=== PATIENT | female | born 1935 | race Caucasian/White ===

== ENCOUNTER → 2016-08-18 | Outpatient (CLI) | payer BC ==
[~2016-08-18] MED LIST: ACET-1311 PO; ASCO500T16 PO; ASPEC81 PO; ASPI81TA28 PO; ATV5 PO; BCTRO EXT; BREWPOW PO; Boost Plus Vanilla PO; CHOL1000 PO; CHOL100027 PO; CHOL400C7 PO; CHOLTAB PO; COEN100C15 PO; DOCU-94 PO; DXM/4 INJ; DXM/4 PO; DXM4 PO; ENOX30IN SQ; GLUC15009 PO; GLYCDRO6 OPB; HMLI7525 SC; KPPSUDL500 PO; LEVE250T PO; LINE1TAB2 PO; LISI-461 PO; LISI-725 PO; LISI-792 PO; LPR25 PO; LPT40 PO; MAGN250T3 PO; MAGNESIUM PO; MCTP EXT; MULT-513 PO; ONDA4TAB65 PO; OXGN; PANT1INJ2 IV; RXC5 PO; SDMC1 PO; SENN-61 PO; ZLF50 PO; ZVRO EXT; [UNRECOGNIZED DRUG - CODE] IV; [UNRECOGNIZED DRUG - CODE] IV; [UNRECOGNIZED DRUG - OTHER]
[2016-08-18 17:00] LABS: MEAN CELL VOLUME 91.1 fL (80-100); MEAN CORPUSCULAR HEMOGLOBIN 29.4 pg (25-34); MEAN CORPUSCULAR HGB CONC 32.2 g/dl (32-36); PLATELET COUNT 193 K/uL (130-400); RED BLOOD COUNT 3.95 M/uL (4.2-5.4); WHITE BLOOD COUNT 6.12 K/uL (4.8-10.8)
[2016-08-18 18:05] LABS: ALT/SGPT 25 U/L (12-78); AST/SGOT 14 U/L (15-37); BLOOD UREA NITROGEN 36 mg/dl (7-18); BUN/CREATININE RATIO 41.1 (10-20); CALCIUM 9.7 mg/dl (8.5-10.1); CARBON DIOXIDE 30 mmol/L (21-32); CHLORIDE 102 mmol/L (98-107); CREATININE 0.87 mg/dl (0.60-1.20); GLUCOSE 89 mg/dl (70-99); POTASSIUM 4.2 mmol/L (3.5-5.1); SODIUM 141 mmol/L (136-145)
[2016-08-18 18:17] LABS: ALB/GLOB RATIO 1.3 (0.9-2); ALKALINE PHOSPHATASE 84 U/L (45-117)
--- NOTE | 2016-08-22 11:11 | CODING QUERY MEDICAL NECESSITY ---
SUPPORTING DIAGNOSIS NEEDED A supporting diagnosis is required for the test/procedure performed on this patient in order for us to be reimbursed by the patient's insurance. Please provide a supporting diagnosis for the following test/procedure listed below next to the test name along with your signature. *If there is no additional diagnosis for this patient that would support the following test/procedure please document that below next to the test/procedure. Test(s)/Procedure(s) that require a supporting diagnosis: DOS 08/18 * Vitamin D DIAGNOSIS: Provider Signature: Date: Thank you Trinh Malloy Health Information Management Once completed, please kindly fax back to [phone] For questions please call [phone]
== END | disposition home or self-care (01) ==
LOC: C.LABBC 14:27
PROVIDERS: ATTEND Internal Medicine Geriatric Medicine
DX: I10 Essential (primary) hypertension (principal); R73.9 Hyperglycemia, unspecified; R53.83 Other fatigue

== ENCOUNTER → 2016-09-02 | Outpatient (CLI) | payer BC ==
[2016-09-02 17:58] LABS: CHOLESTEROL/HDL RATIO 2.2
[2016-09-03 06:19] LABS: ESTIMATED AVERAGE GLUCOSE 117 mg/dl; HA1C FLAG Normal (Normal)
== END | disposition home or self-care (01) ==
LOC: C.LAB1850 16:33
PROVIDERS: ATTEND Internal Medicine Geriatric Medicine
DX: E78.5 Hyperlipidemia, unspecified (principal); R73.9 Hyperglycemia, unspecified

== ENCOUNTER → 2016-09-23 | Outpatient (CLI) | payer BC ==
--- NOTE | 2016-09-28 22:18 | POLYSOMNOGRAPH REPORT ---
CLINICAL DATA: A 80-year-old female with a BMI of 28.6 referred for a history of fatigue and exhaustion. On the evening of 09/24/2016, a home sleep apnea test was performed using a Data[employer]ot type 3 monitor. RECORDING RESULTS: Total recording time was 7.6 hours. The patient's estimated sleep time and patient monitoring time was 5.8 hours. RESPIRATORY DATA: Mild sleep apnea was documented. The MITCHELL was 8.3. There were 15 obstructive apneic episodes and 33 hypopneic episodes recorded. The longest respiratory event was 48 seconds. OXIMETRY DATA: Nocturnal hypoxemia was seen. Oxygen trinidad was 64%. Mean saturation was 89%. HEART RATE DATA: Heart rates ranged from 54-67 beats per minute. Snoring was recorded throughout the night. REVENUE INTEGRITY ANALYST'S COMMENTS: The patient came to the sleep lab at 2:30 AM in the morning for the geospatial technician to hook her up and then drove home after she was hooked up with the equipment running. IMPRESSION: Mild obstructive sleep apnea/hypopnea with an MITCHELL of 8.3 with nocturnal hypoxemia. RECOMMENDATIONS: The patient may benefit from a repeat sleep study with CPAP. MEED
--- NOTE | 2016-09-30 11:52 | CODING QUERY MEDICAL NECESSITY ---
SUPPORTING DIAGNOSIS NEEDED A supporting diagnosis is required for the test/procedure performed on this patient in order for us to be reimbursed by the patient's insurance. Please provide a supporting diagnosis for the following test/procedure listed below next to the test name along with your signature. *If there is no additional diagnosis for this patient that would support the following test/procedure please document that below next to the test/procedure. Test(s)/Procedure(s) that require a supporting diagnosis: * OP SLEEP STUDY DIAGNOSIS: * DOS: 09/23/16 Provider Signature: Date: Thank you Juana De La Vega Health Information Management Once completed, please kindly fax back to [phone] For questions please call [phone]
== END | disposition home or self-care (01) ==
LOC: C.NEUR 14:25
PROVIDERS: ATTEND Internal Medicine Geriatric Medicine
DX: R53.83 Other fatigue (principal); G47.30 Sleep apnea, unspecified

== ENCOUNTER → 2016-10-21 | Outpatient (CLI) | payer BC ==
[2016-10-21 12:47] LABS: BASO % 0.6 %; BASO ABS # 0.04 K/uL (0-0.2); COMPLETE YES; EOS % 2.5 %; HEMATOCRIT 38.7 % (37-47); IG% 0.3 %; LYMPH ABS # 1.04 K/uL (1.2-3.4); MEAN CELL VOLUME 91.5 fL (80-100); MEAN CORPUSCULAR HEMOGLOBIN 29.6 pg (25-34); MEAN CORPUSCULAR HGB CONC 32.3 g/dl (32-36); MEAN PLATELET VOLUME 11.9 fL (7.4-10.4); MONO % 10.5 %; NEUT % 70.1 %; PLATELET COUNT 228 K/uL (130-400); RED BLOOD COUNT 4.23 M/uL (4.2-5.4); WHITE BLOOD COUNT 6.49 K/uL (4.8-10.8)
[2016-10-21 13:24] LABS: ESTIMATED AVERAGE GLUCOSE 117 mg/dl; HA1C FLAG Normal (Normal)
== END | disposition home or self-care (01) ==
LOC: C.LAB1850 11:46
PROVIDERS: ATTEND Internal Medicine Geriatric Medicine
DX: D64.9 Anemia, unspecified (principal); R73.9 Hyperglycemia, unspecified

== ENCOUNTER 2016-12-05 16:42 | Inpatient (IN) | payer BC, OTHER ==
[~2016-12-05] VITALS: Ht 162.6 cm; Wt 54.5 kg
[~2016-12-05 16:42] MED LIST changes: -ACET-1311 PO; -ASCO500T16 PO; -ASPEC81 PO; -ASPI81TA28 PO; -ATV5 PO; -BCTRO EXT; -BREWPOW PO; -Boost Plus Vanilla PO; -CHOL1000 PO; -CHOL100027 PO; -CHOLTAB PO; -COEN100C15 PO; -DOCU-94 PO; -DXM/4 INJ; -DXM/4 PO; -DXM4 PO; -ENOX30IN SQ; -GLUC15009 PO; -HMLI7525 SC; -KPPSUDL500 PO; -LEVE250T PO; -LINE1TAB2 PO; -LISI-461 PO; -LISI-725 PO; -LPR25 PO; -LPT40 PO; -MAGN250T3 PO; -MCTP EXT; -MULT-513 PO; -ONDA4TAB65 PO; -OXGN; -PANT1INJ2 IV; -RXC5 PO; -SDMC1 PO; -SENN-61 PO; -ZLF50 PO; -ZVRO EXT; -[UNRECOGNIZED DRUG - CODE] IV; -[UNRECOGNIZED DRUG - CODE] IV; -[UNRECOGNIZED DRUG - OTHER]
[2016-12-05] MEDS ORDERED: COEN100C15 PO (18:25)
[2016-12-05] MEDS ORDERED: ASCO500T16 PO (18:25)
[2016-12-05 18:32] LABS: BASO % 0.2 %; BASO ABS # 0.02 K/uL (0-0.2); COMPLETE YES; EOS % 0.1 %; IG% 0.4 %; LYMPH % 6.2 %; LYMPH ABS # 0.74 K/uL (1.2-3.4); MEAN CELL VOLUME 92.6 fL (80-100); MEAN CORPUSCULAR HEMOGLOBIN 30.8 pg (25-34); MEAN CORPUSCULAR HGB CONC 33.3 g/dl (32-36); MEAN PLATELET VOLUME 10.8 fL (7.4-10.4); MONO % 11.1 %; PLATELET COUNT 199 K/uL (130-400); RED BLOOD COUNT 4.32 M/uL (4.2-5.4); WHITE BLOOD COUNT 11.89 K/uL (4.8-10.8)
[2016-12-05 18:52] LABS: ALT/SGPT 38 U/L (12-78); BLOOD UREA NITROGEN 28 mg/dl (7-18); BUN/CREATININE RATIO 32.9 (10-20); CARBON DIOXIDE 31 mmol/L (21-32); CHLORIDE 99 mmol/L (98-107); CREATININE 0.86 mg/dl (0.60-1.20); GLUCOSE 109 mg/dl (70-99); MAGNESIUM 2.6 mg/dl (1.8-2.4); POTASSIUM 4.1 mmol/L (3.5-5.1); SODIUM 137 mmol/L (136-145)
[2016-12-05] MEDS ORDERED: CHOL100027 PO (18:58)
[2016-12-05] MEDS ORDERED: LISI-461 PO (18:58)
[2016-12-05] MEDS ORDERED: MAGN250T3 PO (18:58)
[2016-12-05] MEDS ORDERED: GLUC15009 PO (18:58)
[2016-12-05] MEDS ORDERED: MULT-513 PO (18:58)
[2016-12-05] MEDS ORDERED: ASPI81TA28 PO (18:58)
[2016-12-05] MEDS ORDERED: BREWPOW PO (18:58)
[2016-12-05 19:03] LABS: ALKALINE PHOSPHATASE 67 U/L (45-117); AST/SGOT 21 U/L (15-37)
[2016-12-05 19:08] LABS: INR 0.9 (0.9-1.1); PARTIAL THROMBOPLASTIN RATIO 0.8
[2016-12-05 19:17] LABS: URINE APPEARANCE CLEAR (CLEAR); URINE BILIRUBIN NEG (NEG); URINE COLOR YELLOW; URINE NITRITE NEG (NEG); URINE SPECIFIC GRAVITY 1.006 (1.000-1.030); UROBILINOGEN NEG (NEG)
--- NOTE | 2016-12-05 19:31 | DIAGNOSTIC IMAGING REPORT ---
HEAD CT NONCONTRAST CT DOSE: 537.48 mGy.cm HISTORY: confusion TECHNIQUE: Multiaxial CT images of the head were performed without the use of intravenous contrast. Automated exposure control was utilized for this study. Comparison: Head CT 03/11/2016. Findings: The paranasal sinuses and mastoid air cells are clear. Left parietal scalp hematoma. There is an area of hypodensity within the right frontal lobe at the high convexity. This raises the possibility of vasogenic edema in the setting of an underlying mass. There appears to be a subtle heterogeneous mass within the left basal ganglia/external capsule which measures 2.5 x 2.3 cm. There is mild mass effect along the left lateral ventricle. No significant midline shift. No acute hemorrhage. Impression: 1. A 2.5 x 2.3 cm mass within the left basal gang/external capsule. 2. There is also an area of hypodensity within the right frontal lobe at the high convexity. This raises the possibility of vasogenic edema obscuring underlying mass. An area of infarct could also have a similar appearance. Follow-up brain MRI is recommended for further evaluation. 3. Left parietal scalp hematoma. 4. No intracranial hemorrhage identified. Electronically signed by: Omi Rivera M.D. 12/05/2016 7:30 PM Dictated Date/Time: 12/05/2016 7:22 PM
[2016-12-05 19:33] LABS: MANUAL MICROSCOPIC REQUIRED? NO; REVIEW REQ? NO
[2016-12-05 20:44] LABS: CALCIUM 9.8 mg/dl (8.5-10.1)
[2016-12-05] MEDS ORDERED: LORAZEPAM 2 MG/ML 1 ML VIAL IV STA (22:09)
--- NOTE | 2016-12-05 22:12 | EMERGENCY ROOM VISIT NOTE ---
History Report prepared by Ivan: Neelam Carter Under the Supervision of: Dr. Wellington Perry M.D. First contact with patient: 17:37 Chief Complaint: CONFUSION Stated Complaint: DISORIENTED,LOSS OF STRENGTH Nursing Triage Summary: Decreased appetite, general weakness and confusion today. History of Present Illness The patient is a 81 year old female who presents to the Emergency Room with complaints of intermittent generalized weakness that worsened 5 days ago. The patient's son states that when he came home from work today the patient was slumped over in her chair and was unable to lift her head up secondary to weakness. Her son adds that she has lost about 70% of her strength over the last two weeks and the patient adds that she has lost a significant amount of weight. The patient's son states that the patient is also experiencing worsening confusion. He states that she cannot recall who the president is even though they just watched it on the TV yesterday. The patient states that she can 't remember anything anymore. She is also experiencing generalized round ecchymotic spots, but denies any recent falls or trauma. Pt denies LOC, headache , fevers, chills, diaphoresis, visual changes, neck pain, chest pain, breathing difficulties, nausea, vomiting, abdominal pain, back pain, melena, hematochezia , urinary symptoms, numbness, lymphadenopathy, rash, or other complaints. The patient states that she hasn't felt well since she started using her sleep apnea machine about one month ago. The patient has been diagnosed with a leaky heart valve and a stiff heart. The patient's son adds that she is not eating well, which the patient states is because she does not have an appetite. The patient adds that her identical twin at the age of 42 secondary to breast cancer. The patient has a resting tremor. Source of History: patient, family (son) Onset: 5 days ago Position: other (global) Quality: other (generalized weakness) Timing: worsening Note: worsening confusion, generalized round ecchymotic spots, weight loss, loss of appetite Review of Systems See HPI for pertinent positives and negatives. A total of ten systems were reviewed and were otherwise negative. 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 Family History Cancer Heart disease Hypertension Kidney disease Kidney stones Social History Smoking Status: Never Smoker Marital Status: single Occupation Status: retired Current/Historical Medications Scheduled Ascorbic Acid (Ascorbic Acid), 500 MG PO DAILY Aspirin (Aspirin Ec), 81 MG PO DAILY Brewers Yeast (Brewers Yeast), 1 PO DAILY Cholecalciferol (Vitamin D 1000 Unit), 1,000 INTER.UNIT PO DAILY Coenzyme Q10 (Ubidecarenone) (Co Q10), 1 CAP PO DAILY Glucosamine Hydrochloride (Glucosamine), 1 TAB PO DAILY Lisinopril (Zestril), 10 MG PO DAILY Magnesium (Magnesium 250 mg), 1 TAB PO DAILY Multivitamins/Minerals (Mvi With Minerals), 1 TAB PO DAILY Allergies Coded Allergies: Penicillins (Unverified Allergy, Mild, 08/24/09) Physical Exam Vital Signs Date Time Temp Pulse Resp B/P Pulse Ox O2 Delivery O2 Flow Rate FiO2 12/05/16 21:51 78 127/66 95 Room Air 12/05/16 18:40 100 Room Air 12/05/16 18:40 75 21 150/72 100 Room Air 12/05/16 16:50 36.7 77 16 151/74 92 Room Air Physical Exam GENERAL: Awake, alert, well-appearing, in no distress HENT: Normocephalic, atraumatic. Oropharynx unremarkable. EYES: Normal conjunctiva. Sclera non-icteric. NECK: Supple. No nuchal rigidity. FROM. No JVD. RESPIRATORY: Clear to auscultation. CARDIAC: Regular rate, normal rhythm. Extremities warm and well perfused. Pulses equal. ABDOMEN: Soft, non-distended. No tenderness to palpation. No rebound or guarding. No masses. RECTAL: Deferred. MUSCULOSKELETAL: Chest examination reveals no tenderness. The back is symmetrical on inspection without obvious abnormality. There is no CVA tenderness to palpation. No joint edema. LOWER EXTREMITIES: Calves are equal size bilaterally and non-tender. No edema. No discoloration. NEURO: Normal sensorium. No sensory or motor deficits noted. Resting tremor present. SKIN: Scattered ecchymosis on upper and lower extremities. No rash or jaundice noted. Medical Decision & Procedures ER Provider Diagnostic Interpretation: Radiology results as stated below per my review and radiologist interpretation: HEAD CT NONCONTRAST Findings: The paranasal sinuses and mastoid air cells are clear. Left parietal scalp hematoma. There is an area of hypodensity within the right frontal lobe at the high convexity. This raises the possibility of vasogenic edema in the setting of an underlying mass. There appears to be a subtle heterogeneous mass within the left basal ganglia/external capsule which measures 2.5 x 2.3 cm. There is mild mass effect along the left lateral ventricle. No significant midline shift. No acute hemorrhage. Impression: 1. A 2.5 x 2.3 cm mass within the left basal gang/external capsule. 2. There is also an area of hypodensity within the right frontal lobe at the high convexity. This raises the possibility of vasogenic edema obscuring underlying mass. An area of infarct could also have a similar appearance. Follow-up brain MRI is recommended for further evaluation. 3. Left parietal scalp hematoma. 4. No intracranial hemorrhage identified. Electronically signed by: Omi iRvera M.D. 12/05/2016 7:30 PM Dictated Date/Time: 12/05/2016 7:22 PM Laboratory Results 12/05/16 18:20 Red Blood Count 4.32, Mean Corpuscular Volume 92.6, Mean Corpuscular Hemoglobin 30.8, Mean Corpuscular Hemoglobin Concent 33.3, Mean Platelet Volume 10.8, Neutrophils (%) (Auto) 82.0, Lymphocytes (%) (Auto) 6.2, Monocytes (%) (Auto) 11.1, Eosinophils (%) (Auto) 0.1, Basophils (%) (Auto) 0.2, Neutrophils # (Auto ) 9.75, Lymphocytes # (Auto) 0.74, Monocytes # (Auto) 1.32, Eosinophils # (Auto ) 0.01, Basophils # (Auto) 0.02 12/05/16 18:20 Test 12/05/16 18:00 12/05/16 18:20 Urine Color YELLOW Urine Appearance CLEAR (CLEAR) Urine pH 7.0 (4.5-7.5) Urine Specific [place] 1.006 (1.000-1.030) Urine Protein NEG (NEG) Urine Glucose (UA) NEG (NEG) Urine Ketones NEG (NEG) Urine Occult Blood NEG (NEG) Urine Nitrite NEG (NEG) Urine Bilirubin NEG (NEG) Urine Urobilinogen NEG (NEG) Urine Leukocyte Esterase NEG (NEG) White Blood Count 11.89 K/uL (4.8-10.8) Red Blood Count 4.32 M/uL (4.2-5.4) Hemoglobin 13.3 g/dL (12.0-16.0) Hematocrit 40.0 % (37-47) Mean Corpuscular Volume 92.6 fL (80-100) Mean Corpuscular Hemoglobin 30.8 pg (25-34) Mean Corpuscular Hemoglobin Concent 33.3 g/dl (32-36) Platelet Count 199 K/uL (130-400) Mean Platelet Volume 10.8 fL (7.4-10.4) Neutrophils (%) (Auto) 82.0 % Lymphocytes (%) (Auto) 6.2 % Monocytes (%) (Auto) 11.1 % Eosinophils (%) (Auto) 0.1 % Basophils (%) (Auto) 0.2 % Neutrophils # (Auto) 9.75 K/uL (1.4-6.5) Lymphocytes # (Auto) 0.74 K/uL (1.2-3.4) Monocytes # (Auto) 1.32 K/uL (0.11-0.59) Eosinophils # (Auto) 0.01 K/uL (0-0.5) Basophils # (Auto) 0.02 K/uL (0-0.2) RDW Standard Deviation 52.5 fL (36.4-46.3) RDW Coefficient of Variation 15.4 % (11.5-14.5) Immature Granulocyte % (Auto) 0.4 % Immature Granulocyte # (Auto) 0.05 K/uL (0.00-0.02) Prothrombin Time 10.0 SECONDS (9.0-12.0) Prothromb Time International Ratio 0.9 (0.9-1.1) Activated Partial Thromboplast Time 21.7 SECONDS (21.0-31.0) Partial Thromboplastin Ratio 0.8 Anion Gap 7.0 mmol/L (3-11) Est Creatinine Clear Calc Drug Dose 45.1 ml/min Estimated GFR () 73.9 Estimated GFR (Non- 63.8 BUN/Creatinine Ratio 32.9 (10-20) Calcium Level 9.8 mg/dl (8.5-10.1) Magnesium Level 2.6 mg/dl (1.8-2.4) Total Bilirubin 0.2 mg/dl (0.2-1) Direct Bilirubin < 0.1 mg/dl (0-0.2) Aspartate Amino Transf (AST/SGOT) 21 U/L (15-37) Alanine Aminotransferase (ALT/SGPT) 38 U/L (12-78) Alkaline Phosphatase 67 U/L (45-117) Troponin I 0.020 ng/ml (0-0.045) Total Protein 7.1 gm/dl (6.4-8.2) Albumin 3.8 gm/dl (3.4-5.0) Lipase 393 U/L (73-393) Thyroid Stimulating Hormone (TSH) 1.470 uIu/ml (0.300-4.500) Laboratory results reviewed by me ECG Indication: weakness Rate (beats per minute): 67 Rhythm: normal sinus Findings: no acute ischemic change, no ectopy ED Course 1744: The patient was evaluated in room B12. A complete history and physical exam was performed. 1927: Dr. Rivera - Radiology called to inform me about the patient's CT scan results. 2011: Upon reexamination, the patient was resting comfortably. I discussed the test results and treatment plan with the patient and her son. The patient will be evaluated for further management. Medical Decision Prior records/ancillary studies reviewed and summarized above. Nursing notes reviewed and agree them. Additional history obtained from family. The patient's history was concerning for intermittent altered mental status and weakness. Differential diagnosis: Etiologies such as infection, hypoglycemia, electrolyte abnormalities, cardiac sources, intracerebral event, toxicologic, neurologic, as well as others were entertained. Physical examination: As above. ER treatment provided: IV Lock Monitoring On reassessment the patient felt better. Diagnostics interpretation by me: ECG: Normal The labs revealed an unremarkable CBC and chemistry panel except for a subtle leukocytosis. Urinalysis was unremarkable. Imaging studies: CT scan as above. MRI pending. The patient has an abnormal head CT. I discussed the case with Dr. Omi Rivera of radiology. MRI imaging was recommended. Given the findings and change noted by patient and family further evaluation and management in the hospital will be necessary. Consultation: A consultation was placed with the hospitalist,Dr. Lincoln Herbert. The case was discussed and diagnostics were reviewed. The patient was evaluated in the ER for further treatment. The chart was completed utilizing [employer] Speech voice recognition software. Grammatical errors, random word insertions, pronoun errors, and incomplete sentences are an occasional consequence of this system due to software limitations, ambient noise, and hardware issues. Any formal questions or concerns about the content, text, or information contained within the body of this dictation should be directly addressed to the physician for clarification. Consults Time Called: 2021 Consulting Physician: Dr. Lemus - [facility] [place] Returned Call: [phone] Discussed the patient's history and physical as well as radiologic findings. He will evaluate the patient for further management. Impression Primary Impression: Altered mental status Additional Impression: Brain mass Scribe Attestation The scribe's documentation has been prepared under my direction and personally reviewed by me in its entirety. I confirm that the note above accurately reflects all work, treatment, procedures, and medical decision making performed by me. Departure Information Dispostion Being Evaluated By Hospitalist Referrals Issac Meza M.D. (PCP) Patient Instructions My [facility] Problem Qualifiers
[2016-12-05] MEDS ORDERED: DEXAMETHASONE INJ 10 MG in SYRINGE 0 ML IV SCH (22:15)
[2016-12-05] MEDS ORDERED: ACETAMINOPHEN 325 MG TAB PO PRN (22:15)
[2016-12-05] MEDS ORDERED: DEXAMETHASONE SOD INJ 4 MG/ML VIAL IV STA (22:20)
--- NOTE | 2016-12-05 23:25 | History and Physical ---
History & Physical Date & Time of Service: December 05, 2016 at 23:25 Chief Complaint: Disoriented,Loss Of Strength Primary Care Physician: Issac Meza M.D. History of Present Illness Source: patient, family The patient is an 81-year-old female who presents emergency department with complaint of intermittent generalized weakness and significant weight loss over the past 2 weeks. Her son also notes that she's had worsening confusion and memory loss. The patient reports that she hasn't been feeling well since she started her sleep apnea machine 1 month ago. The patient reports that she did not have much of an appetite, and her son confirms that she is not eating well. She has an identical twin who at age 42 with breast cancer. The patient has not had any recent travels or sick exposures. 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 Family History Cancer Heart disease Hypertension Kidney disease Kidney stones Social History Smoking Status: Never Smoker Smokeless Tobacco Use: No Alcohol Use: none Drug Use: none Marital Status: single Occupational Status: retired Multi-Drug Resistant Organisms History of MDRO: No Allergies Coded Allergies: Penicillins (Unverified Allergy, Mild, 08/24/09) Home Medications Scheduled Ascorbic Acid (Ascorbic Acid), 500 MG PO DAILY Aspirin (Aspirin Ec), 81 MG PO DAILY Brewers Yeast (Brewers Yeast), 1 PO DAILY Cholecalciferol (Vitamin D 1000 Unit), 1,000 INTER.UNIT PO DAILY Coenzyme Q10 (Ubidecarenone) (Co Q10), 1 CAP PO DAILY Glucosamine Hydrochloride (Glucosamine), 1 TAB PO DAILY Lisinopril (Zestril), 10 MG PO DAILY Magnesium (Magnesium 250 mg), 1 TAB PO DAILY Multivitamins/Minerals (Mvi With Minerals), 1 TAB PO DAILY Review of Systems The patient, along with her sons help, denies chest pain, palpitations, shortness of breath, cough, lower extremity swelling, vision change, hearing change, sore throat, fevers, chills, sweats, nausea, vomiting, abdominal pain, pelvic pain, blood in urine or stool, dysuria, urinary frequency or urgency, focal weakness, numbness or tingling in arms or legs, arthralgias or myalgias, back or neck pain, night sweats, or allergy symptoms. The review of systems is otherwise negative other than for that already noted above, and at least 10 systems have been reviewed. Physical Exam Vital Signs Date Time Temp Pulse Resp B/P Pulse Ox O2 Delivery O2 Flow Rate FiO2 12/05/16 21:51 78 127/66 95 Room Air 12/05/16 18:40 100 Room Air 12/05/16 18:40 75 21 150/72 100 Room Air 12/05/16 16:50 36.7 77 16 151/74 92 Room Air The patient is awake, alert and oriented 2, normocephalic and atraumatic, lying in bed and in no acute distress. HEENT--PERRL, EOMI, mucous membranes and oropharynx dry. Neck--supple, no JVD or bruits, thyroid normal, trachea midline, no adenopathy. Heart--normal S1 and S2, no extra beats, no murmurs, rubs or gallops. Lungs--clear bilaterally, no respiratory distress, no accessory muscle use. Abdomen--normal bowel sounds and soft, nontender and nondistended, no hernias or masses, no organomegaly. Extremities--no cyanosis, clubbing or edema. There are good distal pulses b/l. Dermatologic--normal skin turgor, normal color, warm and dry, no abnormal lymph nodes, no rash. Neurologic--cranial nerves II through XII grossly intact, tremor upper greater than lower extremities noted. Rheumatologic--normal range of motion, nontender, muscles and joints. Psychiatric--appears mildly anxious. Diagnostics Laboratory Results Results Past 24 Hours Test 12/05/16 18:00 12/05/16 18:20 Range/Units Urine Color YELLOW Urine Appearance CLEAR CLEAR Urine pH 7.0 4.5-7.5 Urine Specific [place] 1.006 1.000-1.030 Urine Protein NEG NEG Urine Glucose (UA) NEG NEG Urine Ketones NEG NEG Urine Occult Blood NEG NEG Urine Nitrite NEG NEG Urine Bilirubin NEG NEG Urine Urobilinogen NEG NEG Urine Leukocyte Esterase NEG NEG White Blood Count 11.89 4.8-10.8 K/uL Red Blood Count 4.32 4.2-5.4 M/uL Hemoglobin 13.3 12.0-16.0 g/dL Hematocrit 40.0 37-47 % Mean Corpuscular Volume 92.6 80-100 fL Mean Corpuscular Hemoglobin 30.8 25-34 pg Mean Corpuscular Hemoglobin Concent 33.3 32-36 g/dl Platelet Count 199 130-400 K/uL Mean Platelet Volume 10.8 7.4-10.4 fL Neutrophils (%) (Auto) 82.0 % Lymphocytes (%) (Auto) 6.2 % Monocytes (%) (Auto) 11.1 % Eosinophils (%) (Auto) 0.1 % Basophils (%) (Auto) 0.2 % Neutrophils # (Auto) 9.75 1.4-6.5 K/uL Lymphocytes # (Auto) 0.74 1.2-3.4 K/uL Monocytes # (Auto) 1.32 0.11-0.59 K/uL Eosinophils # (Auto) 0.01 0-0.5 K/uL Basophils # (Auto) 0.02 0-0.2 K/uL RDW Standard Deviation 52.5 36.4-46.3 fL RDW Coefficient of Variation 15.4 11.5-14.5 % Immature Granulocyte % (Auto) 0.4 % Immature Granulocyte # (Auto) 0.05 0.00-0.02 K/uL Prothrombin Time 10.0 9.0-12.0 SECONDS Prothromb Time International Ratio 0.9 0.9-1.1 Activated Partial Thromboplast Time 21.7 21.0-31.0 SECONDS Partial Thromboplastin Ratio 0.8 Sodium Level 137 136-145 mmol/L Potassium Level 4.1 3.5-5.1 mmol/L Chloride Level 99 98-107 mmol/L Carbon Dioxide Level 31 21-32 mmol/L Anion Gap 7.0 3-11 mmol/L Blood Urea Nitrogen 28 7-18 mg/dl Creatinine 0.86 0.60-1.20 mg/dl Est Creatinine Clear Calc Drug Dose 45.1 ml/min Estimated GFR () 73.9 Estimated GFR (Non- 63.8 BUN/Creatinine Ratio 32.9 10-20 Random Glucose 109 70-99 mg/dl Calcium Level 9.8 8.5-10.1 mg/dl Magnesium Level 2.6 1.8-2.4 mg/dl Total Bilirubin 0.2 0.2-1 mg/dl Direct Bilirubin < 0.1 0-0.2 mg/dl Aspartate Amino Transf (AST/SGOT) 21 15-37 U/L Alanine Aminotransferase (ALT/SGPT) 38 12-78 U/L Alkaline Phosphatase 67 45-117 U/L Troponin I 0.020 0-0.045 ng/ml Total Protein 7.1 6.4-8.2 gm/dl Albumin 3.8 3.4-5.0 gm/dl Lipase 393 73-393 U/L Thyroid Stimulating Hormone (TSH) 1.470 0.300-4.500 uIu/ml Microbiology Results 12/05/16 Urine Culture, Received Pending Diagnostic Radiology Patient Name: BRYAN JACOBO Unit Number: [id number] Dictated: 12/05/161921 Transcribed: 12/05/161921 [employer] Date/Time: [~ rep prt dt]/[~ rep prt tm] [~ rep ct labl] - [~ rep ct ivnm] [facility] [place] [address] Dictated: 12/05/161921 Transcribed: 12/05/161921 [employer] Date/Time: [~ rep prt dt]/[~ rep prt tm] [~ rep ct labl] - [~ rep ct ivnm] [~ rep ct add3]] HEAD CT NONCONTRAST CT DOSE: 537.48 mGy.cm HISTORY: confusion TECHNIQUE: Multiaxial CT images of the head were performed without the use of intravenous contrast. Automated exposure control was utilized for this study. Comparison: Head CT 03/11/2016. Findings: The paranasal sinuses and mastoid air cells are clear. Left parietal scalp hematoma. There is an area of hypodensity within the right frontal lobe at the high convexity. This raises the possibility of vasogenic edema in the setting of an underlying mass. There appears to be a subtle heterogeneous mass within the left basal ganglia/external capsule which measures 2.5 x 2.3 cm. There is mild mass effect along the left lateral ventricle. No significant midline shift. No acute hemorrhage. Impression: 1. A 2.5 x 2.3 cm mass within the left basal gang/external capsule. 2. There is also an area of hypodensity within the right frontal lobe at the high convexity. This raises the possibility of vasogenic edema obscuring underlying mass. An area of infarct could also have a similar appearance. Follow-up brain MRI is recommended for further evaluation. 3. Left parietal scalp hematoma. 4. No intracranial hemorrhage identified. Electronically signed by: Omi Rivera M.D. 12/05/2016 7:30 PM Dictated Date/Time: 12/05/2016 7:22 PM The status of this report is Signed. Draft = Not yet reviewed or approved by Radiologist. Signed = Reviewed and approved by Radiologist. <AttendingPhy></AttendingPhy> <FamilyPhy>Issac Meza M.D.</FamilyPhy> < PrimaryPhy>Issac Meza M.D.</PrimaryPhy> <UnitNumber>[id number]</UnitNumber > <VisitNumber>[id number]</VisitNumber> <PatientName>JACELalithaBRYAN</ PatientName> <DateOfBirth>1935</DateOfBirth> <Location>[facility]</Location> < ServiceDate>12/05/16</ServiceDate> <MNE>ESINDI</MNE> <OrderingPhy>Wellington Perry MD</OrderingPhy> <OrderingPhyMNE>f rep ord dr ramirez</OrderingPhyMNE> < DictatingPhyMNE>f rep dict dr ramirez</DictatingPhyMNE> <CCListMNE>f rep ct ashley</ CCListMNE> <AdmittingPhyMNE>f pt admit dr ramirez</AdmittingPhyMNE> <AttendingPhyMNE >f pt attend dr ramirez</AttendingPhyMNE> <ConsultingPhyMNE>f pt consult dr ramirez</ConsultingPhyMNE> <FamilyPhyMNE>f pt fam dr ramirez</FamilyPhyMNE> <OtherPhyMNE>f pt other dr ramirez</OtherPhyMNE> < PrimaryPhyMNE>f pt prim care dr ramirez</PrimaryPhyMNE> <ReferringPhyMNE>f pt referring dr ramirez</ReferringPhyMNE> EKG EKG shows normal sinus rhythm at 67 bpm, right bundle branch block, no acute ST- T changes. Impression Assessment and Plan 2.5 x 2.3 cm mass in the left basal ganglia,external capsule/right frontal lobe abnormality with possible vasogenic edema and underlying mass--the patient will be admitted to the telemetry unit for neurologic checks, and cardiac rhythm monitoring. We'll order an MRI the brain. We'll start Decadron 10 mg IV in the emergency department, and then continue at 4 mg IV every 6 hours. We'll consult oncology and neurology to see patient in the a.m. Continue aspirin 81 mg by mouth daily. Hypertension--continue lisinopril 10 mg by mouth daily. Nutraceuticals--continue ascorbic acid ,vitamin D, CoQ10, glucosamine, magnesium and multivitamin with minerals. Level of Care Telemetry Advanced Directives Existing Advance Directive: No Existing Living Will: No Existing Power of Brake Press Operator: No Resuscitation Status FULL RESUSCITATION VTE Prophylaxis VTE Risk Assessment Done? Y/N: Yes Risk Level: Moderate Given or contraindicated: T.EPavan Stockings, SCD's Social Service Consult >80 yr.& Lives Alone
[2016-12-05] MEDS ORDERED: DEXAMETHASONE INJ 10 MG in SYRINGE 0 ML IV STA (23:48)
[2016-12-06] VITALS (9 sets, daily range): BP systolic 111–136; BP diastolic 57–73; PULSE 64–81; TEMP 36.3–37; O2SAT 91–95; Ht 162.6 cm; Wt 54.5 kg
[2016-12-06] MEDS: DEXAMETHASONE INJ 4 MG in SYRINGE 0 ML IV SCH ×4 (05:55→23:27)
--- NOTE | 2016-12-06 06:29 | DIAGNOSTIC IMAGING REPORT ---
MRI OF THE BRAIN WITHOUT AND WITH IV CONTRAST CLINICAL HISTORY: abnormal head CT, confusion, ?mass vs infarct COMPARISON STUDY: CT study same date TECHNIQUE: Utilizing a 1.5 Skyla magnet and dedicated coil, multiplanar, multiecho imaging of the brain was performed pre and postcontrast administration. IV administration of 8.5 mL of Gadavist contrast was uneventful. FINDINGS: Enhancing lesion left external capsule measuring 2.5 x 2.0 cm. Surrounding vasogenic edema area tiny focus of enhancement right frontoparietal convexity with moderate surrounding vasogenic edema. No significant midline shift. Considerable chronic small vessel change throughout both cerebral hemispheres. Given the multiplicity of findings and metastatic process must be considered. Ventricular system is midline. No additional foci of enhancement are appreciated. IMPRESSION: 2 foci of vasogenic edema and postcontrast enhancement. No significant midline shift at the current time. A metastatic and a neoplastic process must be considered. Electronically signed by: Mt Hines M.D. 12/06/2016 6:27 AM Dictated Date/Time: 12/06/2016 6:19 AM
[2016-12-06] MEDS: CEROVITE ADV FORMULA TAB PO SCH (07:27)
[2016-12-06] MEDS: CHOLECALCIFEROL 1000 INTER.UNIT TAB PO SCH (07:27)
[2016-12-06] MEDS: ASPIRIN 81 MG ECTAB PO SCH (07:27)
[2016-12-06] MEDS: ASCORBIC ACID 500 MG TAB PO SCH (07:28)
[2016-12-06] MEDS: LISINOPRIL 10 MG TAB PO SCH (07:28)
[2016-12-06] MEDS ORDERED: NON-FORMULARY MEDICATION (Coenzyme Q10 (Ubidecarenone) (Co Q10) 1 CAP) PO SCH (09:00)
[2016-12-06] MEDS ORDERED: OPTIRAY 320 IV PRN (10:45)
--- NOTE | 2016-12-06 11:12 | Oncology Consultation ---
Oncology/Heme Consultation Date of Consultation: December 06, 2016. Attending Physician: Handy Vazquez D.O. Reason for Consultation: Brain mass History of Present Illness Ms. Mcgregor is an 81 year old woman with a history of HTN and HL. She was in generally good health until around September, when she began to notice increasing fatigue. Her appetite has been poor over that time and she has lost around 30 lb. She denies any cough, hemoptysis, fevers, night sweats, pain anywhere, vaginal bleeding, or urinary changes. She has been constipated and noticed some blood in her stool one time, though she thought it was because of straining. She also is chronically short of breath, though not more so now than usual. She is about a year overdue for screening mammography and has never had a colonoscopy. She had some right lung nodules noted on a CT in 2003 that were small and stable on follow up scans in 2004. She has a history of smoking for about 10 years in her 20s. She presents with fatigue, dizziness, and gait disturbance. A CT head and subsequent MRI reveal an enhancing lesion in the left external capsule measuring 2.5 x 2 cm with surrounding vasogenic edema. A second, tiny area of enhancement is seen in the right frontoparietal convexity with surrounding vasogenic edema. No mass effect or midline shift were noted. Past Medical/Surgical History Medical Problems: (1) Altered mental status Status: Acute (2) Brain mass Status: Acute (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 Family History Cancer Heart disease Hypertension Kidney disease Kidney stones Social History Smoking Status: Never Smoker Smokeless Tobacco Use: No Alcohol Use: none Drug Use: none Marital Status: single Occupation Status: retired Allergies Coded Allergies: Penicillins (Unverified Allergy, Mild, 08/24/09) Home Medications Scheduled Ascorbic Acid (Ascorbic Acid), 500 MG PO DAILY Aspirin (Aspirin Ec), 81 MG PO DAILY Brewers Yeast (Brewers Yeast), 1 PO DAILY Cholecalciferol (Vitamin D 1000 Unit), 1,000 INTER.UNIT PO DAILY Coenzyme Q10 (Ubidecarenone) (Co Q10), 1 CAP PO DAILY Glucosamine Hydrochloride (Glucosamine), 1 TAB PO DAILY Lisinopril (Zestril), 10 MG PO DAILY Magnesium (Magnesium 250 mg), 1 TAB PO DAILY Multivitamins/Minerals (Mvi With Minerals), 1 TAB PO DAILY Current Inpatient Medications Current Inpatient Medications Medications (Trade) Dose Ordered Sig/Cuco Route Start Time Stop Time Status Last Admin Dose Admin Acetaminophen (Tylenol Tab) 650 mg Q4H PRN PO 12/05/16 22:15 01/04/17 22:14 Ascorbic Acid (Vitamin C Tab) 500 mg DAILY PO 12/06/16 09:00 01/05/17 08:59 12/06/16 07:28 500 MG Aspirin (Ecotrin Tab) 81 mg DAILY PO 12/06/16 09:00 01/05/17 08:59 12/06/16 07:27 81 MG Cholecalciferol (Vitamin D Tab) 1,000 inter.unit DAILY PO 12/06/16 09:00 01/05/17 08:59 12/06/16 07:27 1,000 INTER.UNIT Lisinopril (Zestril Tab) 10 mg DAILY PO 12/06/16 09:00 01/05/17 08:59 12/06/16 07:28 10 MG Multivitamins/ Minerals 1 tab 1 tab DAILY PO 12/06/16 09:00 01/05/17 08:59 12/06/16 07:27 1 TAB Dexamethasone Sodium Phosphate/ Syringe (Decadron Inj/ Syringe) 1 ml @ 1 mls/min Q6H IV 12/06/16 06:00 01/05/17 05:59 12/06/16 05:55 1 MLS/MIN Ioversol (Optiray 320) 111 ml UD PRN IV 12/06/16 10:45 12/10/16 10:44 UNV Review of Systems Constitutional: + fatigue, + weakness, + weight loss, No chills, No fever Eyes: No worsening of vision ENT: No trouble swallowing Respiratory: + shortness of breath (chronic, stable), No cough, No hemoptysis Cardiovascular: No chest pain Abdomen: + GI bleeding (isolated episode, associated with straining bowel movement), No nausea, No pain, No vomiting Musculoskeletal: No joint pain, No muscle pain Genitourinary - Female: No dysuria, No hematuria, No vaginal bleeding Neurologic: + balance problems, No numbness/tingling, No weakness Hematologic / Lymphatic: No abnormal bleeding/bruising Integumentary: No new/changing skin lesions, No rash Physical Exam Date Time Temp Pulse Resp B/P Pulse Ox O2 Delivery O2 Flow Rate FiO2 12/06/16 08:00 93 Room Air 12/06/16 07:23 36.7 64 16 119/70 93 Room Air 12/06/16 04:13 Room Air 12/06/16 04:01 36.6 67 18 116/58 91 Room Air 12/06/16 00:01 37.0 70 16 118/57 91 Room Air 12/05/16 23:32 78 127/60 95 12/05/16 21:51 78 127/66 95 Room Air 12/05/16 18:40 100 Room Air 12/05/16 18:40 75 21 150/72 100 Room Air 12/05/16 16:50 36.7 77 16 151/74 92 Room Air General Appearance: no apparent distress, + thin ENT: pharynx normal Neck: supple, no adenopathy Respiratory/Chest: lungs clear, no accessory muscle use Cardiovascular: regular rate, rhythm, no murmur Abdomen/GI: non tender, soft, no organomegaly Extremities/Musculoskelatal: no pedal edema, non-tender Neurologic/Psych: custodian 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-XII nml as tested, alert, oriented x 3 Skin: no rash Lymphatic: no adenopathy Laboratory Results Last 24 Hours Test 12/05/16 18:00 12/05/16 18:20 Urine Color YELLOW Urine Appearance CLEAR Urine pH 7.0 Urine Specific [place] 1.006 Urine Protein NEG Urine Glucose (UA) NEG Urine Ketones NEG Urine Occult Blood NEG Urine Nitrite NEG Urine Bilirubin NEG Urine Urobilinogen NEG Urine Leukocyte Esterase NEG White Blood Count 11.89 K/uL Red Blood Count 4.32 M/uL Hemoglobin 13.3 g/dL Hematocrit 40.0 % Mean Corpuscular Volume 92.6 fL Mean Corpuscular Hemoglobin 30.8 pg Mean Corpuscular Hemoglobin Concent 33.3 g/dl Platelet Count 199 K/uL Mean Platelet Volume 10.8 fL Neutrophils (%) (Auto) 82.0 % Lymphocytes (%) (Auto) 6.2 % Monocytes (%) (Auto) 11.1 % Eosinophils (%) (Auto) 0.1 % Basophils (%) (Auto) 0.2 % Neutrophils # (Auto) 9.75 K/uL Lymphocytes # (Auto) 0.74 K/uL Monocytes # (Auto) 1.32 K/uL Eosinophils # (Auto) 0.01 K/uL Basophils # (Auto) 0.02 K/uL RDW Standard Deviation 52.5 fL RDW Coefficient of Variation 15.4 % Immature Granulocyte % (Auto) 0.4 % Immature Granulocyte # (Auto) 0.05 K/uL Prothrombin Time 10.0 SECONDS Prothromb Time International Ratio 0.9 Activated Partial Thromboplast Time 21.7 SECONDS Partial Thromboplastin Ratio 0.8 Sodium Level 137 mmol/L Potassium Level 4.1 mmol/L Chloride Level 99 mmol/L Carbon Dioxide Level 31 mmol/L Anion Gap 7.0 mmol/L Blood Urea Nitrogen 28 mg/dl Creatinine 0.86 mg/dl Est Creatinine Clear Calc Drug Dose 45.1 ml/min Estimated GFR () 73.9 Estimated GFR (Non- 63.8 BUN/Creatinine Ratio 32.9 Random Glucose 109 mg/dl Calcium Level 9.8 mg/dl Magnesium Level 2.6 mg/dl Total Bilirubin 0.2 mg/dl Direct Bilirubin < 0.1 mg/dl Aspartate Amino Transf (AST/SGOT) 21 U/L Alanine Aminotransferase (ALT/SGPT) 38 U/L Alkaline Phosphatase 67 U/L Troponin I 0.020 ng/ml Total Protein 7.1 gm/dl Albumin 3.8 gm/dl Lipase 393 U/L Thyroid Stimulating Hormone (TSH) 1.470 uIu/ml Assessment & Plan Ms. Mcgregor's MRI is certainly worrisome for a brain tumor. Possible etiologies include a primary CERTIFIED FORKLIFT OPERATOR malignancy, a CERTIFIED FORKLIFT OPERATOR lymphoma, or metastasis from another site. Multifocal lesions are more commonly metastases rather than primary CERTIFIED FORKLIFT OPERATOR cancers. She does not have any other localizing symptoms, aside from some constipation and an episode of rectal bleeding. The next step should be CTs of her chest, abdomen, and pelvis to evaluate for an occult primary. Given her stool symptoms, I would also consider checking an FOBT and, if the scans are not revealing, consideration for upper and lower endoscopy.
--- NOTE | 2016-12-06 11:29 | DIAGNOSTIC IMAGING REPORT ---
CHEST CT WITH CONTRAST CT DOSE: 430.62 mGy.cm HISTORY: Carcinoma Brain lesions on MRI, looking for lung primary TECHNIQUE: Multiaxial CT images of the chest were performed following the intravenous administration of contrast. COMPARISON: None. FINDINGS: The lungs are clear. The mediastinal vascular structures are within normal limits. No mediastinal or hilar lymphadenopathy. No pleural effusion or pneumothorax. Limited views of the upper abdomen demonstrate a normal liver and spleen. IMPRESSION: No significant abnormality identified within the chest. Electronically signed by: Mt Hines M.D. 12/06/2016 11:27 AM Dictated Date/Time: 12/06/2016 11:24 AM
--- NOTE | 2016-12-06 11:31 | DIAGNOSTIC IMAGING REPORT ---
ABDOMEN AND PELVIS CT WITH IV CONTRAST CT DOSE: HISTORY: Brain lesions on MRI, looking for primary cancer TECHNIQUE: Multiaxial CT images of the abdomen and pelvis were performed following the use of intravenous contrast. COMPARISON STUDY: None. FINDINGS: The lung bases are clear. The liver, spleen, gallbladder, pancreas, kidneys, and adrenal glands are within normal limits. No bowel wall thickening or obstruction. The pelvic organs are unremarkable. No suspicious lytic or blastic osseous lesions. IMPRESSION: No significant abnormality identified within the abdomen or pelvis. Electronically signed by: Mt Hines M.D. 12/06/2016 11:30 AM Dictated Date/Time: 12/06/2016 11:28 AM
--- NOTE | 2016-12-06 13:18 | Neurology Consultation ---
Neurology Consultation Date of Consultation: December 06, 2016. Attending Physician: Handy Vazquez D.O. Primary Care Physician: Issac Meza M.D. Reason for Consultation: Consultation for brain mass History of Present Illness Source: patient, hospital records This is a 81-year-old right-handed female who presents with a chief complaint of generalized weakness and mild altered mental status. Son reports that her thinking and mentation have been a little bit off for the last week but has been worse the last couple days. She is also been complaining about generalized weakness for the last month. She reports good appetite. She denies any abdominal pain. No chest pain or shortness of breath. Denies any focal weakness. She reports some long-standing numbness in neuropathy symptoms in her feet. Reports prediabetes. Denies any changes with her vision. Denies any headaches. Denies any changes with her speech. Denies any passing out or episodes concerning for seizures. That being said, son reports that there is a lot of unexplained bruises especially with 1 on the back of her head. No tongue biting or urinary incontinence. MRI of the brain reported images were reviewed by myself. Patient does have left external capsule 2 cm mass with edema and a tiny focus of enhancement in the right frontal parietal area with vasogenic edema. 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 Family History Family history significant for a sister and maternal grandmother with breast cancer. Cd and hypertension within the family. Patient also reports that her sister had childhood epilepsy that resolved as an adult. Social History Patient is normally independent in her activities of daily living. She lives alone but family is close by. Typically walks unassisted. Remote tobacco use. Smoking Status: Never smoker Smokeless Tobacco Use: No Alcohol Use: none Drug Use: none Marital Status: single Occupation Status: retired Allergies Coded Allergies: Penicillins (Unverified Allergy, Mild, 08/24/09) Current Inpatient Medications Current Inpatient Medications Medications (Trade) Dose Ordered Sig/Cuco Route Start Time Stop Time Status Last Admin Dose Admin Acetaminophen (Tylenol Tab) 650 mg Q4H PRN PO 12/05/16 22:15 01/04/17 22:14 Ascorbic Acid (Vitamin C Tab) 500 mg DAILY PO 12/06/16 09:00 01/05/17 08:59 12/06/16 07:28 500 MG Aspirin (Ecotrin Tab) 81 mg DAILY PO 12/06/16 09:00 01/05/17 08:59 12/06/16 07:27 81 MG Cholecalciferol (Vitamin D Tab) 1,000 inter.unit DAILY PO 12/06/16 09:00 01/05/17 08:59 12/06/16 07:27 1,000 INTER.UNIT Lisinopril (Zestril Tab) 10 mg DAILY PO 12/06/16 09:00 01/05/17 08:59 12/06/16 07:28 10 MG Multivitamins/ Minerals 1 tab 1 tab DAILY PO 12/06/16 09:00 01/05/17 08:59 12/06/16 07:27 1 TAB Dexamethasone Sodium Phosphate/ Syringe (Decadron Inj/ Syringe) 1 ml @ 1 mls/min Q6H IV 12/06/16 06:00 01/05/17 05:59 12/06/16 12:39 1 MLS/MIN Ioversol (Optiray 320) 111 ml UD PRN IV 12/06/16 10:45 12/10/16 10:44 Review of Systems Complete review of systems otherwise negative except for the above noted in history of present illness Physical Exam Vital Signs (Past 24 Hrs): Date Time Temp Pulse Resp B/P Pulse Ox O2 Delivery O2 Flow Rate FiO2 12/06/16 12:01 93 Room Air 12/06/16 11:45 36.7 71 18 130/72 94 Room Air 12/06/16 08:00 93 Room Air 12/06/16 07:23 36.7 64 16 119/70 93 Room Air 12/06/16 04:13 Room Air 12/06/16 04:01 36.6 67 18 116/58 91 Room Air 12/06/16 00:01 37.0 70 16 118/57 91 Room Air 12/05/16 23:32 78 127/60 95 12/05/16 21:51 78 127/66 95 Room Air 12/05/16 18:40 100 Room Air 12/05/16 18:40 75 21 150/72 100 Room Air 12/05/16 16:50 36.7 77 16 151/74 92 Room Air Gen.: Patient is alert and sitting in bed, in no acute distress. HEENT: Normocephalic /atraumatic, no scleral icterus Heart: Regular rate and rhythm Extremities: No gross deformities or rashes noted Neurological examination: Mental status: Patient is alert and oriented x3. Attention and concentration normal for the situation. Good fund of knowledge. Able to give her own history. Speech is fluent without any dysarthria or aphasia noted Cranial nerve: Funduscopic examination was unremarkable. No papilledema. Pupils equally round and reactive to light. Extraocular muscles intact without nystagmus. No facial asymmetry noted. Facial sensation intact. Tongue is midline. Good palatal elevation. Good shoulder shrug bilaterally. Hearing grossly intact to voice. Strength: 4/5 proximal extremities 4 and 5/5 distally extremities x4. There is no arm drift. Tone is normal. Sensation: Grossly intact to light touch in all extremities. Deep tendon reflexes: +1 in bilateral biceps, brachioradialis and patellar. Coordination: Patient had good finger to nose without dysmetria Station within the bed was normal Laboratory Results Past 24 Hours: 12/05/16 18:20 Red Blood Count 4.32, Mean Corpuscular Volume 92.6, Mean Corpuscular Hemoglobin 30.8, Mean Corpuscular Hemoglobin Concent 33.3, Mean Platelet Volume 10.8, Neutrophils (%) (Auto) 82.0, Lymphocytes (%) (Auto) 6.2, Monocytes (%) (Auto) 11.1, Eosinophils (%) (Auto) 0.1, Basophils (%) (Auto) 0.2, Neutrophils # (Auto ) 9.75, Lymphocytes # (Auto) 0.74, Monocytes # (Auto) 1.32, Eosinophils # (Auto ) 0.01, Basophils # (Auto) 0.02 12/05/16 18:20 Test 12/05/16 18:00 12/05/16 18:20 12/06/16 12:03 Urine Color YELLOW Urine Appearance CLEAR (CLEAR) Urine pH 7.0 (4.5-7.5) Urine Specific [place] 1.006 (1.000-1.030) Urine Protein NEG (NEG) Urine Glucose (UA) NEG (NEG) Urine Ketones NEG (NEG) Urine Occult Blood NEG (NEG) Urine Nitrite NEG (NEG) Urine Bilirubin NEG (NEG) Urine Urobilinogen NEG (NEG) Urine Leukocyte Esterase NEG (NEG) White Blood Count 11.89 K/uL (4.8-10.8) Red Blood Count 4.32 M/uL (4.2-5.4) Hemoglobin 13.3 g/dL (12.0-16.0) Hematocrit 40.0 % (37-47) Mean Corpuscular Volume 92.6 fL (80-100) Mean Corpuscular Hemoglobin 30.8 pg (25-34) Mean Corpuscular Hemoglobin Concent 33.3 g/dl (32-36) Platelet Count 199 K/uL (130-400) Mean Platelet Volume 10.8 fL (7.4-10.4) Neutrophils (%) (Auto) 82.0 % Lymphocytes (%) (Auto) 6.2 % Monocytes (%) (Auto) 11.1 % Eosinophils (%) (Auto) 0.1 % Basophils (%) (Auto) 0.2 % Neutrophils # (Auto) 9.75 K/uL (1.4-6.5) Lymphocytes # (Auto) 0.74 K/uL (1.2-3.4) Monocytes # (Auto) 1.32 K/uL (0.11-0.59) Eosinophils # (Auto) 0.01 K/uL (0-0.5) Basophils # (Auto) 0.02 K/uL (0-0.2) RDW Standard Deviation 52.5 fL (36.4-46.3) RDW Coefficient of Variation 15.4 % (11.5-14.5) Immature Granulocyte % (Auto) 0.4 % Immature Granulocyte # (Auto) 0.05 K/uL (0.00-0.02) Prothrombin Time 10.0 SECONDS (9.0-12.0) Prothromb Time International Ratio 0.9 (0.9-1.1) Activated Partial Thromboplast Time 21.7 SECONDS (21.0-31.0) Partial Thromboplastin Ratio 0.8 Anion Gap 7.0 mmol/L (3-11) Est Creatinine Clear Calc Drug Dose 45.1 ml/min Estimated GFR () 73.9 Estimated GFR (Non- 63.8 BUN/Creatinine Ratio 32.9 (10-20) Calcium Level 9.8 mg/dl (8.5-10.1) Magnesium Level 2.6 mg/dl (1.8-2.4) Total Bilirubin 0.2 mg/dl (0.2-1) Direct Bilirubin < 0.1 mg/dl (0-0.2) Aspartate Amino Transf (AST/SGOT) 21 U/L (15-37) Alanine Aminotransferase (ALT/SGPT) 38 U/L (12-78) Alkaline Phosphatase 67 U/L (45-117) Troponin I 0.020 ng/ml (0-0.045) Total Protein 7.1 gm/dl (6.4-8.2) Albumin 3.8 gm/dl (3.4-5.0) Lipase 393 U/L (73-393) Thyroid Stimulating Hormone (TSH) 1.470 uIu/ml (0.300-4.500) Stool Occult Blood NEGATIVE (NEGATIVE) Date/Time Source Procedure Growth Status 12/05/16 18:00 Urine , Clean Catch Urine Culture - Final MORE THAN THREE TYPES OF ORGANISMS ID... Complete Imaging As noted above in history of present illness Impression This is an 81-year-old female who presents with weakness, weight loss, and mild worsening cognitive changes with left external capsule and right frontoparietal mass likely consistent with metastatic disease. Patient has not had any known clinical seizures, but does have some unexplained bruises which could be multifactorial. Plan Recommend a routine EEG either as an inpatient on Thursday or as an outpatient to rule out epileptiform discharges that could indicate unrecognized seizures that would need treatment. If concern for seizures, patient will need neurological follow-up. Otherwise if no signs or concerns for seizures, neurological follow-up is not needed. Follow-up with oncology regarding workup and treatment for likely metastatic cancer. Patient may benefit from physical therapy with generalized weakness. Could also consider speech therapy for cognitive evaluation and treatment. Thank you for allowing me to participate in this patient's care. If there is any questions or concerns, feel free to call/page me.
--- NOTE | 2016-12-06 16:14 | Progress Note ---
Subjective Date of Service: December 06, 2016. Subjective Pt evaluation today including: conversation w/ patient, conversation w/ family (son), physical exam, lab review, review of studies, conversation w/ senior science consultant , review of inpatient medication list Pain: denies pain PO Intake: poor at home Voiding: no voiding problems long discussion with patient and son at the bedside, spent 20 minutes with patient also, discussed case in detail with Dr. Anders as well as Dr. Christensen explained the findings on MRI to patient and the son, also gave results of CT chest and A/P, no obvious signs of malignancy patient has been getting weak and has been losing weight her balance has been off, no reported falls by patient or the son, however, she is covered with bruises bruises on back of head, legs, arms, back shoulder, they deny falls or trauma platelets and coags normal discussed plan to get therapy ordered and continue work up of brain lesion, may need to go to tertiary care for neurosurgery Problem List Medical Problems: (1) Altered mental status Status: Acute (2) Brain mass Status: Acute (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 Review of Systems Constitutional: + fatigue, + weakness, + weight loss (20 lbs in past few months ) Respiratory: + problem reported (using CPAP, difficulty at first, started a few weeks ago) Abdomen: + problem reported (eating less, focused on counting carbs) Neurologic: + balance problems, + memory loss, + weakness (denies any focal neuro deficits) Skin: + problem reported (diffuse bruises, patient and son seemed unaware) All Other Systems: Reviewed and Negative Medications Current Inpatient Medications Medications (Trade) Dose Ordered Sig/Cuco Route Start Time Stop Time Status Last Admin Dose Admin Acetaminophen (Tylenol Tab) 650 mg Q4H PRN PO 12/05/16 22:15 01/04/17 22:14 Ascorbic Acid (Vitamin C Tab) 500 mg DAILY PO 12/06/16 09:00 01/05/17 08:59 12/06/16 07:28 500 MG Aspirin (Ecotrin Tab) 81 mg DAILY PO 12/06/16 09:00 01/05/17 08:59 12/06/16 07:27 81 MG Cholecalciferol (Vitamin D Tab) 1,000 inter.unit DAILY PO 12/06/16 09:00 01/05/17 08:59 12/06/16 07:27 1,000 INTER.UNIT Lisinopril (Zestril Tab) 10 mg DAILY PO 12/06/16 09:00 01/05/17 08:59 12/06/16 07:28 10 MG Multivitamins/ Minerals 1 tab 1 tab DAILY PO 12/06/16 09:00 01/05/17 08:59 12/06/16 07:27 1 TAB Dexamethasone Sodium Phosphate/ Syringe (Decadron Inj/ Syringe) 1 ml @ 1 mls/min Q6H IV 12/06/16 06:00 01/05/17 05:59 12/06/16 12:39 1 MLS/MIN Ioversol (Optiray 320) 111 ml UD PRN IV 12/06/16 10:45 12/10/16 10:44 Objective Vital Signs Date Time Temp Pulse Resp B/P Pulse Ox O2 Delivery O2 Flow Rate FiO2 12/06/16 15:38 36.3 67 17 136/73 92 Room Air 12/06/16 12:01 93 Room Air 12/06/16 11:45 36.7 71 18 130/72 94 Room Air 12/06/16 08:00 93 Room Air 12/06/16 07:23 36.7 64 16 119/70 93 Room Air 12/06/16 04:13 Room Air 12/06/16 04:01 36.6 67 18 116/58 91 Room Air 12/06/16 00:01 37.0 70 16 118/57 91 Room Air 12/05/16 23:32 78 127/60 95 12/05/16 21:51 78 127/66 95 Room Air 12/05/16 18:40 100 Room Air 12/05/16 18:40 75 21 150/72 100 Room Air 12/05/16 16:50 36.7 77 16 151/74 92 Room Air Physical Exam General Appearance: no apparent distress, + thin Eyes: normal inspection, PERRL, EOMI, sclerae normal ENT: normal ENT inspection, hearing grossly normal, pharynx normal Neck: supple, no adenopathy, no JVD, trachea midline Respiratory/Chest: chest non-tender, lungs clear, normal breath sounds, no respiratory distress, no accessory muscle use Cardiovascular: regular rate, rhythm, no edema, no gallop, no JVD, no murmur Abdomen: normal bowel sounds, non tender, soft, no organomegaly Extremities: normal range of motion, non-tender, no pedal edema, no calf tenderness, normal capillary refill, pelvis stable Neurologic/Psychiatric: 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 No significant midline shift at the current time. A metastatic and a neoplastic process must be considered. Last 24 Hours Test 12/05/16 18:00 12/05/16 18:20 12/06/16 12:03 Urine Color YELLOW Urine Appearance CLEAR Urine pH 7.0 Urine Specific [place] 1.006 Urine Protein NEG Urine Glucose (UA) NEG Urine Ketones NEG Urine Occult Blood NEG Urine Nitrite NEG Urine Bilirubin NEG Urine Urobilinogen NEG Urine Leukocyte Esterase NEG White Blood Count 11.89 K/uL Red Blood Count 4.32 M/uL Hemoglobin 13.3 g/dL Hematocrit 40.0 % Mean Corpuscular Volume 92.6 fL Mean Corpuscular Hemoglobin 30.8 pg Mean Corpuscular Hemoglobin Concent 33.3 g/dl Platelet Count 199 K/uL Mean Platelet Volume 10.8 fL Neutrophils (%) (Auto) 82.0 % Lymphocytes (%) (Auto) 6.2 % Monocytes (%) (Auto) 11.1 % Eosinophils (%) (Auto) 0.1 % Basophils (%) (Auto) 0.2 % Neutrophils # (Auto) 9.75 K/uL Lymphocytes # (Auto) 0.74 K/uL Monocytes # (Auto) 1.32 K/uL Eosinophils # (Auto) 0.01 K/uL Basophils # (Auto) 0.02 K/uL RDW Standard Deviation 52.5 fL RDW Coefficient of Variation 15.4 % Immature Granulocyte % (Auto) 0.4 % Immature Granulocyte # (Auto) 0.05 K/uL Prothrombin Time 10.0 SECONDS Prothromb Time International Ratio 0.9 Activated Partial Thromboplast Time 21.7 SECONDS Partial Thromboplastin Ratio 0.8 Sodium Level 137 mmol/L Potassium Level 4.1 mmol/L Chloride Level 99 mmol/L Carbon Dioxide Level 31 mmol/L Anion Gap 7.0 mmol/L Blood Urea Nitrogen 28 mg/dl Creatinine 0.86 mg/dl Est Creatinine Clear Calc Drug Dose 45.1 ml/min Estimated GFR () 73.9 Estimated GFR (Non- 63.8 BUN/Creatinine Ratio 32.9 Random Glucose 109 mg/dl Calcium Level 9.8 mg/dl Magnesium Level 2.6 mg/dl Total Bilirubin 0.2 mg/dl Direct Bilirubin < 0.1 mg/dl Aspartate Amino Transf (AST/SGOT) 21 U/L Alanine Aminotransferase (ALT/SGPT) 38 U/L Alkaline Phosphatase 67 U/L Troponin I 0.020 ng/ml Total Protein 7.1 gm/dl Albumin 3.8 gm/dl Lipase 393 U/L Thyroid Stimulating Hormone (TSH) 1.470 uIu/ml Stool Occult Blood NEGATIVE Assessment and Plan 81 yo female who presented due to profound weakness and some confusion, brought by her son, found to have 2.5x2.3 brain lesion on head CT in left internal capsule - Brain lesions: one large and one tiny lesion seen on MRI brain, either primary or metastatic appreciate recommendations from oncology for work up CT chest and A/P - read as normal but uterus appears large and loops of bowel will get pelvic US, check FOBT (if positive then consult GI) if no primary lesion can be found, would need brain biopsy and referral to tertiary care - Diffuse bruising: unclear etiology, normal platelets and coags patient's house described as hoarding, very narrow walkways of clutter, hard sharp objects no reported falls per patient or son will talk with other family members, may need to discuss with [facility] - Weakness: consult PT/OT, certainly appears too weak to go home safely she was driving prior to admission, will recommend she stop driving pursue [place] [employer] form tomorrow brain lesion would put at risk for seizures
[2016-12-07] VITALS (9 sets, daily range): BP systolic 124–135; BP diastolic 74–79; PULSE 53–78; TEMP 36.6–36.8; O2SAT 93–96
[2016-12-07] MEDS: DEXAMETHASONE INJ 4 MG in SYRINGE 0 ML IV SCH ×2 (05:26→12:36)
[2016-12-07] MEDS: ASCORBIC ACID 500 MG TAB PO SCH (07:11)
[2016-12-07] MEDS: ASPIRIN 81 MG ECTAB PO SCH (07:12)
[2016-12-07] MEDS: LISINOPRIL 10 MG TAB PO SCH (07:12)
[2016-12-07] MEDS: CEROVITE ADV FORMULA TAB PO SCH (07:12)
[2016-12-07] MEDS: CHOLECALCIFEROL 1000 INTER.UNIT TAB PO SCH (07:12)
--- NOTE | 2016-12-07 10:24 | DIAGNOSTIC IMAGING REPORT ---
PELVIC ULTRASOUND, TRANSABDOMINAL HISTORY: Uterus enlarged on CT COMPARISON: Abdomen and pelvis CT 12/06/2016. FINDINGS: The patient deferred transvaginal scanning. Uterus: 8.2 x 5.3 x 4.7 cm. There is a 4 cm hypoechoic mass within the uterine fundus. Endometrial stripe: 4 mm in thickness. Right ovary: Obscured by overlying bowel gas. Left ovary: Obscured by overlying bowel gas. Miscellaneous:No pelvic free fluid. IMPRESSION: A 4 cm hypoechoic mass within the uterine fundus. This versus a fibroid. Electronically signed by: Omi Rivera M.D. 12/07/2016 10:22 AM Dictated Date/Time: 12/07/2016 10:20 AM
--- NOTE | 2016-12-07 10:53 | Hematology/Oncology Prog Note ---
Hematology/Onc Progress Note Date of Service December 07, 2016. Diagnoses Brain masses Medications Medications Administered Medications (Trade) Dose Ordered Sig/Cuco Route Start Time Stop Time Status Last Admin Dose Admin Lorazepam (Ativan Inj) 1 mg NOW STAT IV 12/05/16 22:09 12/05/16 22:16 DC 12/05/16 22:27 1 MG Ascorbic Acid (Vitamin C Tab) 500 mg DAILY PO 12/06/16 09:00 01/05/17 08:59 12/07/16 07:11 500 MG Aspirin (Ecotrin Tab) 81 mg DAILY PO 12/06/16 09:00 01/05/17 08:59 12/07/16 07:12 81 MG Cholecalciferol (Vitamin D Tab) 1,000 inter.unit DAILY PO 12/06/16 09:00 01/05/17 08:59 12/07/16 07:12 1,000 INTER.UNIT Lisinopril (Zestril Tab) 10 mg DAILY PO 12/06/16 09:00 01/05/17 08:59 12/07/16 07:12 10 MG Multivitamins/ Minerals 1 tab 1 tab DAILY PO 12/06/16 09:00 01/05/17 08:59 12/07/16 07:12 1 TAB Dexamethasone Sodium Phosphate 4 mg/Syringe 1 ml @ 1 mls/min Q6H IV 12/06/16 06:00 01/05/17 05:59 12/07/16 05:26 1 MLS/MIN Dexamethasone Sodium Phosphate/ Syringe (Decadron Inj/ Syringe) 2.5 ml @ 1 mls/min NOW STAT IV 12/05/16 23:48 12/05/16 23:50 DC 12/06/16 00:44 1 MLS/MIN Subjective Ms. Mcgregor is comfortable in bed. She had no acute events overnight. She continues to have no complaints or new symptoms. Review of Systems: Constitutional: + fatigue, + weakness, No fever Eyes: No worsening of vision Respiratory: No cough, No shortness of breath Cardiovascular: No chest pain Abdomen: No nausea, No pain, No vomiting Musculoskeletal: No joint pain, No muscle pain Female : No abnormal vaginal bleeding, No dysuria Neurologic: No paralysis, No weakness Skin: No rash Vital Signs Vital Signs Past 12 Hours Date Time Temp Pulse Resp B/P Pulse Ox O2 Delivery O2 Flow Rate FiO2 12/07/16 08:00 95 Room Air 12/07/16 07:30 36.8 54 16 125/76 95 Room Air 12/07/16 04:17 36.6 62 18 134/79 96 Room Air 12/07/16 04:00 Room Air 12/07/16 00:00 Room Air 12/06/16 23:38 36.8 72 20 111/66 95 Room Air Physical Exam Constitutional: General Apperance: too thin (frail appearing) Level of Distress: NAD Psychiatric: Mental Status: active & alert Orientation: oriented except where noted Eyes: EOM: EOMI Lungs: Respiratory Effort: no dyspnea Auscuitation: CTA except as noted Cardiovascular: Heart Auscultation: RRR Abdomen: Inspection & Palpation: soft, no tenderness, guarding & rebound Extremities: no edema Laboratory Last 24 Hours Test 12/06/16 12:03 Stool Occult Blood NEGATIVE Assessment & Plan Her CT revealed an enlarged uterus and an ultrasound reveals a 4 cm hypoechoic mass that favors a fibroid. We could consider reviewing this imaging with [facility] or obtaining a pap smear to look for neoplastic cells. Her FOBT was negative, but it was only x1 and that does not necessarily rule out a GI primary. I would also consider a GI consultation to discuss the role of endoscopy and colonoscopy. If no primary lesion can be identified, the next step for her would be referral to neurosurgery for biopsy. Her son seemed very resistant to this idea, though she did not express much of an opinion either way. We will continue to follow.
--- NOTE | 2016-12-07 15:13 | Progress Note ---
Subjective Date of Service: December 07, 2016. Subjective Pt evaluation today including: conversation w/ patient, conversation w/ family (daughter, son in law, two sons, earlier talked with another son from [place] ), physical exam, lab review, review of studies, conversation w/ automotive service consultant, review of inpatient medication list Pain: no pain PO Intake: adequate Voiding: no voiding problems long discussion with family present at the bedside including daughter, son in law, two sons earlier today I updated son James over the phone who lives in [place] discussed that currently the only finding we have are the brain lesions on CT and MRI evaluation for another primary source have not given any positive results FOBT was negative, Dr. Anders would like to ask GI if they would consider colonoscopy Pelvic US - fibroid 4cm social issues of safety at home are also a concern PT and OT (talked with personally) recommend 24 hour care at a minimum patient has poor coordination, she is largely impulsive, little awareness of safety (tried to flush toilet with her foot) she is covered with bruises over entire body, likely from falls her son who lives with her said he will take care of her but I do not think he grasps what this entails, he was already talking about leaving the house explained that the patient cannot drive any more due to safety concerns she understands and family understands Problem List Medical Problems: (1) Altered mental status Status: Acute (2) Brain mass Status: Acute (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 Review of Systems Constitutional: + fatigue, + weakness Neurologic: + balance problems, + weakness All Other Systems: Reviewed and Negative Medications Current Inpatient Medications Medications (Trade) Dose Ordered Sig/Cuco Route Start Time Stop Time Status Last Admin Dose Admin Acetaminophen (Tylenol Tab) 650 mg Q4H PRN PO 12/05/16 22:15 01/04/17 22:14 Ascorbic Acid (Vitamin C Tab) 500 mg DAILY PO 12/06/16 09:00 01/05/17 08:59 12/07/16 07:11 500 MG Aspirin (Ecotrin Tab) 81 mg DAILY PO 12/06/16 09:00 01/05/17 08:59 12/07/16 07:12 81 MG Cholecalciferol (Vitamin D Tab) 1,000 inter.unit DAILY PO 12/06/16 09:00 01/05/17 08:59 12/07/16 07:12 1,000 INTER.UNIT Multivitamins/ Minerals 1 tab 1 tab DAILY PO 12/06/16 09:00 01/05/17 08:59 12/07/16 07:12 1 TAB Dexamethasone Sodium Phosphate/ Syringe (Decadron Inj/ Syringe) 1 ml @ 1 mls/min Q6H IV 12/06/16 06:00 01/05/17 05:59 12/07/16 12:36 1 MLS/MIN Ioversol (Optiray 320) 111 ml UD PRN IV 12/06/16 10:45 12/10/16 10:44 Objective Vital Signs Date Time Temp Pulse Resp B/P Pulse Ox O2 Delivery O2 Flow Rate FiO2 12/07/16 12:00 95 Room Air 12/07/16 11:35 36.8 64 16 128/74 93 Room Air 12/07/16 08:00 95 Room Air 12/07/16 07:30 36.8 54 16 125/76 95 Room Air 12/07/16 04:17 36.6 62 18 134/79 96 Room Air 12/07/16 04:00 Room Air 12/07/16 00:00 Room Air 12/06/16 23:38 36.8 72 20 111/66 95 Room Air 12/06/16 20:00 Room Air 12/06/16 19:19 36.8 81 20 121/68 94 Room Air 12/06/16 16:00 Room Air 12/06/16 15:38 36.3 67 17 136/73 92 Room Air Physical Exam General Appearance: no apparent distress, + thin Eyes: normal inspection, EOMI, sclerae normal ENT: normal ENT inspection, hearing grossly normal, pharynx normal Neck: supple, no adenopathy, no JVD, trachea midline Respiratory/Chest: chest non-tender, lungs clear, normal breath sounds, no respiratory distress, no accessory muscle use Cardiovascular: regular rate, rhythm, no edema, no gallop, no JVD, no murmur Abdomen: normal bowel sounds, non tender, soft, no organomegaly Extremities: normal range of motion, non-tender, normal inspection, no pedal edema, no calf tenderness, normal capillary refill, pelvis stable Neurologic/Psychiatric: 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, alert, + abnormal gait ( resting tremor, shuffling gait), + motor weakness, + pertinent finding ( obsessive personality, focused on details like her CPAP and counting carbohydrates) Skin: normal color, warm/dry, + pertinent finding (bruises over entire body) Lymphatic: no adenopathy Assessment and Plan 81 yo female who presented due to profound weakness and some confusion, brought by her son, found to have 2.5x2.3 brain lesion on head CT in left internal capsule - Brain lesions: one large and one tiny lesion seen on MRI brain, either primary or metastatic appreciate recommendations from oncology for work up CT chest and A/P - normal Pelvic US - 4cm fibroid, nothing suspicious for malignancy FOBT negative, oncology would like to ask GI to consider colonoscopy to officially rule out colon/anal lesion if no primary lesion can be found, would need brain biopsy and referral to tertiary care family leaning towards requesting to meet with neurosurgeon with [facility] explained that this referral would only be for a neurosurgeon to provide recommendations as well as risk/benefits of biopsy/surgery it will be up to patient to discuss with family about what she would want to do check EEG tomorrow because the patient would not follow up for EEG so get done while inpatient - Diffuse bruising: unclear etiology, normal platelets and coags patient's house described as hoarding, very narrow walkways of clutter, hard sharp objects no reported falls per patient or son per OT/PT, very weak, needs 24 hour care at minimum, safety is a concern, definitely not a candidate for independent living - ETHAN: can use home CPAP - H/o HTN: hold lisinopril to prevent any possible hypotension with her already weakened state can likely discontinue - Weakness: consult PT/OT, patient needs 24 hour care minimum she is weak, poor coordination, shuffling gait, has no awareness about safety she tried to flush toilet with her foot unsure that patient can be taken care of safely by her son he clearly cares about her but unsure if he understands what 24 hour care entails no other family able to help Plan for tomorrow: EEG, ask GI about whether or not they would consider a colonoscopy to rule out colon lesion determine safe plan for discharge, unless 24 hour aides can be obtained I would not be comfortable with son taking care of her she may need to go to rehab, [facility] would be good initial option she needs to go see neurosurgeon as outpatient, family leaning towards [facility] can be referred by oncology
[2016-12-07] MEDS: DEXAMETHASONE 4 MG TAB PO SCH (20:42)
[2016-12-08] VITALS (10 sets, daily range): BP systolic 123–135; BP diastolic 67–74; PULSE 57–70; TEMP 36.2–36.8; O2SAT 93–95
[2016-12-08] MEDS: ASPIRIN 81 MG ECTAB PO SCH (07:35)
[2016-12-08] MEDS: DEXAMETHASONE 4 MG TAB PO SCH ×2 (07:36→21:22)
[2016-12-08] MEDS: CHOLECALCIFEROL 1000 INTER.UNIT TAB PO SCH (07:36)
[2016-12-08] MEDS: CEROVITE ADV FORMULA TAB PO SCH (07:37)
[2016-12-08] MEDS: ASCORBIC ACID 500 MG TAB PO SCH (07:39)
--- NOTE | 2016-12-08 10:16 | Hematology/Oncology Prog Note ---
Hematology/Onc Progress Note Date of Service December 08, 2016. 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 Medications Medications Administered Medications (Trade) Dose Ordered Sig/Cuco Route Start Time Stop Time Status Last Admin Dose Admin Lorazepam (Ativan Inj) 1 mg NOW STAT IV 12/05/16 22:09 12/05/16 22:16 DC 12/05/16 22:27 1 MG Ascorbic Acid (Vitamin C Tab) 500 mg DAILY PO 12/06/16 09:00 01/05/17 08:59 12/08/16 07:39 500 MG Aspirin (Ecotrin Tab) 81 mg DAILY PO 12/06/16 09:00 01/05/17 08:59 12/08/16 07:35 81 MG Cholecalciferol (Vitamin D Tab) 1,000 inter.unit DAILY PO 12/06/16 09:00 01/05/17 08:59 12/08/16 07:36 1,000 INTER.UNIT Lisinopril (Zestril Tab) 10 mg DAILY PO 12/06/16 09:00 12/07/16 14:38 DC 12/07/16 07:12 10 MG Multivitamins/ Minerals 1 tab 1 tab DAILY PO 12/06/16 09:00 01/05/17 08:59 12/08/16 07:37 1 TAB Dexamethasone Sodium Phosphate 4 mg/Syringe 1 ml @ 1 mls/min Q6H IV 12/06/16 06:00 12/07/16 15:20 DC 12/07/16 12:36 1 MLS/MIN Dexamethasone Sodium Phosphate/ Syringe (Decadron Inj/ Syringe) 2.5 ml @ 1 mls/min NOW STAT IV 12/05/16 23:48 12/05/16 23:50 DC 12/06/16 00:44 1 MLS/MIN Dexamethasone (Decadron Tab) 4 mg BID PO 12/07/16 21:00 01/06/17 20:59 12/08/16 07:36 4 MG Subjective Alert and oriented. Denies any fever. Denies any new bone pain. Her son is with her in her room. Review of Systems: Constitutional: Negative for weight loss, night sweats, or fever Eyes: Negative for event change of vision ENT: Negative for epistaxis, nasal discharge, sore throat, or deafness Cardiovascular: Negative for chest pain, palpitations, dizziness, diaphoresis Respiratory: Negative for new shortness of breath,hemoptysis, or purulent cough Gastrointestinal: Negative for diarrhea, hematemesis, melena, nausea, vomiting , or dyspepsia Integumentary (skin): Negative for rash or jaundice discoloration Genitourinary: Negative for urinary frequency, hematuria, or dysuria Neurological: No headache or seizure activity. Apparently has been unsteady on her feet Lymphatic/Hematologic: Negative for petechiae, bleeding or new adenopathy Musculoskeletal: Negative for new joint or back pain Allergic/Immunologic: Negative for unusual rash or pruritis. Vital Signs Vital Signs Past 12 Hours Date Time Temp Pulse Resp B/P Pulse Ox O2 Delivery O2 Flow Rate FiO2 12/08/16 08:00 95 Room Air 12/08/16 07:20 36.4 67 20 123/67 95 Room Air 12/08/16 04:18 36.8 70 18 134/74 93 Room Air 12/08/16 04:00 Room Air 12/08/16 00:00 Room Air 12/07/16 23:12 36.8 53 16 135/79 94 Room Air Physical Exam Constitutional: vitals are stable. Eyes: Eyes are LEONOR EOMI without conjuctival erythema or icterus. ENT: External examination was negative for masses. Neck: Negative for masses or palpable thyromegaly Respiratory: Lung sounds were generally clear bilaterally Cardiovascular: Heart was RRR without significant murmur, gallops aoe rubs Gastrointestinal: No palpable hepatic or splenomegaly. The abdomen was soft with normal bowel sounds. Lymphatic system: there was no palpable peripheral lymphadenopathy Musculoskeletal System: The musculoskeletal system seemed concordant with age. Skin: The skin was negative for jaundice. Neurologic exam: The exam was negative for any focal findings. Deep tendon reflexes were equal and symmetrical. Psychiatric exam: Was essentially negative with normal mood and effect. Breast exam: Done with patient permission was negative for palpable masses or corollary supraclavicular or axillary palpable adenopathy. Exam was witnessed by either a relative, biotech production specialist, or clinic staff. Extremities: Negative for edema or erythema Constitutional: General Apperance: too thin (frail appearing) Level of Distress: NAD Psychiatric: Mental Status: active & alert Orientation: oriented except where noted Eyes: EOM: EOMI Lungs: Respiratory Effort: no dyspnea Auscuitation: CTA except as noted Cardiovascular: Heart Auscultation: RRR Abdomen: Inspection & Palpation: soft, no tenderness, guarding & rebound Extremities: no edema Assessment & Plan Examine CT is reviewed. Chest and abdomen CT really unremarkable. Brain MRI also reviewed and I suspect she will need to have a biopsy of the CAGE TENDER.
--- NOTE | 2016-12-08 10:47 | Neurology Progress Notes ---
Neurology Progress Note Date of Service December 08, 2016. 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 She does not have a known primary malignancy, however. There is an enhancing lesion measuring about 1 cm deep to the left insular cortex with associated vasogenic edema. There is a smaller enhancing lesion within the high right parietal convexity with significant associated vasogenic edema as well. The patient has not had obvious clinical seizure activity. An EEG was completed this morning. Results are not available at this time. The patient denies headache, vision change, or problems with confusion or memory currently. She is aware of the possibility of metastatic disease within her brain as depicted on the recent brain MRI. Objective Date Time Temp Pulse Resp B/P Pulse Ox O2 Delivery O2 Flow Rate FiO2 12/08/16 08:00 95 Room Air 12/08/16 07:20 36.4 67 20 123/67 95 Room Air 12/08/16 04:18 36.8 70 18 134/74 93 Room Air 12/08/16 04:00 Room Air 12/08/16 00:00 Room Air 12/07/16 23:12 36.8 53 16 135/79 94 Room Air 12/07/16 20:00 Room Air 12/07/16 19:11 36.7 73 18 128/76 93 Room Air 12/07/16 16:00 94 Room Air 12/07/16 15:39 36.6 78 17 124/77 94 Room Air 12/07/16 12:00 95 Room Air 12/07/16 11:35 36.8 64 16 128/74 93 Room Air Exam: The patient is a thin elderly female, no acute distress. The patient is alert and oriented to person place and time. Attention normal. She is able to name objects, repeat phrases, and reads simple text without difficulty. No aphasic or paraphasic errors. Vocabulary normal. Comprehension normal. Visual saenz full to confrontation. Visual acuity normal. Pupils equal round reactive to light and accommodation. Eye movements normal. There is no facial droop or facial asymmetry. Tongue and palate move well and are midline. Shoulder shrug and hearing intact. Sensation intact to light touch, vibration, and temperature in all 4 limbs. Deep tendon reflexes are 2+ for the arms and legs bilaterally. Plantar responses downgoing bilaterally. Musculoskeletal examination reveals normal strength for all 4 limbs proximally and distally. No hemiparesis. No monoparesis. Current Inpatient Medications Medications (Trade) Dose Ordered Sig/Cuco Route Start Time Stop Time Status Last Admin Dose Admin Acetaminophen (Tylenol Tab) 650 mg Q4H PRN PO 12/05/16 22:15 01/04/17 22:14 Ascorbic Acid (Vitamin C Tab) 500 mg DAILY PO 12/06/16 09:00 01/05/17 08:59 12/08/16 07:39 500 MG Aspirin (Ecotrin Tab) 81 mg DAILY PO 12/06/16 09:00 01/05/17 08:59 12/08/16 07:35 81 MG Cholecalciferol (Vitamin D Tab) 1,000 inter.unit DAILY PO 12/06/16 09:00 01/05/17 08:59 12/08/16 07:36 1,000 INTER.UNIT Multivitamins/ Minerals (Multivitamin W/ Minerals Tab) 1 tab DAILY PO 12/06/16 09:00 01/05/17 08:59 12/08/16 07:37 1 TAB Ioversol (Optiray 320) 111 ml UD PRN IV 12/06/16 10:45 12/10/16 10:44 Dexamethasone (Decadron Tab) 4 mg BID PO 12/07/16 21:00 01/06/17 20:59 12/08/16 07:36 4 MG Impression Patient's 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 However, a primary malignancy has not been identified. Her neurological examination seems to be intact this morning. I do not find evidence of a hemiparesis or monoparesis at this time. She does not have any deficits of language function or signs of aphasia. She does not have signs suggestive of nondominant parietal lobe neglect. Plan This patient will probably need a biopsy of one of the identified brain lesions. Surgical planning for this type of procedure will need to be done in consultation with a neurosurgeon. It sounds like neurosurgery at [facility] is in consideration which would be appropriate. I do not have any further immediate recommendations for this patient's care. I will review her EEG results when available and make any additional recommendations if necessary at that time. Please contact me if I may be of further assistance.
--- NOTE | 2016-12-08 11:33 | EEG Procedure Note ---
EEG Procedure Note Date of Service December 08, 2016. Start / End Times Start Time: 6:45 AM End Time: 7:05 AM Referring Physician Nilam Lepe History This is an 81-year-old female who presents with mental status changes and brain masses. EEG for further evaluation of possible seizure etiology. Home Medication List Scheduled Ascorbic Acid (Ascorbic Acid), 500 MG PO DAILY Aspirin (Aspirin Ec), 81 MG PO DAILY Brewers Yeast (Brewers Yeast), 1 PO DAILY Cholecalciferol (Vitamin D 1000 Unit), 1,000 INTER.UNIT PO DAILY Coenzyme Q10 (Ubidecarenone) (Co Q10), 1 CAP PO DAILY Glucosamine Hydrochloride (Glucosamine), 1 TAB PO DAILY Lisinopril (Zestril), 10 MG PO DAILY Magnesium (Magnesium 250 mg), 1 TAB PO DAILY Multivitamins/Minerals (Mvi With Minerals), 1 TAB PO DAILY Inpatient Medication List Current Inpatient Medications Medications (Trade) Dose Ordered Sig/Cuco Route Start Time Stop Time Status Last Admin Dose Admin Acetaminophen (Tylenol Tab) 650 mg Q4H PRN PO 12/05/16 22:15 01/04/17 22:14 Ascorbic Acid (Vitamin C Tab) 500 mg DAILY PO 12/06/16 09:00 01/05/17 08:59 12/08/16 07:39 500 MG Aspirin (Ecotrin Tab) 81 mg DAILY PO 12/06/16 09:00 01/05/17 08:59 12/08/16 07:35 81 MG Cholecalciferol (Vitamin D Tab) 1,000 inter.unit DAILY PO 12/06/16 09:00 01/05/17 08:59 12/08/16 07:36 1,000 INTER.UNIT Multivitamins/ Minerals (Multivitamin W/ Minerals Tab) 1 tab DAILY PO 12/06/16 09:00 01/05/17 08:59 12/08/16 07:37 1 TAB Ioversol (Optiray 320) 111 ml UD PRN IV 12/06/16 10:45 12/10/16 10:44 Dexamethasone (Decadron Tab) 4 mg BID PO 12/07/16 21:00 01/06/17 20:59 12/08/16 07:36 4 MG Description This is a 21 electrode EEG with a single channel dedicated to limited EKG. The electrodes were placed in accordance with the International 10-20 system. At the start of the recording the patient was in an awake state. Background was well organized and composed of symmetric mixed alpha and beta frequencies. There was intermittent left hemispheric slowing maximal over the left frontotemporal region as well as intermittent brief bifrontal slowing. There was a well-formed moderate amplitude 8-9 Hz posterior dominant rhythm that that was better appreciated over the right and was reactive to eye opening and closure. Hyperventilation was not done. Intermittent photic stimulation at various frequencies produced no abnormalities. Drowsiness was indicated by loss of muscle artifact and slowing of the background rhythm. There was no sleep transients. Interpretation This is an abnormal routine EEG secondary to frequent left hemispheric slowing and occasional brief bifrontal slowing. There was no electrographic seizures or epileptiform discharges. Clinical Correlation This EEG indicates: 1) a structural or functional cerebral dysfunction in the left hemisphere. Would be consistent with one of the patient's known brain masses 2) bifrontal intermittent slowing is either indicative of mild encephalopathy versus structural or functional cerebral dysfunction. This could be consistent with the patient's other known brain mass
--- NOTE | 2016-12-08 12:03 | Progress Note ---
Subjective Date of Service: December 08, 2016. 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 Review of Systems Constitutional: No chills, No fatigue, No fever, No problem reported, No sweats , No weakness, No weight loss Eyes: No diplopia, No discharge, No eye pain, No redness, No worsening of vision ENT: No dental problems, No hearing loss, No nasal symptoms, No sore throat, No tinnitus, No trouble swallowing, No unusual epistaxis Respiratory: No cough, No dyspnea at rest, No dyspnea on exertion, No hemoptysis, No shortness of breath, No sputum, No wheezing Cardiac: No PND, No chest pain, No claudication, No edema, No orthopnea, No palpitations Abdomen: No constipation, No diarrhea, No nausea, No pain, No vomiting Musculoskeletal: No calf pain, No joint pain, No muscle pain, No swelling Female : No abnormal vaginal bleeding, No dysuria, No hematuria, No incontinence, No urinary frequency, No vaginal discharge Neurologic: No balance problems, No memory loss, No numbness/tingling, No paralysis, No vertigo, No weakness Psychiatric: No anhedonism, No anxiety, No depression symptoms, No insomnia, No substance abuse Heme: No abnormal bleeding/bruising, No clotting problems, No night sweats, No swollen lymph nodes Endo: No excessive thirst, No excessive urination, No fatigue Skin: No bleeding, No color change, No itch, No new/changing skin lesions, No rash Objective Vital Signs Date Time Temp Pulse Resp B/P Pulse Ox O2 Delivery O2 Flow Rate FiO2 12/08/16 11:25 36.7 60 18 130/68 93 Room Air 12/08/16 08:00 95 Room Air 12/08/16 07:20 36.4 67 20 123/67 95 Room Air 12/08/16 04:18 36.8 70 18 134/74 93 Room Air 12/08/16 04:00 Room Air 12/08/16 00:00 Room Air 12/07/16 23:12 36.8 53 16 135/79 94 Room Air 12/07/16 20:00 Room Air 12/07/16 19:11 36.7 73 18 128/76 93 Room Air 12/07/16 16:00 94 Room Air 12/07/16 15:39 36.6 78 17 124/77 94 Room Air 12/07/16 12:00 95 Room Air Physical Exam General Appearance: WD/WN, no apparent distress, + thin Eyes: normal inspection, PERRL, EOMI, sclerae normal ENT: normal ENT inspection, hearing grossly normal, pharynx normal Neck: supple, no adenopathy, thyroid normal, no JVD, no carotid bruits, trachea midline Respiratory/Chest: chest non-tender, lungs clear, normal breath sounds, no respiratory distress, no accessory muscle use Cardiovascular: regular rate, rhythm, no edema, no gallop, no JVD, no murmur Abdomen: normal bowel sounds, non tender, soft, no organomegaly, no pulsatile mass Extremities: normal range of motion, non-tender, normal inspection, no pedal edema, no calf tenderness, normal capillary refill, pelvis stable Neurologic/Psychiatric: assistant corporate secretary II-XII nml as tested, no motor/sensory deficits, alert, normal mood/affect, oriented x 3 Skin: normal color, warm/dry, no rash Lymphatic: no adenopathy Assessment and Plan 81 yo female admitted on 12/05/2016 cause of profound weakness and some confusion, brought by her son, found to have 2.5x2.3 brain lesion on head CT in left internal capsule Brain lesions: Stable, today he is awake and orientated 3 one large and one tiny lesion seen on MRI brain, either primary or metastatic appreciate recommendations from oncology for work up CT chest and A/P - normal Pelvic US - 4cm fibroid, nothing suspicious for malignancy FOBT negative, oncology would like to ask GI to consider colonoscopy to officially rule out colon/anal lesion So far, no primary lesion can be found, would need brain biopsy and referral to tertiary care family leaning towards requesting to meet with neurosurgeon with [facility], has request piano case and bench assembler to set up appointment explained that this referral would only be for a neurosurgeon to provide recommendations as well as risk/benefits of biopsy/surgery Neurology saw the patient , EEG will be done today because the patient would not follow up for EEG so get done while inpatient - Diffuse bruising: unclear etiology, normal platelets and coags patient's house described as hoarding, very narrow walkways of clutter, hard sharp objects no reported falls per patient or son per OT/PT, very weak, needs 24 hour care at minimum, safety is a concern, definitely not a candidate for independent living, with present on nurse, discussed patient and son, Derick West is watery sure he able to take care of patient 24 7 around the clock, I feel they are reliable, I did told them if they feel any not able to do it of 24/ 7 around the clock care, may need to call PCP, I also told them need to really keep an eye on her because of fall and injuries is a concern. I did talk to them regarding to alf as an option, patient and family declined - ETHAN: can use home CPAP - H/o HTN: hold lisinopril to prevent any possible hypotension with her already weakened state can likely discontinue - Weakness: consult PT/OT, patient needs 24 hour care minimum she is weak, poor coordination, shuffling gait, has no awareness about safety CT in the above Plan for today: EEG, ask GI about whether or not they would consider a colonoscopy to rule out colon lesion Patient and son are sure able to have 24 7 covered, has discussed about the need upon discharge to home, will contact PTOT to see anything equipment needed such as walker, Patient and son declined rehab, piano case and bench assembler work on appointment with neurosurgeon in [place], will have counselor dormitory consult for coronary of diet and nutrition supplementation if needed. With present on nurse , discussed with patient and son above the safety of drive, I clearly told her she is not allow to drive, patient and son understand and agreed. Planning to discharge home if everything setting up tomorrow, reported about toenail is issue, was seen by podiatry before, recommend to continue to follow up with podiatry. Discussed with CODE STATUS, patient want to be full code, power of smoking tobacco packer hand is patient's son his name is Wellington. Continued [facility] stay due to: home environment unsafe for pt Discharge planning: home with home health
--- NOTE | 2016-12-08 14:27 | Clinical Documentation Query ---
CLINICAL DOCUMENTATION QUERY Dr. 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 Clinical Indicators: 81 yo female presenting with confusion, wt loss, altered mental status. MRI brain showed vasogenic edema/a metastatic and a neoplastic process must be considered. Treatment: neurology and hem/onc consults, IV decadron, EEG, Risk Factors: age Please clarify and document your clinical opinion in the progress notes and discharge summary. Terms such as "probable", "suspected", "likely", "questionable", "possible", or "still to be ruled out" are acceptable. IF IN AGREEMENT, YOU MUST DOCUMENT ABOVE DIAGNOSTIC STATEMENT IN DAILY PROGRESS NOTES AND DISCHARGE SUMMARY. This document is not part of the patient's record. Thank You, Lina Serrano, BRIELLE [phone]
--- NOTE | 2016-12-09 03:17 | GASTROINTESTINAL CONSULTATION ---
DATE OF CONSULTATION: 12/08/2016 We received the consult on Jayshree Mcgregor today on 12/08/2016 to see her for possible colonoscopy for brain metastases from unknown primary. At 3:45 p.m., I presented to patient's room to do the consultation but patient had already been discharged without being seen by GI. I am not sure if outpatient arrangements are being made for her to be seen elsewhere.
[2016-12-09 04:35] VITALS: BP 130/68; PULSE 69; TEMP 36.5; O2SAT 96
[2016-12-09 06:35] LABS: BASO % 0.1 %; BASO ABS # 0.01 K/uL (0-0.2); COMPLETE YES; HEMATOCRIT 38.9 % (37-47); IG% 1.3 %; LYMPH % 6.7 %; LYMPH ABS # 0.85 K/uL (1.2-3.4); MEAN CORPUSCULAR HEMOGLOBIN 29.2 pg (25-34); MEAN CORPUSCULAR HGB CONC 31.1 g/dl (32-36); MEAN PLATELET VOLUME 11.3 fL (7.4-10.4); MONO % 12.7 %; NEUT % 79.2 %; PLATELET COUNT 230 K/uL (130-400); RED BLOOD COUNT 4.14 M/uL (4.2-5.4); WHITE BLOOD COUNT 12.67 K/uL (4.8-10.8)
[2016-12-09 07:11] LABS: BUN/CREATININE RATIO 36.9 (10-20); CALCIUM 8.8 mg/dl (8.5-10.1); CREATININE 0.83 mg/dl (0.60-1.20); MAGNESIUM 2.4 mg/dl (1.8-2.4); POTASSIUM 4.4 mmol/L (3.5-5.1)
[2016-12-09 07:24] VITALS: BP 120/71; PULSE 59; TEMP 36.7; O2SAT 95
[2016-12-09] MEDS: DEXAMETHASONE 4 MG TAB PO SCH (08:21)
[2016-12-09] MEDS: CEROVITE ADV FORMULA TAB PO SCH (08:22)
[2016-12-09] MEDS: CHOLECALCIFEROL 1000 INTER.UNIT TAB PO SCH (08:22)
[2016-12-09] MEDS: ASCORBIC ACID 500 MG TAB PO SCH (08:22)
[2016-12-09] MEDS: ASPIRIN 81 MG ECTAB PO SCH (08:22)
[2016-12-09] MEDS ORDERED: DXM4 PO (08:52)
--- NOTE | 2016-12-09 08:53 | Discharge Instructions ---
Discharge Instructions Date of Service December 09, 2016. 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 Instructions / Follow-Up Instructions / Follow-Up you have Brain lesions , you need to keep appointment with [facility] Neurosurgeon december 17, 2016 1:15 pm you need 24 hour care and fall precaution, you need to really keep an eye on her because of fall and injuries is a concern. you are not allow to drive, new medicine included Dexamethasone tapering dose: 4mg po bid for 4 days then 2mg po bid for 4 day then 2mg po daily for 4 days then 1mg po daily for 4 days, then stop continue nutrition support per dietitian recommends - you need to follow up with your primary care physician in 1 week, - take medication as instructed, never overdose or any misuse, or take with alcohol, because misuse of medicine may cause organ damage or , call your primary care physician if have questions of medicaitons. - call your primary care physician OR go to local emergency room if has any fever/chill, chest pain, shortness of breathing, nausea/vomiting/abdominal pain , facial droop/slurry speech/local weakness, or if has any questions. - fall precaution - diet as instructed - you need to follow up with your subspecialist - you should understand that it is important to follow up the above instruction , and "not following the above instruction" may cause delayed or missed care of your medical conditions which may cause permanent organ damage and even . Current Hospital Diet Patient's current hospital diet: AHA Diet (Heart Healthy) Discharge Diet Recommended Diet: Regular Diet Pending Studies Studies pending at discharge: no Laboratory Results Hemoglobin A1c Test 10/21/16 11:50 Range/Units Estimated Average Glucose 117 mg/dl Hemoglobin A1c 5.7 H 4.5-5.6 % Medical Emergencies . Who to Call and When: Medical Emergencies: If at any time you feel your situation is an emergency, please call 911 immediately. . Non-Emergent Contact Non-Emergency issues call your: Primary Care Provider . . "Provider Documentation" section prepared by Vel Nieves. . VTE Core Measure Inpt VTE Proph given/why not?: [facility] [employer]
[2016-12-09 09:17] VITALS: BP 120/71; PULSE 59; TEMP 36.7; O2SAT 95
--- NOTE | 2016-12-09 17:43 | Discharge Summary ---
Discharge Summary Date of Service December 09, 2016. Discharge Summary Admission Date: December 05, 2016 at 22:11 Discharge Date: December 09, 2016 Discharge Disposition: Home Principal Diagnosis: Brain lesions Problems/Secondary Diagnoses: (1) Leaky heart valve Status: Chronic (2) Stiff heart syndrome Status: Chronic Procedures: no Consultations: Oncologist, neurologist Medication Reconciliation New Medications: Dexamethasone (Dexamethasone) 4 Mg Tab 2 MG PO BID for 16 Days, #30 TAB 4mg po bid for 4 days then 2mg po bid for 4 day then 2mg po daily for 4 days then 1mg po daily for 4 days, then stop Continued Medications: Ascorbic Acid (Ascorbic Acid) 500 Mg Tab 500 MG PO DAILY, TAB Aspirin (Aspirin Ec) 81 Mg Tab 81 MG PO DAILY Brewers Yeast (Brewers Yeast) 1 Pow Pow 1 PO DAILY Cholecalciferol (Vitamin D 1000 Unit) 1,000 Unit Cap 1000 INTER.UNIT PO DAILY, CAP Coenzyme Q10 (Ubidecarenone) (Co Q10) 100 Mg Cap 1 CAP PO DAILY, CAP Glucosamine Hydrochloride (Glucosamine) 1,500 Mg Tab 1 TAB PO DAILY Lisinopril (Zestril) 10 Mg Tab 10 MG PO DAILY, TAB Magnesium (Magnesium 250 mg) 1 Tab Tab 1 TAB PO DAILY Multivitamins/Minerals (Mvi With Minerals) Tab 1 TAB PO DAILY, TAB Discharge Exam Doing well, pleasant Review of Systems: Constitutional: No chills, No fatigue, No fever, No problem reported, No sweats, No weakness, No weight loss Eyes: No diplopia, No discharge, No eye pain, No problem reported, No redness, No worsening of vision ENT: No dental problems, No hearing loss, No nasal symptoms, No problem reported, No sore throat, No tinnitus, No trouble swallowing, No unusual epistaxis Respiratory: No cough, No dyspnea at rest, No dyspnea on exertion, No hemoptysis, No problem reported, No shortness of breath, No sputum, No wheezing Cardiovascular: No PND, No chest pain, No claudication, No edema, No orthopnea, No palpitations, No problem reported Abdomen: No GI bleeding, No constipation, No diarrhea, No nausea, No pain, No problem reported, No vomiting Musculoskeletal: No calf pain, No joint pain, No muscle pain, No problem reported, No swelling Genitourinary - Female: No dysmenorrhea, No dysuria, No hematuria, No menorrhagia, No metrorrhagia, No , No problem reported, No rash, No urinary frequency, No urinary incontinence, No urinary retention, No urinary urgency, No vaginal bleeding, No vaginal discharge, No vaginal itching, No vulvodynia Neurologic: No balance problems, No memory loss, No numbness/tingling, No paralysis, No problem reported, No vertigo, No weakness Psychiatric: No anhedonism, No anxiety, No depression symptoms, No insomnia , No problem reported, No substance abuse Endocrine: No excessive thirst, No excessive urination, No fatigue, No problem reported Hematologic / Lymphatic: No abnormal bleeding/bruising, No clotting problems , No night sweats, No problem reported, No swollen lymph nodes Integumentary: No bleeding, No color change, No itch, No new/changing skin lesions, No problem reported, No rash Physical Exam: General Appearance: WD/WN, no apparent distress Eyes: normal inspection, PERRL ENT: normal ENT inspection, hearing grossly normal Neck: supple, no adenopathy Respiratory/Chest: chest non-tender, lungs clear Cardiovascular: regular rate, rhythm, no edema, no gallop, no JVD, no murmur , normal peripheral pulses Abdomen / GI: normal bowel sounds, non tender, soft, no organomegaly, no pulsatile mass Extremities: normal inspection, no calf tenderness, normal capillary refill , no pedal edema, normal range of motion Neurologic/Psychiatric: drug department worker II-XII nml as tested, no motor/sensory deficits , alert, normal mood/affect, normal reflexes, oriented x 3 Skin: normal color, warm/dry, no rash Hospital Course 81 yo female admitted on 12/05/2016 cause of profound weakness and some confusion, brought by her son, found to have 2.5x2.3 brain lesion on head CT in left internal capsule Brain lesions: Stable, today he is awake and orientated 3 one large and one tiny lesion seen on MRI brain, either primary or metastatic appreciate recommendations from oncology for work up CT chest and A/P - normal Pelvic US - 4cm fibroid, nothing suspicious for malignancy FOBT negative, oncology would like to ask GI to consider colonoscopy to officially rule out colon/anal lesion So far, no primary lesion can be found, would need brain biopsy and referral to tertiary care family leaning towards requesting to meet with neurosurgeon with [facility], has request major case detective to set up appointment explained that this referral would only be for a neurosurgeon to provide recommendations as well as risk/benefits of biopsy/surgery Neurology saw the patient , EEG was done - Diffuse bruising: unclear etiology, normal platelets and coags patient's house described as hoarding, very narrow walkways of clutter, hard sharp objects no reported falls per patient or son per OT/PT, very weak, needs 24 hour care at minimum, safety is a concern, definitely not a candidate for independent living, with present on nurse, discussed patient and son, Derick West is watery sure he able to take care of patient 24 7 around the clock, I feel they are reliable, I did told them if they feel any not able to do it of 24/ 7 around the clock care, may need to call PCP, I also told them need to really keep an eye on her because of fall and injuries is a concern. I did talk to them regarding to detention as an option, patient and family declined - ETHAN: can use home CPAP - H/o HTN: hold lisinopril to prevent any possible hypotension with her already weakened state can likely discontinue - Weakness: consult PT/OT, patient needs 24 hour care minimum she is weak, poor coordination, shuffling gait, has no awareness about safety CT in the above Patient and son are sure able to have 24 7 covered, has discussed about the need upon discharge to home, will contact PTOT to see anything equipment needed such as walker, Patient and son declined rehab, major case detective work on appointment with neurosurgeon in [place], will have databases computer consultant consult for coronary of diet and nutrition supplementation if needed. With present on nurse , discussed with patient and son above the safety of drive, I clearly told her she is not allow to drive, patient and son understand and agreed. Planning to discharge home if everything setting up tomorrow, reported about toenail is issue, was seen by podiatry before, recommend to continue to follow up with podiatry. Discussed with CODE STATUS, patient want to be full code, power of banking attorney is patient's son his name is Wellington. has help setting up appointment with [facility] Neurosurgeon december 17, 2016 1:15 pm Instructions / Follow-Up you have Brain lesions , you need to keep appointment with [facility] Neurosurgeon december 17, 2016 1:15 pm you need 24 hour care and fall precaution, you need to really keep an eye on her because of fall and injuries is a concern. you are not allow to drive, new medicine included Dexamethasone tapering dose: 4mg po bid for 4 days then 2mg po bid for 4 day then 2mg po daily for 4 days then 1mg po daily for 4 days, then stop continue nutrition support per dietitian recommends - you need to follow up with your primary care physician in 1 week, - take medication as instructed, never overdose or any misuse, or take with alcohol, because misuse of medicine may cause organ damage or , call your primary care physician if have questions of medicaitons. - call your primary care physician OR go to local emergency room if has any fever/chill, chest pain, shortness of breathing, nausea/vomiting/abdominal pain , facial droop/slurry speech/local weakness, or if has any questions. - fall precaution - diet as instructed - you need to follow up with your subspecialist - you should understand that it is important to follow up the above instruction , and "not following the above instruction" may cause delayed or missed care of your medical conditions which may cause permanent organ damage and even . Total Time Spent: Greater than 30 minutes This includes examination of the patient, discharge planning, medication reconciliation, and communication with other providers. Discharge Instructions Please refer to the electronic Patient Visit Report (Discharge Instructions) for additional information. Additional Copies To Ady Meza M.D.; Amador Anders MD
[2017-01-09] MEDS ORDERED: DXM/4 PO (11:12)
[2017-01-09] MEDS ORDERED: LEVE250T PO (11:12)
[2017-01-27] MEDS ORDERED: [UNRECOGNIZED DRUG - OTHER] (19:05)
[2017-01-31] MEDS ORDERED: LPT40 PO (09:12)
[2017-01-31] MEDS ORDERED: ASPEC81 PO (09:12)
[2017-01-31] MEDS ORDERED: OXGN (09:12)
== END 2016-12-09 13:17 | disposition home or self-care (01) | DRG 54 ==
LOC: ENRESERVTM → ENRESERVDT → C.EDB 16:42 → C.MED 22:11
PROVIDERS: ADMIT Hospitalist; ATTEND Hospitalist
DX: C71.9 Malignant neoplasm of brain, unspecified (principal); G93.6 Cerebral edema; C79.31 Secondary malignant neoplasm of brain; R23.3 Spontaneous ecchymoses; G47.33 Obstructive sleep apnea (adult) (pediatric); D25.9 Leiomyoma of uterus, unspecified; K59.00 Constipation, unspecified; R63.4 Abnormal weight loss; Z68.20 Body mass index [BMI] 20.0-20.9, adult; R54 Age-related physical debility; I10 Essential (primary) hypertension; Z79.899 Other long term (current) drug therapy; Z79.82 Long term (current) use of aspirin; Z91.81 History of falling; Z87.891 Personal history of nicotine dependence; Z82.49 Family history of ischemic heart disease and other diseases of the circulatory system; Z84.1 Family history of disorders of kidney and ureter; Z80.3 Family history of malignant neoplasm of breast

== ENCOUNTER 2016-12-12 21:24 | Emergency (ER) | payer BC, OTHER ==
[~2016-12-12] VITALS: Ht 162.6 cm; Wt 58.4 kg
[~2016-12-12 21:24] MED LIST changes: -ACET-1311 PO; -ASPEC81 PO; -ATV5 PO; -BCTRO EXT; -Boost Plus Vanilla PO; -CHOL1000 PO; -CHOLTAB PO; -DOCU-94 PO; -DXM/4 INJ; -DXM/4 PO; -ENOX30IN SQ; -HMLI7525 SC; -KPPSUDL500 PO; -LEVE250T PO; -LINE1TAB2 PO; -LISI-725 PO; -LPR25 PO; -LPT40 PO; -MCTP EXT; -ONDA4TAB65 PO; -OXGN; -PANT1INJ2 IV; -RXC5 PO; -SDMC1 PO; -SENN-61 PO; -ZLF50 PO; -ZVRO EXT; -[UNRECOGNIZED DRUG - CODE] IV; -[UNRECOGNIZED DRUG - CODE] IV; -[UNRECOGNIZED DRUG - OTHER]
[2016-12-12 21:32] VITALS: TEMP 36.6; Ht 162.6 cm; Wt 58.4 kg
[2016-12-12 22:25] LABS: INR 0.9 (0.9-1.1); PARTIAL THROMBOPLASTIN RATIO 0.8; PROTHROMBIN TIME (PATIENT) 9.7 SECONDS (9.0-12.0)
[2016-12-12 22:28] LABS: BLOOD UREA NITROGEN 38 mg/dl (7-18); BUN/CREATININE RATIO 43.6 (10-20); CARBON DIOXIDE 26 mmol/L (21-32); CHLORIDE 100 mmol/L (98-107); CREATININE 0.88 mg/dl (0.60-1.20); GLUCOSE 133 mg/dl (70-99); MAGNESIUM 2.4 mg/dl (1.8-2.4); POTASSIUM 4.4 mmol/L (3.5-5.1); SODIUM 136 mmol/L (136-145)
[2016-12-12 22:29] LABS: URINE APPEARANCE CLEAR (CLEAR); URINE BILIRUBIN NEG (NEG); URINE COLOR YELLOW; URINE NITRITE NEG (NEG); URINE PH 7.5 (4.5-7.5); URINE SPECIFIC GRAVITY 1.015 (1.000-1.030); UROBILINOGEN NEG (NEG); ZZUR CULT IF INDIC CLEAN CATCH NO
[2016-12-12 22:31] LABS: MANUAL MICROSCOPIC REQUIRED? NO; REVIEW REQ? NO
[2016-12-12 22:32] LABS: CALCIUM 8.7 mg/dl (8.5-10.1)
[2016-12-12 22:36] LABS: HEMATOCRIT 40.2 % (37-47); MEAN CELL VOLUME 93.5 fL (80-100); MEAN CORPUSCULAR HEMOGLOBIN 30.2 pg (25-34); MEAN CORPUSCULAR HGB CONC 32.3 g/dl (32-36); MEAN PLATELET VOLUME 10.8 fL (7.4-10.4); PLATELET COUNT 244 K/uL (130-400); WHITE BLOOD COUNT 17.56 K/uL (4.8-10.8)
[2016-12-12] MEDS ORDERED: LORAZEPAM 2 MG/ML 1 ML VIAL ONE (22:37)
[2016-12-12] MEDS ORDERED: LORAZEPAM 2 MG/ML 1 ML VIAL IV STA (22:39)
[2016-12-12] MEDS ORDERED: LEVETIRACETAM IV 1,000 MG in DEXTROSE 5% 100ML 100 ML IV STA (22:39)
[2016-12-12] MEDS ORDERED: DEXAMETHASONE SOD INJ 10 MG/ML VIAL IV ONE (23:00)
[2016-12-12 23:02] VITALS: O2SAT 96
[2016-12-12 23:07] LABS: BASO % 0.2 %; BASO ABS # 0.04 K/uL (0-0.2); COMPLETE YES; EOS % 0.2 %; LYMPH % 4.7 %; LYMPH ABS # 0.83 K/uL (1.2-3.4); MONO % 9.5 %; NEUT % 81.4 %
--- NOTE | 2016-12-12 23:12 | DIAGNOSTIC IMAGING REPORT ---
CT OF THE HEAD WITHOUT CONTRAST CLINICAL HISTORY: Seizure. 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 COMPARISON STUDY: Head CT and MRI of the brain December 05, 2016. CT DOSE: 709.48 mGy.cm TECHNIQUE: Helical axial images of the head were obtained without IV contrast. Automated exposure control was utilized for the study. FINDINGS: No acute intracranial hemorrhage is present. A 2.6 x 2.5 cm mixed attenuation left basal ganglia mass-like abnormality is similar to prior exams. A 3.6 x 2 cm right frontal parafalcine hypodensity is also unchanged. Scattered additional white matter hypodensities are unchanged. Ventricular system is stable. Basilar cisterns are patent. There are no extra axial collections. There are no CT findings to suggest acute dural sinus thrombosis or acute territorial infarct. There is no calvarial fracture. Visualized portions of the sinuses and mastoid air cells are clear. IMPRESSION: No significant change in the 2.6 cm left basal ganglia mass-like abnormality and 3.6 cm right parafalcine hypodensity since prior exams of December 05, 2016. The findings strongly favor a neoplastic process and could reflect metastatic disease or synchronous primary brain tumors. Electronically signed by: Baudilio De La Cruz M.D. 12/12/2016 11:10 PM Dictated Date/Time: 12/12/2016 10:58 PM
--- NOTE | 2016-12-12 23:21 | EMERGENCY ROOM VISIT NOTE ---
ED Visit Note First contact with patient: 21:58 I have seen and examined this patient with Etta Carbajal and generally agree with the treatment plan as discussed. 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 Current/Historical Medications Scheduled Ascorbic Acid (Ascorbic Acid), 500 MG PO DAILY Aspirin (Aspirin Ec), 81 MG PO DAILY Brewers Yeast (Brewers Yeast), 1 PO DAILY Cholecalciferol (Vitamin D 1000 Unit), 1,000 INTER.UNIT PO DAILY Coenzyme Q10 (Ubidecarenone) (Co Q10), 1 CAP PO DAILY Dexamethasone (Dexamethasone), 2 MG PO BID Glucosamine Hydrochloride (Glucosamine), 1 TAB PO DAILY Lisinopril (Zestril), 10 MG PO DAILY Magnesium (Magnesium 250 mg), 1 TAB PO DAILY Multivitamins/Minerals (Mvi With Minerals), 1 TAB PO DAILY Allergies Coded Allergies: Penicillins (Unverified Allergy, Mild, 12/12/16) Vital Signs Date Time Temp Pulse Resp B/P Pulse Ox O2 Delivery O2 Flow Rate FiO2 12/12/16 23:02 96 Nasal Cannula 2.0 12/12/16 23:02 96 Nasal Cannula 2.0 12/12/16 22:59 71 20 141/81 96 Room Air 12/12/16 22:29 72 18 156/85 92 Room Air 12/12/16 22:09 72 12/12/16 22:03 92 Room Air 12/12/16 21:32 36.6 80 20 152/86 92 Room Air Laboratory Results 12/12/16 21:37 Red Blood Count 4.30, Mean Corpuscular Volume 93.5, Mean Corpuscular Hemoglobin 30.2, Mean Corpuscular Hemoglobin Concent 32.3, Mean Platelet Volume 10.8, Neutrophils (%) (Auto) 81.4, Lymphocytes (%) (Auto) 4.7, Monocytes (%) (Auto) 9.5, Eosinophils (%) (Auto) 0.2, Basophils (%) (Auto) 0.2, Neutrophils # (Auto) 14.29, Lymphocytes # (Auto) 0.83, Monocytes # (Auto) 1.66, Eosinophils # (Auto) 0.04, Basophils # (Auto) 0.04 12/12/16 21:37 Test 12/12/16 21:37 12/12/16 21:50 White Blood Count 17.56 K/uL (4.8-10.8) Red Blood Count 4.30 M/uL (4.2-5.4) Hemoglobin 13.0 g/dL (12.0-16.0) Hematocrit 40.2 % (37-47) Mean Corpuscular Volume 93.5 fL (80-100) Mean Corpuscular Hemoglobin 30.2 pg (25-34) Mean Corpuscular Hemoglobin Concent 32.3 g/dl (32-36) Platelet Count 244 K/uL (130-400) Mean Platelet Volume 10.8 fL (7.4-10.4) Neutrophils (%) (Auto) 81.4 % Lymphocytes (%) (Auto) 4.7 % Monocytes (%) (Auto) 9.5 % Eosinophils (%) (Auto) 0.2 % Basophils (%) (Auto) 0.2 % Neutrophils # (Auto) 14.29 K/uL (1.4-6.5) Lymphocytes # (Auto) 0.83 K/uL (1.2-3.4) Monocytes # (Auto) 1.66 K/uL (0.11-0.59) Eosinophils # (Auto) 0.04 K/uL (0-0.5) Basophils # (Auto) 0.04 K/uL (0-0.2) RDW Standard Deviation 56.5 fL (36.4-46.3) RDW Coefficient of Variation 16.6 % (11.5-14.5) Immature Granulocyte % (Auto) 4.0 % Immature Granulocyte # (Auto) 0.70 K/uL (0.00-0.02) Red Blood Cell Morphology Unremarkable Prothrombin Time 9.7 SECONDS (9.0-12.0) Prothromb Time International Ratio 0.9 (0.9-1.1) Activated Partial Thromboplast Time 21.2 SECONDS (21.0-31.0) Partial Thromboplastin Ratio 0.8 Anion Gap 10.0 mmol/L (3-11) Est Creatinine Clear Calc Drug Dose 44.1 ml/min Estimated GFR () 71.9 Estimated GFR (Non- 62.1 BUN/Creatinine Ratio 43.6 (10-20) Calcium Level 8.7 mg/dl (8.5-10.1) Phosphorus Level 3.0 mg/dl (2.5-4.9) Magnesium Level 2.4 mg/dl (1.8-2.4) Total Creatine Kinase 64 U/L (26-192) Creatine Kinase MB 1.9 ng/ml (0.5-3.6) Creatine Kinase MB Ratio 3.0 (0-3.0) Troponin I < 0.015 ng/ml (0-0.045) Thyroid Stimulating Hormone (TSH) 3.930 uIu/ml (0.300-4.500) Urine Color YELLOW Urine Appearance CLEAR (CLEAR) Urine pH 7.5 (4.5-7.5) Urine Specific [place] 1.015 (1.000-1.030) Urine Protein NEG (NEG) Urine Glucose (UA) NEG (NEG) Urine Ketones NEG (NEG) Urine Occult Blood NEG (NEG) Urine Nitrite NEG (NEG) Urine Bilirubin NEG (NEG) Urine Urobilinogen NEG (NEG) Urine Leukocyte Esterase NEG (NEG) Medications Administered Medications (Trade) Dose Ordered Sig/Cuco Route Start Time Stop Time Status Last Admin Dose Admin Levetiracetam/ Dextrose (Keppra Iv/D5 100ml) 110 ml @ 440 mls/hr ONE STAT IV 12/12/16 22:39 12/12/16 22:53 DC 12/12/16 23:10 440 MLS/HR Dexamethasone Sodium Phosphate (Decadron Inj) 10 mg NOW ONCE IV 12/12/16 23:00 12/12/16 23:01 DC 12/12/16 23:09 10 MG Departure Information Referrals Issac Meza M.D. (PCP) Patient Instructions My [facility]
[2016-12-12] MEDS ORDERED: SODIUM CHLORIDE 0.9% 1000ML 1,000 ML IV STA (23:50)
--- NOTE | 2016-12-13 00:31 | EMERGENCY ROOM VISIT NOTE ---
History First contact with patient: 21:58 Chief Complaint: SEIZURE Stated Complaint: SYNCOPE OR SEIZURE Nursing Triage Summary: pt brought to ed via ems from [facility]. per son pt was in the bathroom and had a seizure. states "her whole body was shaking and she was weight." recent history of brain CA. pt has appointment with [facility] neuro on thursday. pt does not remember the event. pt a&O on arrival. History of Present Illness The patient is a 81 year old female who presents to the Emergency Room with complaints of possible seizure tonight who was recently diagnosed with tumors to her brain. Patient was seen here last week for altered mental status and was found to have 3 brain tumors. She has an initial appointment with neurosurgery next week in [place]. Patient states she was at [facility] in the bathroom and next thing she knows she is waking up on the floor. Her son was helping her to the toilet caught her as she was seizing off the toilet and lowered her to the ground. He then summoned 911. Patient then while in the ER had another seizure. Patient states she has some left shoulder discomfort and no other medical complaints. Patient denies headache, neck pain, chest pain, dyspnea, abdominal pain, numbness, tingling or any other medical complaints. The seizures are new. Review of Systems See HPI for pertinent positives & negatives. A total of 10 systems reviewed and were otherwise negative. 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 Family History Cancer Heart disease Hypertension Kidney disease Kidney stones Social History Smoking Status: Former Smoker Smokeless Tobacco Use: No Alcohol Use: none Drug Use: none Marital Status: single Housing Status: lives with family Occupation Status: retired Current/Historical Medications Scheduled Ascorbic Acid (Ascorbic Acid), 500 MG PO DAILY Aspirin (Aspirin Ec), 81 MG PO DAILY Brewers Yeast (Brewers Yeast), 1 PO DAILY Cholecalciferol (Vitamin D 1000 Unit), 1,000 INTER.UNIT PO DAILY Coenzyme Q10 (Ubidecarenone) (Co Q10), 1 CAP PO DAILY Dexamethasone (Dexamethasone), 2 MG PO BID Glucosamine Hydrochloride (Glucosamine), 1 TAB PO DAILY Lisinopril (Zestril), 10 MG PO DAILY Magnesium (Magnesium 250 mg), 1 TAB PO DAILY Multivitamins/Minerals (Mvi With Minerals), 1 TAB PO DAILY Allergies Coded Allergies: Penicillins (Unverified Allergy, Mild, 12/12/16) Physical Exam Vital Signs Date Time Temp Pulse Resp B/P Pulse Ox O2 Delivery O2 Flow Rate FiO2 12/13/16 00:17 74 20 140/78 96 Nasal Cannula 2.0 12/12/16 23:18 73 22 150/85 96 Nasal Cannula 2.0 12/12/16 23:02 96 Nasal Cannula 2.0 12/12/16 23:02 96 Nasal Cannula 2.0 12/12/16 22:59 71 20 141/81 96 Room Air 12/12/16 22:29 72 18 156/85 92 Room Air 12/12/16 22:09 72 12/12/16 22:03 92 Room Air 12/12/16 21:32 36.6 80 20 152/86 92 Room Air Physical Exam VITALS: Vitals are noted on the nurse's note and reviewed by myself. Vital signs stable. GENERAL: Pleasant female answering questions appropriately, in no acute distress , nondiaphoretic, well-developed well-nourished. SKIN: Contusions throughout the body The rest of the skin was without rashes, erythema, edema, or bruising. There is no tenting of the skin. Capillary reflex less than 2 seconds. HEAD: Normocephalic atraumatic. EARS: External auditory canals clear, tympanic membranes pearly giles without erythema or effusion bilaterally. EYES: Pupils equal round and reactive to light and accommodation. Conjunctivae without injection, sclerae without icterus. Extraocular movements intact. NOSE: Patent, turbinates without inflammation or discharge. No sinus tenderness. MOUTH: Mucous membranes moist. Pharynx without erythema or exudate. Uvula midline. Airway patent. Tongue does not deviate. 2 bites to the tip of the tongue most likely from the seizure with bleeding controlled NECK: Supple without nuchal rigidity. No lymphadenopathy. No thyromegaly. Cervical spine is nontender. No JVD. HEART: Regular rate and rhythm LUNGS: Clear to auscultation bilaterally without wheezes, rales or rhonchi. No dullness to percussion. No retractions or accessory muscle use. ABDOMEN: Positive bowel sounds x 4. Normal tympanic percussion. Soft, nontender, without masses or organomegaly. Loera sign negative. No guarding or rebound tenderness. MUSCULOSKELETAL: No muscle atrophy, erythema, or edema noted. NEURO: Patient was alert and oriented to person place and time. Normal sensation to light and sharp touch. No focal neurological deficits. Patient able to follow commands without difficulties. Medical Decision & Procedures Laboratory Results 12/12/16 21:37 Red Blood Count 4.30, Mean Corpuscular Volume 93.5, Mean Corpuscular Hemoglobin 30.2, Mean Corpuscular Hemoglobin Concent 32.3, Mean Platelet Volume 10.8, Neutrophils (%) (Auto) 81.4, Lymphocytes (%) (Auto) 4.7, Monocytes (%) (Auto) 9.5, Eosinophils (%) (Auto) 0.2, Basophils (%) (Auto) 0.2, Neutrophils # (Auto) 14.29, Lymphocytes # (Auto) 0.83, Monocytes # (Auto) 1.66, Eosinophils # (Auto) 0.04, Basophils # (Auto) 0.04 12/12/16 21:37 Test 12/12/16 21:37 12/12/16 21:50 White Blood Count 17.56 K/uL (4.8-10.8) Red Blood Count 4.30 M/uL (4.2-5.4) Hemoglobin 13.0 g/dL (12.0-16.0) Hematocrit 40.2 % (37-47) Mean Corpuscular Volume 93.5 fL (80-100) Mean Corpuscular Hemoglobin 30.2 pg (25-34) Mean Corpuscular Hemoglobin Concent 32.3 g/dl (32-36) Platelet Count 244 K/uL (130-400) Mean Platelet Volume 10.8 fL (7.4-10.4) Neutrophils (%) (Auto) 81.4 % Lymphocytes (%) (Auto) 4.7 % Monocytes (%) (Auto) 9.5 % Eosinophils (%) (Auto) 0.2 % Basophils (%) (Auto) 0.2 % Neutrophils # (Auto) 14.29 K/uL (1.4-6.5) Lymphocytes # (Auto) 0.83 K/uL (1.2-3.4) Monocytes # (Auto) 1.66 K/uL (0.11-0.59) Eosinophils # (Auto) 0.04 K/uL (0-0.5) Basophils # (Auto) 0.04 K/uL (0-0.2) RDW Standard Deviation 56.5 fL (36.4-46.3) RDW Coefficient of Variation 16.6 % (11.5-14.5) Immature Granulocyte % (Auto) 4.0 % Immature Granulocyte # (Auto) 0.70 K/uL (0.00-0.02) Red Blood Cell Morphology Unremarkable Prothrombin Time 9.7 SECONDS (9.0-12.0) Prothromb Time International Ratio 0.9 (0.9-1.1) Activated Partial Thromboplast Time 21.2 SECONDS (21.0-31.0) Partial Thromboplastin Ratio 0.8 Anion Gap 10.0 mmol/L (3-11) Est Creatinine Clear Calc Drug Dose 44.1 ml/min Estimated GFR () 71.9 Estimated GFR (Non- 62.1 BUN/Creatinine Ratio 43.6 (10-20) Calcium Level 8.7 mg/dl (8.5-10.1) Phosphorus Level 3.0 mg/dl (2.5-4.9) Magnesium Level 2.4 mg/dl (1.8-2.4) Total Creatine Kinase 64 U/L (26-192) Creatine Kinase MB 1.9 ng/ml (0.5-3.6) Creatine Kinase MB Ratio 3.0 (0-3.0) Troponin I < 0.015 ng/ml (0-0.045) Thyroid Stimulating Hormone (TSH) 3.930 uIu/ml (0.300-4.500) Urine Color YELLOW Urine Appearance CLEAR (CLEAR) Urine pH 7.5 (4.5-7.5) Urine Specific [place] 1.015 (1.000-1.030) Urine Protein NEG (NEG) Urine Glucose (UA) NEG (NEG) Urine Ketones NEG (NEG) Urine Occult Blood NEG (NEG) Urine Nitrite NEG (NEG) Urine Bilirubin NEG (NEG) Urine Urobilinogen NEG (NEG) Urine Leukocyte Esterase NEG (NEG) Medications Administered Medications (Trade) Dose Ordered Sig/Cuco Route Start Time Stop Time Status Last Admin Dose Admin Levetiracetam/ Dextrose (Keppra Iv/D5 100ml) 110 ml @ 440 mls/hr ONE STAT IV 12/12/16 22:39 12/12/16 22:53 DC 12/12/16 23:10 440 MLS/HR Dexamethasone Sodium Phosphate 10 mg 10 mg NOW ONCE IV 12/12/16 23:00 12/12/16 23:01 DC 12/12/16 23:09 10 MG Sodium Chloride (Nss 1000ml) 1,000 ml @ 75 mls/hr [id number] STAT IV 12/12/16 23:50 12/13/16 13:09 12/12/16 23:54 75 MLS/HR ED Course Prior records/ancillary studies reviewed. Patient placed in seizure precautions immediately upon arrival. Nursing notes reviewed. Additional history obtained from family The patient's history was concerning for a possible seizure. Differential diagnosis: Etiologies such as infection, hypoglycemia, electrolyte abnormalities, cardiac sources, intracerebral event, trauma, toxicologic, neurologic, as well as others were entertained. Physical examination: As above. No signs of trauma. ER treatment provided: Ativan, Keppra, Decadron, IV fluids On reassessment the patient felt better. Diagnostics interpretation by me: ECG: Normal sinus, normal intervals, T wave inversion in V1 and V2, impression normal sinus rhythm interpreted by myself The labs revealed negative troponin. Stable H&H Imaging studies: Chest x-ray with no acute consolidation or pneumothorax or free air per my interpretation, shoulder x-ray with no fracture, dislocation or effusion per my interpretation CT OF THE HEAD WITHOUT CONTRAST CLINICAL HISTORY: Seizure. [employer] lesions. COMPARISON STUDY: Head CT and MRI of the brain December 05, 2016. CT DOSE: 709.48 mGy.cm TECHNIQUE: Helical axial images of the head were obtained without IV contrast. Automated exposure control was utilized for the study. FINDINGS: No acute intracranial hemorrhage is present. A 2.6 x 2.5 cm mixed attenuation left basal ganglia mass-like abnormality is similar to prior exams. A 3.6 x 2 cm right frontal parafalcine hypodensity is also unchanged. Scattered additional white matter hypodensities are unchanged. Ventricular system is stable. Basilar cisterns are patent. There are no extra axial collections. There are no CT findings to suggest acute dural sinus thrombosis or acute territorial infarct. There is no calvarial fracture. Visualized portions of the sinuses and mastoid air cells are clear. IMPRESSION: No significant change in the 2.6 cm left basal ganglia mass-like abnormality and 3.6 cm right parafalcine hypodensity since prior exams of December 05, 2016. The findings strongly favor a neoplastic process and could reflect metastatic disease or synchronous primary brain tumors. Electronically signed by: Baudilio De La Cruz M.D. 12/12/2016 11:10 PM Consultation: A consultation was placed with the neurologist, Dr. Hua. The case was discussed and diagnostics were reviewed. He recommends admission or transfer to [facility] and agrees with giving the Keppra and Decadron was already given prior to consultation. 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 No new changes on CT from the other day. Patient had an EEG in the hospital and this was reviewed. Patient also had a brain MRI and this is reviewed. Patient was transferred to [facility] as there is no neurosurgery here. Dr. Veronica, neurosurgery, except admission. Patient transferred via ALS in stable condition. Patient was reassessed multiple times. While in the ER she had a seizure and was given Ativan and Keppra. Family is agreeable to treatment plan of transfer to higher level care for neurosurgery evaluation. Patient has appointment this week with neurosurgery also at [facility]. The patient was counseled not to drive until cleared in follow-up and seizure precautions given. I gave my usual and customary discussion regarding these issues. The pt informed about the findings as listed above. All questions were answered and pleased with the treatment. Case reviewed with my attending. Medical Decision As above Impression Primary Impression: Intracranial mass Additional Impression: Seizure Critical Care I have personally spent greater than 30 minutes of critical care time in the direct management of this patient. This includes bedside care, interpretation of diagnostic studies, and testing, discussion with consultants, patient, and family members, and other required patient management activities. This 30 minutes is in excess of all separately billable procedures. Departure Information Dispostion Transfer Acute Care Facility ([facility]) Condition FAIR Referrals sIsac Meza M.D. (PCP) Patient Instructions My [facility] Problem Qualifiers
[2016-12-13 01:01] VITALS: BP 123/72; PULSE 68; O2SAT 96
--- NOTE | 2016-12-13 07:25 | DIAGNOSTIC IMAGING REPORT ---
LEFT SHOULDER 2 VIEWS CLINICAL HISTORY: Seizure. Left shoulder pain. FINDINGS: 2 portable views of the left shoulder are obtained. No prior studies are available for comparison at the time of dictation. The skeletal structures are osteopenic. No fracture or dislocation is seen. There is productive degenerative change at the acromioclavicular joint. The glenohumeral articulation is preserved. The overlying soft tissues are within normal limits. The partially imaged left lung parenchyma appears clear. There is atherosclerotic calcification of the thoracic aorta. IMPRESSION: Osteopenia and degenerative change as above. No fracture or dislocation is seen in the left shoulder. Electronically signed by: Ga Garcia M.D. 12/13/2016 7:23 AM Dictated Date/Time: 12/13/2016 7:22 AM
--- NOTE | 2016-12-13 07:26 | DIAGNOSTIC IMAGING REPORT ---
SINGLE VIEW CHEST CLINICAL HISTORY: Seizure. FINDINGS: An AP, portable, upright chest radiograph is compared to study dated 08/21/14 and correlated with chest CT dated 12/06/2016. The examination is degraded by portable technique and patient rotation. The heart is enlarged and there is atherosclerotic calcification of the thoracic aorta. The pulmonary vasculature is noncongested. Chronic interstitial thickening is similar to previous. No airspace consolidation or pleural effusion is identified. No pneumothorax is seen. The skeletal structures are osteopenic. The bony thorax is grossly intact. IMPRESSION: Cardiomegaly with no acute cardiopulmonary abnormality. Electronically signed by: Ga Garcia M.D. 12/13/2016 7:25 AM Dictated Date/Time: 12/13/2016 7:24 AM
[2017-01-09] MEDS ORDERED: LEVE250T PO (11:12)
[2017-01-09] MEDS ORDERED: DXM/4 PO (11:12)
[2017-01-27] MEDS ORDERED: [UNRECOGNIZED DRUG - OTHER] (19:05)
[2017-01-31] MEDS ORDERED: LPT40 PO (09:12)
[2017-01-31] MEDS ORDERED: ASPEC81 PO (09:12)
[2017-01-31] MEDS ORDERED: OXGN (09:12)
[2017-02-17] MEDS ORDERED: MCTP EXT (13:20)
[2017-02-17] MEDS ORDERED: RXC5 PO (13:20)
[2017-02-17] MEDS ORDERED: LINE1TAB2 PO (13:20)
[2017-02-17] MEDS ORDERED: DXM4 PO (13:20)
[2017-02-17] MEDS ORDERED: Boost Plus Vanilla PO (13:20)
[2017-02-17] MEDS ORDERED: [UNRECOGNIZED DRUG - CODE] IV (13:20)
[2017-02-17] MEDS ORDERED: ZVRO EXT (13:20)
[2017-02-17] MEDS ORDERED: ONDA4TAB65 PO (13:20)
[2017-02-17] MEDS ORDERED: ATV5 PO (13:20)
== END 2016-12-13 01:01 | disposition short-term general hospital (02) ==
LOC: EDBD 21:24 → C.EDC 21:26 → C.EDB 12-13 01:01
DX: G93.9 Disorder of brain, unspecified (principal); R56.9 Unspecified convulsions; I10 Essential (primary) hypertension; E78.5 Hyperlipidemia, unspecified; Z95.2 Presence of prosthetic heart valve; Z87.891 Personal history of nicotine dependence; Z79.82 Long term (current) use of aspirin; Z79.899 Other long term (current) drug therapy; Z88.0 Allergy status to penicillin; Z80.9 Family history of malignant neoplasm, unspecified; Z82.49 Family history of ischemic heart disease and other diseases of the circulatory system; Z84.1 Family history of disorders of kidney and ureter; G47.30 Sleep apnea, unspecified; R53.83 Other fatigue; C79.31 Secondary malignant neoplasm of brain

== ENCOUNTER → 2016-12-12 | Outpatient (CLI) | payer BC, OTHER ==
[~2016-12-12] VITALS: Ht 162.6 cm; Wt 56.5 kg
[~2016-12-12] MED LIST changes: +ACET-1311 PO; +ASCO500T16 PO; +ASPEC81 PO; +ASPI81TA28 PO; +ATV5 PO; +BCTRO EXT; +BREWPOW PO; +Boost Plus Vanilla PO; +CHOL1000 PO; +CHOL100027 PO; -CHOL400C7 PO; +CHOLTAB PO; +COEN100C15 PO; +DOCU-94 PO; +DXM/4 INJ; +DXM/4 PO; +DXM4 PO; +ENOX30IN SQ; +GLUC15009 PO; -GLYCDRO6 OPB; +HMLI7525 SC; +KPPSUDL500 PO; +LEVE250T PO; +LINE1TAB2 PO; +LISI-461 PO; +LISI-725 PO; -LISI-792 PO; +LPR25 PO; +LPT40 PO; +MAGN250T3 PO; -MAGNESIUM PO; +MCTP EXT; +MULT-513 PO; +ONDA4TAB65 PO; +OXGN; +PANT1INJ2 IV; +RXC5 PO; +SDMC1 PO; +SENN-61 PO; +ZLF50 PO; +ZVRO EXT; +[UNRECOGNIZED DRUG - CODE] IV; +[UNRECOGNIZED DRUG - CODE] IV; +[UNRECOGNIZED DRUG - OTHER]
[2016-12-12 15:53] VITALS: BP 164/79; PULSE 60; Ht 162.6 cm; Wt 56.5 kg
== END | disposition home or self-care (01) ==
LOC: C.NEUR 14:30
PROVIDERS: ATTEND Internal Medicine Pulmonary Disease
DX: G47.30 Sleep apnea, unspecified (principal); R53.83 Other fatigue; C79.31 Secondary malignant neoplasm of brain

== ENCOUNTER 2016-12-25 10:50 | Emergency (ER) | payer OTHER, BC ==
[~2016-12-25] VITALS: Ht 165.1 cm; Wt 60.2 kg
[2016-12-25 11:03] VITALS: Ht 165.1 cm; Wt 60.2 kg
[2016-12-25] MEDS ORDERED: SODIUM CHLORIDE 0.9% 1000ML 1,000 ML IV STA (11:55)
--- NOTE | 2016-12-25 12:04 | EMERGENCY ROOM VISIT NOTE ---
History Report prepared by Ivan: Taya Rodriguez Under the Supervision of: Dr. Cata Tsang M.D. First contact with patient: 11:38 Chief Complaint: SEIZURE Stated Complaint: SEIZURE Nursing Triage Summary: pt arrived als from [facility] reported seizure this am at 1020 lasting 2min, seizure last matias at 2200 lasting 1.30 min. pt hx of seizures, brain tumor, biopsy five days prior created a right sided facial droop, pt is on medication for seizures (maxed) reported by son and medication for swelling History of Present Illness The patient is a 81 year old female who presents to the Emergency Room with complaints of 2 episodes of seizures beginning 1 hour ago. The patient's son states that the patient has a history of seizures and a brain tumor. He reports that the patient was seen here a few weeks ago and was sent to [place] where she stayed for 11 days. He notes that she was released to [facility] yesterday and last night had a seizure after becoming agitated that lasted 2 minutes. He reports that she had another seizure 1 hour ago that lasted 2 minutes. The patient's son states that she is on the maximum dose of her seizure medication and her doctor wanted them to come into the ED today. The patient's son complains of weakness and agitation. He denies any fall or trauma as he was able to bring her to the floor gently. The patient's son reports that the patient seems to get agitated around the same time as her seizures but is not sure whether or not the agitation causes the seizure or the seizure causes the agitation. He states that when the patient seizes she foams at the mouth and bites herself. He notes that sometimes they are not as intense and she is stiff and breathing hard. Source of History: family Onset: last night Position: other (global) Symptom Intensity: 2 episodes Quality: other (seizures) Timing: intermittent Modifying Factors (Worsening): other (agitation) Associated Symptoms: + weakness Note: The patient's son complains of agitation. He denies any fall or trauma. Review of Systems See HPI for pertinent positives & negatives. A total of 10 systems reviewed and were otherwise negative. 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 Family History Cancer Heart disease Hypertension Kidney disease Kidney stones Social History Smoking Status: Unknown if Ever Smoked Alcohol Use: none Drug Use: none Marital Status: single Housing Status: lives with family Occupation Status: retired Current/Historical Medications Scheduled Ascorbic Acid (Ascorbic Acid), 500 MG PO DAILY Aspirin (Aspirin Ec), 81 MG PO DAILY Cholecalciferol (D-400), 1 TAB PO DAILY Coenzyme Q10 (Ubidecarenone) (Co Q10), 1 CAP PO DAILY Dexamethasone (Decadron), 4 MG INJ Q6H Docusate Sodium (Colace), 1 CAP PO BID Enoxaparin (Lovenox), 30 MG SQ Q12 Glucosamine Hydrochloride (Glucosamine), 1 TAB PO DAILY Insulin Lispro 75/25 (Humalog Mix 75/25), 1 DOSE SC ACHS Levetiracetam In Sodium Chlori (Levetiracetam), 1,000 MG IV Q12H Lisinopril (Zestril), 20 MG PO DAILY Magnesium (Magnesium 250 mg), 1 TAB PO BID Pantoprazole Sodium (Protonix), 10 ML IV DAILY Senna (Senokot), 2 TAB PO BID Sodium Chloride (Sodium Chloride), 3 GM PO TID Scheduled PRN Acetaminophen (Tylenol), 650 MG PO Q4H PRN for Mild Pain Allergies Coded Allergies: Penicillins (Unverified Allergy, Mild, 12/25/16) Physical Exam Vital Signs Date Time Temp Pulse Resp B/P (MAP) Pulse Ox O2 Delivery O2 Flow Rate FiO2 12/25/16 15:33 37.0 82 17 139/68 96 12/25/16 15:15 82 17 96 12/25/16 15:02 139/68 12/25/16 14:45 74 19 95 12/25/16 14:40 57 19 95 12/25/16 14:32 134/80 12/25/16 14:10 56 18 96 12/25/16 14:02 168/76 12/25/16 13:50 66 12/25/16 13:40 59 19 93 12/25/16 13:32 134/79 12/25/16 13:10 60 18 95 12/25/16 13:02 129/71 12/25/16 12:40 55 18 95 12/25/16 12:35 57 16 96 12/25/16 12:32 128/67 12/25/16 12:20 58 18 96 12/25/16 12:18 135/76 12/25/16 11:50 65 18 97 12/25/16 11:35 59 19 95 12/25/16 11:20 62 20 96 12/25/16 11:05 58 19 95 12/25/16 11:04 64 12/25/16 11:03 37.0 63 16 137/79 92 Room Air 12/25/16 10:55 137/79 Physical Exam Vital signs reviewed. General: Well-appearing, in no significant distress. HEENT: No scleral icterus, PERRLA, neck supple. Atraumatic. Cardiovascular: Regular rate and rhythm, no extra sounds. Pulmonary: Clear to auscultation bilaterally, normal work of breathing. Abdomen: Soft, nontender, nondistended, positive bowel sounds. Musculoskeletal: Atraumatic, no peripheral edema. Neurologic: Patient awake alert and oriented x 3, full strength in all 4 extremities. Cranial nerves 2 through 12 grossly intact. Mild right nasolabial fold flattening, mild right facial droop Skin: Warm, dry, no rash Medical Decision & Procedures ER Provider Diagnostic Interpretation: CT results as stated below per my review and radiologist interpretation: CT SCAN OF THE BRAIN WITHOUT IV CONTRAST FINDINGS: Brain parenchyma: A right parafalcine lesion and a left basal ganglia lesion with mild surrounding edema are similar in appearance to prior studies. There is hyperdense material seen along the inferior margin of the left basal ganglia lesion on axial image #16, likely represent trace hemorrhage. There are least 2 calcifications/densities in the left frontal lobe which are new from previous. There are age-related involutional changes noting moderate subcortical and periventricular microangiopathic change. There is no midline shift or evidence of acute territorial ischemia by CT criteria. A chronic lacunar infarct is noted in the right caudate head. No extra-axial fluid collection is seen. Ventricles, sulci, cisterns: Prominent secondary to involutional change. Intracranial vasculature: There is minimal atherosclerotic calcification of the cavernous carotid arteries. Calvarium: Unremarkable. Sinuses and mastoids: The visualized paranasal sinuses are clear. The mastoid air cells are well pneumatized. Orbits: The bony orbits are grossly intact. There are bilateral ocular lens implants. IMPRESSION: 1. There are similar-appearing low-attenuation lesions centered in the right parafalcine frontal lobe and the left basal ganglia as compared to 12/12/2016 with surrounding edema. 2. There is hyperdense material seen along the inferior margin of the left basal ganglia lesion. This is new from 12/12/2016 and likely represents trace hemorrhage. This may be related to recent procedure if there has been a history of biopsy. No overlying calvarial defect is identified. Clinical correlation will be required. 3. Calcifications/densities in the left frontal lobe are new from previous and of indeterminant significance. Clinical correlation will be required. 4. There is no midline shift or evidence of acute territorial ischemia by CT criteria. Electronically signed by: Ga Garcia M.D. 12/25/2016 12:24 PM Dictated Date/Time: 12/25/2016 12:16 PM Laboratory Results 12/25/16 11:20 Red Blood Count 4.34, Mean Corpuscular Volume 92.2, Mean Corpuscular Hemoglobin 30.4, Mean Corpuscular Hemoglobin Concent 33.0, Mean Platelet Volume 10.3, Neutrophils (%) (Auto) 82.0, Lymphocytes (%) (Auto) 5.0, Monocytes (%) (Auto) 10.4, Eosinophils (%) (Auto) 0.0, Basophils (%) (Auto) 0.1, Neutrophils # (Auto ) 12.22, Lymphocytes # (Auto) 0.75, Monocytes # (Auto) 1.55, Eosinophils # (Auto ) 0.00, Basophils # (Auto) 0.02 12/25/16 11:20 Test 12/25/16 11:20 White Blood Count 14.91 K/uL (4.8-10.8) Red Blood Count 4.34 M/uL (4.2-5.4) Hemoglobin 13.2 g/dL (12.0-16.0) Hematocrit 40.0 % (37-47) Mean Corpuscular Volume 92.2 fL (80-100) Mean Corpuscular Hemoglobin 30.4 pg (25-34) Mean Corpuscular Hemoglobin Concent 33.0 g/dl (32-36) Platelet Count 234 K/uL (130-400) Mean Platelet Volume 10.3 fL (7.4-10.4) Neutrophils (%) (Auto) 82.0 % Lymphocytes (%) (Auto) 5.0 % Monocytes (%) (Auto) 10.4 % Eosinophils (%) (Auto) 0.0 % Basophils (%) (Auto) 0.1 % Neutrophils # (Auto) 12.22 K/uL (1.4-6.5) Lymphocytes # (Auto) 0.75 K/uL (1.2-3.4) Monocytes # (Auto) 1.55 K/uL (0.11-0.59) Eosinophils # (Auto) 0.00 K/uL (0-0.5) Basophils # (Auto) 0.02 K/uL (0-0.2) RDW Standard Deviation 54.9 fL (36.4-46.3) RDW Coefficient of Variation 16.0 % (11.5-14.5) Immature Granulocyte % (Auto) 2.5 % Immature Granulocyte # (Auto) 0.37 K/uL (0.00-0.02) Anion Gap 7.0 mmol/L (3-11) Est Creatinine Clear Calc Drug Dose 84.1 ml/min Estimated GFR () 107.4 Estimated GFR (Non- 92.6 BUN/Creatinine Ratio 54.5 (10-20) Calcium Level 8.5 mg/dl (8.5-10.1) Magnesium Level 2.4 mg/dl (1.8-2.4) Total Bilirubin 0.3 mg/dl (0.2-1) Direct Bilirubin < 0.1 mg/dl (0-0.2) Aspartate Amino Transf (AST/SGOT) 18 U/L (15-37) Alanine Aminotransferase (ALT/SGPT) 43 U/L (12-78) Alkaline Phosphatase 103 U/L (45-117) Total Protein 5.7 gm/dl (6.4-8.2) Albumin 2.8 gm/dl (3.4-5.0) Laboratory results per my review. Medications Administered Medications (Trade) Dose Ordered Sig/Cuco Route Start Time Stop Time Status Last Admin Dose Admin Sodium Chloride 1,000 ml @ 125 mls/hr Q8H STAT IV 12/25/16 11:55 12/25/16 16:29 DC 12/25/16 11:55 125 MLS/HR ECG Indication: other (seizure) Rate (beats per minute): 59 Rhythm: sinus bradycardia Findings: no acute ischemic change, no ectopy ED Course 1138: Past medical records reviewed. The patient was evaluated in room C4. A complete history and physical examination was performed. 1155: Sodium Chloride 1000 ml @ 125 mls/hr IV. 1208: Ativan Inj 2mg IV. 1319: I spoke to Dr. Al of [place]. He agrees with my plan for outpatient follow up. 1447: I spoke to Dr. Hutchinson of Neuro Oncology at [place]. He recommends increasing Keppra to 1500 BID. 1452: Upon reevaluation, the patient appeared to have improvement of her symptoms. I discussed findings with the patient. She verbalized agreement of the treatment plan. The patient was discharged home. Medical Decision Differential diagnosis: Etiologies such as infection, hypoglycemia, electrolyte abnormalities, cardiac sources, intracerebral event, trauma, toxicologic, neurologic, as well as others were entertained. Medication Reconciliation: I attest that I have personally reviewed the patient' s current medication list. Blood Pressure Screening: Patient was found to have a slightly elevated blood pressure due to circumstances and age. I do not believe that the patient requires hypertension monitoring. This pt was evaluated and appeared to be in no distress. IV access was obtained and lab work was drawn. Pt was observed with SZ precautions maintained. No further SZ activity in the ED. CT head was performed and is as above, no significant swelling/bleed, minor changes when compared to previous. Case was d/w Dr Hutchinson at [facility] of neuro-oncology. Pt keppra will be increased to 1500 mg BID. Pt ans son were informed of the findings and agree with the plan. Pt was d/c back to [facility] for further management. Consults Time Called: 1310 Consulting Physician: Dr. Mikaela Wright Returned Call: [phone] Al of [place]. He agrees with my plan for outpatient follow up. Additional Consults: Time Called: 1325 Consulted Physician: Dr. Hutchinson - Neuro Oncology Returned Call: [phone] Additional Comments: I spoke to Dr. Hutchinson of Neuro Oncology at [place]. He recommends increasing Keppra to 1500 BID. Impression Primary Impression: Seizure disorder Additional Impression: Intracranial mass Scribe Attestation The scribe's documentation has been prepared under my direction and personally reviewed by me in its entirety. I confirm that the note above accurately reflects all work, treatment, procedures, and medical decision making performed by me. Departure Information Dispostion Home / Self-Care Referrals Issac Meza M.D. (PCP) Forms HOME CARE DOCUMENTATION FORM, IMPORTANT VISIT INFORMATION Patient Instructions My [facility] Additional Instructions Diagnosis: Seizure disorder, intracranial mass Increase your Keppra to 1500 mg twice daily. Follow-up with Dr. Hutchinson at [facility] as scheduled. Continue decadron as prescribed. Return to the ED for worsening of symptoms or any medical concerns. Problem Qualifiers
[2016-12-25] MEDS ORDERED: LORAZEPAM 2 MG/ML 1 ML VIAL ONE (12:08)
[2016-12-25 12:10] LABS: BASO % 0.1 %; BASO ABS # 0.02 K/uL (0-0.2); COMPLETE YES; IG% 2.5 %; LYMPH ABS # 0.75 K/uL (1.2-3.4); MEAN CELL VOLUME 92.2 fL (80-100); MEAN CORPUSCULAR HEMOGLOBIN 30.4 pg (25-34); MEAN PLATELET VOLUME 10.3 fL (7.4-10.4); MONO % 10.4 %; PLATELET COUNT 234 K/uL (130-400); RED BLOOD COUNT 4.34 M/uL (4.2-5.4); WHITE BLOOD COUNT 14.91 K/uL (4.8-10.8)
[2016-12-25] MEDS ORDERED: DXM/4 INJ (12:15)
[2016-12-25] MEDS ORDERED: CHOLTAB PO (12:15)
[2016-12-25] MEDS ORDERED: ENOX30IN SQ (12:15)
[2016-12-25] MEDS ORDERED: SDMC1 PO (12:15)
[2016-12-25] MEDS ORDERED: [UNRECOGNIZED DRUG - CODE] IV (12:15)
[2016-12-25] MEDS ORDERED: HMLI7525 SC (12:15)
[2016-12-25] MEDS ORDERED: PANT1INJ2 IV (12:15)
[2016-12-25] MEDS ORDERED: DOCU-94 PO (12:15)
[2016-12-25] MEDS ORDERED: LISI-725 PO (12:15)
[2016-12-25] MEDS ORDERED: SENN-61 PO (12:15)
[2016-12-25] MEDS ORDERED: ACET-1311 PO (12:15)
--- NOTE | 2016-12-25 12:25 | DIAGNOSTIC IMAGING REPORT ---
CT SCAN OF THE BRAIN WITHOUT IV CONTRAST CLINICAL HISTORY: Seizure. History of brain tumor. Reported history of recent biopsy. COMPARISON STUDY: CT of the brain dated 12/12/2016. TECHNIQUE: Unenhanced axial CT scan of the brain is performed from the vertex to the skull base. CT DOSE: 614.27 mGy.cm FINDINGS: Brain parenchyma: A right parafalcine lesion and a left basal ganglia lesion with mild surrounding edema are similar in appearance to prior studies. There is hyperdense material seen along the inferior margin of the left basal ganglia lesion on axial image #16, likely represent trace hemorrhage. There are least 2 calcifications/densities in the left frontal lobe which are new from previous. There are age-related involutional changes noting moderate subcortical and periventricular microangiopathic change. There is no midline shift or evidence of acute territorial ischemia by CT criteria. A chronic lacunar infarct is noted in the right caudate head. No extra-axial fluid collection is seen. Ventricles, sulci, cisterns: Prominent secondary to involutional change. Intracranial vasculature: There is minimal atherosclerotic calcification of the cavernous carotid arteries. Calvarium: Unremarkable. Sinuses and mastoids: The visualized paranasal sinuses are clear. The mastoid air cells are well pneumatized. Orbits: The bony orbits are grossly intact. There are bilateral ocular lens implants. IMPRESSION: 1. There are similar-appearing low-attenuation lesions centered in the right parafalcine frontal lobe and the left basal ganglia as compared to 12/12/2016 with surrounding edema. 2. There is hyperdense material seen along the inferior margin of the left basal ganglia lesion. This is new from 12/12/2016 and likely represents trace hemorrhage. This may be related to recent procedure if there has been a history of biopsy. No overlying calvarial defect is identified. Clinical correlation will be required. 3. Calcifications/densities in the left frontal lobe are new from previous and of indeterminant significance. Clinical correlation will be required. 4. There is no midline shift or evidence of acute territorial ischemia by CT criteria. Electronically signed by: Ga Garcia M.D. 12/25/2016 12:24 PM Dictated Date/Time: 12/25/2016 12:16 PM
[2016-12-25 12:27] LABS: ALT/SGPT 43 U/L (12-78); AST/SGOT 18 U/L (15-37); BLOOD UREA NITROGEN 26 mg/dl (7-18); BUN/CREATININE RATIO 54.5 (10-20); CALCIUM 8.5 mg/dl (8.5-10.1); CARBON DIOXIDE 28 mmol/L (21-32); CHLORIDE 102 mmol/L (98-107); CREATININE 0.48 mg/dl (0.60-1.20); GLUCOSE 99 mg/dl (70-99); MAGNESIUM 2.4 mg/dl (1.8-2.4); POTASSIUM 4.6 mmol/L (3.5-5.1); SODIUM 137 mmol/L (136-145)
[2016-12-25 12:30] LABS: ALKALINE PHOSPHATASE 103 U/L (45-117)
[2016-12-25 15:33] VITALS: BP 139/68; PULSE 82; TEMP 37; O2SAT 96
[2017-01-09] MEDS ORDERED: LEVE250T PO (11:12)
[2017-01-09] MEDS ORDERED: DXM/4 PO (11:12)
[2017-01-27] MEDS ORDERED: [UNRECOGNIZED DRUG - OTHER] (19:05)
[2017-01-31] MEDS ORDERED: ASPEC81 PO (09:12)
[2017-01-31] MEDS ORDERED: LPT40 PO (09:12)
[2017-01-31] MEDS ORDERED: OXGN (09:12)
[2017-02-17] MEDS ORDERED: LINE1TAB2 PO (13:20)
[2017-02-17] MEDS ORDERED: ONDA4TAB65 PO (13:20)
[2017-02-17] MEDS ORDERED: ZVRO EXT (13:20)
[2017-02-17] MEDS ORDERED: RXC5 PO (13:20)
[2017-02-17] MEDS ORDERED: DXM4 PO (13:20)
[2017-02-17] MEDS ORDERED: MCTP EXT (13:20)
[2017-02-17] MEDS ORDERED: ATV5 PO (13:20)
[2017-02-17] MEDS ORDERED: Boost Plus Vanilla PO (13:20)
[2017-02-17] MEDS ORDERED: [UNRECOGNIZED DRUG - CODE] IV (13:20)
== END 2016-12-25 15:33 | disposition home or self-care (01) ==
LOC: EDBD 10:50 → C.EDC 10:53
DX: G40.909 Epilepsy, unspecified, not intractable, without status epilepticus (principal); G93.9 Disorder of brain, unspecified; I10 Essential (primary) hypertension; E78.5 Hyperlipidemia, unspecified; Z95.2 Presence of prosthetic heart valve; Z79.82 Long term (current) use of aspirin; Z79.4 Long term (current) use of insulin; Z79.899 Other long term (current) drug therapy; Z88.0 Allergy status to penicillin; Z80.9 Family history of malignant neoplasm, unspecified; Z82.49 Family history of ischemic heart disease and other diseases of the circulatory system; Z84.1 Family history of disorders of kidney and ureter

== ENCOUNTER 2017-01-29 05:23 | Inpatient (IN) | payer BC, OTHER ==
[~2017-01-29] VITALS: Ht 165.1 cm; Wt 39.7 kg
[~2017-01-29 05:23] MED LIST changes: +ACET-1311 PO; -ASPI81TA28 PO; -BREWPOW PO; -CHOL100027 PO; -COEN100C15 PO; +DOCU-94 PO; +DXM/4 PO; -DXM4 PO; -GLUC15009 PO; +LEVE250T PO; -LISI-461 PO; +LISI-725 PO; -MAGN250T3 PO; -MULT-513 PO; +[UNRECOGNIZED DRUG - OTHER]
--- NOTE | 2017-01-29 05:53 | EMERGENCY ROOM VISIT NOTE ---
History Report prepared by Ivan: Joey Wood Under the Supervision of: Dr. Salma Cisneros D.O. First contact with patient: 05:32 Chief Complaint: OTHER COMPLAINT Stated Complaint: EVALUATION REQUEST-LOWER OXYGEN SATURATIONS History of Present Illness The patient is an 81 year old female who presents to the Emergency Room due to concerns over low oxygen saturations and poor respiration. Per the patient's son , he noticed her respirating unusually this morning shortly prior to arrival. He states that she was breathing slowly, and not taking deep breaths. He placed a home pulse oxygen monitor on her finger and got a reading of 68%. The patient recently started chemotherapy and radiation for glioblastoma. She has had 6 radiation treatments to this point. The patient's glioblastoma was biopsied in [place], during the biopsy the patient lost function of her right side. The son is now her primary asp net c developer, and helps the patient to eat and function daily. She has had 5 mini-seizures over the past five days which the son notes last 30 seconds to one minute. The son notes that she appears at baseline at this time. The patient denies any chest pain or headaches currently. 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 A total of 10 systems reviewed and were otherwise negative. 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 Family History Cancer Heart disease Hypertension Kidney disease Kidney stones Social History Smoking Status: Former Smoker Alcohol Use: none Drug Use: none Marital Status: single Housing Status: lives with family Occupation Status: retired Current/Historical Medications Scheduled Cholecalciferol (Vitamin D3), 1,000 UNITS PO DAILY Dexamethasone (Decadron), 6 MG PO BID Levetiracetam (Keppra), 1,000 MG PO Q12 Lisinopril (Zestril), 20 MG PO DAILY Allergies Coded Allergies: Penicillins (Unverified Allergy, Mild, 12/25/16) Physical Exam Vital Signs Date Time Temp Pulse Resp B/P (MAP) Pulse Ox O2 Delivery O2 Flow Rate FiO2 01/29/17 06:12 55 18 107/65 99 Nasal Cannula 3.0 01/29/17 05:36 55 01/29/17 05:29 36.2 64 18 113/67 90 Room Air Physical Exam General: Patient is lethargic on exam. Seems to have expressive aphasia when asked questions. HEENT: Head - normocephalic and atraumatic Pupils are equal, round, and reactive to light. Extraocular eye muscles are intact, and sclera are anicteric. Nose - moist nasal mucosa without discharge. Mouth - extremely dry buccal mucosa. Oropharynx is nonerythematous and there is no tonsillar exudate or edema noted. Neck: Supple; no JVD, nuchal rigidity, cervical lymphadenopathy. Heart: Bradycardiac rate and normal rhythm. There is a normal S1 and S2 with no murmurs, clicks, or gallops appreciated. Lungs: Clear to auscultation bilaterally with no wheezes, rales, or rhonchi. Abdomen: Soft, completely nontender, nondistended, with good bowel sounds. There are no palpable pulsatile masses or hepatosplenomegaly. There is no guarding, rigidity, or rebound noted. Extremities: No evidence of cyanosis, clubbing, or edema. There are easily palpable peripheral pulses. Skin: warm and dry with good turgor and no rashes. NEURO: Patient has a left sided facial droop. She does seem to be able to follow commands. Patient occasionally answers yes and no appropriately. Medical Decision & Procedures ER Provider Diagnostic Interpretation: Radiology results as stated below per my review and the radiologist's interpretation: CHEST X-RAY: Chest x-ray reveals elevated right hemidiaphragm, no pulmonary infiltrations, or pleural effusions. CT HEAD WITHOUT CONTRAST (CT) CLINICAL HISTORY: Change in mental status COMPARISON STUDY: 12/25/2016 TECHNIQUE: Axial CT of the brain is performed from the vertex to the skull base. IV contrast was not administered for this examination. CT DOSE: 614.27 mGy.cm FINDINGS: No intra or extra-axial mass lesions are visualized. Again evident is a low-density lesion within the left lentiform nucleus.. No new lesions are visualized. There is no significant midline shift. Parenchymal calcifications within the left frontal lobe remains stable. There is also a stable hypodensity within the right centrum semiovale There are patchy white matter hypodensities likely on a small vessel basis. There is no evidence of pathologic ventricular dilatation. There is no evidence of acute sinusitis IMPRESSION: No significant change from the preceding study. Stable hypodense lesions within the right centrum semiovale and left lentiform nucleus remain stable. No evidence of acute hemorrhage Electronically signed by: Ronald Weiss M.D. 01/29/2017 6:34 AM Dictated Date/Time: 01/29/2017 6:30 AM Laboratory Results 01/29/17 06:00 Red Blood Count 4.71, Mean Corpuscular Volume 92.1, Mean Corpuscular Hemoglobin 30.4, Mean Corpuscular Hemoglobin Concent 32.9, Mean Platelet Volume 9.7 01/29/17 06:00 Test 01/29/17 06:00 01/29/17 06:05 White Blood Count 18.20 K/uL (4.8-10.8) Red Blood Count 4.71 M/uL (4.2-5.4) Hemoglobin 14.3 g/dL (12.0-16.0) Hematocrit 43.4 % (37-47) Mean Corpuscular Volume 92.1 fL (80-100) Mean Corpuscular Hemoglobin 30.4 pg (25-34) Mean Corpuscular Hemoglobin Concent 32.9 g/dl (32-36) Platelet Count 212 K/uL (130-400) Mean Platelet Volume 9.7 fL (7.4-10.4) RDW Standard Deviation 49.7 fL (36.4-46.3) RDW Coefficient of Variation 14.8 % (11.5-14.5) Neutrophils % (Manual) 85.2 % Lymphocytes % (Manual) 1.7 % Monocytes % (Manual) 3.5 % Metamyelocytes % 7.0 % Myelocytes % 2.6 % Neutrophils # (Manual) 15.51 K/uL (1.4-6.5) Total Absolute Neutrophils 15.51 K/uL (1.4-6.5) Lymphocytes # (Manual) 0.31 K/uL (1.2-3.4) Total Absolute Lymphocytes 0.31 K/uL (1.2-3.4) Monocytes # (Manual) 0.64 K/uL (0.11-0.59) Metamyelocytes # 1.27 K/uL (0-0) Myelocytes # 0.47 K/uL (0-0) Red Blood Cell Morphology Unremarkable Anion Gap 4.0 mmol/L (3-11) Est Creatinine Clear Calc Drug Dose 58.6 ml/min Estimated GFR () 107.4 Estimated GFR (Non- 92.6 BUN/Creatinine Ratio 70.0 (10-20) Calcium Level 8.9 mg/dl (8.5-10.1) Total Bilirubin 0.4 mg/dl (0.2-1) Direct Bilirubin < 0.1 mg/dl (0-0.2) Aspartate Amino Transf (AST/SGOT) 17 U/L (15-37) Alanine Aminotransferase (ALT/SGPT) 44 U/L (12-78) Alkaline Phosphatase 125 U/L (45-117) Total Creatine Kinase 41 U/L (26-192) Creatine Kinase MB 5.5 ng/ml (0.5-3.6) Troponin I 0.053 ng/ml (0-0.045) Total Protein 5.4 gm/dl (6.4-8.2) Albumin 2.5 gm/dl (3.4-5.0) Thyroid Stimulating Hormone (TSH) 0.453 uIu/ml (0.300-4.500) Creatine Kinase MB Ratio (0-3.0) Laboratory results per my review. Medications Administered Medications (Trade) Dose Ordered Sig/Cuco Route Start Time Stop Time Status Last Admin Dose Admin Sodium Chloride 500 ml @ 999 mls/hr Q31M STAT IV 01/29/17 06:44 01/29/17 07:14 DC 01/29/17 06:53 999 MLS/HR Procedure IV normal saline hydration ECG Indication: SOB/dyspnea Rate (beats per minute): 52 Rhythm: sinus bradycardia Findings: T-wave inversion (V1, aVL, V3-V6) Comparison ECG Date: 12/25/2016 Change: T-wave inversions are new ED Course 0532: Past medical records reviewed. The patient was evaluated in room B7. A complete history and physical exam was performed. An IV lock was initiated and labs are drawn as above. A twelve-lead EKG was obtained as described above. She went for CT scan of the brain which was unchanged from previous scans. 0545: The patient's oxygen saturation dropped below 90% on room air and was placed on supplemental oxygen. 0550: I reviewed the patient's oncology records. The patient did have a biopsy performed on December 18 of this year in [place]. This procedure left her with right sided facial droop, expressive aphasia, and weakness in the LUE and LLE. 0644: Sodium Chloride 1000 mL @ 250 mL/hr IV, Sodium Chloride 500 mL @ 999 mL/ hr IV. 0647: I revaluated the patient at this time. The son claims that she remains to appear at baseline. Medical Decision The patient is an 81 year old female who presents to the Emergency Department for respiratory difficulties. Differential diagnosis includes; Acute intracranial hemorrhage, expanding GBM, anemia, electrolyte imbalance, pneumonia, seizure. Laboratory results were reviewed and show; White count of 18.2, stable hemoglobin and hematocrit, BUN 34. creatinine 0.4, glucose 145, normal TSH, and troponin 0.053, Patient was found to have normal blood pressure on screening and does not require follow-up. I attest that I have personally reviewed the patient's current medication list. CT scan of brain revealed no acute hemorrhage. It was essentially unchanged from previous CT scans. The patient remained hemodynamically stable while here in the emergency department. Patient does have EKG changes and a positive troponin. Chest x-ray reveals no evidence as to why the patient may have become hypoxic. It seems that with her altered status, she could've had a seizure or a mini seizure. The patient was noted be significantly dehydrated. She received an IV normal saline bolus and was placed on a drip. I believe that the patient will require some social service evaluation as the son explains that he is the primary asp net c developer. He has not states her in the past 5 days and she is wearing the same clothes over the past 5 days. He admits that he has not been able to get her to drink as much as she needs to. I discussed the case with the [facility] Hospitalist and they will evaluate for further management. Consults Time Called: 07 Consulting Physician: Jaswinder Returned Call: 07 Impression Primary Impression: Hypoxia Additional Impressions: Dehydration NSTEMI (non-ST elevated myocardial infarction) Scribe Attestation The scribe's documentation has been prepared under my direction and personally reviewed by me in its entirety. I confirm that the note above accurately reflects all work, treatment, procedures, and medical decision making performed by me. Departure Information Dispostion Being Evaluated By Hospitalist Referrals Issac Meza M.D. (PCP) Patient Instructions My [facility] Problem Qualifiers
[2017-01-29] MEDS ORDERED: CHOL1000 PO (06:00)
[2017-01-29 06:16] LABS: HEMATOCRIT 43.4 % (37-47); MEAN CELL VOLUME 92.1 fL (80-100); MEAN CORPUSCULAR HEMOGLOBIN 30.4 pg (25-34); MEAN CORPUSCULAR HGB CONC 32.9 g/dl (32-36); MEAN PLATELET VOLUME 9.7 fL (7.4-10.4); PLATELET COUNT 212 K/uL (130-400); RED BLOOD COUNT 4.71 M/uL (4.2-5.4)
--- NOTE | 2017-01-29 06:36 | DIAGNOSTIC IMAGING REPORT ---
CT HEAD WITHOUT CONTRAST (CT) CLINICAL HISTORY: Change in mental status COMPARISON STUDY: 12/25/2016 TECHNIQUE: Axial CT of the brain is performed from the vertex to the skull base. IV contrast was not administered for this examination. CT DOSE: 614.27 mGy.cm FINDINGS: No intra or extra-axial mass lesions are visualized. Again evident is a low-density lesion within the left lentiform nucleus.. No new lesions are visualized. There is no significant midline shift. Parenchymal calcifications within the left frontal lobe remains stable. There is also a stable hypodensity within the right centrum semiovale There are patchy white matter hypodensities likely on a small vessel basis. There is no evidence of pathologic ventricular dilatation. There is no evidence of acute sinusitis IMPRESSION: No significant change from the preceding study. Stable hypodense lesions within the right centrum semiovale and left lentiform nucleus remain stable. No evidence of acute hemorrhage Electronically signed by: Ronald Weiss M.D. 01/29/2017 6:34 AM Dictated Date/Time: 01/29/2017 6:30 AM
[2017-01-29 06:39] LABS: BLOOD UREA NITROGEN 34 mg/dl (7-18); CALCIUM 8.9 mg/dl (8.5-10.1); CARBON DIOXIDE 32 mmol/L (21-32); CHLORIDE 106 mmol/L (98-107); CREATININE 0.48 mg/dl (0.60-1.20); GLUCOSE 145 mg/dl (70-99); POTASSIUM 4.4 mmol/L (3.5-5.1); SODIUM 142 mmol/L (136-145)
--- NOTE | 2017-01-29 06:40 | DIAGNOSTIC IMAGING REPORT ---
CHEST ONE VIEW PORTABLE CLINICAL HISTORY: Hypoxia COMPARISON STUDY: 12/12/2016 FINDINGS: The heart is at the upper limits of normal in size. There is blunting of the right lateral costophrenic angle. A small effusion is suspected. Minor right basilar airspace opacities are likely atelectatic. There is underlying interstitial thickening similar to the prior study. IMPRESSION: Suspected small right pleural effusion with right basilar opacities likely atelectatic Electronically signed by: Ronald Weiss M.D. 01/29/2017 6:38 AM Dictated Date/Time: 01/29/2017 6:37 AM
[2017-01-29 06:41] LABS: COMPLETE YES; LYMPH ABS # 0.31 K/uL (1.2-3.4); LYMPHOCYTE % 1.7 %; META ABS # 1.27 K/uL (0-0); MYELOCYTE % 2.6 %; NEUTROPHILS % 85.2 %
[2017-01-29] MEDS ORDERED: SODIUM CHLORIDE 0.9% 500ML 500 ML IV STA (06:44)
[2017-01-29] MEDS ORDERED: SODIUM CHLORIDE 0.9% 1000ML 1,000 ML IV STA (06:44)
[2017-01-29 06:57] LABS: ALKALINE PHOSPHATASE 125 U/L (45-117); ALT/SGPT 44 U/L (12-78); AST/SGOT 17 U/L (15-37); CKMB/CK RATIO 13.4 (0-3.0); THYROID STIMULATING HORMONE 0.453 uIu/ml (0.300-4.500)
--- NOTE | 2017-01-29 07:23 | History and Physical ---
History & Physical Date & Time of Service: Jan 29, 2017 at 07:20 Chief Complaint: Evaluation Request-Lower Oxygen Saturations Primary Care Physician: Issac Meza M.D. History of Present Illness This is an 81-year-old female, with a PMHx of newly diagnosed glioblastoma currently undergoing palliative chemotherapy and stereotactic radiation therapy , HTN, hyperlipidemia, seizure disorder, DJD stage III, arthritis, history of kidney stones, prolapsed uterus and fibroids, previous ETHAN on CPAP but no longer wears the mask. The patient's son is present at bedside and supplies the majority of the history for her as she is very weak and only says yes or no to very few my questions. He reports that at approximately 0400 he woke her up to get ready for morning chemotherapy which is scheduled for 6 AM, but she "did not seem right" and checked her oxygen saturation which he reports was 68% on room air and called 911. She has completed 3 rounds of chemotherapy/XRT which started on 01/25, 01/26 and 01/28. Since then she has been getting progressively weaker. She does have a right-sided upper extremity weakness and right expressive aphasia which is been present since her biopsy. She has been eating and drinking fairly well per his report. Her last bowel movement was 6-8 days ago. She no longer wears CPAP as this was uncomfortable for her. He denies fevers, sweats, chills for her although has not taken her temperature. Her urine has been clear to light yellow. In ER pt had CT of the head which was negative for acute hemorrhage or edema. CXR has a suspected small right pleural effusion with right basilar opacities likely atelectatic. Leukocytosis of 18.2 and slightly elevated troponin at 0.053. Her EKG is sinus bradycardic has minimal but new ST wave inversions in the lateral leads. 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 Glioblastoma currently undergoing palliative chemotherapy and stereotactic radiation therapy Family History Cancer Heart disease Hypertension Kidney disease Kidney stones Social History Smoking Status: Former Smoker Smokeless Tobacco Use: No Alcohol Use: none Drug Use: none Marital Status: single Occupational Status: retired Multi-Drug Resistant Organisms History of MDRO: No Allergies Coded Allergies: Penicillins (Unverified Allergy, Mild, 12/25/16) Home Medications Scheduled Cholecalciferol (Vitamin D3), 1,000 UNITS PO DAILY Dexamethasone (Decadron), 6 MG PO BID Levetiracetam (Keppra), 1,000 MG PO Q12 Lisinopril (Zestril), 20 MG PO DAILY Review of Systems Constitutional: No fever, sweats or chills Eyes: No diplopia, no worsening or blurred vision ENT: normal hearing, no trouble swallowing Respiratory:+ Weak cough, No sputum, dyspnea at rest or on exertion Cardiovascular: No chest pain, tightness or palpitations Abdomen: No pain, nausea, vomiting, diarrhea or constipation Musculoskeletal: + R upper and lower extremity weakness, No joint pain, calf pain, swelling Neurologic: + Expressive aphasia, numbness/tingling, or balance problems Psychiatric: No anxiety or depression Skin: No rash or itch Physical Exam Vital Signs Date Time Temp Pulse Resp B/P (MAP) Pulse Ox O2 Delivery O2 Flow Rate FiO2 01/29/17 06:12 55 18 107/65 99 Nasal Cannula 3.0 01/29/17 05:36 55 01/29/17 05:29 36.2 64 18 113/67 90 Room Air General Appearance: WD/WN, + thin, + pertinent finding (and fatigued) Head: normocephalic, atraumatic Eyes: PERRL, EOMI ENT: hearing grossly normal, pharynx normal, + pertinent finding (mucous membranes are dry) Neck: supple, no JVD, + pertinent finding (swallow function intact) Respiratory/Chest: lungs clear, no respiratory distress, no accessory muscle use, + pertinent finding (on 2 L via NC, ) Cardiovascular: no murmur, normal peripheral pulses, + bradycardia, + pertinent finding (few extra PVCs on auscultation) Abdomen/GI: soft, + pertinent finding (hypoactive bowel sounds, + palpable stool in LLQ) Back: normal inspection, no CVA tenderness Extremities/Musculoskelatal: no calf tenderness, no pedal edema, + pertinent finding (does not move her legs or arms on command, currently more right-sided weakness in comparison to the left.) Neurologic/Psych: alert, + pertinent finding (orientation not able to be assessed due to minimal conversation/lethargy) Skin: normal color, warm/dry Diagnostics Laboratory Results Results Past 24 Hours Test 01/29/17 06:00 01/29/17 06:05 Range/Units White Blood Count 18.20 4.8-10.8 K/uL Red Blood Count 4.71 4.2-5.4 M/uL Hemoglobin 14.3 12.0-16.0 g/dL Hematocrit 43.4 37-47 % Mean Corpuscular Volume 92.1 80-100 fL Mean Corpuscular Hemoglobin 30.4 25-34 pg Mean Corpuscular Hemoglobin Concent 32.9 32-36 g/dl Platelet Count 212 130-400 K/uL Mean Platelet Volume 9.7 7.4-10.4 fL RDW Standard Deviation 49.7 36.4-46.3 fL RDW Coefficient of Variation 14.8 11.5-14.5 % Neutrophils % (Manual) 85.2 % Lymphocytes % (Manual) 1.7 % Monocytes % (Manual) 3.5 % Metamyelocytes % 7.0 % Myelocytes % 2.6 % Neutrophils # (Manual) 15.51 1.4-6.5 K/uL Total Absolute Neutrophils 15.51 1.4-6.5 K/uL Lymphocytes # (Manual) 0.31 1.2-3.4 K/uL Total Absolute Lymphocytes 0.31 1.2-3.4 K/uL Monocytes # (Manual) 0.64 0.11-0.59 K/uL Metamyelocytes # 1.27 0-0 K/uL Myelocytes # 0.47 0-0 K/uL Red Blood Cell Morphology Unremarkable Sodium Level 142 136-145 mmol/L Potassium Level 4.4 3.5-5.1 mmol/L Chloride Level 106 98-107 mmol/L Carbon Dioxide Level 32 21-32 mmol/L Anion Gap 4.0 3-11 mmol/L Blood Urea Nitrogen 34 7-18 mg/dl Creatinine 0.48 0.60-1.20 mg/dl Est Creatinine Clear Calc Drug Dose 58.6 ml/min Estimated GFR () 107.4 Estimated GFR (Non- 92.6 BUN/Creatinine Ratio 70.0 10-20 Random Glucose 145 70-99 mg/dl Calcium Level 8.9 8.5-10.1 mg/dl Total Bilirubin 0.4 0.2-1 mg/dl Direct Bilirubin < 0.1 0-0.2 mg/dl Aspartate Amino Transf (AST/SGOT) 17 15-37 U/L Alanine Aminotransferase (ALT/SGPT) 44 12-78 U/L Alkaline Phosphatase 125 45-117 U/L Total Creatine Kinase 41 26-192 U/L Creatine Kinase MB 5.5 0.5-3.6 ng/ml Creatine Kinase MB Ratio 13.4 0-3.0 Troponin I 0.053 0-0.045 ng/ml Total Protein 5.4 6.4-8.2 gm/dl Albumin 2.5 3.4-5.0 gm/dl Thyroid Stimulating Hormone (TSH) 0.453 0.300-4.500 uIu/ml Diagnostic Radiology CT HEAD WITHOUT CONTRAST (CT) CLINICAL HISTORY: Change in mental status COMPARISON STUDY: 12/25/2016 TECHNIQUE: Axial CT of the brain is performed from the vertex to the skull base. IV contrast was not administered for this examination. CT DOSE: 614.27 mGy.cm FINDINGS: No intra or extra-axial mass lesions are visualized. Again evident is a low-density lesion within the left lentiform nucleus.. No new lesions are visualized. There is no significant midline shift. Parenchymal calcifications within the left frontal lobe remains stable. There is also a stable hypodensity within the right centrum semiovale There are patchy white matter hypodensities likely on a small vessel basis. There is no evidence of pathologic ventricular dilatation. There is no evidence of acute sinusitis IMPRESSION: No significant change from the preceding study. Stable hypodense lesions within the right centrum semiovale and left lentiform nucleus remain stable. No evidence of acute hemorrhage Electronically signed by: Ronald Weiss M.D. 01/29/2017 6:34 AM Dictated Date/Time: 01/29/2017 6:30 AM The status of this report is Signed. CHEST ONE VIEW PORTABLE CLINICAL HISTORY: Hypoxia COMPARISON STUDY: 12/12/2016 FINDINGS: The heart is at the upper limits of normal in size. There is blunting of the right lateral costophrenic angle. A small effusion is suspected. Minor right basilar airspace opacities are likely atelectatic. There is underlying interstitial thickening similar to the prior study. IMPRESSION: Suspected small right pleural effusion with right basilar opacities likely atelectatic Electronically signed by: Ronald Weiss M.D. 01/29/2017 6:38 AM Dictated Date/Time: 01/29/2017 6:37 AM The status of this report is Signed. EKG Vent. rate 52 BPM AL interval 136 ms QRS duration 82 ms QT/QTc 460/427 ms P-R-T axes 53 [address] & T wave abnormality, consider lateral ischemia Abnormal ECG When compared with ECG of 25-DEC-2016 11:00, T wave inversion now evident in Lateral leads Impression Assessment and Plan 81-year-old female, with a PMHx of newly diagnosed glioblastoma currently undergoing palliative chemotherapy and stereotactic radiation therapy, HTN, hyperlipidemia, seizure disorder, arthritis, history of kidney stones, prolapsed uterus and fibroids, previous ETHAN on CPAP but no longer wears the mask. Hypoxia - Admit to telemetry to monitor oxygenation and HR - if stable can likely be moved down telemetry tomorrow - EKG showing possible ST wave inversions in the lateral leads, slightly bumped troponin equal to 0.053, will trend Q8H 2 more sets - CT of the head was reviewed which is negative for acute hemorrhage or edema - Check a UA and urine culture as this was not collected in the ER - Leukocytosis with WBC=18.2 - Check Blood cultures x 2 and lactic acid now - CXR completed and shows a small R sided pleural effusion, with likely atelectatic changes 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 The patient underwent a stereotactic biopsy on 12/18 of the brain mass which confirmed glioblastoma, WHO grade IV. Following her biopsy, the patient was noted to have new expressive aphasia, right facial droop and some left upper extremity and lower extremity weakness. At [facility] pt was seen by neuro-oncology (Dr. Hutchinson) and radiation oncology (Dr. Pang). - Undergoing palliative chemotherapy and radiation therapy. - Consult radiation oncology - Consult hematology oncology - Palliative care consultation placed as the patient's son notes that patient's CODE STATUS currently full code, it is appropriate in the setting of palliative chemotherapy and radiation therapy to discuss the patient's quality of life and wishes - Continue dexamethasone 6 mg twice a day - PT/OT Hypertension - Holding lisinopril Hyperlipidemia - Diet controlled Seizure disorder -Continue Keppra 1000mg Q12H, checking Keppra level Code Status: Full code DVT ppx: Teds, SCDs, Lovenox 30 mg subcutaneous Disposition: Patient from home, son lives with her, PT and OT eval's place, to assist with discharge planning PA Physician Supervision Note: I interviewed and examined the patient. Discussed with Guadalupe Paulino PAC and agree with findings and plan as documented in the note. Any exceptions or clarifications are listed here: None this pt is obtunded, but aroused and can answer yes and no, she was significantly ill on intake with low heart rate and blood pressure and pulse. She appears clinically dehydrated. I personally spoke to DR Pardo in radiation oncology, he feels she has weeks at best to live and that she is too unstable to continue XRT at this time. Car is mi, lungs diminished, abd is slightly distended Glioblastoma multiforme, functional decline, son wishes for full support, will check keppra level and hydrate, started on cipro given elevated LA and abnormal urine, outcome is poor, but will continue to work with family to move toward palliative care Documented By: George San Level of Care Telemetry VTE Prophylaxis VTE Risk Assessment Done? Y/N: Yes Risk Level: Low Given or contraindicated: Enoxaparin (Lovenox)SQ, T.E.D. Stockings, SCD's
[2017-01-29 07:59] VITALS: O2SAT 99; Ht 165.1 cm; Wt 39.7 kg
[2017-01-29] MEDS ORDERED: POLYETHYLENE (MIRALAX) 17 GM PACK PO PRN (08:00)
[2017-01-29] MEDS ORDERED: ONDANSETRON INJ 2 MG/ML 2 ML VIAL IV PRN (08:00)
[2017-01-29] MEDS ORDERED: ACETAMINOPHEN 325 MG TAB PO PRN (08:00)
[2017-01-29 08:19] LABS: URINE APPEARANCE CLEAR (CLEAR); URINE BILIRUBIN NEG (NEG); URINE COLOR YELLOW; URINE NITRITE NEG (NEG); URINE SPECIFIC GRAVITY 1.029 (1.000-1.030); UROBILINOGEN NEG (NEG); ZZURINE CULT IF INDIC CATH NO
[2017-01-29 08:21] LABS: MANUAL MICROSCOPIC REQUIRED? NO; REVIEW REQ? NO
[2017-01-29 09:15] VITALS: PULSE 55; TEMP 36.2
[2017-01-29] MEDS ORDERED: ENOXAPARIN 30 MG/0.3 ML SYR SC SCH (10:00)
[2017-01-29] MEDS: HEPARIN SOD 5000 UNIT/0.5 ML CARP SC SCH ×2 (10:30→20:21)
[2017-01-29] MEDS: SODIUM CHLORIDE 0.9% 1000ML 1,000 ML IV SCH (10:39)
[2017-01-29] MEDS: DEXAMETHASONE 4 MG TAB PO SCH ×2 (10:39→20:19)
[2017-01-29] MEDS: LEVETIRACETAM 500 MG TAB PO SCH ×2 (10:40→20:19)
--- NOTE | 2017-01-29 13:27 | DIAGNOSTIC IMAGING REPORT ---
[facility] CLINICAL HISTORY: assess for constipation/impaction pain COMPARISON STUDY: No previous studies for comparison. FINDINGS: Considerable fecal content throughout the entire colon. Mild fecal impaction. No obstructive changes. IMPRESSION: General increase in fecal load throughout the colon with mild fecal impaction. This is consistent with fecal stasis. Electronically signed by: Mt Hines M.D. 01/29/2017 1:26 PM Dictated Date/Time: 01/29/2017 1:26 PM
[2017-01-29] MEDS ORDERED: BISACODYL 10 MG SUPP PR ONE (14:00)
[2017-01-29] MEDS: CIPROFLOXACIN / D5W 200 MG in PREMIXED IN D5W 100 ML IV SCH (14:18)
[2017-01-29 15:50] VITALS: BP 115/68; PULSE 60; TEMP 36.8; O2SAT 98
[2017-01-29 16:25] VITALS: BP 116/69; PULSE 62; O2SAT 96
[2017-01-29] MEDS ORDERED: LORAZEPAM 2 MG/ML 1 ML VIAL IV PRN (16:45)
[2017-01-29 19:08] VITALS: BP 111/68; PULSE 63; TEMP 36.7; O2SAT 97
[2017-01-30] VITALS (10 sets, daily range): BP systolic 107–118; BP diastolic 58–72; PULSE 52–75; TEMP 36.1–36.9; O2SAT 94–100
[2017-01-30] MEDS: SODIUM CHLORIDE 0.9% 1000ML 1,000 ML IV SCH ×2 (02:53→12:40)
[2017-01-30] MEDS: CIPROFLOXACIN / D5W 200 MG in PREMIXED IN D5W 100 ML IV SCH ×2 (02:53→12:40)
[2017-01-30 07:05] LABS: BUN/CREATININE RATIO 116.7 (10-20); CALCIUM 8.2 mg/dl (8.5-10.1); CREATININE 0.24 mg/dl (0.60-1.20)
[2017-01-30 07:07] LABS: HEMATOCRIT 33.3 % (37-47); MEAN CELL VOLUME 93.3 fL (80-100); MEAN CORPUSCULAR HEMOGLOBIN 31.1 pg (25-34); MEAN CORPUSCULAR HGB CONC 33.3 g/dl (32-36); PLATELET COUNT 159 K/uL (130-400); RED BLOOD COUNT 3.57 M/uL (4.2-5.4); WHITE BLOOD COUNT 16.45 K/uL (4.8-10.8)
[2017-01-30 07:24] LABS: COMPLETE YES; LYMPH ABS # 0.28 K/uL (1.2-3.4); LYMPHOCYTE % 1.7 %; MYELOCYTE % 2.6 %; NEUTROPHILS % 94.8 %
[2017-01-30] MEDS: HEPARIN SOD 5000 UNIT/0.5 ML CARP SC SCH ×2 (08:19→21:41)
[2017-01-30] MEDS: LEVETIRACETAM 500 MG TAB PO SCH ×2 (08:19→21:35)
[2017-01-30] MEDS: DEXAMETHASONE 4 MG TAB PO SCH ×2 (08:20→21:36)
--- NOTE | 2017-01-30 10:07 | Clinical Documentation Query ---
CLINICAL DOCUMENTATION QUERY 81 year old female who presents to the Emergency Room due to concerns over low oxygen saturations and poor respiration. In your clinical opinion is this patient being managed for: ( x ) Fecal impaction in setting of dehydration causing increased intra-abdominal pressure decreased respiration depth, atelectasis, and hypoxia. ( ) Other explanation of clinical findings (Please Explain) ( ) Unable to determine (Please Define) ( ) Need to Discuss ( ) Not Agree The medical record reflects the following clinical findings, treatment, and risk factors. Clinical Indicators: dehydration per H&P, KUB showed General increase in fecal load throughout the colon with mild fecal impaction. This is consistent with fecal stasis. Reported hypoxia per family of 68% and poor respirations. CXR showed atelectasis. Treatment: Dulcolax suppository, Miralax, pulmonary support, Risk Factors: Age, dehydration, likely deconditioning causing lack of ambulation, Please clarify and document your clinical opinion in the progress notes and discharge summary. Terms such as "probable", "suspected", "likely", "questionable", "possible", or "still to be ruled out" are acceptable. IF IN AGREEMENT, YOU MUST DOCUMENT ABOVE DIAGNOSTIC STATEMENT IN DAILY PROGRESS NOTES AND DISCHARGE SUMMARY. This document is not part of the patient's record. Thank You, Deric Gilliam RN [phone]
--- NOTE | 2017-01-30 13:27 | Progress Note ---
Subjective Date of Service: Jan 30, 2017. Subjective son at bedside stayed all night, pt is more alert today did have bowel movement and ate good breakfast, son does not seem interested in hospice discussion at present pt is more conversant, no focal complaints Problem List Medical Problems: (1) Acute electrocardiogram changes Status: Acute (2) Altered mental status Status: Acute (3) Brain mass Status: Acute (4) Dehydration Status: Acute (5) Hypoxia Status: Acute (6) NSTEMI (non-ST elevated myocardial infarction) Status: Acute (7) Seizure Status: Acute (8) Seizure disorder Status: Acute Review of Systems Constitutional: + weakness, + fatigue, No fever, No chills Respiratory: No cough, No shortness of breath, No dyspnea on exertion Cardiac: No chest pain, No PND, No edema Abdomen: No pain, No nausea, No diarrhea Musculoskeletal: No joint pain, No muscle pain Neurologic: + memory loss, + weakness, + balance problems Objective Vital Signs Date Time Temp Pulse Resp B/P (MAP) Pulse Ox O2 Delivery O2 Flow Rate FiO2 01/30/17 12:20 36.7 59 14 116/68 (84) 97 Nasal Cannula 3.0 01/30/17 11:51 36.7 59 16 116/68 (84) 97 Nasal Cannula 3.0 01/30/17 08:00 100 Nasal Cannula 3.0 01/30/17 07:59 36.1 52 16 118/58 (78) 100 Nasal Cannula 3.0 01/30/17 06:00 Nasal Cannula 3.0 99 01/30/17 04:02 36.6 54 18 112/72 (85) 99 Nasal Cannula 3.0 01/30/17 00:01 Nasal Cannula 3.0 99 01/30/17 00:00 36.5 56 18 114/68 (83) 99 Nasal Cannula 3.0 01/29/17 20:00 Nasal Cannula 3.0 01/29/17 19:08 36.7 63 18 111/68 (82) 97 Nasal Cannula 3.0 01/29/17 16:25 62 22 116/69 (85) 96 Nasal Cannula 3.0 01/29/17 16:00 Nasal Cannula 3.0 01/29/17 15:50 36.8 60 18 115/68 (84) 98 Nasal Cannula 3.0 Physical Exam General Appearance: WD/WN, + mild distress Eyes: PERRL, EOMI Neck: supple, no JVD Cardiovascular: regular rate, rhythm, + systolic murmur Abdomen: normal bowel sounds, soft Neurologic/Psychiatric: + aphasia, + depressed affect Laboratory Results Last 24 Hours Test 01/29/17 19:47 01/30/17 05:59 Troponin I 0.053 ng/ml White Blood Count 16.45 K/uL Red Blood Count 3.57 M/uL Hemoglobin 11.1 g/dL Hematocrit 33.3 % Mean Corpuscular Volume 93.3 fL Mean Corpuscular Hemoglobin 31.1 pg Mean Corpuscular Hemoglobin Concent 33.3 g/dl Platelet Count 159 K/uL Mean Platelet Volume 10.0 fL RDW Standard Deviation 50.7 fL RDW Coefficient of Variation 14.8 % Neutrophils % (Manual) 94.8 % Lymphocytes % (Manual) 1.7 % Monocytes % (Manual) 0.9 % Myelocytes % 2.6 % Neutrophils # (Manual) 15.59 K/uL Total Absolute Neutrophils 15.59 K/uL Lymphocytes # (Manual) 0.28 K/uL Total Absolute Lymphocytes 0.28 K/uL Monocytes # (Manual) 0.15 K/uL Myelocytes # 0.43 K/uL Sodium Level 142 mmol/L Potassium Level 4.0 mmol/L Chloride Level 109 mmol/L Carbon Dioxide Level 27 mmol/L Anion Gap 6.0 mmol/L Blood Urea Nitrogen 28 mg/dl Creatinine 0.24 mg/dl Est Creatinine Clear Calc Drug Dose 117.2 ml/min Estimated GFR () 134.9 Estimated GFR (Non- 116.4 BUN/Creatinine Ratio 116.7 Random Glucose 124 mg/dl Calcium Level 8.2 mg/dl Assessment and Plan 81-year-old female, functional decline with glioblastoima, with a PMHx of newly diagnosed glioblastoma currently undergoing palliative chemotherapy and stereotactic radiation therapy, HTN, hyperlipidemia, seizure disorder, arthritis , history of kidney stones, prolapsed uterus and fibroids, - EKG showing possible ST wave inversions elevation in troponin has remained unchanged suggesting is not from acs 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 The patient underwent a stereotactic biopsy on 12/18 of the brain mass which confirmed glioblastoma, WHO grade IV. Following her biopsy, the patient was noted to have new expressive aphasia, right facial droop and some left upper extremity and lower extremity weakness. At [facility] pt was seen by neuro-oncology (Dr. Hutchinson) and radiation oncology (Dr. Pang). - Undergoing palliative chemotherapy and radiation therapy. Continue dexamethasone 6 mg twice a day - son requests MRI Fecal impaction in setting of dehydration causing increased intra-abdominal pressure decreased respiration depth, atelectasis, and hypoxia. Hypotension- Holding lisinopril Seizure disorder son states pt had seizure 01/29 nursing did not witness or feel pt had post ictal state-Continue Keppra 1000mg Q12H, pending Keppra level Code Status: Full code, son not willing to speak about alternatives DVT ppx: Teds, SCDs, Lovenox 30 mg subcutaneous
--- NOTE | 2017-01-30 18:12 | DIAGNOSTIC IMAGING REPORT ---
MRI OF THE BRAIN WITHOUT CONTRAST CLINICAL HISTORY: Evaluate progression of glioblastoma. COMPARISON STUDY: MRI of the brain December 05, [address] January 29, 2017. TECHNIQUE: Utilizing a 1.5 Skyla magnet and dedicated coil, multiplanar, multiecho imaging of the brain was performed without IV contrast. FINDINGS: Evaluation is suboptimal on this unenhanced examination. A 2.8 x 0.9 cm focus of restricted diffusion within the periventricular left frontal lobe shown on axial image 15 of 42 suggests a subacute infarct. There is a 2.1 x 1.3 cm mixed signal intensity lesion within the left basal ganglia. Inherent T1 hyperintensity suggests blood products, likely from a previous biopsy. This is at site of the enhancing tumor shown on exam of December 05, 2016. The lesion is suboptimally assessed due to the lack of postcontrast imaging. Adjacent edema has improved since exam of December 05, 2016. There is moderate residual edema. The T2 hyperintense lesion within the superior medial aspect of the right frontal lobe is similar to prior exam of December 05, 2016. No new lesions are present. Ventricular system is stable. Basilar cisterns are patent. There are no extra axial collections. Extensive white matter T2 hyperintense foci suggest small vessel disease. There is trace fluid within the bilateral mastoid air cells. IMPRESSION: 1. Findings suggestive of a partial treatment response of the left basal ganglia lesion since MRI of December 05, 2016. Suboptimal evaluation given lack of postcontrast imaging however associated edema has improved. Inherent T1 hyperintensity within this lesion suggests minimal blood products from prior biopsy. 2. No change in the right parafalcine frontal lobe lesion since MRI of December 05, 2016. This favors a glioma. 3. 2.8 x 0.9 cm subacute infarct within the periventricular left frontal lobe. Electronically signed by: Baudilio De La Cruz M.D. 01/30/2017 6:10 PM Dictated Date/Time: 01/30/2017 5:49 PM
[2017-01-30 20:35] LABS: MAGNESIUM 2.2 mg/dl (1.8-2.4)
[2017-01-31] VITALS (7 sets, daily range): BP systolic 112–128; BP diastolic 65–73; PULSE 62–68; TEMP 36.3–36.7; O2SAT 93–95
[2017-01-31] MEDS: SODIUM CHLORIDE 0.9% 1000ML 1,000 ML IV SCH (02:05)
[2017-01-31] MEDS: CIPROFLOXACIN / D5W 200 MG in PREMIXED IN D5W 100 ML IV SCH (02:06)
[2017-01-31 07:17] LABS: HEMATOCRIT 33.5 % (37-47); MEAN CELL VOLUME 90.8 fL (80-100); MEAN CORPUSCULAR HEMOGLOBIN 30.9 pg (25-34); MEAN PLATELET VOLUME 9.7 fL (7.4-10.4); PLATELET COUNT 172 K/uL (130-400); RED BLOOD COUNT 3.69 M/uL (4.2-5.4); WHITE BLOOD COUNT 15.41 K/uL (4.8-10.8)
[2017-01-31] MEDS: HEPARIN SOD 5000 UNIT/0.5 ML CARP SC SCH (07:41)
[2017-01-31] MEDS: DEXAMETHASONE 4 MG TAB PO SCH (07:42)
[2017-01-31] MEDS: LEVETIRACETAM 500 MG TAB PO SCH (07:42)
[2017-01-31 07:57] LABS: COMPLETE YES; LYMPH ABS # 0.66 K/uL (1.2-3.4); LYMPHOCYTE % 4.3 %; META ABS # 0.54 K/uL (0-0); METAMYELOCYTE % 3.5 %; MYELOCYTE % 1.7 %; NEUTROPHILS % 87.9 %
[2017-01-31] MEDS ORDERED: PHARMACIST DISCHARGE MED REC CONSULT PRN (08:00)
[2017-01-31 08:03] LABS: BUN/CREATININE RATIO 51.5 (10-20); CALCIUM 8.1 mg/dl (8.5-10.1); CREATININE 0.34 mg/dl (0.60-1.20); POTASSIUM 3.6 mmol/L (3.5-5.1)
[2017-01-31] MEDS ORDERED: ASPIRIN 81 MG ECTAB PO SCH (09:00)
[2017-01-31] MEDS ORDERED: ATORVASTATIN 40 MG TAB PO SCH (09:00)
[2017-01-31] MEDS ORDERED: ASPEC81 PO (09:12)
[2017-01-31] MEDS ORDERED: LPT40 PO (09:12)
[2017-01-31] MEDS ORDERED: OXGN (09:12)
--- NOTE | 2017-01-31 09:15 | Discharge Instructions ---
Discharge Instructions Date of Service Jan 31, 2017. Admission Reason for Admission: Dehydration, Elevated Troponin Discharge Discharge Diagnosis / Problem: subacute stroke, glioblastoma Discharge Goals Goal(s): Diagnostic testing Activity Recommendations Activity Limitations: resume your previous activity . Instructions / Follow-Up Instructions / Follow-Up Risk Factors for Stroke: You can reduce your chances of stroke by working with your medical provider to adopt a healthy lifestyle. Some specific ways to lower your chance of stroke are: * If you are a smoker, now is the time to stop smoking cigarettes * If you are diabetic, improve the control of your blood sugars * Avoid excessive amounts of alcohol * Control high blood pressure * Lose weight if you are overweight * Be sure to lead an active lifestyle * Eat a healthy diet low in salt, cholesterol and fat You should know about other risk factors for stroke that you are unable to control. These include: * Age 55 years or older * Male gender * Certain racial groups: , or / * Family History of Stroke, Mini stroke or Heart Attack * Sickle Cell Disease Follow Up: It is important for you to keep your follow up appointments with your medical provider. Current Hospital Diet Patient's current hospital diet: Regular Diet Discharge Diet Recommended Diet: Regular Diet Pending Studies Studies pending at discharge: no Medical Emergencies . Who to Call and When: Medical Emergencies: Call 911 immediately if you experience any of the following warning signs and symptoms of Stroke: * Sudden numbness or weakness of the face, arm or leg, especially on one side of the body * Sudden confusion, trouble speaking or understanding * Sudden trouble seeing in one or both eyes * Sudden trouble walking, dizziness, loss of balance or coordination * Sudden severe headache with no cause Do not delay calling 911 if you experience any warning signs or symptoms of a stroke. Delay in seeking medical attention may affect what treatments can be given to you. . Non-Emergent Contact Non-Emergency issues call your: Primary Care Provider, Specialist (oncologist) Call Non-Emergent contact if: temperature is above 101 . . "Provider Documentation" section prepared by George San. . Stroke Core Measures Reason no t-PA for Stroke: Contraindicated Reason no antithrom by day 2: Treatment provided - N/A Reason no antithrom at D/C: Treatment provided - N/A Reason no statin at D/C: Treatment provided - N/A Reason no anticoag w/a fib: Treatment not indicated VTE Core Measure Inpt VTE Proph given/why not?: Enoxaparin (Lovenox)SQ, T.EMyra. Lina, SCD's
--- NOTE | 2017-01-31 11:04 | Pharmacy Progress Note ---
Pharmacist Stroke Counseling Date of Service Jan 31, 2017. Scope Pharmacy has been consulted to provide medication discharge counseling for this patient admitted with ischemic stroke/hemorrhagic stroke/ transient ischemic attack as per the Pharmacist Discharge Counseling for Stroke Patients Protocol. Medications on Discharge New Medications: Home O2 Therapy (Oxygen) Gas 2 LITERS NA PRN for 365 Days Aspirin (Aspirin EC Low Dose) 81 Mg Ectab 81 MG PO QAM, #120 DOSE Atorvastatin (Atorvastatin Calcium) 40 Mg Tab 40 MG PO QAM, #30 TAB Continued Medications: Cholecalciferol (Vitamin D3) 1,000 Unit Tab 1000 UNITS PO DAILY, TAB Dexamethasone (Decadron) 4 Mg Tab 6 MG PO BID, TAB Levetiracetam (Keppra) 250 Mg Tab 1000 MG PO Q12, TAB Discontinued Medications: Lisinopril (Zestril) 20 Mg Tab 20 MG PO DAILY Action The above medications, specifically ones for stroke treatment/prophylaxis, have been reviewed in detail with the patient and/or patient malt liquors sales representative(s) prior to discharge. This includes indication, common adverse reactions, drug interactions, and medication administration. Medication counseling has been employed using the teach-back method to ensure understanding. Outcome The patient's son/aircraft launch and recovery technician (Derick Mcgregor) has demonstrated understanding of the medications. Please note, he ise aware that the pharmacist will call them within 72 hours post-discharge to confirm that the appropriate medications are being taken and answer any further medication related questions the patient might have at that time. Contact information Individual to be contacted: Derick Mcgregor (Son). He screens call. OK to leave brief message and he will call us back. Relationship to patient (if applicable): son Phone number: [phone] Best time to call: anytime Additional comments: This patient is returning home per son's request (he is primary aircraft launch and recovery technician). Pt is completing palliative chemo/radiation for glioblastoma and recently had a stroke. Pt is primarily non verbal and med instructions were provider to her son. He expects to get her to see her PCP upon discharge from [facility]. She has used ASA previously, but had been discontinued. I reviewed the importance of discussing side-effects from ASA/ Lipitor with patient's PCP and not to discontinue therapy without physician approval given this new onset stroke. Thank you for allowing pharmacy to be involved in the care of this patient. Please call [phone] or [phone] with any additional questions
--- NOTE | 2017-01-31 12:15 | Discharge Summary ---
Discharge Summary Date of Service Jan 31, 2017. Discharge Summary Admission Date: Jan 29, 2017 at 08:00 Discharge Date: Jan 31, 2017 Discharge Disposition: Home with services Principal Diagnosis: subacute cerebral infarct, glioblastioma Procedures: MRI brain no change in the right parafalcine frontal lobe lesion since MRI of December 05, 2016. This favors a glioma. 2.8 x 0.9 cm subacute infarct within the periventricular left frontal lobe. Medication Reconciliation New Medications: Home O2 Therapy (Oxygen) Gas 2 LITERS NA PRN for 365 Days Aspirin (Aspirin EC Low Dose) 81 Mg Ectab 81 MG PO QAM, #120 DOSE Atorvastatin (Atorvastatin Calcium) 40 Mg Tab 40 MG PO QAM, #30 TAB Continued Medications: Cholecalciferol (Vitamin D3) 1,000 Unit Tab 1000 UNITS PO DAILY, TAB Dexamethasone (Decadron) 4 Mg Tab 6 MG PO BID, TAB Levetiracetam (Keppra) 250 Mg Tab 1000 MG PO Q12, TAB Discontinued Medications: Lisinopril (Zestril) 20 Mg Tab 20 MG PO DAILY Discharge Exam Review of Systems: Constitutional: No fever, No chills Respiratory: No cough, No sputum Cardiovascular: No chest pain, No orthopnea Physical Exam: General Appearance: WD/WN, + mild distress Eyes: PERRL, EOMI Neurologic/Psychiatric: alert, + pertinent finding (able to answer yes and no) Hospital Course 81-year-old female, functional decline with glioblastoima, subacute cva seen on MRI<, with a PMHx of newly diagnosed glioblastoma currently undergoing palliative chemotherapy and stereotactic radiation therapy, HTN, hyperlipidemia , seizure disorder, arthritis, history of kidney stones, prolapsed uterus and fibroids CVA, given prognosis for survival will supply aspirin and statin to patient but not agressive rehab per her sons request, he seems at times unwilling to agree to conventional medicine and wants to have his mom go home eat healthy foods and get better. 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 The patient underwent a stereotactic biopsy on 12/18 of the brain mass which confirmed glioblastoma, WHO grade IV. Following her biopsy, the patient was noted to have new expressive aphasia, right facial droop and some left upper extremity and lower extremity weakness. At [facility] pt was seen by neuro-oncology (Dr. Hutchinson) and radiation oncology (Dr. Pang). Fecal impaction in setting of dehydration causing increased intra-abdominal pressure decreased respiration depth, atelectasis, and hypoxia. Hypotension- Holding lisinopril, now recovered will restart on discharge as secondary stroke prevention Seizure disorder son states pt had seizure 01/29 nursing did not witness or feel pt had post ictal state-Continue Keppra 1000mg Q12H, pending Keppra level Code Status: Full code, son not willing to speak about alternatives Total Time Spent: Greater than 30 minutes This includes examination of the patient, discharge planning, medication reconciliation, and communication with other providers. Discharge Instructions Please refer to the electronic Patient Visit Report (Discharge Instructions) for additional information.
--- NOTE | 2017-02-04 12:33 | Pharmacy Progress Note ---
Pharmacist Post D/C Phone Note Date of phone call: Feb 04, 2017. Individual with whom pharmacist spoke to: Derick (patient's primary senior materials scientist/son ) The following questions were reviewed during the phone call with responses listed below each: Additional comments: - Talked with son on 02/04, unfortunately patient was readmitted last evening with recurrent pneumonia, possible aspiration related. Patient currently in PCU on broad spectrum antibiotics. Son, unable to talk much during phone call due to status of mother. I informed the patient that if there is anything we can do or if he has questions in regards to medications to feel free to call the pharmacy. As per the Pharmacist Discharge Counseling for Stroke Patients Protocol, this phone call has been completed within 72 hours of discharge. Thank you for allowing us to be involved in the care of this patient. Thank you for allowing us to be involved in the care of this patient.
[2017-02-12] MEDS ORDERED: BCTRO EXT (12:42)
[2017-02-12] MEDS ORDERED: ZLF50 PO (12:42)
[2017-02-12] MEDS ORDERED: LPR25 PO (12:42)
[2017-02-17] MEDS ORDERED: ATV5 PO (13:20)
[2017-02-17] MEDS ORDERED: [UNRECOGNIZED DRUG - CODE] IV (13:20)
[2017-02-17] MEDS ORDERED: Boost Plus Vanilla PO (13:20)
[2017-02-17] MEDS ORDERED: DXM4 PO (13:20)
[2017-02-17] MEDS ORDERED: ONDA4TAB65 PO (13:20)
[2017-02-17] MEDS ORDERED: RXC5 PO (13:20)
[2017-02-17] MEDS ORDERED: ZVRO EXT (13:20)
[2017-02-17] MEDS ORDERED: LINE1TAB2 PO (13:20)
[2017-02-17] MEDS ORDERED: MCTP EXT (13:20)
== END 2017-01-31 15:33 | disposition home health service (06) | DRG 65 ==
LOC: EDBD 05:23 → C.EDB 05:24 → C.2T 08:00 → ENRESERV 08:14
PROVIDERS: ADMIT Internal Medicine; ATTEND Internal Medicine
DX: I63.8 Other cerebral infarction (principal); I69.854 Hemiplegia and hemiparesis following other cerebrovascular disease affecting left non-dominant side; C71.0 Malignant neoplasm of cerebrum, except lobes and ventricles; I69.820 Aphasia following other cerebrovascular disease; I69.892 Facial weakness following other cerebrovascular disease; R77.8 Other specified abnormalities of plasma proteins; R94.31 Abnormal electrocardiogram [ECG] [EKG]; I95.9 Hypotension, unspecified; K56.41 Fecal impaction; E86.0 Dehydration; R53.81 Other malaise; I10 Essential (primary) hypertension; E78.5 Hyperlipidemia, unspecified; G40.909 Epilepsy, unspecified, not intractable, without status epilepticus; M19.90 Unspecified osteoarthritis, unspecified site; G47.33 Obstructive sleep apnea (adult) (pediatric); Z87.891 Personal history of nicotine dependence; Z79.899 Other long term (current) drug therapy; Z51.0 Encounter for antineoplastic radiation therapy

== ENCOUNTER 2017-02-03 15:08 | Inpatient (IN) | payer BC, OTHER ==
[~2017-02-03] VITALS: Ht 165.1 cm; Wt 48.4 kg
[~2017-02-03 15:08] MED LIST changes: -ACET-1311 PO; -ASCO500T16 PO; +ASPEC81 PO; +CHOL1000 PO; -DOCU-94 PO; -LISI-725 PO; +LPT40 PO; +OXGN; -[UNRECOGNIZED DRUG - OTHER]
[2017-02-03] MEDS ORDERED: SODIUM CHLORIDE 0.9% 1000ML 1,000 ML IV STA (15:59)
[2017-02-03 16:25] LABS: HEMATOCRIT 46.7 % (37-47); MEAN CELL VOLUME 91.6 fL (80-100); MEAN CORPUSCULAR HEMOGLOBIN 31.2 pg (25-34); MEAN PLATELET VOLUME 10.4 fL (7.4-10.4); PLATELET COUNT 183 K/uL (130-400)
--- NOTE | 2017-02-03 16:25 | DIAGNOSTIC IMAGING REPORT ---
CHEST ONE VIEW PORTABLE CLINICAL HISTORY: Altered mental status. Weakness. COMPARISON STUDY: Chest radiograph January 29, 2017. FINDINGS: There is no pneumothorax. Linear left basilar opacity is suggestive of atelectasis. There is a suspected small right pleural effusion which may be subpulmonic. There is no evidence of pulmonary edema. Cardiomediastinal silhouette is stable. IMPRESSION: Suspected small to moderate right pleural effusion with right basilar opacity which statistically reflects atelectasis. Electronically signed by: Baudilio De La Cruz M.D. 02/03/2017 4:23 PM Dictated Date/Time: 02/03/2017 4:22 PM
[2017-02-03 16:33] LABS: BUN/CREATININE RATIO 64.1 (10-20); CALCIUM 8.8 mg/dl (8.5-10.1); CREATININE 0.36 mg/dl (0.60-1.20); POTASSIUM 4.5 mmol/L (3.5-5.1)
--- NOTE | 2017-02-03 16:37 | EMERGENCY ROOM VISIT NOTE ---
History Report prepared by Ivan: Bernardino Ferrell Under the Supervision of: Dr. Ga Soriano M.D. First contact with patient: 15:51 Chief Complaint: ILLNESS Stated Complaint: WEAKNESS, DEHYDRATION History of Present Illness The patient is an 81 year old female who presents to the Emergency Room with complaints of constant weakness beginning three days ago. 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 He reports that she has received three treatments of chemotherapy and six treatments of radiation. The son notes that she just had a stroke last. 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 The patient's son reports that she had off and on movement of her right leg for a few weeks after her biopsy, but is now completely paralyzed. He notes that she has been doing well with treatment, and the tumor in her basal ganglia area has gotten smaller. He reports that the patient has not wanted to drink many fluids for the past month, and she will occasionally drink milk or Gatorade. The son notes that she has been eating okay. He states she was just discharged three days ago, and she has been sleeping a lot. The patient reports that this morning the patient's breathing was weak, and she would lose her breath when he picked her up. He notes that she has a weak cough. The son denies fevers and vomiting. He states that she has a history of UTIs. The son reports that she is taking Decadron. Source of History: other (son) Onset: 3 days ago Position: other (global) Quality: other (weakness) Timing: constant Associated Symptoms: No fevers, No vomiting Note: Associated symptoms: decrease fluid intake Review of Systems See HPI for pertinent positives & negatives. A total of 10 systems reviewed and were otherwise negative. 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 Family History Cancer Heart disease Hypertension Kidney disease Kidney stones Social History Smoking Status: Former Smoker Alcohol Use: none Drug Use: none Marital Status: single Housing Status: lives with family Occupation Status: retired Current/Historical Medications Scheduled Aspirin (Aspirin EC Low Dose), 81 MG PO QAM Atorvastatin (Atorvastatin Calcium), 40 MG PO QAM Cholecalciferol (Vitamin D3), 1,000 UNITS PO DAILY Dexamethasone (Decadron), 6 MG PO BID Home O2 Therapy (Oxygen), 2 LITERS NA PRN Levetiracetam (Keppra), 1,000 MG PO Q12 Allergies Coded Allergies: Penicillins (Unverified Allergy, Mild, 02/03/17) Physical Exam Vital Signs Date Time Temp Pulse Resp B/P (MAP) Pulse Ox O2 Delivery O2 Flow Rate FiO2 02/03/17 19:11 119 20 109/76 96 Nasal Cannula 2.0 02/03/17 18:07 81 18 110/69 94 Nasal Cannula 2.0 02/03/17 16:14 91 Room Air 02/03/17 15:28 78 02/03/17 15:14 36.7 81 18 123/84 91 Room Air Physical Exam GENERAL: Patient is in no acute distress. HEENT: No acute trauma, normocephalic atraumatic, mucous membranes dry, no nasal congestion, no scleral icterus. Pupils are equal, round, and reactive to light. NECK: No stridor, no adenopathy, no meningismus, trachea is midline. LUNGS: Crackles on the right, left lung clear. Breath sounds equal. HEART: Without murmurs gallops or rubs, regular rate and rhythm. ABDOMEN: Soft, nontender, bowel sounds positive, no hernias, no peritonitis. EXTREMITIES: No cyanosis or edema, full range of motion of all the joints without pain or difficulty, no signs for acute trauma. NEUROLOGIC: Flaccid right upper and lower extremities, awake, nonverbal. SKIN: No rash, no jaundice, no diaphoresis. Medical Decision & Procedures ER Provider Diagnostic Interpretation: X-ray results as stated below per interpretation by me and the radiologist: CHEST ONE VIEW PORTABLE CLINICAL HISTORY: Altered mental status. Weakness. COMPARISON STUDY: Chest radiograph January 29, 2017. FINDINGS: There is no pneumothorax. Linear left basilar opacity is suggestive of atelectasis. There is a suspected small right pleural effusion which may be subpulmonic. There is no evidence of pulmonary edema. Cardiomediastinal silhouette is stable. IMPRESSION: Suspected small to moderate right pleural effusion with right basilar opacity which statistically reflects atelectasis. Electronically signed by: Baudilio De La Cruz M.D. 02/03/2017 4:23 PM Dictated Date/Time: 02/03/2017 4:22 PM Laboratory Results 02/03/17 15:30 Red Blood Count 5.10, Mean Corpuscular Volume 91.6, Mean Corpuscular Hemoglobin 31.2, Mean Corpuscular Hemoglobin Concent 34.0, Mean Platelet Volume 10.4, Neutrophils (%) (Auto) 81.1, Lymphocytes (%) (Auto) 3.5, Monocytes (%) (Auto) 5.3, Eosinophils (%) (Auto) 0.2, Basophils (%) (Auto) 0.6, Neutrophils # (Auto) 14.62, Lymphocytes # (Auto) 0.63, Monocytes # (Auto) 0.95, Eosinophils # (Auto) 0.03, Basophils # (Auto) 0.10 02/03/17 15:30 Test 02/03/17 15:30 02/03/17 17:10 02/03/17 17:13 White Blood Count 18.00 K/uL (4.8-10.8) Red Blood Count 5.10 M/uL (4.2-5.4) Hemoglobin 15.9 g/dL (12.0-16.0) Hematocrit 46.7 % (37-47) Mean Corpuscular Volume 91.6 fL (80-100) Mean Corpuscular Hemoglobin 31.2 pg (25-34) Mean Corpuscular Hemoglobin Concent 34.0 g/dl (32-36) Platelet Count 183 K/uL (130-400) Mean Platelet Volume 10.4 fL (7.4-10.4) Neutrophils (%) (Auto) 81.1 % Lymphocytes (%) (Auto) 3.5 % Monocytes (%) (Auto) 5.3 % Eosinophils (%) (Auto) 0.2 % Basophils (%) (Auto) 0.6 % Neutrophils # (Auto) 14.62 K/uL (1.4-6.5) Lymphocytes # (Auto) 0.63 K/uL (1.2-3.4) Monocytes # (Auto) 0.95 K/uL (0.11-0.59) Eosinophils # (Auto) 0.03 K/uL (0-0.5) Basophils # (Auto) 0.10 K/uL (0-0.2) RDW Standard Deviation 50.0 fL (36.4-46.3) RDW Coefficient of Variation 15.0 % (11.5-14.5) Immature Granulocyte % (Auto) 9.3 % Immature Granulocyte # (Auto) 1.67 K/uL (0.00-0.02) Anion Gap 6.0 mmol/L (3-11) Est Creatinine Clear Calc Drug Dose 87.8 ml/min Estimated GFR () 118.0 Estimated GFR (Non- 101.8 BUN/Creatinine Ratio 64.1 (10-20) Calcium Level 8.8 mg/dl (8.5-10.1) Magnesium Level 2.4 mg/dl (1.8-2.4) Total Bilirubin 0.5 mg/dl (0.2-1) Aspartate Amino Transf (AST/SGOT) 29 U/L (15-37) Alanine Aminotransferase (ALT/SGPT) 72 U/L (12-78) Alkaline Phosphatase 130 U/L (45-117) Total Creatine Kinase 47 U/L (26-192) Troponin I 0.058 ng/ml (0-0.045) Total Protein 5.6 gm/dl (6.4-8.2) Albumin 2.6 gm/dl (3.4-5.0) Globulin 3.0 gm/dl (2.5-4.0) Albumin/Globulin Ratio 0.9 (0.9-2) Thyroid Stimulating Hormone (TSH) 1.360 uIu/ml (0.300-4.500) Urine Color YELLOW Urine Appearance CLOUDY (CLEAR) Urine pH 8.0 (4.5-7.5) Urine Specific [place] 1.018 (1.000-1.030) Urine Protein NEG (NEG) Urine Glucose (UA) NEG (NEG) Urine Ketones NEG (NEG) Urine Occult Blood NEG (NEG) Urine Nitrite NEG (NEG) Urine Bilirubin NEG (NEG) Urine Urobilinogen NEG (NEG) Urine Leukocyte Esterase NEG (NEG) Urine WBC (Auto) 1-5 /hpf (0-5) Urine RBC (Auto) 0-4 /hpf (0-4) Urine Hyaline Casts (Auto) 1-5 /lpf (0-5) Urine Epithelial Cells (Auto) 10-20 /lpf (0-5) Urine Bacteria (Auto) 3+ (NEG) Lactic Acid Level 1.0 mmol/L (0.4-2.0) Laboratory results reviewed by me. Medications Administered Medications (Trade) Dose Ordered Sig/Cuco Route Start Time Stop Time Status Last Admin Dose Admin Sodium Chloride 1,000 ml @ 999 mls/hr Q1H1M STAT IV 02/03/17 15:59 02/03/17 16:59 DC 02/03/17 18:13 999 MLS/HR Levofloxacin (Levaquin / D5W) 750 mg NOW STAT IV 02/03/17 17:01 02/03/17 17:04 DC 02/03/17 18:14 750 MG Albuterol/ Ipratropium (Duoneb) 3 ml NOW STAT INH 02/03/17 17:01 02/03/17 17:04 DC 02/03/17 18:14 3 ML ECG Indication: weakness Rate (beats per minute): 76 Rhythm: normal sinus Findings: ST depression (Inferior and Lateral), other (No acute [place]) Comparison ECG Date: 01/29/17 Change: ST depression is more pronounced and is now present in the inferior leads ED Course 1553: The patient was evaluated in room C04. A complete history and physical exam was performed. 1559: Ordered Sodium Chloride 1000 ml @ 999 mls/hr IV 1701: Ordered Duoneb 3 ml INH, Levofloxacin 750 mg IV 1814: I discussed the patient's case with Dr. Gilman, [facility] Hospitalist. The patient will be evaluated for further treatment. 1822: Upon reexamination the patient is resting. I discussed results and treatment plan with the patient's son. He verbalizes agreement and understanding. Medical Decision Differential diagnosis includes: infection, pneumonia, UTI, dehydration, electrolyte imbalance, worsening malignancy, stroke Medication Reconciliation: I attest that I have personally reviewed the patient' s current medication list. Blood Pressure Screening: Patient was found to have normal blood pressure on screening and does not require follow-up. There is a leukocytosis at 18,000, this could be consistent with infection. No concerning anemia. No significant electrolyte abnormality, kidney failure or hepatitis. Chest x-ray shows a right lower lung consolidation insistent with pneumonia and/or atelectasis. Blood cultures are pending. EKG shows a sinus rhythm with some ST depressions in the inferior and lateral leads, these do seem worse than before-of note, the patient has no chest pain. Cardiac enzyme testing times one does show a troponin elevation however, this elevation is baseline for her. Lactic acid level is not elevated making sepsis less likely. Urinalysis does not show obvious infection but bacteria were seen, urine culture is pending. The patient appears to be in a euthyroid state. The patient received IV saline and IV Levaquin. She received a DuoNeb. The patient presents with some shortness of breath, cough and weakness. She has a known glioblastoma and has recently suffered a large stroke. Her prognosis is quite poor. Given the worsening of her situation, given the pneumonia, admission/observation is warranted. I did speak with case management and with the patient's son. The on-call hospitalist was consulted. Consults Time Called: 171 Consulting Physician: Dr. Gilman, [facility] Hospitalist Returned Call: [phone] I discussed the patient's case with Dr. Gilman [facility] Hospitalist. The patient will be evaluated for further treatment. Impression Primary Impression: PNA (pneumonia) Additional Impressions: Weakness Glioblastoma Scribe Attestation The scribe's documentation has been prepared under my direction and personally reviewed by me in its entirety. I confirm that the note above accurately reflects all work, treatment, procedures, and medical decision making performed by me. Departure Information Dispostion Being Evaluated By Hospitalist Referrals Issac Meza M.D. (PCP) Patient Instructions My [facility] Problem Qualifiers
[2017-02-03 16:47] LABS: ALB/GLOB RATIO 0.9 (0.9-2); THYROID STIMULATING HORMONE 1.36 uIu/ml (0.300-4.500)
[2017-02-03] MEDS ORDERED: ALBUT/IPRATROP 3MG/0.5MG NEB 3 ML VIAL INH STA (17:01)
[2017-02-03] MEDS ORDERED: LEVAQUIN 750MG / 150ML D5W IV STA (17:01)
[2017-02-03 17:04] LABS: MAGNESIUM 2.4 mg/dl (1.8-2.4)
[2017-02-03 17:15] LABS: BASO % 0.6 %; COMPLETE YES; EOS % 0.2 %; IG% 9.3 %; LYMPH % 3.5 %; LYMPH ABS # 0.63 K/uL (1.2-3.4); MONO % 5.3 %; NEUT % 81.1 %
[2017-02-03 18:08] LABS: URINE APPEARANCE CLOUDY (CLEAR); URINE BILIRUBIN NEG (NEG); URINE COLOR YELLOW; URINE NITRITE NEG (NEG); URINE SPECIFIC GRAVITY 1.018 (1.000-1.030); UROBILINOGEN NEG (NEG); ZZURINE CULT IF INDIC CATH YES
[2017-02-03 18:12] LABS: MANUAL MICROSCOPIC REQUIRED? NO; REVIEW REQ? NO
--- NOTE | 2017-02-03 19:13 | History and Physical ---
History & Physical Date & Time of Service: Feb 03, 2017 at 19:08 Chief Complaint: Weakness, Dehydration Primary Care Physician: Issac Meza M.D. History of Present Illness This is an 81-year-old female, with a PMHx of newly diagnosed glioblastoma currently undergoing palliative chemotherapy and stereotactic radiation therapy , HTN, hyperlipidemia, seizure disorder, DJD stage III, arthritis, history of kidney stones, prolapsed uterus and fibroids, previous ETHAN on CPAP but no longer wears the mask. Pt is s/p 3 rounds of chemotherapy/XRT which started on 01/25, 01/26 and 01/28. The patient was recently admitted on 01/29 for dehydration and 2.8 x 0.9 cm subacute infarct within the periventricular left frontal lobe. She was started on aspirin and statin therapy given her prognosis. The patient's son is present at bedside and supplies the majority of the history for her. The patient is weaker since being discharged last Thursday, and only says a few words during the entire exam. She looks to her son when asked a question for him to answer for her. Since then she has been getting progressively weaker. She does have a right-sided upper extremity weakness and right expressive aphasia which is been present since her biopsy. He reports that she was eating well on Thursday and Thursday morning. Thursday the patient seemed to have difficulty with eating, swallowing, and coughed slightly while eating applesauce with meds. She did take half the dosage of Keppra for the past 36 hours but was unable to take other medications. The son was nervous to give her any medications this morning due to shallow breathing and fear of her dying. The son was unwilling to consider palliative care last week, but now reports that he does not want further chemotherapy or XRT, and is willing to speak with palliative care team to reduce medications. He and the patient are agreeable to DNR. A long discussion was held regarding continued care, DNR, assistance palliative care could provide. Son reports he wants to ultimately get her to [facility] for a second opinion. CXR was completed and shows suspected small to moderate right pleural effusion with right basilar opacity which statistically reflects atelectasis. It seems that the patient aspirated on Thursday. Pt received a dose of levaquin in the ED. Leukocytosis of 18 K. EKG reviewed and is unchanged compared to previous. 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 Family History Cancer Heart disease Hypertension Kidney disease Kidney stones Social History Smoking Status: Former Smoker Drug Use: none Marital Status: single Housing status: lives with family Occupational Status: retired Multi-Drug Resistant Organisms History of MDRO: No Allergies Coded Allergies: Penicillins (Unverified Allergy, Mild, 02/03/17) Home Medications Scheduled Aspirin (Aspirin EC Low Dose), 81 MG PO QAM Atorvastatin (Atorvastatin Calcium), 40 MG PO QAM Cholecalciferol (Vitamin D3), 1,000 UNITS PO DAILY Dexamethasone (Decadron), 6 MG PO BID Home O2 Therapy (Oxygen), 2 LITERS NA PRN Levetiracetam (Keppra), 1,000 MG PO Q12 Review of Systems Constitutional: + weight loss, + weakness, + fatigue, No fever, No chills, No sweats Eyes: No redness, No diplopia ENT: + trouble swallowing, No sore throat Respiratory: + cough, + dyspnea on exertion, No sputum, No wheezing, No shortness of breath, No dyspnea at rest, No hemoptysis Cardiovascular: No chest pain, No palpitations Abdomen: + constipation (last BM was thursday), No pain, No nausea, No vomiting , No diarrhea, No GI bleeding Musculoskeletal: No joint pain, No swelling, No calf pain Genitourinary - Female: No dysuria, No urinary frequency, No urinary urgency Neurologic: No paralysis, No weakness, No numbness/tingling Endocrine: No fatigue Integumentary: No rash, No itch Physical Exam Vital Signs Date Time Temp Pulse Resp B/P (MAP) Pulse Ox O2 Delivery O2 Flow Rate FiO2 02/03/17 18:07 81 18 110/69 94 Nasal Cannula 2.0 02/03/17 16:14 91 Room Air 02/03/17 15:28 78 02/03/17 15:14 36.7 81 18 123/84 91 Room Air General Appearance: WD/WN, no apparent distress, + thin Head: normocephalic, atraumatic Eyes: PERRL, EOMI ENT: hearing grossly normal, + pertinent finding (dry mucous membranes, lesion under nose with crusting) Neck: supple, no JVD Respiratory/Chest: chest non-tender, no respiratory distress, no accessory muscle use, + pertinent finding (on 4 L via NC, crackles present at R base, diminished breaths throughout, +shallow breaths, RR=12, difficulty taking deep breaths) Cardiovascular: regular rate, rhythm, no murmur, normal peripheral pulses Abdomen/GI: non tender, soft Back: normal inspection Extremities/Musculoskelatal: no calf tenderness, no pedal edema Neurologic/Psych: alert, + pertinent finding (orientation unable to be assess as pt does not speak much.) Skin: normal color, warm/dry Diagnostics Laboratory Results Results Past 24 Hours Test 02/03/17 15:30 02/03/17 17:10 02/03/17 17:13 Range/Units White Blood Count 18.00 4.8-10.8 K/uL Red Blood Count 5.10 4.2-5.4 M/uL Hemoglobin 15.9 12.0-16.0 g/dL Hematocrit 46.7 37-47 % Mean Corpuscular Volume 91.6 80-100 fL Mean Corpuscular Hemoglobin 31.2 25-34 pg Mean Corpuscular Hemoglobin Concent 34.0 32-36 g/dl Platelet Count 183 130-400 K/uL Mean Platelet Volume 10.4 7.4-10.4 fL Neutrophils (%) (Auto) 81.1 % Lymphocytes (%) (Auto) 3.5 % Monocytes (%) (Auto) 5.3 % Eosinophils (%) (Auto) 0.2 % Basophils (%) (Auto) 0.6 % Neutrophils # (Auto) 14.62 1.4-6.5 K/uL Lymphocytes # (Auto) 0.63 1.2-3.4 K/uL Monocytes # (Auto) 0.95 0.11-0.59 K/uL Eosinophils # (Auto) 0.03 0-0.5 K/uL Basophils # (Auto) 0.10 0-0.2 K/uL RDW Standard Deviation 50.0 36.4-46.3 fL RDW Coefficient of Variation 15.0 11.5-14.5 % Immature Granulocyte % (Auto) 9.3 % Immature Granulocyte # (Auto) 1.67 0.00-0.02 K/uL Sodium Level 141 136-145 mmol/L Potassium Level 4.5 3.5-5.1 mmol/L Chloride Level 107 98-107 mmol/L Carbon Dioxide Level 28 21-32 mmol/L Anion Gap 6.0 3-11 mmol/L Blood Urea Nitrogen 23 7-18 mg/dl Creatinine 0.36 0.60-1.20 mg/dl Est Creatinine Clear Calc Drug Dose 87.8 ml/min Estimated GFR () 118.0 Estimated GFR (Non- 101.8 BUN/Creatinine Ratio 64.1 10-20 Random Glucose 109 70-99 mg/dl Calcium Level 8.8 8.5-10.1 mg/dl Magnesium Level 2.4 1.8-2.4 mg/dl Total Bilirubin 0.5 0.2-1 mg/dl Aspartate Amino Transf (AST/SGOT) 29 15-37 U/L Alanine Aminotransferase (ALT/SGPT) 72 12-78 U/L Alkaline Phosphatase 130 45-117 U/L Total Creatine Kinase 47 26-192 U/L Troponin I 0.058 0-0.045 ng/ml Total Protein 5.6 6.4-8.2 gm/dl Albumin 2.6 3.4-5.0 gm/dl Globulin 3.0 2.5-4.0 gm/dl Albumin/Globulin Ratio 0.9 0.9-2 Thyroid Stimulating Hormone (TSH) 1.360 0.300-4.500 uIu/ml Urine Color YELLOW Urine Appearance CLOUDY CLEAR Urine pH 8.0 4.5-7.5 Urine Specific [place] 1.018 1.000-1.030 Urine Protein NEG NEG Urine Glucose (UA) NEG NEG Urine Ketones NEG NEG Urine Occult Blood NEG NEG Urine Nitrite NEG NEG Urine Bilirubin NEG NEG Urine Urobilinogen NEG NEG Urine Leukocyte Esterase NEG NEG Urine WBC (Auto) 1-5 0-5 /hpf Urine RBC (Auto) 0-4 0-4 /hpf Urine Hyaline Casts (Auto) 1-5 0-5 /lpf Urine Epithelial Cells (Auto) 10-20 0-5 /lpf Urine Bacteria (Auto) 3+ NEG Lactic Acid Level 1.0 0.4-2.0 mmol/L Microbiology Results 02/03/17 Blood Culture, Received Pending 02/03/17 Blood Culture, Received Pending 02/03/17 Urine Culture, Received Pending Diagnostic Radiology CHEST ONE VIEW PORTABLE CLINICAL HISTORY: Altered mental status. Weakness. COMPARISON STUDY: Chest radiograph January 29, 2017. FINDINGS: There is no pneumothorax. Linear left basilar opacity is suggestive of atelectasis. There is a suspected small right pleural effusion which may be subpulmonic. There is no evidence of pulmonary edema. Cardiomediastinal silhouette is stable. IMPRESSION: Suspected small to moderate right pleural effusion with right basilar opacity which statistically reflects atelectasis. Electronically signed by: Baudilio De La Cruz M.D. 02/03/2017 4:23 PM Dictated Date/Time: 02/03/2017 4:22 PM The status of this report is Signed. EKG Vent. rate 76 BPM [place] interval 124 ms QRS duration 82 ms QT/QTc 402/452 ms P-R-T axes 74 [address] & T wave abnormality, consider lateral ischemia Abnormal ECG When compared with ECG of 29-JAN-2017 05:55, No significant change was found Impression Assessment and Plan 81-year-old female, with a PMHx of newly diagnosed glioblastoma currently undergoing palliative chemotherapy and stereotactic radiation therapy, HTN, hyperlipidemia, seizure disorder, arthritis, history of kidney stones, prolapsed uterus and fibroids, previous ETHAN on CPAP but no longer wears the mask. Pt is s/p 3 rounds of chemotherapy/XRT which started on 01/25, 01/26 and . The patient was recently admitted on 01/29 for dehydration and 2.8 x 0.9 cm subacute infarct within the periventricular left frontal lobe. She was started on aspirin and statin therapy given her prognosis. Sepsis secondary to likely aspiration pneumonia - Admit to telemetry to monitor oxygenation and HR due to tachycardia - Trend cardiac enzyme x 2 sets, first = 0.058 but relatively unchanged compared to last week - Leukocytosis of 18 K - Started on levaquin in the ED, continue along with flagyl and vancomycin IV due to penicillin allergy - Duonebs - EKG showing possible ST wave inversions in the lateral leads but unchanged from previous. - Follow blood cultures x 2 - Lactic acid not elevated - CXR completed showing suspected small to moderate right pleural effusion with right basilar opacity which statistically reflects atelectasis. - NPO until speech evaluation - NSS at 100 mL/hr for maintenance fluids 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 The patient underwent a stereotactic biopsy on 12/18 of the brain mass which confirmed glioblastoma, WHO grade IV. Following her biopsy, the patient was noted to have new expressive aphasia, right facial droop and some left upper extremity and lower extremity weakness. At [facility] pt was seen by neuro-oncology (Dr. Hutchinson) and radiation oncology (Dr. Pang). - Undergoing palliative chemotherapy and radiation therapy - pt son reports no longer want to continue this - but also wants a second opinion from [facility] - Palliative care consultation placed - pt and son are agreeable at this time. Also agreeable to DNR. - Continue dexamethasone 6 mg twice a day but will convert to IV - PT/OT Tachycardia - IV lopressor prn - Fluid resuscitation Hypertension - Holding lisinopril and asa 81 mg Hyperlipidemia - Diet controlled - Was started on atorvastatin upon last admission for new subacute CVA. Hold as not giving PO meds until speech eval passed. Seizure disorder - Continue Keppra 1000mg Q12H IV ,Keppra level was 41.1 last week. Constipation - Will order dulcolax supp now and daily prn - Also may be due to poor oral intake and lack of fiber and fluids. Would recommend miralax if able to tolerate PO. Code Status: DNR DVT ppx: Teds, SCDs, Lovenox 30 mg subcutaneous Disposition: Patient from home, son lives with her, PT and OT eval's [facility] to assist with discharge planning Level of Care Telemetry Resuscitation Status DO NOT RESUSCITATE VTE Prophylaxis VTE Risk Assessment Done? Y/N: Yes Risk Level: Low Given or contraindicated: T.EPavan Stockings, SCD's Reviewed: Pt Seen/Exam by Me History Physician [employer] Supervision Note: I interviewed and examined the patient. Discussed with KEVIN Paulino and agree with findings and plan as documented in the note. Any exceptions or clarifications are listed here: Pt is an unfortunate 81 yo female with grade IV GBM and recent frontal lobe CVA as well as right hemiparesis s/p brain bx, who presents with sepsis and aspiration PNA. She has declined significantly in the past week as per her son. She is only able to shake her head yes and no and occasionally says the word yes or no, but otherwise, her son provides her history. He seems understandably frustrated with her condition and worried. He wavers back and forth between wanting her to continue treatment, but on the other hand states that he doesn't want her to take "so many medications," and does not think she could handle any further treatment. He does then state that he plans on getting a second opinion at [facility] for treatment of her cancer. He is agreeable to a Palliative Care consult in the AM to help him and the pt established goals of care. He states she really hasn't eaten much in the last week, but did eat a full meal for dinner last night until she started spitting food out and coughing a bit. Vitals reviewed Cachectic appearing, foul breath, crusted blood under nose Very dry mucus membranes Anicteric sclerae, awake and alert but mostly nonverbal RRR no mgr Lungs with decreased BS and crackles at right base, otherwise clear Abd +BS, soft NT ND Ext no edema, no calf tenderness 81 yo female with GBM with recent trial of chemo and XRT, declining functional status, recent CVA on existing hemiparesis from brain bx, here with aspiration PNA. Had recent hospital stay last week for fecal impaction and hypoxia. -supplemental O2 -IVFs -allergic to PCN so will treat with Levaquin and Flagyl for aspiration and community acquired PNA, add Vanco to cover for MRSA in case of HCAP--> I do not feel she is sick enough from a PNA standpoint (lactate not elevated, no septic shock) to warrant double coverage for Pseudomonas but consider adding Amikacin if not improving -Consult Oncology to help solidify plan for any further palliative chemo- radiation as son and pt seem very unsure of what to do next -Palliative Care consult definitely appropriate to help establish goals of care Documented By: Germania Gilman
[2017-02-03] MEDS ORDERED: BISACODYL 10 MG SUPP PR STA (20:46)
[2017-02-03] MEDS ORDERED: VANCOMYCIN INJ 1,000 MG in SODIUM CHLORIDE 0.9% 250ML 250 ML IV SCH ×2 (21:00→21:30)
[2017-02-03] MEDS ORDERED: METOPROLOL TARTRATE 1 MG/ML VIAL IV PRN (21:00)
[2017-02-03] MEDS ORDERED: BISACODYL 10 MG SUPP PR PRN (21:00)
[2017-02-03] MEDS ORDERED: VANCOMYCIN CONSULT ACTIVE PRN (21:30)
[2017-02-03 21:32] VITALS: BP 113/77; PULSE 95; TEMP 36.3; O2SAT 97; Ht 165.1 cm; Wt 48.4 kg
[2017-02-03] MEDS: SODIUM CHLORIDE 0.9% 1000ML 1,000 ML IV SCH (21:57)
[2017-02-03] MEDS: METRONIDAZOLE / NSS 500 MG in PREMIXED NSS 100 ML IV SCH (22:19)
[2017-02-03] MEDS: DEXAMETHASONE INJ 6 MG in SYRINGE 0 ML IV SCH (22:19)
[2017-02-03 22:34] LABS: PARTIAL THROMBOPLASTIN RATIO 0.9; PROTHROMBIN TIME (PATIENT) 10.4 SECONDS (9.0-12.0)
[2017-02-03 23:01] VITALS: BP 92/64; PULSE 98; TEMP 36.4; O2SAT 98
[2017-02-04] VITALS (10 sets, daily range): BP systolic 85–122; BP diastolic 56–77; PULSE 68–124; TEMP 36.2–36.8; O2SAT 90–96
[2017-02-04] MEDS: HEPARIN SOD 5000 UNIT/0.5 ML CARP SQ SCH ×3 (00:02→21:00)
[2017-02-04] MEDS: LEVETIRACETAM IV 1,000 MG in DEXTROSE 5% 100ML 100 ML IV SCH ×3 (00:03→21:13)
[2017-02-04 05:02] LABS: HEMATOCRIT 39.7 % (37-47); MEAN CELL VOLUME 91.5 fL (80-100); MEAN CORPUSCULAR HEMOGLOBIN 30.6 pg (25-34); MEAN CORPUSCULAR HGB CONC 33.5 g/dl (32-36); MEAN PLATELET VOLUME 9.6 fL (7.4-10.4); PLATELET COUNT 153 K/uL (130-400); RED BLOOD COUNT 4.34 M/uL (4.2-5.4); WHITE BLOOD COUNT 16.36 K/uL (4.8-10.8)
[2017-02-04 05:22] LABS: BUN/CREATININE RATIO 108.6 (10-20); CREATININE 0.18 mg/dl (0.60-1.20); POTASSIUM 4.3 mmol/L (3.5-5.1)
[2017-02-04 05:38] LABS: COMPLETE YES; LYMPH ABS # 0.15 K/uL (1.2-3.4); LYMPHOCYTE % 0.9 %; METAMYELOCYTE % 4.3 %; MYELOCYTE % 1.7 %; NEUTROPHILS % 91.4 %
[2017-02-04] MEDS: METRONIDAZOLE / NSS 500 MG in PREMIXED NSS 100 ML IV SCH ×3 (06:23→21:42)
[2017-02-04] MEDS ORDERED: LEVOFLOXACIN CONSULT ACTIVE PRN (06:45)
[2017-02-04] MEDS: ALBUT/IPRATROP 3MG/0.5MG NEB 3 ML VIAL INH SCH ×3 (07:00→15:51)
[2017-02-04] MEDS: DEXAMETHASONE INJ 6 MG in SYRINGE 0 ML IV SCH ×2 (07:28→21:06)
--- NOTE | 2017-02-04 09:15 | Clinical Documentation Query ---
CLINICAL DOCUMENTATION QUERY 81 year old female who presents to the Emergency Room with complaints of constant weakness. She has since been diagnosed with aspiration pneumonia and sepsis. EMR reflects this patient as as being cachetic and having a BMI of 17.6. In your clinical opinion is this patient being managed for: ( xx ) Severe Malnutrition evidence by 35% loss in BW in setting of Brain cancer and associated therapies. ( ) Other explanation of clinical findings (Please Explain) ( ) Unable to determine (Please Define) ( ) Need to Discuss ( ) Not Agree The medical record reflects the following clinical findings, treatment, and risk factors. Clinical Indicators: As above. Reveiw of recent visits notes: on 02/03 44.6 kg, BMI 17.1 on 12/25/16 she weighed 60.2 kg, BMI 22.1. A 36% loss in initial BW Treatment: Dietary consult Risk Factors: NPO status, Aspiration pneumonia, noted decreased PO intake, and weakness. Please clarify and document your clinical opinion in the progress notes and discharge summary. Terms such as "probable", "suspected", "likely", "questionable", "possible", or "still to be ruled out" are acceptable. IF IN AGREEMENT, YOU MUST DOCUMENT ABOVE DIAGNOSTIC STATEMENT IN DAILY PROGRESS NOTES AND DISCHARGE SUMMARY. This document is not part of the patient's record. Malnutrition Characteristics (2 of 6) in Chronic Illness CHARACTERISTICS MODERATE MALNUTRITION SEVERE MALNUTRITION ENERGY INTAKE <75% of estimated energyrequirement for >1 month <75% of estimated energyrequirement for >1 month WEIGHT LOSS 5%/1 month 7.5%/3 months 10%/6 months 20%/1 year > 5%/1 month >7.5%/3 months >10%/6 months >20%/1 year BODY FAT*loss of SQ fat from the orbits,triceps, or fat overlying the ribs MILD SEVERE MUSCLE MASS*muscle wasting at the temples,clavicles, shoulders, interosseousspaces,scapula, thigh, calf MILD SEVERE FLUID ACCUMULATION*localized or generalized edemaof the extremities, vulva, scrotumweight loss may be masked byedema MILD SEVERE PRODUCTION CLOTH CUTTER STRENGTH N/A measurably decreased perthe device's standards Thank You, Deric Gilliam, RN [phone]
--- NOTE | 2017-02-04 09:18 | Oncology Consultation ---
Oncology/Heme Consultation Date of Consultation: Feb 04, 2017. Attending Physician: Andrew Fitzgerald MD Reason for Consultation: History of recently diagnosed grade 4 glioblastoma History of Present Illness Patient presents week and declining. Her son is at the bedside. I met this patient once in November which she presented with weakness and history of believe as I recall seizure activity with a CT scan and MRI showing changes consistent with underlying potential glioma. 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 She has been treated under the auspices of [facility] as well as radiation therapy here. She has been receiving radiation therapy and has also been receiving temozolomide. She presents now with decreasing performance status. On January 30 she was hospitalized for the same and was felt to be somewhat dehydrated. An MRI of the brain at that time showed similar findings except now on the left side near the glial known glial lesion there was an area described as an area of restrictive perfusion consistent with the recent potential CVA. The son does described moments of what could be continue seizure activity. It's difficult to be certain Past Medical/Surgical History Medical Problems: (1) Acute electrocardiogram changes Status: Acute (2) Altered mental status Status: Acute (3) Brain mass Status: Acute (4) Dehydration Status: Acute (5) Glioblastoma Status: Acute (6) Hypoxia Status: Acute (7) NSTEMI (non-ST elevated myocardial infarction) Status: Acute (8) PNA (pneumonia) Status: Acute (9) Seizure Status: Acute (10) Seizure disorder Status: Acute (11) Weakness Status: Acute Family History Cancer Heart disease Hypertension Kidney disease Kidney stones Social History Smoking Status: Former Smoker Drug Use: none Marital Status: single Housing Status: lives with family Occupation Status: retired Allergies Coded Allergies: Penicillins (Unverified Allergy, Mild, 02/03/17) Home Medications Scheduled Aspirin (Aspirin EC Low Dose), 81 MG PO QAM Atorvastatin (Atorvastatin Calcium), 40 MG PO QAM Cholecalciferol (Vitamin D3), 1,000 UNITS PO DAILY Dexamethasone (Decadron), 6 MG PO BID Home O2 Therapy (Oxygen), 2 LITERS NA PRN Levetiracetam (Keppra), 1,000 MG PO Q12 Current Inpatient Medications Current Inpatient Medications Medications (Trade) Dose Ordered Sig/Cuco Route Start Time Stop Time Status Last Admin Dose Admin Heparin Sodium (Porcine) (Heparin Sq 5000 Unit/0.5ml) 5,000 unit Q12 SQ 02/03/17 23:01 03/05/17 23:00 02/04/17 07:27 5,000 UNIT Sodium Chloride 1,000 ml @ 100 mls/hr Q10H IV 02/03/17 20:02 03/05/17 20:01 02/03/17 21:57 100 MLS/HR Metronidazole 500 mg/Prmx 100 ml @ 100 mls/hr Q8H IV 02/03/17 22:00 02/10/17 21:59 02/04/17 06:23 100 MLS/HR Levofloxacin 750 mg/Prmx 150 ml @ 100 mls/hr Q48H IV 02/05/17 18:00 02/10/17 17:59 Levetiracetam 1000 mg/Dextrose 110 ml @ 440 mls/hr Q12 IV 02/03/17 21:00 03/05/17 20:59 02/04/17 07:28 440 MLS/HR Dexamethasone Sodium Phosphate 6 mg/Syringe 1.5 ml @ 1 mls/min Q12 IV 02/03/17 21:41 03/05/17 21:40 02/04/17 07:28 1 MLS/MIN Bisacodyl (Dulcolax Supp) 10 mg DAILY PRN UT 02/03/17 21:00 03/05/17 20:59 Albuterol/ Ipratropium (Duoneb) 3 ml QIDR INH 02/04/17 08:00 03/06/17 07:59 02/04/17 07:00 3 ML Vancomycin HCl (Consult) 1 ea UD PRN N/A 02/03/17 21:30 03/05/17 21:29 Levofloxacin (Consult) 1 ea UD PRN N/A 02/04/17 06:45 03/06/17 06:44 Review of Systems Not able take gather an accurate review of systems. The patient is essentially nonverbal except for honoring a few words. She denies any pain or headache. Physical Exam Date Time Temp Pulse Resp B/P (MAP) Pulse Ox O2 Delivery O2 Flow Rate FiO2 02/04/17 08:06 36.2 87 20 107/73 (84) 92 Nasal Cannula 1.0 02/04/17 07:50 Nasal Cannula 2.0 02/04/17 07:01 70 16 96 Nasal Cannula 2.0 02/04/17 04:00 Nasal Cannula 2.0 02/04/17 03:17 36.6 70 19 116/76 (89) 96 Nasal Cannula 2.0 02/03/17 23:59 Nasal Cannula 2.0 02/03/17 23:01 36.4 98 18 92/64 (73) 98 Nasal Cannula 2.0 02/03/17 21:32 36.3 95 18 113/77 97 Nasal Cannula 2.0 02/03/17 20:40 102 12 101/65 97 02/03/17 20:08 94 22 96 02/03/17 20:01 98/71 02/03/17 19:38 108 21 96 02/03/17 19:28 111 02/03/17 19:11 119 20 109/76 96 Nasal Cannula 2.0 02/03/17 19:08 101 17 93 02/03/17 19:01 109/76 02/03/17 18:38 106 21 94 02/03/17 18:08 83 21 94 02/03/17 18:07 81 18 110/69 94 Nasal Cannula 2.0 02/03/17 18:01 110/69 02/03/17 17:39 108/70 02/03/17 17:38 82 23 02/03/17 17:08 76 21 17 16:38 78 20 17 16:14 91 Room Air 02/03/17 16:08 73 20 02/03/17 15:38 74 18 02/03/17 15:28 78 02/03/17 15:14 36.7 81 18 123/84 91 Room Air 02/03/17 15:13 124/84 Constitutional: vitals are stable. She is essentially nonverbal except for an occasional response with a yes/no answer to questions Eyes: Eyes are LEONOR EOMI without conjuctival erythema or icterus. ENT: External examination was negative for masses. Neck: Negative for masses or palpable thyromegaly Respiratory: Lung sounds were generally clear bilaterally Cardiovascular: Heart was RRR without significant murmur, gallops aoe rubs Gastrointestinal: No palpable hepatic or splenomegaly. The abdomen was soft with normal bowel sounds. Lymphatic system: there was no palpable peripheral lymphadenopathy Musculoskeletal System: The musculoskeletal system seemed concordant with age. Skin: The skin was negative for jaundice. Neurologic exam: Generalized weakness but seemingly nonfocal exam Psychiatric exam: Unable to be determined Breast exam: Not done Extremities: Negative for edema Laboratory Results Last 24 Hours Test 02/03/17 15:30 02/03/17 17:10 02/03/17 17:13 02/03/17 21:32 White Blood Count 18.00 K/uL Red Blood Count 5.10 M/uL Hemoglobin 15.9 g/dL Hematocrit 46.7 % Mean Corpuscular Volume 91.6 fL Mean Corpuscular Hemoglobin 31.2 pg Mean Corpuscular Hemoglobin Concent 34.0 g/dl Platelet Count 183 K/uL Mean Platelet Volume 10.4 fL Neutrophils (%) (Auto) 81.1 % Lymphocytes (%) (Auto) 3.5 % Monocytes (%) (Auto) 5.3 % Eosinophils (%) (Auto) 0.2 % Basophils (%) (Auto) 0.6 % Neutrophils # (Auto) 14.62 K/uL Lymphocytes # (Auto) 0.63 K/uL Monocytes # (Auto) 0.95 K/uL Eosinophils # (Auto) 0.03 K/uL Basophils # (Auto) 0.10 K/uL RDW Standard Deviation 50.0 fL RDW Coefficient of Variation 15.0 % Immature Granulocyte % (Auto) 9.3 % Immature Granulocyte # (Auto) 1.67 K/uL Prothrombin Time 10.4 SECONDS Prothromb Time International Ratio 1.0 Activated Partial Thromboplast Time 22.6 SECONDS Partial Thromboplastin Ratio 0.9 Sodium Level 141 mmol/L Potassium Level 4.5 mmol/L Chloride Level 107 mmol/L Carbon Dioxide Level 28 mmol/L Anion Gap 6.0 mmol/L Blood Urea Nitrogen 23 mg/dl Creatinine 0.36 mg/dl Est Creatinine Clear Calc Drug Dose 87.8 ml/min Estimated GFR () 118.0 Estimated GFR (Non- 101.8 BUN/Creatinine Ratio 64.1 Random Glucose 109 mg/dl Calcium Level 8.8 mg/dl Magnesium Level 2.4 mg/dl Total Bilirubin 0.5 mg/dl Aspartate Amino Transf (AST/SGOT) 29 U/L Alanine Aminotransferase (ALT/SGPT) 72 U/L Alkaline Phosphatase 130 U/L Total Creatine Kinase 47 U/L Troponin I 0.058 ng/ml 0.075 ng/ml Total Protein 5.6 gm/dl Albumin 2.6 gm/dl Globulin 3.0 gm/dl Albumin/Globulin Ratio 0.9 Thyroid Stimulating Hormone (TSH) 1.360 uIu/ml Urine Color YELLOW Urine Appearance CLOUDY Urine pH 8.0 Urine Specific [place] 1.018 Urine Protein NEG Urine Glucose (UA) NEG Urine Ketones NEG Urine Occult Blood NEG Urine Nitrite NEG Urine Bilirubin NEG Urine Urobilinogen NEG Urine Leukocyte Esterase NEG Urine WBC (Auto) 1-5 /hpf Urine RBC (Auto) 0-4 /hpf Urine Hyaline Casts (Auto) 1-5 /lpf Urine Epithelial Cells (Auto) 10-20 /lpf Urine Bacteria (Auto) 3+ Lactic Acid Level 1.0 mmol/L Test 02/04/17 04:50 White Blood Count 16.36 K/uL Red Blood Count 4.34 M/uL Hemoglobin 13.3 g/dL Hematocrit 39.7 % Mean Corpuscular Volume 91.5 fL Mean Corpuscular Hemoglobin 30.6 pg Mean Corpuscular Hemoglobin Concent 33.5 g/dl Platelet Count 153 K/uL Mean Platelet Volume 9.6 fL RDW Standard Deviation 50.1 fL RDW Coefficient of Variation 14.9 % Neutrophils % (Manual) 91.4 % Lymphocytes % (Manual) 0.9 % Monocytes % (Manual) 1.7 % Metamyelocytes % 4.3 % Myelocytes % 1.7 % Neutrophils # (Manual) 14.95 K/uL Total Absolute Neutrophils 14.95 K/uL Lymphocytes # (Manual) 0.15 K/uL Total Absolute Lymphocytes 0.15 K/uL Monocytes # (Manual) 0.28 K/uL Metamyelocytes # 0.70 K/uL Myelocytes # 0.28 K/uL Red Blood Cell Morphology Unremarkable Sodium Level 143 mmol/L Potassium Level 4.3 mmol/L Chloride Level 111 mmol/L Carbon Dioxide Level 27 mmol/L Anion Gap 5.0 mmol/L Blood Urea Nitrogen 20 mg/dl Creatinine 0.18 mg/dl Est Creatinine Clear Calc Drug Dose 185.3 ml/min Estimated GFR () 148.3 Estimated GFR (Non- 127.9 BUN/Creatinine Ratio 108.6 Random Glucose 112 mg/dl Calcium Level 8.0 mg/dl Troponin I 0.070 ng/ml Random Vancomycin Level 14.2 mcg/ml Assessment & Plan Blood work is acceptable. I believe we should update an MRI of the brain. The MRI was reviewed today from January 30 comparison to the one done in November. There is a defect of course seen on the left side that is essentially unchanged if perhaps just ever so slightly larger than the one assessed in November. This was the area that was obviously biopsied. The right side does have a rather diffuse edematous change that does not really display an enhanced underlying lesion. This is unchanged from November. In addition there is an area near the diagnosed glioblastoma on 01/30 scan that reflects an area that has been interpreted as perhaps a new CVA. I would repeat the MRI of the brain with enhancement again. The son was adamant about decreasing her medicines. She currently is on Decadron 6 mg twice a day and I would like to see an MRI of the brain but we probably could go down to 4 mg twice a day parenterally for now. I told him that this medicine is important to try and control any brain edema. It was clear however with my conversation with the son that he had what could be considered as unreasonable expectations in regards to her overall prognosis. He was adamant about transferring her to [facility] for another opinion once she is stable. He did comment about "suing everyone if anything should happen to her".
[2017-02-04] MEDS ORDERED: VANCOMYCIN INJ 750 MG in SODIUM CHLORIDE 0.9% 250ML 250 ML IV ONE (10:00)
[2017-02-04] MEDS: SODIUM CHLORIDE 0.9% 1000ML 1,000 ML IV SCH ×2 (12:00→16:58)
--- NOTE | 2017-02-04 13:46 | Pharmacy Progress Note ---
Pharmacy Abx Initial Consult Date of Service Feb 04, 2017. Pharmacy Dosing Scope Date of Consult: 02/03/17 Consultation requested by: Netta Paulino, PAC Pharmacy is consulted to initiate vancomycin and Levaquin IV dosing therapy, order appropriate labs and adjust drug dose/frequency. Subjective The patient is a 81 year old female admitted on Feb 03, 2017 at 20:10. Objective Height (Feet): 5 Height (Inches): 5.00 Weight (Kilograms): 48.100 Vital Signs (Past 12Hrs) Vital Signs Past 12 Hours Date Time Temp Pulse Resp B/P (MAP) Pulse Ox O2 Delivery O2 Flow Rate FiO2 02/04/17 12:53 Nasal Cannula 2.0 02/04/17 12:13 36.5 77 20 122/77 (92) 93 Room Air 02/04/17 08:06 36.2 87 20 107/73 (84) 92 Nasal Cannula 1.0 02/04/17 07:50 Nasal Cannula 2.0 02/04/17 07:01 70 16 96 Nasal Cannula 2.0 02/04/17 04:00 Nasal Cannula 2.0 02/04/17 03:17 36.6 70 19 116/76 (89) 96 Nasal Cannula 2.0 Lab Results (24Hrs) Laboratory Tests (24 Hours) Test 02/03/17 15:30 02/03/17 17:13 02/04/17 04:50 White Blood Count 18.00 K/uL (4.8-10.8) H 16.36 K/uL (4.8-10.8) H Red Blood Count 5.10 M/uL (4.2-5.4) 4.34 M/uL (4.2-5.4) Hemoglobin 15.9 g/dL (12.0-16.0) 13.3 g/dL (12.0-16.0) Hematocrit 46.7 % (37-47) 39.7 % (37-47) Mean Corpuscular Volume 91.6 fL (80-100) 91.5 fL (80-100) Mean Corpuscular Hemoglobin 31.2 pg (25-34) 30.6 pg (25-34) Mean Corpuscular Hemoglobin Concent 34.0 g/dl (32-36) 33.5 g/dl (32-36) Platelet Count 183 K/uL (130-400) 153 K/uL (130-400) Mean Platelet Volume 10.4 fL (7.4-10.4) 9.6 fL (7.4-10.4) Neutrophils (%) (Auto) 81.1 % Lymphocytes (%) (Auto) 3.5 % Monocytes (%) (Auto) 5.3 % Eosinophils (%) (Auto) 0.2 % Basophils (%) (Auto) 0.6 % Neutrophils # (Auto) 14.62 K/uL (1.4-6.5) H Lymphocytes # (Auto) 0.63 K/uL (1.2-3.4) L Monocytes # (Auto) 0.95 K/uL (0.11-0.59) H Eosinophils # (Auto) 0.03 K/uL (0-0.5) Basophils # (Auto) 0.10 K/uL (0-0.2) Total Creatine Kinase 47 U/L (26-192) Lactic Acid Level 1.0 mmol/L (0.4-2.0) Micro Results Date/Time Source Procedure Growth Status 02/03/17 17:04 Blood Blood Culture Pending Received 02/03/17 16:43 Blood Blood Culture Pending Received 02/03/17 21:25 Nasal MRSA DNA Surveillance Screen - Final Specimen Negative for MRSA by DNA Probe Complete 02/03/17 17:10 Urine,Catheterized Urine Culture - Preliminary Staph Species Resulted Risk Factors for Resistance * Immunocompromised (chronic steroid therapy, chemotherapy, immunomodulators) ] Assessment & Plan Assessment 81 year old female admitted with aspiration pneumonia, initiated on vancomycin, Levaquin and Flagyl due to penicillin allergy. MRSA swab negative, so MRSA pneumonia would be unlikely; however, urine culture currently growing staph species Plan Vancomycin IV * Loading dose: 1000 mg (22.5 mg/kg) given last evening * Random level this AM is subtherapeutic and patient needs to be re-dosed - this is not reflective of est PK parameters, in which the t1/2 would be close to 20 hrs. With unclear kinetics in this patient, will give one time doses based upon random levels for now. If vancomycin to be continued, can hopefully determine a maintenance dose once we have a clearer picture of kinetics. * Vancomycin 750 mg IV (17 mg/kg) x 1 this AM * Goal trough level for pneumonia : 15 to 20 mcg/mL * Random level ordered for 02/05/17 with AM labs Pharmacy will continue to follow and will adjust dose/frequency as necessary. Thank you.
[2017-02-04] MEDS ORDERED: SODIUM CHLORIDE 0.9% 250ML 250 ML IV SCH ×2 (14:45→19:15)
[2017-02-04] MEDS ORDERED: SODIUM CHLORIDE 0.9% 1000ML 1,000 ML IV ONE (15:00)
[2017-02-04] MEDS: BOOST PLUS VANILLA PO SCH ×2 (16:58)
--- NOTE | 2017-02-04 17:48 | Medical Student: [facility] ---
Med Student Progress Note Date of Service Feb 04, 2017. Subjective Pt evaluation today including: conversation w/ patient, conversation w/ family (son - [place] ) Mrs. Mcgregor is a 81 year old female with a PMH significant for HTN, HLD, seizure disorder, DJD stage III, arthritis, kidney stones, prolapsed uterus & fibroids, and recently diagnosed glioblastoma s/p 3 rounds of chemotherapy (temozolomide) & 6 rounds radiation therapy who presented last night for progressive weakness. On 12/16/16, she had a head CT at [facility] which showed left basal ganglia/internal capsule lesion & right parafalcine parietal lobe lesion consistent with glioblastoma. At [facility] on 12/18/16, she underwent a stereotactic brain biopsy which confirmed glioblastoma grade IV. Since the biopsy, she has been experiencing progressive weakness, right upper extremity weakness, right expressive aphasia, and right facial droop. She was recently admitted on 01/29 fo dehydration. On admission, she was found to have a 2.8 x 0.9 cm subacute infarct in the periventricular left frontal lobe. She was subsequently started on ASA and a statin. That same MRI showed stable glioblastoma lesions with surrounding edema. This past Thursday, after the patient was discharged, she had difficulty eating and swallowing and was coughing during a meal. Her son disclosed that for the last couple days he has been trying to cut her back on her home meds by either not giving her medication or giving half doses. The patient was not able to express her concerns or thoughts, but her son expressed that he wants to go to [facility] for a second opinion. He was previously willing to pursue palliative care according to old notes, but not anymore. The patient denies pain , fever or cough. She was very somnolent. Review of Systems Constitutional: No fever, No chills Eyes: No worsening of vision ENT: No hearing loss Respiratory: No cough, No sputum, No wheezing, No shortness of breath Cardiac: No chest pain, No edema, No palpitations Abdomen: + constipation, No pain, No nausea, No vomiting, No diarrhea Female : No dysuria Endo: + fatigue Skin: No rash, No itch Objective Vital Signs Date Time Temp Pulse Resp B/P (MAP) Pulse Ox O2 Delivery O2 Flow Rate FiO2 02/04/17 15:51 68 16 90 Room Air 02/04/17 15:28 36.8 77 16 118/72 (87) 93 Room Air 02/04/17 12:53 Nasal Cannula 2.0 02/04/17 12:13 36.5 77 20 122/77 (92) 93 Room Air 02/04/17 08:06 36.2 87 20 107/73 (84) 92 Nasal Cannula 1.0 02/04/17 07:50 Nasal Cannula 2.0 02/04/17 07:01 70 16 96 Nasal Cannula 2.0 02/04/17 04:00 Nasal Cannula 2.0 02/04/17 03:17 36.6 70 19 116/76 (89) 96 Nasal Cannula 2.0 02/03/17 23:59 Nasal Cannula 2.0 02/03/17 23:01 36.4 98 18 92/64 (73) 98 Nasal Cannula 2.0 02/03/17 21:32 36.3 95 18 113/77 97 Nasal Cannula 2.0 02/03/17 20:40 102 12 101/65 97 02/03/17 20:08 94 22 96 02/03/17 20:01 98/71 02/03/17 19:38 108 21 96 02/03/17 19:28 111 02/03/17 19:11 119 20 109/76 96 Nasal Cannula 2.0 02/03/17 19:08 101 17 93 02/03/17 19:01 109/76 02/03/17 18:38 106 21 94 02/03/17 18:08 83 21 94 02/03/17 18:07 81 18 110/69 94 Nasal Cannula 2.0 02/03/17 18:01 110/69 CHEST ONE VIEW PORTABLE CLINICAL HISTORY: Altered mental status. Weakness. COMPARISON STUDY: Chest radiograph January 29, 2017. FINDINGS: There is no pneumothorax. Linear left basilar opacity is suggestive of atelectasis. There is a suspected small right pleural effusion which may be subpulmonic. There is no evidence of pulmonary edema. Cardiomediastinal silhouette is stable. IMPRESSION: Suspected small to moderate right pleural effusion with right basilar opacity which statistically reflects atelectasis. Physical Exam General Appearance: WD/WN, no apparent distress Eyes: bilateral eyes normal inspection, bilateral eyes PERRL, bilateral eyes EOMI ENT: normal ENT inspection, hearing grossly normal, + pertinent finding (dry mucus membranes ) Neck: supple, no adenopathy, thyroid normal, no JVD Respiratory/Chest: no respiratory distress, no accessory muscle use, + crackles (right lung base ) Cardiovascular: regular rate, rhythm, no edema, no gallop, no JVD, no murmur Abdomen: normal bowel sounds, non tender, soft, no organomegaly Extremities: no pedal edema, no calf tenderness, normal capillary refill Neurologic/Psychiatric: engineering designer II-XII nml as tested, alert, + motor weakness (0/5 strength diffusely ), + sensory deficit (decreased sensation over right upper extremity ) Skin: normal color, warm/dry, no rash Laboratory Results Last 24 Hours Test 02/03/17 21:32 02/04/17 04:50 Troponin I 0.075 ng/ml 0.070 ng/ml White Blood Count 16.36 K/uL Red Blood Count 4.34 M/uL Hemoglobin 13.3 g/dL Hematocrit 39.7 % Mean Corpuscular Volume 91.5 fL Mean Corpuscular Hemoglobin 30.6 pg Mean Corpuscular Hemoglobin Concent 33.5 g/dl Platelet Count 153 K/uL Mean Platelet Volume 9.6 fL RDW Standard Deviation 50.1 fL RDW Coefficient of Variation 14.9 % Neutrophils % (Manual) 91.4 % Lymphocytes % (Manual) 0.9 % Monocytes % (Manual) 1.7 % Metamyelocytes % 4.3 % Myelocytes % 1.7 % Neutrophils # (Manual) 14.95 K/uL Total Absolute Neutrophils 14.95 K/uL Lymphocytes # (Manual) 0.15 K/uL Total Absolute Lymphocytes 0.15 K/uL Monocytes # (Manual) 0.28 K/uL Metamyelocytes # 0.70 K/uL Myelocytes # 0.28 K/uL Red Blood Cell Morphology Unremarkable Sodium Level 143 mmol/L Potassium Level 4.3 mmol/L Chloride Level 111 mmol/L Carbon Dioxide Level 27 mmol/L Anion Gap 5.0 mmol/L Blood Urea Nitrogen 20 mg/dl Creatinine 0.18 mg/dl Est Creatinine Clear Calc Drug Dose 185.3 ml/min Estimated GFR () 148.3 Estimated GFR (Non- 127.9 BUN/Creatinine Ratio 108.6 Random Glucose 112 mg/dl Calcium Level 8.0 mg/dl Random Vancomycin Level 14.2 mcg/ml Assessment and Plan Assessment and Plan: Assessment: Mrs. Mcgregor is a 81 year old female with a PMH significant for HTN, HLD, seizure disorder, DJD stage III, arthritis, kidney stones, prolapsed uterus & fibroids, and recently diagnosed glioblastoma s/p 3 rounds of chemotherapy (temozolomide) & 6 rounds radiation therapy who presented last night for progressive weakness. Head CT from 12/16/16 showed left basal ganglia/ internal capsule lesion and a right parafalcine parietal lobe lesion. Brain MRI done on 01/30 showed stable lesions to possibly enlarging lesions. Patient's vital signs were WNL on admission. She had leukocytosis with WBC count of 18 and elevated BUN of 23. Troponin was also elevated at 0.058. Serial troponins were 0.075 and 0.070. TSH was normal and Alk phos was elevated at 130. She was given levofloxacin in the ER. CXR showed right pleural effusion and right basilar opacity. EKG showed ST depressions in V3-V6 and leads II, III, and AVF as well as T wave inversions in the lateral leads. UA showed 3 + bacteria and 10 -20 epithelial cells. Urine cx showed staph. MRSA swab was negative. The patient is currently being managed for sepsis 2/2 to aspiration pneumonia and/ or UTI, glioblastoma and her seizure disorder. Plan: Sepsis 2/2 to aspiration pneumonia and/or UTI -continues to have leukocytosis of 16.36 & was tachycardic overnight to 120, this is consistent with sepsis in setting of infection -continue Levofloxacin & Flagyl -continue Duoneb -blood cultures pending -urine cultures grew staph -speech evaluation - recommends soft diet, can alternate solids & liquids 1: 1 -continue IVFs Glioblastoma -oncology consulted - will follow and recommends repeat brain MRI & decreasing Decadron dose to 4 mg BID -PT/OT -palliative care consult Hx of stroke -brain MRI HTN -hold lisinopril in setting of sepsis HLD -hold statin Seizure Disorder -2/2 to Glioblastoma -continue Keppra 1000 mg q12hr IV -last Keppra level 14.1 last week Constipation -continue Dulcolax & Miralax -echo Attending Attestation: Pt seen/examined, chart reviewed, care plan d/w MS4 Makayla Troy. I agree w/ the soni components of her documentation. Andrew Fitzgerald MD
[2017-02-04] MEDS: METOPROLOL TARTRATE 25 MG TAB PO SCH ×2 (19:10→21:00)
[2017-02-04 20:02] LABS: BUN/CREATININE RATIO 35.8 (10-20); CREATININE 0.69 mg/dl (0.60-1.20); MAGNESIUM 1.9 mg/dl (1.8-2.4); POTASSIUM 3.3 mmol/L (3.5-5.1)
[2017-02-04] MEDS ORDERED: POTASSIUM CHLORIDE 10 MEQ TABCR PO STA (20:18)
[2017-02-04] MEDS ORDERED: POTASSIUM CHLR 20 MEQ / WTR 20 MEQ in PREMIXED WATER 100 ML IV STA (20:18)
[2017-02-04] MEDS ORDERED: MAGNESIUM SULFATE 1GM / D5W 1 GM in PREMIXED IN D5W 100 ML IV ONE (21:00)
[2017-02-04] MEDS: NSS + 20MEQ KCL 1000ML 1,000 ML IV SCH (21:01)
[2017-02-04] MEDS: POTASSIUM CHLR 10 MEQ / WTR 10 MEQ in PREMIXED WATER 100 ML IV SCH (21:02)
--- NOTE | 2017-02-04 22:13 | Progress Note ---
Subjective Date of Service: Feb 04, 2017. Subjective Pt evaluation today including: conversation w/ patient, conversation w/ family (son - multiple times today), physical exam, chart review, lab review, review of studies (all past imaging studies including MRI brain), conversation w/ technical support consultant (heme/onc), review of inpatient medication list Pain: denies headache, chest pain, abd pain PO Intake: npo - awaiting speech eval Voiding: schroeder catheter in place tele overnight normal had multiple visits to patient's room today son very upset during my first visit concerned her mother wasn't receiving nutrition concerned also that she was being "over-medicated" son with multiple questions about plan of care late in the afternoon the patient had multiple runs of severe tachycardia with rates between 150 and 190 strips reviewed - most appeared to be atrial tachycardia one strip was c/w nonsustained ventricular tachycardia I re-evaluated the patient - she denied any chest pain or sob or palpitations she had poor UOP early in the day but this improved s/p fluid bolus during early discussions today with pt's son he had voiced that he might be interested in 2nd opinion re: glioblastoma at [facility] Problem List Medical Problems: (1) Acute electrocardiogram changes Status: Acute (2) Altered mental status Status: Acute (3) Brain mass Status: Acute (4) Dehydration Status: Acute (5) Glioblastoma Status: Acute (6) Hypoxia Status: Acute (7) NSTEMI (non-ST elevated myocardial infarction) Status: Acute (8) PNA (pneumonia) Status: Acute (9) Seizure Status: Acute (10) Seizure disorder Status: Acute (11) Weakness Status: Acute Review of Systems unable to obtain full ROS due to aphasia but she appeared to deny chest pain or headache or sob Objective Vital Signs Date Time Temp Pulse Resp B/P (MAP) Pulse Ox O2 Delivery O2 Flow Rate FiO2 02/04/17 20:00 Room Air 02/04/17 18:57 36.8 85 22 90/56 (67) 95 Room Air 02/04/17 18:16 85/62 (70) 02/04/17 17:40 124 97/62 (74) 02/04/17 16:00 Room Air 02/04/17 15:51 68 16 90 Room Air 02/04/17 15:28 36.8 77 16 118/72 (87) 93 Room Air 02/04/17 12:53 Nasal Cannula 2.0 02/04/17 12:13 36.5 77 20 122/77 (92) 93 Room Air 02/04/17 08:06 36.2 87 20 107/73 (84) 92 Nasal Cannula 1.0 02/04/17 07:50 Nasal Cannula 2.0 02/04/17 07:01 70 16 96 Nasal Cannula 2.0 02/04/17 04:00 Nasal Cannula 2.0 02/04/17 03:17 36.6 70 19 116/76 (89) 96 Nasal Cannula 2.0 02/03/17 23:59 Nasal Cannula 2.0 02/03/17 23:01 36.4 98 18 92/64 (73) 98 Nasal Cannula 2.0 Physical Exam General Appearance: + cachetic, + thin, + pertinent finding (chronically ill, expressive aphasia; ?receptive aphasia; follows commands poorly) ENT: + pertinent finding (MM dry, no lesions) Neck: no JVD Respiratory/Chest: lungs clear, no respiratory distress, no accessory muscle use Cardiovascular: regular rate, rhythm, no gallop, no murmur, + extra beats Abdomen: normal bowel sounds, non tender, soft, no organomegaly Extremities: no pedal edema Neurologic/Psychiatric: alert, + aphasia, + motor weakness (RUE, RLE - strength 0/5; strength LUE about 3/5; LLE about 3/5; +babinski's b/l ) Skin: + pallor Laboratory Results Last 24 Hours Test 02/04/17 04:50 02/04/17 19:12 White Blood Count 16.36 K/uL Red Blood Count 4.34 M/uL Hemoglobin 13.3 g/dL Hematocrit 39.7 % Mean Corpuscular Volume 91.5 fL Mean Corpuscular Hemoglobin 30.6 pg Mean Corpuscular Hemoglobin Concent 33.5 g/dl Platelet Count 153 K/uL Mean Platelet Volume 9.6 fL RDW Standard Deviation 50.1 fL RDW Coefficient of Variation 14.9 % Neutrophils % (Manual) 91.4 % Lymphocytes % (Manual) 0.9 % Monocytes % (Manual) 1.7 % Metamyelocytes % 4.3 % Myelocytes % 1.7 % Neutrophils # (Manual) 14.95 K/uL Total Absolute Neutrophils 14.95 K/uL Lymphocytes # (Manual) 0.15 K/uL Total Absolute Lymphocytes 0.15 K/uL Monocytes # (Manual) 0.28 K/uL Metamyelocytes # 0.70 K/uL Myelocytes # 0.28 K/uL Red Blood Cell Morphology Unremarkable Sodium Level 143 mmol/L 143 mmol/L Potassium Level 4.3 mmol/L 3.3 mmol/L Chloride Level 111 mmol/L 111 mmol/L Carbon Dioxide Level 27 mmol/L 23 mmol/L Anion Gap 5.0 mmol/L 9.0 mmol/L Blood Urea Nitrogen 20 mg/dl 25 mg/dl Creatinine 0.18 mg/dl 0.69 mg/dl Est Creatinine Clear Calc Drug Dose 185.3 ml/min 49.4 ml/min Estimated GFR () 148.3 95.3 Estimated GFR (Non- 127.9 82.2 BUN/Creatinine Ratio 108.6 35.8 Random Glucose 112 mg/dl 208 mg/dl Calcium Level 8.0 mg/dl 8.0 mg/dl Troponin I 0.070 ng/ml 0.090 ng/ml Random Vancomycin Level 14.2 mcg/ml Lactic Acid Level 1.5 mmol/L Magnesium Level 1.9 mg/dl Assessment and Plan 81yo female: 1. sepsis 2nd to staph UTI +/- pneumonia - continue supportive care including IV abx, fluids, etc. 2. staph UTI - continue vancomycin and follow culture. 3. pneumonia - probably aspiration given the report of dysphagia - continue levaquin, flagyl and vancomycin. 4. dysphagia - likely due to recent stroke - await speech evaluation. 5. 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 Nj to repeat her MRI to see if her stroke has extended, she has new/additional strokes, etc. reasonable to cont aspirin for secondary stroke prevention along with statin. continue telemetry. echo to be complete, r/o thrombus. MRA brain also ordered to exclude focal stenotic lesion. 6. left-sided glioblastoma s/p XRT and chemotherapy - poor prognosis. Continue IV decadron for edema. Poor candidate for ongoing treatment. 7. seizure d/o 2nd to #6 - cont keppra IV. 8. dysrhythmia - tele strips appear c/w atrial tachycardia. If BP will allow start metoprolol 12.5mg BID. Check K and mag tonight to ensure no electrolyte disturbance. Also had brief run of NSV-T - again ensure no low K or mag. ECHO in am. Cardiology consult if necessary. If a. fib or flutter - anticoagulation? would be quite risky, however, and with uncertain benefit in light of poor prognosis. 9. FEN - continue IVF, repeat lytes, diet if ok with speech. 10. DVT proph - heparin BID. 11. abnormal EKG with mildly positive troponin - her EKG from this admission is quite abnormal with multiple leads showing ST depression but it is unchanged from 01/29 EKG. [id number] she could have underlying CAD. ECHO in am to assess LV Fx, wall motion, etc. She has not had chest pain and thus the troponin increase is likely myocardial demand ischemia, however. 12. dehydration - continue hydration with occasional fluid bolus, if needed. 13. right-sided lesion on previous brain MRI - unclear if this is a secondary glioma. Has been stable on imaging since November, however. overall prognosis is very, very poor I am uncertain if her son Wellington appears ready to initiative palliative care and/ or hospice I think it is important that her other children be informed of her poor clinical status and prognosis she has a son in [place] (Pedro Luis) by report she does remain DNR, however I believe the repeat MRI of the brain will help with end of life decisions, especially if the new MRI is worse total time today about 75 minutes Continued [facility] stay due to: abnormal vital signs, inadequate po fluid intake, ambulation difficulties, multiple IV medications needed Discharge planning: uncertain
[2017-02-04] MEDS ORDERED: CONSULT PHARMACY STA (22:45)
[2017-02-05] VITALS (7 sets, daily range): BP systolic 106–117; BP diastolic 66–74; PULSE 61–77; TEMP 36.3–37; O2SAT 92–96
[2017-02-05] MEDS: POTASSIUM CHLR 10 MEQ / WTR 10 MEQ in PREMIXED WATER 100 ML IV SCH (00:06)
[2017-02-05 05:54] LABS: HEMATOCRIT 34.6 % (37-47); MEAN CELL VOLUME 91.5 fL (80-100); MEAN CORPUSCULAR HEMOGLOBIN 31.5 pg (25-34); MEAN CORPUSCULAR HGB CONC 34.4 g/dl (32-36); MEAN PLATELET VOLUME 10.1 fL (7.4-10.4); PLATELET COUNT 147 K/uL (130-400); RED BLOOD COUNT 3.78 M/uL (4.2-5.4); WHITE BLOOD COUNT 19.06 K/uL (4.8-10.8)
[2017-02-05] MEDS: METRONIDAZOLE / NSS 500 MG in PREMIXED NSS 100 ML IV SCH ×3 (06:27→22:30)
[2017-02-05 06:29] LABS: BASO % 0.3 %; BASO ABS # 0.05 K/uL (0-0.2); COMPLETE YES; IG% 7.6 %; LYMPH % 3.4 %; LYMPH ABS # 0.64 K/uL (1.2-3.4); MONO % 3.4 %; NEUT % 85.3 %; OVALOCYTES 1+
[2017-02-05 06:35] LABS: CREATININE 0.36 mg/dl (0.60-1.20); POTASSIUM 4.4 mmol/L (3.5-5.1)
[2017-02-05] MEDS: BOOST PLUS VANILLA PO SCH ×4 (07:30→16:45)
--- NOTE | 2017-02-05 07:38 | Progress Note ---
Subjective Date of Service: Feb 05, 2017. Subjective this pt is more alert and eating pancakes for breakfast. The son and multiple concerns and is requesting [facility] be contacted to transfer patient for second opinion regarding her glioblastoma. I did call [facility] spoke to the oncologist on-call who felt the patient would be best served by an outpatient appointment to see Dr. Ayo Drake. I relayed this information to the son. The son has pressured speech and at times is bullying staff with his requests, there was a report by nursing that he may be administering [id number] medications from home. He also states that he forbid staff from telling his mother her prognosis, I did recheck out to the contact number in the chart for a son named Pedro Luis in [place] and left a message on his machine. I informed the son that her plan of care was to treat her urinary tract infection, obtain an EEG and adjust antiseizure medications as needed with the direction of our neurology inpatient service. We will attempt to facilitate outpatient appointment scheduling prior to him leaving our facility. I did inform him that we will not be performing an acute transmitted [facility] as they do not feel it is necessary at this time. Problem List Medical Problems: (1) Acute electrocardiogram changes Status: Acute (2) Altered mental status Status: Acute (3) Brain mass Status: Acute (4) Dehydration Status: Acute (5) Glioblastoma Status: Acute (6) Hypoxia Status: Acute (7) NSTEMI (non-ST elevated myocardial infarction) Status: Acute (8) PNA (pneumonia) Status: Acute (9) Seizure Status: Acute (10) Seizure disorder Status: Acute (11) Weakness Status: Acute Review of Systems Constitutional: + weakness, + fatigue, No fever, No chills ENT: + trouble swallowing, No hearing loss, No unusual epistaxis, No nasal symptoms, No sore throat Respiratory: + shortness of breath, + dyspnea on exertion, No cough Cardiac: No chest pain, No orthopnea, No PND, No edema Abdomen: No pain, No nausea, No vomiting, No diarrhea Neurologic: + memory loss, No paralysis, No weakness, No numbness/tingling Objective Vital Signs Date Time Temp Pulse Resp B/P (MAP) Pulse Ox O2 Delivery O2 Flow Rate FiO2 02/05/17 04:00 Room Air 02/05/17 03:22 36.5 61 19 117/74 (88) 94 Room Air 02/04/17 23:59 Room Air 02/04/17 23:18 36.3 69 19 112/71 (85) 94 Room Air 02/04/17 20:00 Room Air 02/04/17 18:57 36.8 85 22 90/56 (67) 95 Room Air 02/04/17 18:16 85/62 (70) 02/04/17 17:40 124 97/62 (74) 02/04/17 16:00 Room Air 02/04/17 15:51 68 16 90 Room Air 02/04/17 15:28 36.8 77 16 118/72 (87) 93 Room Air 02/04/17 12:53 Nasal Cannula 2.0 02/04/17 12:13 36.5 77 20 122/77 (92) 93 Room Air 02/04/17 08:06 36.2 87 20 107/73 (84) 92 Nasal Cannula 1.0 02/04/17 07:50 Nasal Cannula 2.0 Physical Exam General Appearance: WD/WN, + moderate distress Eyes: PERRL, EOMI Neck: supple, no JVD Respiratory/Chest: chest non-tender, lungs clear, normal breath sounds Cardiovascular: regular rate, rhythm, no murmur Abdomen: normal bowel sounds, non tender, soft Extremities: no pedal edema, no calf tenderness Neurologic/Psychiatric: alert, oriented x 3, + pertinent finding (generalized weakness) Laboratory Results Last 24 Hours Test 02/04/17 19:12 02/05/17 05:22 Sodium Level 143 mmol/L 142 mmol/L Potassium Level 3.3 mmol/L 4.4 mmol/L Chloride Level 111 mmol/L 112 mmol/L Carbon Dioxide Level 23 mmol/L 25 mmol/L Anion Gap 9.0 mmol/L 5.0 mmol/L Blood Urea Nitrogen 25 mg/dl 20 mg/dl Creatinine 0.69 mg/dl 0.36 mg/dl Est Creatinine Clear Calc Drug Dose 49.4 ml/min 100.0 ml/min Estimated GFR () 95.3 118.0 Estimated GFR (Non- 82.2 101.8 BUN/Creatinine Ratio 35.8 55.0 Random Glucose 208 mg/dl 151 mg/dl Lactic Acid Level 1.5 mmol/L Calcium Level 8.0 mg/dl 8.0 mg/dl Magnesium Level 1.9 mg/dl Troponin I 0.090 ng/ml White Blood Count 19.06 K/uL Red Blood Count 3.78 M/uL Hemoglobin 11.9 g/dL Hematocrit 34.6 % Mean Corpuscular Volume 91.5 fL Mean Corpuscular Hemoglobin 31.5 pg Mean Corpuscular Hemoglobin Concent 34.4 g/dl Platelet Count 147 K/uL Mean Platelet Volume 10.1 fL Neutrophils (%) (Auto) 85.3 % Lymphocytes (%) (Auto) 3.4 % Monocytes (%) (Auto) 3.4 % Eosinophils (%) (Auto) 0.0 % Basophils (%) (Auto) 0.3 % Neutrophils # (Auto) 16.28 K/uL Lymphocytes # (Auto) 0.64 K/uL Monocytes # (Auto) 0.65 K/uL Eosinophils # (Auto) 0.00 K/uL Basophils # (Auto) 0.05 K/uL RDW Standard Deviation 50.3 fL RDW Coefficient of Variation 15.2 % Immature Granulocyte % (Auto) 7.6 % Immature Granulocyte # (Auto) 1.44 K/uL Ovalocytes 1+ Random Vancomycin Level 10.9 mcg/ml Assessment and Plan 81yo F with metabolic encephalopathy from staph sepsis associated with UTi poa Sepsis 2nd to staph UTI levaquin, flagyl and vancomycin. 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 echo to be complete, r/o thrombus. MRA brain also ordered to exclude focal stenotic lesion. left-sided glioblastoma s/p XRT and chemotherapy - poor prognosis. IV decadron for edema. seizure keppra IV., did have neurology visit with patient, pending EEG to eval for med management of possible recurrent partial seizures Severe Malnutrition evidence by 35% loss in BW in setting of Brain cancer and associated therapies. in setting of Glioma, will continue to offer supportive nutritional supplements atrial tachycardia. try to start metoprolol 12.5mg BID. abnormal EKG with mildly positive troponin - her EKG from this admission is quite abnormal with multiple leads showing ST depression but it is unchanged from 01/29 EKG. DVT proph - heparin BID. Left message for son pedro luis Continued [facility] stay due to: abnormal vital signs, inadequate po fluid intake, ambulation difficulties, multiple IV medications needed Discharge planning: uncertain
[2017-02-05] MEDS: NSS + 20MEQ KCL 1000ML 1,000 ML IV SCH ×2 (08:24→17:54)
[2017-02-05] MEDS: LEVETIRACETAM IV 1,000 MG in DEXTROSE 5% 100ML 100 ML IV SCH (08:24)
[2017-02-05] MEDS: METOPROLOL TARTRATE 25 MG TAB PO SCH ×2 (08:25→20:38)
[2017-02-05] MEDS: DEXAMETHASONE INJ 6 MG in SYRINGE 0 ML IV SCH ×3 (08:25→22:30)
[2017-02-05] MEDS: HEPARIN SOD 5000 UNIT/0.5 ML CARP SQ SCH ×2 (09:00→20:37)
[2017-02-05] MEDS ORDERED: VANCOMYCIN INJ 1,000 MG in SODIUM CHLORIDE 0.9% 250ML 250 ML IV SCH (09:00)
[2017-02-05] MEDS ORDERED: NURSING VERBAL MED ORDER ONE (09:30)
[2017-02-05] MEDS ORDERED: VANCOMYCIN INJ 750 MG in SODIUM CHLORIDE 0.9% 250ML 250 ML IV ONE (09:30)
--- NOTE | 2017-02-05 10:49 | Neurology Consultation ---
Neurology Consultation Date of Consultation: Feb 05, 2017. Attending Physician: George San M.D. Primary Care Physician: Issac Meza M.D. Reason for Consultation: Consult for increased seizures History of Present Illness Source: patient, hospital records This is an 81-year-old female who presents with metabolic encephalopathy and UTI. Patient has been having recent increased seizures likely secondary to glioblastoma. Patient was seen by myself in November in hospital consultation when her brain mass was initially found. At that time she was noted to have a left external capsule 2 cm mass with edema and tiny right frontal mass with vasogenic edema. Since then patient has been further evaluated by oncology and was seen down at [place] when she had frequent seizures. She was placed on Keppra which was eventually increased to thousand milligrams twice a day. Son reports that many of her seizures seem to occur at night when she is sleeping. He thinks the last one was may be a week ago. There has also been smaller events of altered mental status which it's not clear whether these are seizures or not. Son is not really able to give me a clear description of seizures or seizure frequency. She does seem to have had developed a right hemiplegia since I saw her last with a reported subacute frontal stroke. MRI of the brain reported images from the of this month were reviewed by myself. While there may be a new subacute left frontal stroke, it is in close approximation to her left external capsule glioblastoma and may be more related to that. Between exams there does appear to be decreased vasogenic and edema of the left external capsule glioblastoma. Continues to have signal change around the right frontal presumed mass. Previous EEG in November was reviewed by myself and noted to have left focal slowing and bifrontal intermittent slowing consistent with her known structural disease. There is no epileptiform discharges on that EEG and maintain Son denies any major medication side effects. Son does report that she seems to be more irritable which could be multifactorial. No severe irritability or agitation. Son does describe fluctuation in mental status. Not always clear whether she is taking her medication as prescribed. Son does think that the seizures have decreased in time and frequency since starting Keppra. He reports that she has not had a clear seizure in the last week. Upon review of the outpatient chart the patient has also been seen by neurosurgery at [facility] who recommended changes to her Keppra in December and had given options for treatment. Past Medical/Surgical History Medical Problems: (1) Acute electrocardiogram changes Status: Acute (2) Altered mental status Status: Acute (3) Brain mass Status: Acute (4) Dehydration Status: Acute (5) Glioblastoma Status: Acute (6) Hypoxia Status: Acute (7) NSTEMI (non-ST elevated myocardial infarction) Status: Acute (8) PNA (pneumonia) Status: Acute (9) Seizure Status: Acute (10) Seizure disorder Status: Acute (11) Weakness Status: Acute hypertension, dyslipidemia, and prediabetes with peripheral neuropathy. Family History Family history significant for a sister and maternal grandmother with breast cancer. Cd and hypertension within the family. Patient also reports that her sister had childhood epilepsy that resolved as an adult. Social History Remote tobacco use. Smoking Status: Never smoker Drug Use: none Marital Status: single Housing Status: lives with family Occupation Status: retired Allergies Coded Allergies: Penicillins (Unverified Allergy, Mild, 02/03/17) Current Inpatient Medications Current Inpatient Medications Medications (Trade) Dose Ordered Sig/Cuco Route Start Time Stop Time Status Last Admin Dose Admin Heparin Sodium (Porcine) (Heparin Sq 5000 Unit/0.5ml) 5,000 unit Q12 SQ 02/03/17 23:01 03/05/17 23:00 02/04/17 07:27 5,000 UNIT Metronidazole 500 mg/Prmx 100 ml @ 100 mls/hr Q8H IV 02/03/17 22:00 02/10/17 21:59 02/05/17 06:27 100 MLS/HR Levofloxacin 750 mg/Prmx 150 ml @ 100 mls/hr Q48H IV 02/05/17 18:00 02/10/17 17:59 Levetiracetam 1000 mg/Dextrose 110 ml @ 440 mls/hr Q12 IV 02/03/17 21:00 03/05/17 20:59 02/05/17 08:24 440 MLS/HR Dexamethasone Sodium Phosphate 6 mg/Syringe 1.5 ml @ 1 mls/min Q12 IV 02/03/17 21:41 03/05/17 21:40 02/05/17 08:25 1 MLS/MIN Bisacodyl (Dulcolax Supp) 10 mg DAILY PRN DC 02/03/17 21:00 03/05/17 20:59 Vancomycin HCl (Consult) 1 ea UD PRN N/A 02/03/17 21:30 03/05/17 21:29 Levofloxacin (Consult) 1 ea UD PRN N/A 02/04/17 06:45 03/06/17 06:44 Enteral Nutritional Formula (Boost Plus Vanilla) 1 can BIDM PO 02/04/17 16:45 03/06/17 16:44 02/04/17 16:58 1 CAN Metoprolol Tartrate (Lopressor Tab) 12.5 mg BID PO 02/04/17 18:00 03/06/17 17:59 02/05/17 08:25 12.5 MG Potassium Chloride/Sodium Chloride 1,000 ml @ 100 mls/hr Q10H IV 02/04/17 21:00 03/06/17 20:29 02/05/17 08:24 100 MLS/HR Vancomycin HCl 750 mg/Sodium Chloride 265 ml @ 125 mls/hr 0930 ONCE IV 02/05/17 09:30 02/05/17 11:37 02/05/17 10:08 125 MLS/HR Review of Systems Complete review of systems Limited by mental status but otherwise unremarkable except for the above noted in history of present illness Physical Exam Vital Signs (Past 24 Hrs): Date Time Temp Pulse Resp B/P (MAP) Pulse Ox O2 Delivery O2 Flow Rate FiO2 02/05/17 08:10 36.3 77 22 117/68 (84) 94 Room Air 02/05/17 04:00 Room Air 02/05/17 03:22 36.5 61 19 117/74 (88) 94 Room Air 02/04/17 23:59 Room Air 02/04/17 23:18 36.3 69 19 112/71 (85) 94 Room Air 02/04/17 20:00 Room Air 02/04/17 18:57 36.8 85 22 90/56 (67) 95 Room Air 02/04/17 18:16 85/62 (70) 02/04/17 17:40 124 97/62 (74) 02/04/17 16:00 Room Air 02/04/17 15:51 68 16 90 Room Air 02/04/17 15:28 36.8 77 16 118/72 (87) 93 Room Air 02/04/17 12:53 Nasal Cannula 2.0 02/04/17 12:13 36.5 77 20 122/77 (92) 93 Room Air Exam was somewhat limited due to mental status. Patient appeared tired but would open her eyes to voice. HEENT: Normocephalic /atraumatic, no scleral icterus Heart: Regular rate and rhythm Extremities: No gross deformities or rashes noted Neurological examination: Mental status: Patient is lethargic but oriented to person and place. His only a few words at a time with no overt dysarthria or aphasia noted Cranial nerve: Funduscopic examination was difficult to visualize. Pupils equally round and reactive to light. Extraocular muscles intact without nystagmus. No facial asymmetry noted. Facial sensation intact. Tongue is midline. Good palatal elevation. Good shoulder shrug bilaterally. Hearing grossly intact to voice. 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 Per the son of the patient has not been able to move her right side for the past few weeks. Sensation: Grossly intact to light touch in all extremities. Deep tendon reflexes: +1 in bilateral biceps, brachioradialis and patellar. Coordination: Patient did not participate in formal coordination testing Station within the bed was normal Laboratory Results Past 24 Hours: 02/05/17 05:22 Red Blood Count 3.78, Mean Corpuscular Volume 91.5, Mean Corpuscular Hemoglobin 31.5, Mean Corpuscular Hemoglobin Concent 34.4, Mean Platelet Volume 10.1, Neutrophils (%) (Auto) 85.3, Lymphocytes (%) (Auto) 3.4, Monocytes (%) (Auto) 3.4, Eosinophils (%) (Auto) 0.0, Basophils (%) (Auto) 0.3, Neutrophils # (Auto) 16.28, Lymphocytes # (Auto) 0.64, Monocytes # (Auto) 0.65, Eosinophils # (Auto) 0.00, Basophils # (Auto) 0.05 02/05/17 05:22 Test 02/04/17 19:12 02/05/17 05:22 Lactic Acid Level 1.5 mmol/L (0.4-2.0) Magnesium Level 1.9 mg/dl (1.8-2.4) Troponin I 0.090 ng/ml (0-0.045) White Blood Count 19.06 K/uL (4.8-10.8) Red Blood Count 3.78 M/uL (4.2-5.4) Hemoglobin 11.9 g/dL (12.0-16.0) Hematocrit 34.6 % (37-47) Mean Corpuscular Volume 91.5 fL (80-100) Mean Corpuscular Hemoglobin 31.5 pg (25-34) Mean Corpuscular Hemoglobin Concent 34.4 g/dl (32-36) Platelet Count 147 K/uL (130-400) Mean Platelet Volume 10.1 fL (7.4-10.4) Neutrophils (%) (Auto) 85.3 % Lymphocytes (%) (Auto) 3.4 % Monocytes (%) (Auto) 3.4 % Eosinophils (%) (Auto) 0.0 % Basophils (%) (Auto) 0.3 % Neutrophils # (Auto) 16.28 K/uL (1.4-6.5) Lymphocytes # (Auto) 0.64 K/uL (1.2-3.4) Monocytes # (Auto) 0.65 K/uL (0.11-0.59) Eosinophils # (Auto) 0.00 K/uL (0-0.5) Basophils # (Auto) 0.05 K/uL (0-0.2) RDW Standard Deviation 50.3 fL (36.4-46.3) RDW Coefficient of Variation 15.2 % (11.5-14.5) Immature Granulocyte % (Auto) 7.6 % Immature Granulocyte # (Auto) 1.44 K/uL (0.00-0.02) Ovalocytes 1+ Anion Gap 5.0 mmol/L (3-11) Est Creatinine Clear Calc Drug Dose 100.0 ml/min Estimated GFR () 118.0 Estimated GFR (Non- 101.8 BUN/Creatinine Ratio 55.0 (10-20) Calcium Level 8.0 mg/dl (8.5-10.1) Random Vancomycin Level 10.9 mcg/ml Imaging As noted above in history of present illness Impression This is a 81-year-old female with a left internal capsule/basal ganglia glioblastoma with improved vasogenic edema since November and another likely mass lesion in the right frontal area. Patient appears to have developed an ischemic stroke in the left frontal lobe, but this still may be related to her glioblastoma. Patient has developed frequent seizures that appear to be improved on Keppra. No major medication side effects reported. Plan Recommend increasing Keppra to 1500 mg twice a day for seizure prophylaxis. If need be in the future could increase Keppra to a max dose of 2000 mg twice a day (although with the patient's weight at 50 kg, may want to keep her max dose at 1500 mg twice a day). If the patient's continues to have seizures despite max dose of Keppra, would recommend considering starting Vimpat 50 mg twice a day. We'll get a routine EEG to make sure there is no frequent epileptiform discharges or concerns for partial status epilepticus that would change the above medication plan. I do not think that the patient needs any additional neuroimaging at this time since she just had an MRI of her brain on the . Considered starting low-dose aspirin for signs of recent left frontal ischemic stroke, but concerned that with her mass lesions in her brain, she may be at high risk for intracranial bleeds. This could be reconsidered later if needed. Follow-up with oncology regarding treatment of glioblastoma May follow up in neurology clinic for management of seizures secondary to glioblastoma Thank you for allowing me to participate in this patient's care. If there is any questions or concerns, feel free to call/page me.
--- NOTE | 2017-02-05 13:49 | Pharmacy Progress Note ---
Pharmacy Abx Dose Progress Nt Date of Service Feb 05, 2017. Pharmacy Dosing Scope The patient is currently receiving the following antimicrobial agents per Pharmacy consult: Vancomycin and Levaquin Objective Height (Feet): 5 Height (Inches): 5.00 Weight (Kilograms): 50.800 Vital Signs (Past 12Hrs) Vital Signs Past 12 Hours Date Time Temp Pulse Resp B/P (MAP) Pulse Ox O2 Delivery O2 Flow Rate FiO2 02/05/17 12:54 36.7 65 20 115/72 (86) 92 Room Air 02/05/17 08:10 36.3 77 22 117/68 (84) 94 Room Air 02/05/17 08:00 Room Air 02/05/17 04:00 Room Air 02/05/17 03:22 36.5 61 19 117/74 (88) 94 Room Air Lab Results (24Hrs) Laboratory Tests (24 Hours) Test 02/04/17 19:12 02/05/17 05:22 Lactic Acid Level 1.5 mmol/L (0.4-2.0) White Blood Count 19.06 K/uL (4.8-10.8) H Red Blood Count 3.78 M/uL (4.2-5.4) L Hemoglobin 11.9 g/dL (12.0-16.0) L Hematocrit 34.6 % (37-47) L Mean Corpuscular Volume 91.5 fL (80-100) Mean Corpuscular Hemoglobin 31.5 pg (25-34) Mean Corpuscular Hemoglobin Concent 34.4 g/dl (32-36) Platelet Count 147 K/uL (130-400) Mean Platelet Volume 10.1 fL (7.4-10.4) Neutrophils (%) (Auto) 85.3 % Lymphocytes (%) (Auto) 3.4 % Monocytes (%) (Auto) 3.4 % Eosinophils (%) (Auto) 0.0 % Basophils (%) (Auto) 0.3 % Neutrophils # (Auto) 16.28 K/uL (1.4-6.5) H Lymphocytes # (Auto) 0.64 K/uL (1.2-3.4) L Monocytes # (Auto) 0.65 K/uL (0.11-0.59) H Eosinophils # (Auto) 0.00 K/uL (0-0.5) Basophils # (Auto) 0.05 K/uL (0-0.2) Micro Results Date/Time Source Procedure Growth Status 02/03/17 17:04 Blood Blood Culture - Preliminary NO GROWTH TO DATE. Resulted 02/03/17 16:43 Blood Blood Culture - Preliminary Coag Neg Staph Not Lugdunensis Resulted 02/03/17 21:25 Nasal MRSA DNA Surveillance Screen - Final Specimen Negative for MRSA by DNA Probe Complete 02/03/17 17:10 Urine,Catheterized Urine Culture - Final Coag Neg Staph Not Saprophytic Complete Risk Factors for Resistance * Immunocompromised (chronic steroid therapy, chemotherapy, immunomodulators) Assessment & Plan Assessment 81 year old female receiving vancomycin for sepsis secondary to UTI; patient also receiving Levaquin and Flagyl for aspiration pneumonia Day # 3 of antimicrobial therapy Plan Vancomycin IV * Currently dosing based upon levels as patient's kinetics do not match population kinetics * Random level of 10.9 mcg/mL is subtherapeutic and patient needs to be re-dosed * Will start maintanence dose at this time since we have a few levels * Start vancomycin 750 mg (17 mg/kg) IV q18h - starting slightly early since level subtherapeutic * Goal trough level for sepsis : 15 to 20 mcg/mL * Trough level ordered for: 02/07/17 prior to the 3rd dose * Will be before steady state but patient's kinetics do not match population kinetics so want to make sure we are reaching therapeutic levels Levaquin * Continue 750 mg q48h for est CrCl ~40 when SCr rounded to 0.8 and pneumonia Pharmacy will continue to follow and will adjust dose/frequency as necessary. Thank you.
--- NOTE | 2017-02-05 14:23 | Palliative Care Progress Note ---
Palliative Care Progress Note Date of Service Feb 05, 2017. Subjective Instructed by primary MD yesterday 02/04/2017 to delay consult until further notice. Please contact me with any palliative care needs.
--- NOTE | 2017-02-05 14:37 | DIAGNOSTIC IMAGING REPORT ---
MR ANGIOGRAPHY OF THE [place] NO CONTRAST CLINICAL HISTORY: Left-sided stroke COMPARISON STUDY: MRI the brain dated 01/30/2017 A 3-D [id number] MR angiographic sequence of the [place] was performed. Both the source and projection images were reviewed. There is no evidence of major intracranial branch occlusion. 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 There is no evidence of major intracranial stenosis.. There is a persistent left basal ganglial lesion with hemorrhagic foci. 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 02/05/2017 2:35 PM Dictated Date/Time: 02/05/2017 2:29 PM
--- NOTE | 2017-02-05 14:40 | DIAGNOSTIC IMAGING REPORT ---
BRAIN COMBO FOR SEIZURE CLINICAL HISTORY: interval change neoplasm COMPARISON STUDY: 01/30/2017 TECHNIQUE: Utilizing a 1.5 Skyla magnet and dedicated coil, multiplanar, multiecho imaging of the brain was performed pre and postcontrast administration. IV administration of 8.5 mL of Gadavist contrast was uneventful. Thin cut coronal T2 imaging was performed according to seizure protocol. FINDINGS: Generally similar exam compared to the prior study. No evidence for an acute ischemic event. The left basal ganglia lesion appears to be in general similar. There is a trace amount of peripheral postcontrast enhancement. The degree of vasogenic edema is similar. No significant midline shift. The right parafalcine lesion shows partial postcontrast enhancement. Its overall size based on T1 images is similar compared to the prior study. Reactive vasogenic edema is unchanged. There is no midline shift. There are findings of moderate superimposed chronic small vessel change throughout both cerebral hemispheres unchanged in the prior study. IMPRESSION: 1. Essentially unchanged exam from the prior study. 2. No significant change in the lesions of the left basal ganglia as well as right parietal convexity/para falcine region. 3. Mild postcontrast enhancement at both sites. 4. Considerable chronic small vessel change throughout both cerebral hemispheres as well as the left periventricular subacute/chronic infarct. All findings are stable. The above report was generated using voice recognition software. It may contain grammatical, syntax or spelling errors. Electronically signed by: Mt Hines M.D. 02/05/2017 2:38 PM Dictated Date/Time: 02/05/2017 2:29 PM
--- NOTE | 2017-02-05 15:10 | ECHOCARDIOGRAM REPORT ---
*NOTICE TO RECEIVING REPUBLICAN AGENCY This information is strictly Confidential and protected under [place] law. [place] law prohibits you from making any further disclosure of this information unless further disclosure is expressly permitted by the written consent of the person to whom it pertains or is authorized by law. A general authorization for the release of medical or other information is not sufficient for this purpose. Hospital accepts no responsibility if the information is made available to any other person, INCLUDING THE PATIENT. Interpretation Summary * Name: BRYAN JACOBO Study Date: 02/05/2017 06:29 AM BP: 117/74 mmHg * Patient Location: .2T\S\S232\S\1 HR: 57 * : 1935 (M/d/yy) Gender: Female Height: 65 in * Age: 81 yrs Ethnicity: [place] Weight: 106 lb * Ordering Physician: Andrew Fitzgerald * Referring Physician: Self, Referred * Performed By: Terri Griffin [facility] * * Reason For Study: STROKE * BSA: 1.5 m2 * -- Conclusions -- * 1. Normal LV size, mild concentric LVH. * 2. Normal LV systolic function. LVEF 60-65%. No regional wall motion abnormalities. * 3. Normal RV size and function. * 4. Mild mitral regurgitation. * 5. Grade I diastolic dysfunction. * 6. Normal estimated RA and PA pressures. * 7. Negative saline contrast study for interatrial shunt. * 8. Compared with prior study on 04/23/2010: No significant change. Procedure Details * A complete two-dimensional transthoracic echocardiogram was performed (2D, M-mode, Doppler and color flow Doppler). * A saline contrast injection was performed to assess for cardiac shunting. * The injection was performed through an intravenous line in the right arm. * The attending nurse who injected the saline contrast was CAROL ANN AVERY RN. * A total of 10 cc of agitated saline was given. Left Ventricle * The left ventricle is grossly normal size. * There is mild concentric left ventricular hypertrophy. * Ejection Fraction = 60-65%. * No regional wall motion abnormalities noted. Right Ventricle * The right ventricle is grossly normal size. * The right ventricular systolic function is normal as assessed by tricuspid annular plane systolic excursion (TAPSE) (normal >1.5 cm). Atria * The left atrial size is normal. * Right atrial size is normal. * No ASD detected; PFO is not assessed. Mitral Valve * The mitral valve is grossly normal. * Mitral stenosis is absent. * There is mild mitral regurgitation. Tricuspid Valve * The tricuspid valve is not well visualized, but is grossly normal. * There is trace tricuspid regurgitation. * Right ventricular systolic pressure is normal. Aortic Valve * The aortic valve opens well. * The aortic valve is trileaflet. * No hemodynamically significant valvular aortic stenosis. * Trace aortic regurgitation. Pulmonic Valve * The pulmonary valve is inadequately visualized, but the Doppler data is adequate for interpretation. * There is no pulmonic valvular stenosis. * There is no pulmonic valvular regurgitation. Great Vessels * The aortic root and proximal ascending aorta are normal sized. * Normal inferior vena cava size and collapsability with sniff indicates a normal right atrial pressure of 3 mmHg * There is no evidence of pulmonary hypertension. The PA systolic pressure is less than 36 mmHg. Left Ventricular Diastolic Function * Grade I diastolic dysfunction, (abnormal relaxation pattern). MMode 2D Measurements and Calculations IVSd 1.3 cm IVSs 1.8 cm LVIDd 3.5 cm LVIDs 2.5 cm LVPWd 1.2 cm LVPWs 1.5 cm IVS/LVPW 1.0 FS 28.3 % EDV(Teich) 50.4 ml ESV(Teich) 22.3 ml EF(Teich) 55.7 % EDV(cubed) 42.3 ml ESV(cubed) 15.6 ml EF(cubed) 63.1 % % IVS thick 43.0 % % LVPW thick 18.6 % LV mass(C)d 146.0 grams LV mass(C)dI 96.7 grams/m\S\2 LV mass(C)s 150.8 grams LV mass(C)sI 99.8 grams/m\S\2 SV(Teich) 28.0 ml SI(Teich) 18.6 ml/m\S\2 SV(cubed) 26.7 ml SI(cubed) 17.7 ml/m\S\2 Ao root diam 2.9 cm Ao root area 6.6 cm\S\2 LA dimension 3.7 cm LA/Ao 1.3 LVOT diam 2.0 cm LVOT area 3.1 cm\S\2 LVAd ap4 24.5 cm\S\2 LVLd ap4 7.2 cm EDV(MOD-sp4) 68.0 ml EDV(sp4-el) 71.2 ml LVAs ap4 17.3 cm\S\2 LVLs ap4 6.5 cm ESV(MOD-sp4) 38.2 ml ESV(sp4-el) 39.3 ml EF(MOD-sp4) 43.8 % EF(sp4-el) 44.9 % LVAd ap2 26.8 cm\S\2 LVLd ap2 7.9 cm EDV(MOD-sp2) 72.7 ml EDV(sp2-el) 77.1 ml LVAs ap2 18.8 cm\S\2 LVLs ap2 7.1 cm ESV(MOD-sp2) 40.6 ml ESV(sp2-el) 42.4 ml EF(MOD-sp2) 44.2 % EF(sp2-el) 45.0 % LVLd %diff 9.6 % EDV(MOD-bp) 73.7 ml LVLs %diff 8.3 % ESV(MOD-bp) 41.2 ml EF(MOD-bp) 44.1 % SV(MOD-sp4) 29.8 ml SI(MOD-sp4) 19.7 ml/m\S\2 SV(MOD-sp2) 32.2 ml SI(MOD-sp2) 21.3 ml/m\S\2 SV(MOD-bp) 32.5 ml SI(MOD-bp) 21.5 ml/m\S\2 SV(sp4-el) 31.9 ml SI(sp4-el) 21.1 ml/m\S\2 SV(sp2-el) 34.7 ml SI(sp2-el) 23.0 ml/m\S\2 Doppler Measurements and Calculations MV E max nickolas 63.7 cm/sec MV A max nickolas 91.3 cm/sec MV E/A 0.70 MV P1/2t max nickolas 76.6 cm/sec MV P1/2t 114.5 msec MVA(P1/2t) 1.9 cm\S\2 MV dec slope 196.0 cm/sec\S\2 MV dec time 0.16 sec Ao V2 max 127.9 cm/sec Ao max PG 6.5 mmHg Ao max PG (full) 2.9 mmHg JÚNIOR(V,A) 2.3 cm\S\2 JÚNIOR(V,D) 2.3 cm\S\2 AI max nickolas 466.1 cm/sec AI max PG 86.9 mmHg AI dec slope 174.7 cm/sec\S\2 AI P1/2t 781.5 msec LV V1 max PG 3.7 mmHg LV V1 max 95.8 cm/sec MR max nickolas 488.1 cm/sec MR max PG 95.3 mmHg TR max nickolas 264.0 cm/sec
--- NOTE | 2017-02-05 15:30 | Hematology/Oncology Prog Note ---
Hematology/Onc Progress Note Date of Service Feb 05, 2017. 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 Medications Medications Administered Medications (Trade) Dose Ordered Sig/Cuco Route Start Time Stop Time Status Last Admin Dose Admin Sodium Chloride 1,000 ml @ 999 mls/hr Q1H1M STAT IV 02/03/17 15:59 02/03/17 16:59 DC 02/03/17 18:13 999 MLS/HR Levofloxacin (Levaquin / D5W) 750 mg NOW STAT IV 02/03/17 17:01 02/03/17 17:04 DC 02/03/17 18:14 750 MG Albuterol/ Ipratropium (Duoneb) 3 ml NOW STAT INH 02/03/17 17:01 02/03/17 17:04 DC 02/03/17 18:14 3 ML Heparin Sodium (Porcine) (Heparin Sq 5000 Unit/0.5ml) 5,000 unit Q12 SQ 02/03/17 23:01 03/05/17 23:00 02/04/17 07:27 5,000 UNIT Sodium Chloride 1,000 ml @ 100 mls/hr Q10H IV 02/03/17 20:02 02/04/17 20:20 DC 02/04/17 16:58 100 MLS/HR Metronidazole 500 mg/Prmx 100 ml @ 100 mls/hr Q8H IV 02/03/17 22:00 02/10/17 21:59 02/05/17 14:28 100 MLS/HR Levetiracetam 1000 mg/Dextrose 110 ml @ 440 mls/hr Q12 IV 02/03/17 21:00 02/05/17 10:50 DC 02/05/17 08:24 440 MLS/HR Dexamethasone Sodium Phosphate 6 mg/Syringe 1.5 ml @ 1 mls/min Q12 IV 02/03/17 21:41 03/05/17 21:40 02/05/17 08:25 1 MLS/MIN Bisacodyl (Dulcolax Supp) 10 mg NOW STAT PA 02/03/17 20:46 02/03/17 21:33 DC 02/03/17 22:16 10 MG Albuterol/ Ipratropium (Duoneb) 3 ml QIDR INH 02/04/17 08:00 02/04/17 18:41 DC 02/04/17 15:51 3 ML Vancomycin HCl 1000 mg/Sodium Chloride 270 ml @ 125 mls/hr TODAY@2130 IV 02/03/17 21:30 02/03/17 23:59 DC 02/03/17 21:57 125 MLS/HR Vancomycin HCl 750 mg/Sodium Chloride 265 ml @ 125 mls/hr 1000 ONCE IV 02/04/17 10:00 02/04/17 12:07 DC 02/04/17 10:20 125 MLS/HR Sodium Chloride 250 ml @ 500 mls/hr Q30M ONCE IV 02/04/17 15:00 02/04/17 15:29 DC 02/04/17 15:21 500 MLS/HR Enteral Nutritional Formula (Boost Plus Vanilla) 1 can BIDM PO 02/04/17 16:45 03/06/17 16:44 02/04/17 16:58 1 CAN Metoprolol Tartrate (Lopressor Tab) 12.5 mg BID PO 02/04/17 18:00 03/06/17 17:59 02/05/17 08:25 12.5 MG Sodium Chloride 250 ml @ 750 mls/hr Q20M IV 02/04/17 19:15 02/04/17 19:34 DC 02/04/17 19:33 750 MLS/HR Potassium Chloride 10 meq/ Prmx 100 ml @ 100 mls/hr Q1H IV 02/04/17 21:00 02/04/17 22:59 DC 02/05/17 00:06 100 MLS/HR Potassium Chloride/Sodium Chloride 1,000 ml @ 100 mls/hr Q10H IV 02/04/17 21:00 03/06/17 20:29 02/05/17 08:24 100 MLS/HR Magnesium Sulfate 1 gm/Prmx 100 ml @ 100 mls/hr NOW ONCE IV 02/04/17 21:00 02/04/17 21:59 DC 02/04/17 21:43 100 MLS/HR Vancomycin HCl 750 mg/Sodium Chloride 265 ml @ 125 mls/hr 0930 ONCE IV 02/05/17 09:30 02/05/17 11:37 DC 02/05/17 10:08 125 MLS/HR Subjective She appears more alert today. Her eyes move to conversation. She is not able to verbalize very much however. Review of Systems: Unable to obtain an accurate review of systems Vital Signs Vital Signs Past 12 Hours Date Time Temp Pulse Resp B/P (MAP) Pulse Ox O2 Delivery O2 Flow Rate FiO2 02/05/17 12:54 36.7 65 20 115/72 (86) 92 Room Air 02/05/17 12:00 Room Air 02/05/17 08:10 36.3 77 22 117/68 (84) 94 Room Air 02/05/17 08:00 Room Air 02/05/17 04:00 Room Air Physical Exam Constitutional: vitals are stable. Eyes: Eyes are LEONOR EOMI without conjuctival erythema or icterus. ENT: External examination was negative for masses. Neck: Negative for masses or palpable thyromegaly Respiratory: Lung sounds were generally clear bilaterally Cardiovascular: Heart was RRR without significant murmur, gallops aoe rubs Gastrointestinal: No palpable hepatic or splenomegaly. The abdomen was soft with normal bowel sounds. Lymphatic system: there was no palpable peripheral lymphadenopathy Musculoskeletal System: The musculoskeletal system seemed concordant with age. Skin: The skin was negative for jaundice. Neurologic exam: The exam was the same as before Psychiatric exam: Not able to assess Breast exam: Not done Extremities: Negative for edema or erythema Laboratory Last 24 Hours Test 02/04/17 19:12 02/05/17 05:22 Sodium Level 143 mmol/L 142 mmol/L Potassium Level 3.3 mmol/L 4.4 mmol/L Chloride Level 111 mmol/L 112 mmol/L Carbon Dioxide Level 23 mmol/L 25 mmol/L Anion Gap 9.0 mmol/L 5.0 mmol/L Blood Urea Nitrogen 25 mg/dl 20 mg/dl Creatinine 0.69 mg/dl 0.36 mg/dl Est Creatinine Clear Calc Drug Dose 49.4 ml/min 100.0 ml/min Estimated GFR () 95.3 118.0 Estimated GFR (Non- 82.2 101.8 BUN/Creatinine Ratio 35.8 55.0 Random Glucose 208 mg/dl 151 mg/dl Lactic Acid Level 1.5 mmol/L Calcium Level 8.0 mg/dl 8.0 mg/dl Magnesium Level 1.9 mg/dl Troponin I 0.090 ng/ml White Blood Count 19.06 K/uL Red Blood Count 3.78 M/uL Hemoglobin 11.9 g/dL Hematocrit 34.6 % Mean Corpuscular Volume 91.5 fL Mean Corpuscular Hemoglobin 31.5 pg Mean Corpuscular Hemoglobin Concent 34.4 g/dl Platelet Count 147 K/uL Mean Platelet Volume 10.1 fL Neutrophils (%) (Auto) 85.3 % Lymphocytes (%) (Auto) 3.4 % Monocytes (%) (Auto) 3.4 % Eosinophils (%) (Auto) 0.0 % Basophils (%) (Auto) 0.3 % Neutrophils # (Auto) 16.28 K/uL Lymphocytes # (Auto) 0.64 K/uL Monocytes # (Auto) 0.65 K/uL Eosinophils # (Auto) 0.00 K/uL Basophils # (Auto) 0.05 K/uL RDW Standard Deviation 50.3 fL RDW Coefficient of Variation 15.2 % Immature Granulocyte % (Auto) 7.6 % Immature Granulocyte # (Auto) 1.44 K/uL Ovalocytes 1+ Random Vancomycin Level 10.9 mcg/ml Assessment & Plan MRI of the brain done today was reviewed and again shows edema bilaterally and overall appears to same as a few days ago. No new areas of bleeding. The MRI was reviewed and demonstrated to the son showing him areas of edema bilaterally. This I believe is consistent then with multicentric or multifocal glioblastoma. The prognosis is extremely poor. The son has been resistant concerning those conversations about poor prognosis. I would increase Decadron to 6 mg every 6 hours. Please watch the sugars with increased Decadron. The son was informed of the need for increased Decadron. He seemed to understand. She has on heparin 5000 subcutaneous twice a day but I also note that there is benefit some resistance apparently for this being given in that a dose is marked as declined. She is at high risk for DVT.
--- NOTE | 2017-02-05 17:23 | EEG Procedure Note ---
EEG Procedure Note Date of Service Feb 05, 2017. Start / End Times Start Time: 10:54 AM End Time: 11:14 AM Referring Physician Nilam Lepe History This is an 81-year-old female with a recent diagnosis of glioblastoma and seizures. Patient presents with possible sepsis and altered mental status with breakthrough seizures. EEG to further evaluate seizure etiology and to ensure that the patient is not in nonconvulsive partial status. Current antiepileptic medications included Keppra Home Medication List Scheduled Aspirin (Aspirin EC Low Dose), 81 MG PO QAM Atorvastatin (Atorvastatin Calcium), 40 MG PO QAM Cholecalciferol (Vitamin D3), 1,000 UNITS PO DAILY Dexamethasone (Decadron), 6 MG PO BID Home O2 Therapy (Oxygen), 2 LITERS NA PRN Levetiracetam (Keppra), 1,000 MG PO Q12 Inpatient Medication List Current Inpatient Medications Medications (Trade) Dose Ordered Sig/Cuco Route Start Time Stop Time Status Last Admin Dose Admin Heparin Sodium (Porcine) (Heparin Sq 5000 Unit/0.5ml) 5,000 unit Q12 SQ 02/03/17 23:01 03/05/17 23:00 02/04/17 07:27 5,000 UNIT Metronidazole 500 mg/Prmx 100 ml @ 100 mls/hr Q8H IV 02/03/17 22:00 02/10/17 21:59 02/05/17 14:28 100 MLS/HR Levofloxacin 750 mg/Prmx 150 ml @ 100 mls/hr Q48H IV 02/05/17 18:00 02/10/17 17:59 Bisacodyl (Dulcolax Supp) 10 mg DAILY PRN AL 02/03/17 21:00 03/05/17 20:59 Vancomycin HCl (Consult) 1 ea UD PRN N/A 02/03/17 21:30 03/05/17 21:29 Levofloxacin (Consult) 1 ea UD PRN N/A 02/04/17 06:45 03/06/17 06:44 Enteral Nutritional Formula (Boost Plus Vanilla) 1 can BIDM PO 02/04/17 16:45 03/06/17 16:44 02/04/17 16:58 1 CAN Metoprolol Tartrate (Lopressor Tab) 12.5 mg BID PO 02/04/17 18:00 03/06/17 17:59 02/05/17 08:25 12.5 MG Potassium Chloride/Sodium Chloride 1,000 ml @ 100 mls/hr Q10H IV 02/04/17 21:00 03/06/17 20:29 02/05/17 08:24 100 MLS/HR Levetiracetam 1500 mg/Dextrose 115 ml @ 440 mls/hr Q12 IV 02/05/17 21:00 03/07/17 20:59 Vancomycin HCl 750 mg/Sodium Chloride 265 ml @ 125 mls/hr Q18H IV 02/06/17 00:00 02/13/17 00:00 Dexamethasone Sodium Phosphate 6 mg/Syringe 1.5 ml @ 1 mls/min Q6H IV 02/05/17 16:00 03/07/17 15:59 Description This is a 21 electrode EEG with a single channel dedicated to limited EKG. The electrodes were placed in accordance with the International 10-20 system. At the start of this recording the patient was in reported altered mental status. Background was poorly organized with a poorly formed anterior to posterior gradient. Background was composed of symmetric moderate amplitude predominantly 5-6 Hz theta frequencies with intermixed alpha frequencies and rare delta frequencies. Photic stimulation at various frequencies did not produce any abnormalities. Hyperventilation was not done. There was no clear state changes or sleep transients. Interpretation This is an abnormal routine EEG secondary to moderate background slowing and disorganization. There was no electrical seizures or epileptiform discharges. Clinical Correlation This EEG indicates a moderate encephalopathy of nonspecific etiology. Compared to previous EEG in November, left hemispheric focal slowing has improved but background encephalopathy has worsened.
[2017-02-05] MEDS ORDERED: LEVOFLOXACIN / D5W 750 MG in PREMIXED IN D5W 150 ML IV SCH (18:00)
[2017-02-05] MEDS: LEVETIRACETAM IV 1,500 MG in DEXTROSE 5% 100ML 100 ML IV SCH (20:34)
[2017-02-05] MEDS: VANCOMYCIN INJ 750 MG in SODIUM CHLORIDE 0.9% 250ML 250 ML IV SCH (23:57)
[2017-02-06] VITALS (7 sets, daily range): BP systolic 108–146; BP diastolic 67–84; PULSE 54–76; TEMP 36.2–36.6; O2SAT 92–95
[2017-02-06] MEDS: NSS + 20MEQ KCL 1000ML 1,000 ML IV SCH ×3 (03:30→21:16)
[2017-02-06] MEDS: DEXAMETHASONE INJ 6 MG in SYRINGE 0 ML IV SCH ×4 (03:30→21:10)
[2017-02-06] MEDS: METRONIDAZOLE / NSS 500 MG in PREMIXED NSS 100 ML IV SCH (06:16)
[2017-02-06 06:29] LABS: HEMATOCRIT 33.4 % (37-47); MEAN CORPUSCULAR HEMOGLOBIN 31.6 pg (25-34); MEAN CORPUSCULAR HGB CONC 34.7 g/dl (32-36); MEAN PLATELET VOLUME 9.7 fL (7.4-10.4); PLATELET COUNT 134 K/uL (130-400); RED BLOOD COUNT 3.67 M/uL (4.2-5.4); WHITE BLOOD COUNT 19.34 K/uL (4.8-10.8)
[2017-02-06 07:16] LABS: BASO % 0.2 %; BASO ABS # 0.03 K/uL (0-0.2); COMPLETE YES; IG% 7.4 %; LYMPH % 2.7 %; LYMPH ABS # 0.52 K/uL (1.2-3.4); MONO % 2.4 %; NEUT % 87.3 %
[2017-02-06] MEDS: HEPARIN SOD 5000 UNIT/0.5 ML CARP SQ SCH ×2 (08:10→21:12)
[2017-02-06] MEDS: LEVETIRACETAM IV 1,500 MG in DEXTROSE 5% 100ML 100 ML IV SCH ×2 (08:11→21:10)
[2017-02-06] MEDS: BOOST PLUS VANILLA PO SCH ×4 (08:12→16:31)
[2017-02-06] MEDS: METOPROLOL TARTRATE 25 MG TAB PO SCH ×2 (08:12→21:00)
--- NOTE | 2017-02-06 11:22 | Progress Note ---
Progress Note Date of Service Feb 06, 2017. Progress Note ID Consult Dictated # [id number] A/P: 1. + blood culture/+urine culture - negative UA 2. Leukocytosis - likely multifactorial including steroid use and underlying malignancy -she is currently on vanco. 1/2 sets blood culture with [employer], Urine culture with [employer] as well, UA clean, would suggest contaminant however, as this isolate is in blood and urine would repeat blood cultures -Echo negative for veg -Could give short course, 7 days, although suspect not true pathogen -thank you
--- NOTE | 2017-02-06 14:07 | INFECT. DISEASE CONSULTATION ---
DATE OF CONSULTATION: 02/06/2017 DATE OF CONSULTATION: 02/06/2017. REQUESTING PHYSICIAN: Dr. San. HISTORY OF PRESENT ILLNESS: This is an 81-year-old female who was admitted secondary to increased lethargy. She was recently in the hospital on 01/29/2017 for dehydration and subsequently discharged. Since that time she has continued to be lethargic and her son became concerned and brought her to the Emergency Room. Of note, she has a newly diagnosed glioblastoma, which she is currently receiving palliative chemotherapy and radiation. She was found to be lethargic in the Emergency Room. She did undergo workup with urine and blood cultures. Her urine culture is growing coagulase negative staph and 1 out of 2 blood cultures from the 18th are also growing the same. She has been on vancomycin and appears to be tolerating this well. She is afebrile since admission. She did have a white blood cell count of 18, which increased to 19.3. She did have an echocardiogram yesterday which was negative for vegetation. She is very lethargic on my examination and answers very few questions. She denies fevers. She denies any chest pain or shortness of breath. She does admit to some abdominal pain. Her son is at the bedside and provides most of her history. She is being followed by hematology/oncology here as well. PAST MEDICAL HISTORY: Significant for hypertension, hyperlipidemia, popliteal cyst and recently diagnosed brain cancer. PAST SURGICAL HISTORY: Unremarkable. FAMILY HISTORY: Noncontributory. SOCIAL HISTORY: Significant for history of tobacco use. She currently lives with her son. ALLERGIES: SHE HAS REPORTED PENICILLIN ALLERGY. CURRENT MEDICATIONS: Include vancomycin, Keppra, dexamethasone, potassium, Lopressor, boost, subQ heparin and Dulcolax. PHYSICAL EXAMINATION: VITAL SIGNS: She is afebrile since admission, but has some intermittent low temperatures overnight. Her low temperature was 36.2, pulse is 76, respiratory rate is 16, blood pressure is 146/80 and she is oxygen saturation of 94% on room air. GENERAL: She is arousable but lethargic. She answers few questions. HEAD, EYES, EARS, NOSE, AND THROAT: Mucous membranes are dry. HEART: Without murmur. LUNGS: Clear anteriorly, but there is poor inspiratory effort. ABDOMEN: Soft and nontender. There is no edema. SKIN: Without rash. There is a peripheral IV in the right upper extremity. LABORATORY STUDIES: CBC today reveals a white blood cell count of 19.3, hemoglobin 11.6 and platelets are 134. Chemistry panel reveals a sodium of 142, potassium 4.4, chloride 112, bicarbonate 25, BUN 20, creatinine 0.3 and glucose is 151. Troponins have been mildly positive. LFTs were normal on admission. A urinalysis from the shows 3+ bacteria, but negative leukocyte esterase, negative nitrites and only 1-5 WBCs. A vancomycin level yesterday was 10.9. On the 1 of 2 blood cultures grew coagulase negative staph. On the her urine culture also grew coagulase negative staph which was resistant to oxacillin. 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 A chest x-ray done in the ER shows a suspected small right pleural effusion with atelectasis. ASSESSMENT AND PLAN: 1. Positive blood and urine culture. 2. Leukocytosis, likely multifactorial including steroid use as well as underlying malignancy. At this time, she can be continued on vancomycin. Repeat blood culture should be obtained. An echocardiogram was negative for vegetation. If there is concern that the blood and urine culture are not a contaminant certainly a short course of IV vancomycin would be warranted. I would suspect 7 days would be an adequate duration. Thank you for this consultation.
--- NOTE | 2017-02-06 17:09 | Progress Note ---
Subjective Date of Service: Feb 06, 2017. Subjective pt is weak and does wake and answer questions. Son is at bedside and protective of mother, he seems fixated on removing her schroeder cath. ID suggests one week of vancomycin, this will help consider psychosocial concerns and family dynamics Problem List Medical Problems: (1) Acute electrocardiogram changes Status: Acute (2) Altered mental status Status: Acute (3) Brain mass Status: Acute (4) Dehydration Status: Acute (5) Glioblastoma Status: Acute (6) Hypoxia Status: Acute (7) NSTEMI (non-ST elevated myocardial infarction) Status: Acute (8) PNA (pneumonia) Status: Acute (9) Seizure Status: Acute (10) Seizure disorder Status: Acute (11) Weakness Status: Acute Review of Systems Constitutional: + weakness, + fatigue, No fever, No chills, No sweats Respiratory: + cough, + shortness of breath, + dyspnea on exertion Cardiac: + edema, No chest pain Abdomen: No pain, No nausea, No vomiting Neurologic: + weakness, + balance problems, No memory loss, No paralysis Psychiatric: + depression symptoms, + anhedonism Objective Vital Signs Date Time Temp Pulse Resp B/P (MAP) Pulse Ox O2 Delivery O2 Flow Rate FiO2 02/06/17 16:00 Room Air 02/06/17 15:26 36.6 74 16 108/67 (81) 92 Room Air 02/06/17 12:00 Room Air 02/06/17 11:56 36.5 61 17 110/68 (82) 95 Room Air 02/06/17 08:31 36.6 76 16 146/80 (102) 94 Room Air 02/06/17 08:00 Room Air 02/06/17 04:00 36.2 54 20 128/75 (92) 94 Room Air 02/06/17 04:00 Room Air 02/06/17 00:00 36.5 62 22 130/84 (99) 94 Room Air 02/05/17 23:59 Room Air 02/05/17 20:00 95 Room Air 02/05/17 19:36 37.0 64 20 115/72 (86) 94 Room Air Physical Exam General Appearance: WD/WN, + mild distress Eyes: PERRL, EOMI Respiratory/Chest: + decreased breath sounds, + pertinent finding (poor accessory use) Cardiovascular: regular rate, rhythm, no murmur Abdomen: normal bowel sounds, non tender, soft Extremities: no pedal edema, no calf tenderness Neurologic/Psychiatric: alert, oriented x 3 Laboratory Results Last 24 Hours Test 02/06/17 06:11 White Blood Count 19.34 K/uL Red Blood Count 3.67 M/uL Hemoglobin 11.6 g/dL Hematocrit 33.4 % Mean Corpuscular Volume 91.0 fL Mean Corpuscular Hemoglobin 31.6 pg Mean Corpuscular Hemoglobin Concent 34.7 g/dl Platelet Count 134 K/uL Mean Platelet Volume 9.7 fL Neutrophils (%) (Auto) 87.3 % Lymphocytes (%) (Auto) 2.7 % Monocytes (%) (Auto) 2.4 % Eosinophils (%) (Auto) 0.0 % Basophils (%) (Auto) 0.2 % Neutrophils # (Auto) 16.90 K/uL Lymphocytes # (Auto) 0.52 K/uL Monocytes # (Auto) 0.46 K/uL Eosinophils # (Auto) 0.00 K/uL Basophils # (Auto) 0.03 K/uL RDW Standard Deviation 50.9 fL RDW Coefficient of Variation 15.3 % Immature Granulocyte % (Auto) 7.4 % Immature Granulocyte # (Auto) 1.43 K/uL Assessment and Plan 81yo F with metabolic encephalopathy from staph sepsis associated with UTi poa Sepsis 2nd to staph UTI blood culture is also consistent with staph, ID recommends one week of vancomycin 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 echo to be complete, r/o thrombus, vegetation left-sided glioblastoma s/p XRT and chemotherapy - poor prognosis. IV decadron for edema. seizure keppra IV., did have neurology visit with patient, pending EEG to eval for med management of possible recurrent partial seizures Severe Malnutrition evidence by 35% loss in BW in setting of Brain cancer and associated therapies. in setting of Glioma, will continue to offer supportive nutritional supplements atrial tachycardia. try to start metoprolol 12.5mg BID. abnormal EKG with mildly positive troponin - her EKG from this admission is quite abnormal with multiple leads showing ST depression but it is unchanged from 01/29 EKG. DVT proph - heparin BID. Discussed with son jose, per case management concerns if POA who is [place] would not want mom to be DNR, reportedly this was clear and documented in case management notes, will change to full code until further clarification Continued [facility] stay due to: abnormal vital signs, inadequate po fluid intake, ambulation difficulties, multiple IV medications needed Discharge planning: uncertain
[2017-02-06] MEDS: VANCOMYCIN INJ 750 MG in SODIUM CHLORIDE 0.9% 250ML 250 ML IV SCH (18:16)
[2017-02-07] MEDS: DEXAMETHASONE INJ 6 MG in SYRINGE 0 ML IV SCH ×4 (03:51→20:48)
[2017-02-07 04:13] VITALS: BP 149/83; PULSE 59; TEMP 36.3; O2SAT 96
--- NOTE | 2017-02-07 07:38 | Progress Note ---
Subjective Date of Service: Feb 07, 2017. Subjective Son is in room at bedside in the same clothes for the last 3 days, I asked if he was sleeping he stated for a few hours in the chair, he stated his mother had eaten a good breakfast but to me she seems to be declining. she was able to wake up and answer y/n questions when asked if she was in pain or uncomfortable she shook her head and said no. Problem List Medical Problems: (1) Acute electrocardiogram changes Status: Acute (2) Altered mental status Status: Acute (3) Brain mass Status: Acute (4) Dehydration Status: Acute (5) Glioblastoma Status: Acute (6) Hypoxia Status: Acute (7) NSTEMI (non-ST elevated myocardial infarction) Status: Acute (8) PNA (pneumonia) Status: Acute (9) Seizure Status: Acute (10) Seizure disorder Status: Acute (11) Weakness Status: Acute Review of Systems Constitutional: + weakness, + fatigue, + problem reported (sleepiness prevents complete ROS), No fever, No chills Cardiac: No chest pain Abdomen: No pain, No nausea Neurologic: + weakness Psychiatric: + depression symptoms, + anhedonism Objective Vital Signs Date Time Temp Pulse Resp B/P (MAP) Pulse Ox O2 Delivery O2 Flow Rate FiO2 02/07/17 04:13 36.3 59 20 149/83 (105) 96 Room Air 02/07/17 04:00 Room Air 02/07/17 00:00 Room Air 02/06/17 23:45 36.3 60 20 129/73 (91) 94 Room Air 02/06/17 20:10 36.3 71 16 114/69 (84) 95 Room Air 02/06/17 20:00 Room Air 02/06/17 16:00 Room Air 02/06/17 15:26 36.6 74 16 108/67 (81) 92 Room Air 02/06/17 12:00 Room Air 02/06/17 11:56 36.5 61 17 110/68 (82) 95 Room Air 02/06/17 08:31 36.6 76 16 146/80 (102) 94 Room Air 02/06/17 08:00 Room Air Physical Exam General Appearance: + mild distress, + thin Neck: no JVD, trachea midline Respiratory/Chest: no respiratory distress, + decreased breath sounds (bases poor effort but sleepy) Cardiovascular: regular rate, rhythm, no murmur Abdomen: normal bowel sounds, non tender, soft Neurologic/Psychiatric: + depressed affect, + pertinent finding (she does repsond but seems less so today) Assessment and Plan 81yo F with metabolic encephalopathy from staph sepsis associated with UTi poa, found to be coag neg staph that is oxacillin resistent Sepsis 2nd to staph UTI blood culture is also consistent with staph, ID recommends one week of vancomycin to complete 02/10 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 echo to be complete, no thrombus, vegetation left-sided glioblastoma s/p XRT and chemotherapy - poor prognosis. IV decadron for edema. seizure keppra IV., did have neurology visit with patient, eeg does not comment on confirmed seizures, she appears to be functionally declining to me Severe Malnutrition evidence by 35% loss in BW in setting of Brain cancer and associated therapies. in setting of Glioma, will continue to offer supportive nutritional supplements atrial tachycardia. metoprolol 12.5mg BID. abnormal EKG with mildly positive troponin - her EKG from this admission is quite abnormal with multiple leads showing ST depression but it is unchanged from 01/29 EKG. DVT proph - heparin BID. Discussed with michael Cloud, per case management concerns POA who is [place] would not want mom to be DNR, reportedly this was clear and documented in case management notes, will change to full code until further clarification. michael Watts remains at bedside and is hyper vigilant with his care for his mother, Continued [facility] stay due to: abnormal vital signs, inadequate po fluid intake, ambulation difficulties, multiple IV medications needed Discharge planning: uncertain
[2017-02-07] MEDS: BOOST PLUS VANILLA PO SCH ×4 (07:48→17:15)
[2017-02-07 08:00] VITALS: BP 130/81; PULSE 70; TEMP 36.5; O2SAT 94
[2017-02-07] MEDS: NSS + 20MEQ KCL 1000ML 1,000 ML IV SCH ×2 (08:18→17:15)
[2017-02-07] MEDS: METOPROLOL TARTRATE 25 MG TAB PO SCH ×2 (08:19→20:48)
[2017-02-07] MEDS: HEPARIN SOD 5000 UNIT/0.5 ML CARP SQ SCH ×2 (08:24→20:48)
[2017-02-07] MEDS: LEVETIRACETAM IV 1,500 MG in DEXTROSE 5% 100ML 100 ML IV SCH ×2 (08:24→20:48)
--- NOTE | 2017-02-07 10:00 | Hematology/Oncology Prog Note ---
Hematology/Onc Progress Note Date of Service Feb 07, 2017. 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 Medications Medications Administered Medications (Trade) Dose Ordered Sig/Cuco Route Start Time Stop Time Status Last Admin Dose Admin Sodium Chloride 1,000 ml @ 999 mls/hr Q1H1M STAT IV 02/03/17 15:59 02/03/17 16:59 DC 02/03/17 18:13 999 MLS/HR Levofloxacin (Levaquin / D5W) 750 mg NOW STAT IV 02/03/17 17:01 02/03/17 17:04 DC 02/03/17 18:14 750 MG Albuterol/ Ipratropium (Duoneb) 3 ml NOW STAT INH 02/03/17 17:01 02/03/17 17:04 DC 02/03/17 18:14 3 ML Heparin Sodium (Porcine) (Heparin Sq 5000 Unit/0.5ml) 5,000 unit Q12 SQ 02/03/17 23:01 03/05/17 23:00 02/07/17 08:24 5,000 UNIT Sodium Chloride 1,000 ml @ 100 mls/hr Q10H IV 02/03/17 20:02 02/04/17 20:20 DC 02/04/17 16:58 100 MLS/HR Metronidazole 500 mg/Prmx 100 ml @ 100 mls/hr Q8H IV 02/03/17 22:00 02/06/17 07:51 DC 02/06/17 06:16 100 MLS/HR Levofloxacin 750 mg/Prmx 150 ml @ 100 mls/hr Q48H IV 02/05/17 18:00 02/06/17 07:51 DC 02/05/17 19:15 100 MLS/HR Levetiracetam 1000 mg/Dextrose 110 ml @ 440 mls/hr Q12 IV 02/03/17 21:00 02/05/17 10:50 DC 02/05/17 08:24 440 MLS/HR Dexamethasone Sodium Phosphate 6 mg/Syringe 1.5 ml @ 1 mls/min Q12 IV 02/03/17 21:41 02/05/17 15:34 DC 02/05/17 08:25 1 MLS/MIN Bisacodyl (Dulcolax Supp) 10 mg NOW STAT OH 02/03/17 20:46 02/03/17 21:33 DC 02/03/17 22:16 10 MG Albuterol/ Ipratropium (Duoneb) 3 ml QIDR INH 02/04/17 08:00 02/04/17 18:41 DC 02/04/17 15:51 3 ML Vancomycin HCl 1000 mg/Sodium Chloride 270 ml @ 125 mls/hr TODAY@2130 IV 02/03/17 21:30 02/03/17 23:59 DC 02/03/17 21:57 125 MLS/HR Vancomycin HCl 750 mg/Sodium Chloride 265 ml @ 125 mls/hr 1000 ONCE IV 02/04/17 10:00 02/04/17 12:07 DC 02/04/17 10:20 125 MLS/HR Sodium Chloride 250 ml @ 500 mls/hr Q30M ONCE IV 02/04/17 15:00 02/04/17 15:29 DC 02/04/17 15:21 500 MLS/HR Enteral Nutritional Formula (Boost Plus Vanilla) 1 can BIDM PO 02/04/17 16:45 03/06/17 16:44 02/07/17 07:48 1 CAN Metoprolol Tartrate (Lopressor Tab) 12.5 mg BID PO 02/04/17 18:00 03/06/17 17:59 02/07/17 08:19 12.5 MG Sodium Chloride 250 ml @ 750 mls/hr Q20M IV 02/04/17 19:15 02/04/17 19:34 DC 02/04/17 19:33 750 MLS/HR Potassium Chloride 10 meq/ Prmx 100 ml @ 100 mls/hr Q1H IV 02/04/17 21:00 02/04/17 22:59 DC 02/05/17 00:06 100 MLS/HR Potassium Chloride/Sodium Chloride 1,000 ml @ 100 mls/hr Q10H IV 02/04/17 21:00 03/06/17 20:29 02/07/17 08:18 100 MLS/HR Magnesium Sulfate 1 gm/Prmx 100 ml @ 100 mls/hr NOW ONCE IV 02/04/17 21:00 02/04/17 21:59 DC 02/04/17 21:43 100 MLS/HR Vancomycin HCl 750 mg/Sodium Chloride 265 ml @ 125 mls/hr 0930 ONCE IV 02/05/17 09:30 02/05/17 11:37 DC 02/05/17 10:08 125 MLS/HR Levetiracetam 1500 mg/Dextrose 115 ml @ 440 mls/hr Q12 IV 02/05/17 21:00 03/07/17 20:59 02/07/17 08:24 440 MLS/HR Vancomycin HCl 750 mg/Sodium Chloride 265 ml @ 125 mls/hr Q18H IV 02/06/17 00:00 02/13/17 00:00 02/06/17 18:16 125 MLS/HR Dexamethasone Sodium Phosphate 6 mg/Syringe 1.5 ml @ 1 mls/min Q6H IV 02/05/17 16:00 03/07/17 15:59 02/07/17 08:24 1 MLS/MIN Subjective Deeply somnolent today. Doesn't really respond to verbal stimulation today. Review of Systems: Not able to gather the neck or review of systems. The son Derick who is in the room has not noticed any thing that might look like seizure activity. Vital Signs Vital Signs Past 12 Hours Date Time Temp Pulse Resp B/P (MAP) Pulse Ox O2 Delivery O2 Flow Rate FiO2 02/07/17 08:00 36.5 70 20 130/81 (97) 94 Room Air 02/07/17 08:00 Room Air 02/07/17 04:13 36.3 59 20 149/83 (105) 96 Room Air 02/07/17 04:00 Room Air 02/07/17 00:00 Room Air 02/06/17 23:45 36.3 60 20 129/73 (91) 94 Room Air Physical Exam Constitutional: vitals are stable. Deeply somnolent Eyes: Eyes are LEONOR EOMI without conjuctival erythema or icterus. ENT: External examination was negative for masses. Neck: Negative for masses or palpable thyromegaly Respiratory: Lung sounds were generally clear bilaterally Cardiovascular: Heart was RRR without significant murmur, gallops aoe rubs Gastrointestinal: No palpable hepatic or splenomegaly. The abdomen was soft with normal bowel sounds. Lymphatic system: there was no palpable peripheral lymphadenopathy Skin: The skin was negative for jaundice. Neurologic exam: The exam was as before. Not not able to detect any focal defects but my exam was limited today Assessment & Plan Multicentric or multifocal glioblastoma multiforme. The patient really has not improved on increased Decadron in regards to arousability. Prognosis remains as before - extremely poor. This is been a very difficult message that has not been received well by her son Derick who is in the room. Little else to add in regards to further cytoreductive therapy. I reviewed all the above with the son [place] (SHAYLEE) over the phone today. He and his have a firm understanding as to the overall grim prognosis. I did review the results of the recent MRI over the phone with him. I also spent time , reviewing the role of the increased steroids but in spite of the increased dosing of steroids her mentation remains unimproved. He understood all the above and reviewed with me the background rationale for his brother not being willing to accept his mother's poor prognosis. Apparently theer father had Parkinson's disease and survived for 15 years and this sets the background for which [place] believes is responsible in many ways for his brothers inability to accept the above.
[2017-02-07] MEDS ORDERED: VANCOMYCIN TROUGH ONE (11:30)
[2017-02-07] MEDS: VANCOMYCIN INJ 750 MG in SODIUM CHLORIDE 0.9% 250ML 250 ML IV SCH (12:44)
--- NOTE | 2017-02-07 13:24 | Pharmacy Progress Note ---
Pharmacy Abx Dose Progress Nt Date of Service Feb 07, 2017. Pharmacy Dosing Scope The patient is currently receiving the following antimicrobial agents per Pharmacy consult: Vancomycin 750 mg IV every 18 hours Objective Height (Feet): 5 Height (Inches): 5.00 Weight (Kilograms): 57.500 Vital Signs (Past 12Hrs) Vital Signs Past 12 Hours Date Time Temp Pulse Resp B/P (MAP) Pulse Ox O2 Delivery O2 Flow Rate FiO2 02/07/17 12:00 Room Air 02/07/17 08:00 36.5 70 20 130/81 (97) 94 Room Air 02/07/17 08:00 Room Air 02/07/17 04:13 36.3 59 20 149/83 (105) 96 Room Air 02/07/17 04:00 Room Air Micro Results Date/Time Source Procedure Growth Status 02/03/17 17:04 Blood Blood Culture - Preliminary NO GROWTH TO DATE. Resulted 02/03/17 16:43 Blood Blood Culture - Preliminary Coag Neg Staph Not Lugdunensis Resulted 02/03/17 21:25 Nasal MRSA DNA Surveillance Screen - Final Specimen Negative for MRSA by DNA Probe Complete 02/03/17 17:10 Urine,Catheterized Urine Culture - Final Coag Neg Staph Not Saprophytic Complete Risk Factors for Resistance * Immunocompromised (chronic steroid therapy, chemotherapy, immunomodulators) Assessment & Plan Assessment 81 year old female receiving vancomycin for treatment of sepsis secondary to UTI with coag neg staph (methicillin resistant) * Day # 5 of antimicrobial therapy (ID recommended 7 days) * patient was also on Levaquin and Flagyl for aspiration pneumonia, which has been discontinued Plan Vancomycin IV * Trough level of 10 mcg/mL is subtherapeutic * Increase dose to 650 mg IV every 12 hours * Goal trough level for sepsis: 15 to 20 mcg/mL * Trough level ordered for: 02/09/17 Pharmacy will continue to follow and will adjust dose/frequency as necessary. Thank you.
[2017-02-07 15:48] VITALS: BP 127/76; PULSE 62; TEMP 36.4; O2SAT 93
[2017-02-07 19:30] VITALS: BP 136/78; PULSE 64; TEMP 36.9; O2SAT 92
[2017-02-07] MEDS: VANCOMYCIN INJ 650 MG in SODIUM CHLORIDE 0.9% 250ML 250 ML IV SCH (21:09)
[2017-02-07 23:37] VITALS: BP 133/70; PULSE 57; TEMP 36.4; O2SAT 92
[2017-02-08 03:26] VITALS: BP 119/64; PULSE 52; TEMP 36.6; O2SAT 94
[2017-02-08] MEDS: DEXAMETHASONE INJ 6 MG in SYRINGE 0 ML IV SCH ×3 (03:27→21:16)
[2017-02-08 06:29] LABS: CREATININE 0.48 mg/dl (0.60-1.20)
[2017-02-08] MEDS: NSS + 20MEQ KCL 1000ML 1,000 ML IV SCH ×2 (07:21→17:00)
[2017-02-08] MEDS: BOOST PLUS VANILLA PO SCH ×4 (07:30→16:45)
[2017-02-08 07:40] VITALS: BP 125/70; PULSE 61; TEMP 36.5; O2SAT 94
[2017-02-08] MEDS: METOPROLOL TARTRATE 25 MG TAB PO SCH ×2 (09:04→21:00)
[2017-02-08] MEDS: LEVETIRACETAM IV 1,500 MG in DEXTROSE 5% 100ML 100 ML IV SCH ×2 (09:04→21:15)
[2017-02-08] MEDS: VANCOMYCIN INJ 650 MG in SODIUM CHLORIDE 0.9% 250ML 250 ML IV SCH ×2 (09:05→21:15)
[2017-02-08] MEDS: HEPARIN SOD 5000 UNIT/0.5 ML CARP SQ SCH ×2 (09:12→21:00)
[2017-02-08] MEDS ORDERED: NURSING DECISION MEDICATION ORDER SCH (12:00)
[2017-02-08] MEDS ORDERED: MICONAZOLE NITRATE POWDER 43 GM EXT PRN (12:15)
--- NOTE | 2017-02-08 12:17 | Progress Note ---
Subjective Date of Service: Feb 08, 2017. Subjective Son remains at bedside. Mrs. gunn is more awake today she can answer questions yes and no she however has not been out of bed much during his hospital stay as her son is reluctant to let her move around with her [place] catheter. She does have a oxacillin resistant UTI of staph. The son would request that the catheter be removed removed before discharge. The patient will receive her seventh dose of vancomycin on the 24th later in the evening, the son will plan on taking her home on the . The patient states she does want to go home. Problem List Medical Problems: (1) Acute electrocardiogram changes Status: Acute (2) Altered mental status Status: Acute (3) Brain mass Status: Acute (4) Dehydration Status: Acute (5) Glioblastoma Status: Acute (6) Hypoxia Status: Acute (7) NSTEMI (non-ST elevated myocardial infarction) Status: Acute (8) PNA (pneumonia) Status: Acute (9) Seizure Status: Acute (10) Seizure disorder Status: Acute (11) Weakness Status: Acute Review of Systems Constitutional: + weakness, + fatigue, No fever, No chills Respiratory: No cough, No shortness of breath Cardiac: No chest pain, No edema Abdomen: No pain, No nausea, No vomiting, No diarrhea Psychiatric: + depression symptoms, + anhedonism Objective Vital Signs Date Time Temp Pulse Resp B/P (MAP) Pulse Ox O2 Delivery O2 Flow Rate FiO2 02/08/17 04:00 Room Air 02/08/17 03:26 36.6 52 22 119/64 (82) 94 Room Air 02/08/17 00:00 Room Air 02/07/17 23:37 36.4 57 20 133/70 (91) 92 Room Air 02/07/17 20:00 Room Air 02/07/17 19:30 36.9 64 20 136/78 (97) 92 Room Air 02/07/17 16:00 Room Air 02/07/17 15:48 36.4 62 16 127/76 (93) 93 Room Air 02/07/17 12:00 Room Air 02/07/17 08:00 36.5 70 20 130/81 (97) 94 Room Air 02/07/17 08:00 Room Air Physical Exam General Appearance: + mild distress, + thin Neck: supple, trachea midline Respiratory/Chest: chest non-tender, + decreased breath sounds, + accessory muscle use Cardiovascular: regular rate, rhythm, no murmur Abdomen: normal bowel sounds, non tender, soft Neurologic/Psychiatric: alert, + pertinent finding (oriented 2) Laboratory Results Last 24 Hours Test 02/07/17 11:34 02/08/17 05:28 Vancomycin Level Trough 10.0 mcg/ml Creatinine 0.48 mg/dl Est Creatinine Clear Calc Drug Dose 82.8 ml/min Estimated GFR () 107.4 Estimated GFR (Non- 92.6 Assessment and Plan 81yo F with metabolic encephalopathy from staph sepsis associated with UTi poa, found to be coag neg staph that is oxacillin resistent Sepsis 2nd to staph UTI blood culture is also consistent with staph, ID recommends one week of vancomycin to complete 02/09 late in the evening 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 echo to be complete, no thrombus, vegetation left-sided glioblastoma s/p XRT and chemotherapy - poor prognosis. Dr. GAMBOA spoke power of tour consultant [place] and updated on her prognosis IV decadron for edema has not had much of an improvement we'll transition to oral Decadron twice a day seizure keppra IV., did have neurology visit with patient, eeg does not comment on confirmed seizures, transition to oral Keppra at time of discharge she appears to be functionally declining to me Severe Malnutrition continues with variable by mouth intake her malnutrition is evidence by 35% loss in BW in setting of Brain cancer and associated therapies. in setting of Glioma, will continue to offer supportive nutritional supplements atrial tachycardia. Controlled with metoprolol 12.5mg BID. abnormal EKG with mildly positive troponin - her EKG from this admission is quite abnormal with multiple leads showing ST depression but it is unchanged from 01/29 EKG. DVT proph - heparin BID. Discussed with son Pedro Luis, per case management concerns POA who is [place] would not want mom to be DNR, reportedly this was clear and documented in case management notes, will change to full code until further clarification. michael Watts remains at bedside and remains hyper vigilant with his care for his mother , Continued [facility] stay due to: abnormal vital signs, inadequate po fluid intake, ambulation difficulties, multiple IV medications needed Discharge planning: uncertain
[2017-02-08 15:29] VITALS: BP 135/85; PULSE 66; TEMP 36.4; O2SAT 93
[2017-02-08 20:25] VITALS: BP 156/82; PULSE 60; TEMP 36.6; O2SAT 93
[2017-02-08 23:12] VITALS: BP 148/82; PULSE 55; TEMP 36.6; O2SAT 92
[2017-02-09] MEDS: NSS + 20MEQ KCL 1000ML 1,000 ML IV SCH (01:26)
[2017-02-09 03:18] VITALS: BP 134/75; PULSE 66; TEMP 36.3; O2SAT 92
[2017-02-09 07:26] VITALS: BP 127/74; PULSE 64; TEMP 37; O2SAT 93
[2017-02-09] MEDS: BOOST PLUS VANILLA PO SCH ×4 (07:30→16:45)
[2017-02-09] MEDS: LEVETIRACETAM IV 1,500 MG in DEXTROSE 5% 100ML 100 ML IV SCH (08:24)
[2017-02-09] MEDS: DEXAMETHASONE INJ 6 MG in SYRINGE 0 ML IV SCH (08:24)
[2017-02-09] MEDS: HEPARIN SOD 5000 UNIT/0.5 ML CARP SQ SCH ×2 (08:35→21:00)
[2017-02-09] MEDS: VANCOMYCIN INJ 650 MG in SODIUM CHLORIDE 0.9% 250ML 250 ML IV SCH ×2 (08:56→22:18)
[2017-02-09 09:08] LABS: HEMATOCRIT 32.9 % (37-47); MEAN CELL VOLUME 91.1 fL (80-100); MEAN CORPUSCULAR HEMOGLOBIN 30.7 pg (25-34); MEAN CORPUSCULAR HGB CONC 33.7 g/dl (32-36); MEAN PLATELET VOLUME 10.5 fL (7.4-10.4); PLATELET COUNT 132 K/uL (130-400); RED BLOOD COUNT 3.61 M/uL (4.2-5.4)
[2017-02-09 09:36] LABS: BUN/CREATININE RATIO 46.9 (10-20); CALCIUM 8.1 mg/dl (8.5-10.1); CREATININE 0.36 mg/dl (0.60-1.20); MAGNESIUM 1.7 mg/dl (1.8-2.4); POTASSIUM 4.1 mmol/L (3.5-5.1)
[2017-02-09 09:55] LABS: BASO % 0.3 %; BASO ABS # 0.05 K/uL (0-0.2); COMPLETE YES; IG% 9.1 %; LYMPH % 5.7 %; LYMPH ABS # 0.99 K/uL (1.2-3.4); MONO % 11.7 %; NEUT % 73.2 %
[2017-02-09] MEDS: METOPROLOL TARTRATE 25 MG TAB PO SCH ×2 (10:13→21:27)
[2017-02-09] MEDS ORDERED: MAGNESIUM SULFATE 1GM / D5W 1 GM in PREMIXED IN D5W 100 ML IV ONE (10:30)
[2017-02-09 11:06] VITALS: BP 137/75; PULSE 67; TEMP 36.7; O2SAT 93
[2017-02-09 15:25] VITALS: BP 147/80; PULSE 69; TEMP 36.4; O2SAT 93
[2017-02-09 19:20] VITALS: BP 147/75; PULSE 68; TEMP 36.9; O2SAT 93
--- NOTE | 2017-02-09 20:32 | Progress Note ---
Subjective Date of Service: Feb 09, 2017. Subjective Pt evaluation today including: conversation w/ patient, conversation w/ family (2 sons and 1 daughter (2 separate visits today)), physical exam, chart review, lab review, conversation w/ business transformation consultant (heme/onc ([place])), review of inpatient medication list Pain: none reported; no headache PO Intake: per son "good breakfast" today Voiding: schroeder catheter in place tele stable overnight no atrial tachycardia or other dysrhythmia the patient continues to be very weak with inability to move the limbs very well (right side worse than left) during my first visit the patient's son, Mac, was at bedside he inquired about a visit at [facility] about her cancer my second visit was a 90-minute discussion with all 3 children and the patient ( see A/P section for details) the family continues to report they want her to be at home after discharge Problem List Medical Problems: (1) Acute electrocardiogram changes Status: Acute (2) Altered mental status Status: Acute (3) Brain mass Status: Acute (4) Dehydration Status: Acute (5) Glioblastoma Status: Acute (6) Hypoxia Status: Acute (7) NSTEMI (non-ST elevated myocardial infarction) Status: Acute (8) PNA (pneumonia) Status: Acute (9) Seizure Status: Acute (10) Seizure disorder Status: Acute (11) Weakness Status: Acute Review of Systems Respiratory: No shortness of breath Cardiac: No chest pain Abdomen: No pain Psychiatric: + depression symptoms Objective Vital Signs Date Time Temp Pulse Resp B/P (MAP) Pulse Ox O2 Delivery O2 Flow Rate FiO2 02/09/17 16:00 Room Air 02/09/17 15:25 36.4 69 20 147/80 (102) 93 Room Air 02/09/17 12:00 Room Air 02/09/17 11:06 36.7 67 18 137/75 (95) 93 Room Air 02/09/17 08:00 Room Air 02/09/17 07:26 37.0 64 20 127/74 (91) 93 Room Air 02/09/17 04:00 Room Air 02/09/17 03:18 36.3 66 18 134/75 (94) 92 Room Air 02/09/17 00:00 Room Air 02/08/17 23:12 36.6 55 16 148/82 (104) 92 02/08/17 20:25 36.6 60 18 156/82 (106) 93 Room Air Physical Exam General Appearance: no apparent distress, + thin ENT: pharynx normal (MMM, no thrush) Neck: no JVD Respiratory/Chest: lungs clear, no respiratory distress, no accessory muscle use Cardiovascular: regular rate, rhythm, no gallop, no murmur Abdomen: normal bowel sounds, non tender, soft, no organomegaly Extremities: no pedal edema, + swelling (right arm - mild) Neurologic/Psychiatric: alert, + aphasia (mainly expressive), + motor weakness (0/5 strength RUE, near 0/5 strength RLE; 1/5 strength LLE; 3/5 strength LUE), + depressed affect Skin: no rash Laboratory Results Last 24 Hours Test 02/09/17 08:42 White Blood Count 17.30 K/uL Red Blood Count 3.61 M/uL Hemoglobin 11.1 g/dL Hematocrit 32.9 % Mean Corpuscular Volume 91.1 fL Mean Corpuscular Hemoglobin 30.7 pg Mean Corpuscular Hemoglobin Concent 33.7 g/dl Platelet Count 132 K/uL Mean Platelet Volume 10.5 fL Neutrophils (%) (Auto) 73.2 % Lymphocytes (%) (Auto) 5.7 % Monocytes (%) (Auto) 11.7 % Eosinophils (%) (Auto) 0.0 % Basophils (%) (Auto) 0.3 % Neutrophils # (Auto) 12.66 K/uL Lymphocytes # (Auto) 0.99 K/uL Monocytes # (Auto) 2.03 K/uL Eosinophils # (Auto) 0.00 K/uL Basophils # (Auto) 0.05 K/uL RDW Standard Deviation 52.1 fL RDW Coefficient of Variation 15.7 % Immature Granulocyte % (Auto) 9.1 % Immature Granulocyte # (Auto) 1.57 K/uL Nucleated RBC Absolute Count (auto) 0.03 K/uL Nucleated Red Blood Cells % 0.2 % Sodium Level 141 mmol/L Potassium Level 4.1 mmol/L Chloride Level 107 mmol/L Carbon Dioxide Level 28 mmol/L Anion Gap 6.0 mmol/L Blood Urea Nitrogen 17 mg/dl Creatinine 0.36 mg/dl Est Creatinine Clear Calc Drug Dose 110.4 ml/min Estimated GFR () 118.0 Estimated GFR (Non- 101.8 BUN/Creatinine Ratio 46.9 Random Glucose 214 mg/dl Calcium Level 8.1 mg/dl Magnesium Level 1.7 mg/dl Assessment and Plan 81yo female: 1. sepsis 2nd to staph UTI +/- pneumonia - repeat blood cx's today to ensure sterility. Consider repeat urine cx following completion for test of cure. Today is day #6/7 of IV vanco. No fever and wbc count normalizing. 2. coag neg staph UTI - continue vancomycin as above and stop after 7th day. 3. pneumonia - probably aspiration given the report of dysphagia - abx will conclude tomorrow. Stable O2 sats in RA. 4. dysphagia - likely due to recent stroke - [facility] soft diet. 5. 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 reasonable to cont aspirin. despite a. tach earlier this stay on telemetry no a. fib seen. echo w/o thrombus or other source of embolus. MRA brain without stenotic lesion. 6. left-sided glioblastoma, grade IV, s/p XRT and chemotherapy - poor prognosis. Both therapies were discontinued several weeks ago because she was doing so poorly. Continue IV decadron for edema transitioning to PO decadron tomorrow. see discussion below. 7. seizure d/o 2nd to #6 - cont keppra - transition from IV to PO since PO intake has been more reliable. 8. a tach - beta nguyen, low-dose. Has not recurred. ECHO with structurally normal heart. 9. FEN - replace mag, diet as tolerated. 10. DVT proph - heparin BID. 11. abnormal EKG with mildly positive troponin - likely myocardial demand ischemia in setting of infection, etc. ECHO w/o wall motion abnormalities. No further w/u at this time. 12. dehydration - resolved. 13. right-sided lesion on previous brain MRI - unclear if this is a secondary glioma. Has been stable on imaging since November, however. 14. severe protein calorie malnutrition - ongoing, and will continue to be problematic. 90 minute discussion held at bedside with patient, her 2 sons, her daughter, and Carla Simmons from case management. We extensively discussed the patient's current problems, her severe deconditioning & weakness, her lack of robust response to therapies (for her brain cancer and other issues), her anorexia and poor oral intake, discharge care plan, discharge care options, palliative care, hospice, 2nd opinions, prognosis, etc. The daughter in particular recognized that when Ms. Mcgregor received radiation and chemo she did quite poorly with such. All 3 children acknowledge how poorly on a grand scale she is doing. Her son, Mac, firmly believes that she is being overmedicated with keppra and decadron. He also asked again about a 2nd opinion at [facility]. We discussed code status and I described what a code blue is like and what it entails (compressions, potential for rib fractures, respirator, etc). Children inquired about artificial nutrition and hydration in including PEG tube feedings. I was asked also about PICC line with TPN. I recommended against both modalities. I recommended against a 2nd opinion at [facility] as I would fear that transporting her there would be difficult if not impossible without use of a litter van or ambulance (son stated he would transport her by car) and that it may be unsafe. I explained the risks of DVT, etc given her nonambulatory status and overall declining status. At the end of our discussion I strongly recommended hospice. I explained hospice services and what they could offer her. Her son Mac was against such. Her other son and daughter were listening and seemed open to such although had lots of questions about it. The conversation then went back to a second opinion regarding her cancer. I offered to do that for them. I recommended we consult [facility] for any other recommendations they may have. I spoke with Dr. Levi from [facility] who stated that Dr. Dover would likely do the consult tomorrow. I wrapped up the discussion by encouraging the pt's children to listen to their mom and honoring whatever wishes she has (although she is sleepy she shakes her head yes when asked if she understands the details of our conversations). Continued [facility] stay due to: inadequate po fluid intake, voiding difficulties, ambulation difficulties, multiple IV medications needed Discharge planning: uncertain
[2017-02-09] MEDS: SERTRALINE HCL 50 MG TAB PO SCH (21:00)
[2017-02-09] MEDS: DEXAMETHASONE 4 MG TAB PO SCH (21:29)
[2017-02-09] MEDS ORDERED: VANCOMYCIN TROUGH ONE (21:30)
[2017-02-09] MEDS: LEVETIRACETAM 500 MG TAB PO SCH ×2 (21:30→22:30)
[2017-02-09 23:46] VITALS: BP 139/75; PULSE 56; TEMP 36.9; O2SAT 94
[2017-02-10 03:58] VITALS: BP 147/81; PULSE 62; TEMP 36.8; O2SAT 93
[2017-02-10 06:45] LABS: CREATININE 0.39 mg/dl (0.60-1.20)
[2017-02-10 07:21] VITALS: BP 149/81; PULSE 52; TEMP 36.4; O2SAT 93
[2017-02-10] MEDS: BOOST PLUS VANILLA PO SCH ×4 (07:30→16:45)
[2017-02-10] MEDS: DEXAMETHASONE 4 MG TAB PO SCH ×2 (09:00→21:23)
[2017-02-10] MEDS: HEPARIN SOD 5000 UNIT/0.5 ML CARP SQ SCH ×2 (09:00→21:00)
[2017-02-10] MEDS: LEVETIRACETAM 500 MG TAB PO SCH ×2 (09:00→21:00)
[2017-02-10] MEDS: VANCOMYCIN INJ 650 MG in SODIUM CHLORIDE 0.9% 250ML 250 ML IV SCH ×2 (10:01→21:23)
[2017-02-10] MEDS: METOPROLOL TARTRATE 25 MG TAB PO SCH ×2 (10:03→21:20)
[2017-02-10 12:58] VITALS: BP 144/87; PULSE 65; TEMP 36.6; O2SAT 95
[2017-02-10 19:29] VITALS: BP 113/71; PULSE 99; TEMP 35.9; O2SAT 92
[2017-02-10] MEDS: SERTRALINE HCL 50 MG TAB PO SCH (21:20)
--- NOTE | 2017-02-10 23:31 | Progress Note ---
Subjective Date of Service: Feb 10, 2017. Subjective Pt evaluation today including: conversation w/ patient, conversation w/ family (son, Mac, at bedside), physical exam, chart review, lab review, conversation w/ [employer] consultant (heme/onc), review of inpatient medication list Pain: none reported PO Intake: fair Voiding: schroeder catheter in place tele stable overnight during my visit son was at bedside I asked the patient if she remembered the conversation yesterday about her current state of health, discussion about code status, etc. she shook her head yes when asked about CPR/resuscitative efforts and whether she would want those things she started to cry and shook her head no this was witnessed by the nursing staff when asked if she was ready to go home she shook her head yes her son asked numerous questions while I was there including why we had ordered the special bed/mattress that was given to her today, why we hadn't focused on her heart, why we hadn't asked a income tax expert to see her, etc I discussed with the patient and his son we would shoot for discharge home tomorrow Problem List Medical Problems: (1) Acute electrocardiogram changes Status: Acute (2) Altered mental status Status: Acute (3) Brain mass Status: Acute (4) Dehydration Status: Acute (5) Glioblastoma Status: Acute (6) Hypoxia Status: Acute (7) NSTEMI (non-ST elevated myocardial infarction) Status: Acute (8) PNA (pneumonia) Status: Acute (9) Seizure Status: Acute (10) Seizure disorder Status: Acute (11) Weakness Status: Acute Review of Systems Respiratory: No shortness of breath Cardiac: No chest pain Abdomen: No pain Objective Vital Signs Date Time Temp Pulse Resp B/P (MAP) Pulse Ox O2 Delivery O2 Flow Rate FiO2 02/10/17 20:00 Room Air 02/10/17 19:29 35.9 99 16 113/71 (85) 92 Room Air 02/10/17 16:00 Room Air 02/10/17 12:58 36.6 65 16 144/87 (106) 95 02/10/17 12:00 Room Air 02/10/17 12:00 Room Air 02/10/17 10:22 Room Air 02/10/17 07:21 36.4 52 18 149/81 (103) 93 Room Air 02/10/17 04:00 Room Air 02/10/17 03:58 36.8 62 17 147/81 (103) 93 Room Air 02/10/17 00:00 Room Air 02/09/17 23:46 36.9 56 17 139/75 (96) 94 Room Air Physical Exam General Appearance: no apparent distress, + cachetic, + thin ENT: pharynx normal Neck: no JVD Respiratory/Chest: lungs clear, no respiratory distress, no accessory muscle use Cardiovascular: regular rate, rhythm, no gallop, no murmur Abdomen: normal bowel sounds, non tender, soft, no organomegaly Extremities: + swelling (arms, and to a lesser extent in the legs) Neurologic/Psychiatric: alert, + aphasia, + motor weakness Laboratory Results Last 24 Hours Test 02/10/17 05:20 Creatinine 0.39 mg/dl Est Creatinine Clear Calc Drug Dose 94.6 ml/min Estimated GFR () 115.0 Estimated GFR (Non- 99.2 Assessment and Plan 81yo female: 1. sepsis 2nd to staph UTI +/- pneumonia - repeat blood cx's thus far negative. Consider repeat urine cx following completion for test of cure. Today is day #7/7 of IV vanco. No fever and wbc count normalizing. 2. coag neg staph UTI - continue vancomycin until the AM then stop abx. 3. pneumonia - probably aspiration given the report of dysphagia - clinically resolved. 4. dysphagia - likely due to recent stroke - [facility] soft diet. 5. 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 reasonable to cont aspirin. despite a. tach earlier this stay on telemetry no a. fib seen. echo w/o thrombus or other source of embolus. MRA brain without stenotic lesion. 6. left-sided glioblastoma, grade IV, s/p XRT and chemotherapy - poor prognosis. Both therapies were discontinued several weeks ago because she was doing so poorly. Continue decadron BID. Have discussed palliative care/hospice/code status with pt and her family (see note dated 02/09). 7. seizure d/o 2nd to #6 - cont keppra - there have been reports of possible seizure(s) from son during this stay. Staff have been called to the bedside during these events and it has been unclear if she is actually having them. At times her son Reagan has suggested she is being overmedicated with keppra but if she is truly having seizures then stopping or cutting back the keppra dose would not be indicated. leave dose as is for now. 8. a tach - beta nguyen, low-dose. Has not recurred. ECHO with structurally normal heart. 9. FEN - repeat BMP, mag in am. Diet as desired and/or tolerated. 10. DVT proph - heparin BID. 11. abnormal EKG with mildly positive troponin - likely myocardial demand ischemia in setting of infection, etc. ECHO w/o wall motion abnormalities. No further w/u at this time. 12. dehydration - resolved. 13. right-sided lesion on previous brain MRI - unclear if this is a secondary glioma. Has been stable on imaging since November, however. 14. severe protein calorie malnutrition - ongoing, and will continue to be problematic. I asked service excellence to be involved today due to ongoing concerns being raised by her son, Mac, and how the care team can best serve his mother's needs and his needs I am also concerned by her son's treatment of the staff (nurses, other members of the care team) Pt can be d/c home tomorrow Will need transportation home will discuss code status tomorrow AM again with pt Continued [facility] stay due to: inadequate po fluid intake, voiding difficulties, ambulation difficulties, multiple IV medications needed Discharge planning: home
[2017-02-10 23:53] VITALS: BP 123/72; PULSE 66; TEMP 36.6; O2SAT 94
[2017-02-11 04:00] VITALS: BP 129/76; PULSE 87; TEMP 37; O2SAT 94
[2017-02-11 06:19] LABS: HEMATOCRIT 36.4 % (37-47); MEAN CELL VOLUME 91.2 fL (80-100); MEAN CORPUSCULAR HEMOGLOBIN 31.3 pg (25-34); MEAN CORPUSCULAR HGB CONC 34.3 g/dl (32-36); PLATELET COUNT 127 K/uL (130-400); RED BLOOD COUNT 3.99 M/uL (4.2-5.4); WHITE BLOOD COUNT 17.45 K/uL (4.8-10.8)
[2017-02-11 07:00] LABS: BUN/CREATININE RATIO 61.6 (10-20); CREATININE 0.44 mg/dl (0.60-1.20); MAGNESIUM 2.1 mg/dl (1.8-2.4); POTASSIUM 3.8 mmol/L (3.5-5.1)
[2017-02-11] MEDS: BOOST PLUS VANILLA PO SCH ×4 (07:30→16:45)
[2017-02-11 08:00] VITALS: BP 124/74; PULSE 74; TEMP 36.9; O2SAT 95
[2017-02-11] MEDS: DEXAMETHASONE 4 MG TAB PO SCH ×2 (08:15→20:37)
[2017-02-11] MEDS: HEPARIN SOD 5000 UNIT/0.5 ML CARP SQ SCH ×2 (08:15→20:37)
[2017-02-11] MEDS: METOPROLOL TARTRATE 25 MG TAB PO SCH ×2 (08:15→20:37)
[2017-02-11] MEDS: LEVETIRACETAM 500 MG TAB PO SCH (08:15)
[2017-02-11 11:04] VITALS: BP 137/78; PULSE 64; TEMP 36.8; O2SAT 93
[2017-02-11] MEDS: ACYCLOVIR 5% OINT 15 GM TUBE EXT SCH ×4 (14:20→23:26)
[2017-02-11] MEDS: MUPIROCIN 2% OINT 22 GM TUBE EXT SCH ×2 (14:21→20:36)
[2017-02-11 15:21] VITALS: BP 131/82; PULSE 84; TEMP 36.5; O2SAT 94
[2017-02-11] MEDS ORDERED: KPPSUDL500 PO (15:59)
[2017-02-11] MEDS ORDERED: LEVETIRACETAM SOLN 500 MG/5 ML UDP PO SCH (16:00)
[2017-02-11] MEDS ORDERED: NSS + 20MEQ KCL 1000ML 1,000 ML IV SCH (16:15)
[2017-02-11] MEDS: LEVETIRACETAM ORAL SOLN 100MG/ML PO SCH (17:17)
[2017-02-11] MEDS ORDERED: NURSING VERBAL MED ORDER ONE (19:15)
[2017-02-11 19:17] VITALS: BP 145/80; PULSE 88; TEMP 36.9; O2SAT 93
[2017-02-11] MEDS: SERTRALINE HCL 50 MG TAB PO SCH (20:37)
--- NOTE | 2017-02-11 20:44 | Progress Note ---
Subjective Date of Service: Feb 11, 2017. Subjective Pt evaluation today including: conversation w/ patient, conversation w/ family (son Mac at bedside; son Wellington by phone), physical exam, chart review, lab review, review of inpatient medication list Pain: patient shook head NO during my assessment PO Intake: poor, <10% of meals per staff; poor liquid intake as well Voiding: schroeder catheter in place tele stable overnight staff report that her son, Mac, is concerned she is having seizures staff confirm that when they go in to assess her during the possible seizure events she is awake, alert, and following commands staff often see shaking/twitching of the left arm, sometimes the other arm there is no generalized seizure activity, lip smacking, or other odd behaviors staff concerned about her son rubbing/touching her in inappropriate places (see nursing documentation) Problem List Medical Problems: (1) Acute electrocardiogram changes Status: Acute (2) Altered mental status Status: Acute (3) Brain mass Status: Acute (4) Dehydration Status: Acute (5) Glioblastoma Status: Acute (6) Hypoxia Status: Acute (7) NSTEMI (non-ST elevated myocardial infarction) Status: Acute (8) PNA (pneumonia) Status: Acute (9) Seizure Status: Acute (10) Seizure disorder Status: Acute (11) Weakness Status: Acute Review of Systems unable to elicit full ROS due to significant aphasia Objective Vital Signs Date Time Temp Pulse Resp B/P (MAP) Pulse Ox O2 Delivery O2 Flow Rate FiO2 02/11/17 19:17 36.9 88 19 145/80 (101) 93 Room Air 02/11/17 16:00 Room Air 02/11/17 15:21 36.5 84 17 131/82 (98) 94 Room Air 02/11/17 12:00 Room Air 02/11/17 11:04 36.8 64 16 137/78 (97) 93 02/11/17 08:00 36.9 74 16 124/74 (91) 95 Room Air 02/11/17 08:00 Room Air 02/11/17 04:00 37.0 87 18 129/76 (93) 94 Room Air 02/11/17 04:00 Room Air 02/11/17 00:00 Room Air 02/10/17 23:53 36.6 66 18 123/72 (89) 94 Room Air Physical Exam General Appearance: no apparent distress ENT: pharynx normal (MM slightly dry, no thrush), + pertinent finding (nose - impetigo of outer aspect of nose extending into the nares; herpes cold sores on upper lip) Neck: no JVD Respiratory/Chest: lungs clear, no respiratory distress, no accessory muscle use Cardiovascular: regular rate, rhythm, no gallop, no murmur Abdomen: normal bowel sounds, non tender, soft, no organomegaly Extremities: + pedal edema (trace b/l), + swelling (dependent, right arm worse than left arm ) Neurologic/Psychiatric: alert, + aphasia (expressive), + motor weakness (all 4 limbs, worse RUE and RLE ) Laboratory Results Last 24 Hours Test 02/11/17 06:02 White Blood Count 17.45 K/uL Red Blood Count 3.99 M/uL Hemoglobin 12.5 g/dL Hematocrit 36.4 % Mean Corpuscular Volume 91.2 fL Mean Corpuscular Hemoglobin 31.3 pg Mean Corpuscular Hemoglobin Concent 34.3 g/dl RDW Standard Deviation 53.0 fL RDW Coefficient of Variation 16.0 % Platelet Count 127 K/uL Mean Platelet Volume 10.0 fL Nucleated RBC Absolute Count (auto) 0.07 K/uL Nucleated Red Blood Cells % 0.4 % Sodium Level 140 mmol/L Potassium Level 3.8 mmol/L Chloride Level 105 mmol/L Carbon Dioxide Level 28 mmol/L Anion Gap 7.0 mmol/L Blood Urea Nitrogen 27 mg/dl Creatinine 0.44 mg/dl Est Creatinine Clear Calc Drug Dose 83.9 ml/min Estimated GFR () 110.5 Estimated GFR (Non- 95.3 BUN/Creatinine Ratio 61.6 Random Glucose 153 mg/dl Calcium Level 8.0 mg/dl Magnesium Level 2.1 mg/dl Assessment and Plan 81yo female: 1. sepsis 2nd to staph UTI +/- pneumonia - repeat blood cx's thus far negative. Clinically stable. NO fever or other infectious symptoms/signs. Vancomycin has been d/c. 2. coag neg staph UTI - completed abx course. 3. pneumonia - probably aspiration given the report of dysphagia - clinically resolved and abx d/c. 4. dysphagia - likely due to recent stroke - [facility] soft diet. 5. 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 reasonable to cont aspirin. despite a. tach earlier this stay on telemetry no a. fib seen. echo w/o thrombus or other source of embolus. MRA brain without stenotic lesion. 6. left-sided glioblastoma, grade IV, s/p XRT and chemotherapy - very, very poor prognosis. Both therapies were discontinued several weeks ago because she was doing so poorly. Continue decadron BID for brain swelling. Have discussed palliative care/hospice/code status with pt and her family (see note dated 02/09). I attempted to address code status on 02/10 and 02/11 and patient both days has shaken her head NO to chest compressions/shocks/etc. 7. seizure d/o 2nd to #6 - apparent seizure events over the last 2 days per the son, Mac. Staff report that the possible events do not appear to be seizures. Possible she could be having a partial focal seizure as a result of her right- sided brain mass (staff report it is often left arm shaking). I cannot confirm she is having ongoing seizures. [id number] she should continue on her keppra. today she was spitting out the keppra tablets. we thought that perhaps she did not like the taste of the tablet and changed it to liquid formulation. she did the same thing. pharmacy reports the taste of the liquid is quite neutral. I am unsure if this is a volitional action simply because she is "fed up" with being sick, etc. Will keep trying to administer her keppra liquid BID. 8. a tach - beta nguyen, low-dose. Has not recurred. ECHO with structurally normal heart. 9. FEN - son requested IVF due to lack of oral nutrition last 48 hours. I explained that additional IVF would simply be a transient help to his mother. Gave 1 L of fluids only. 10. DVT proph - heparin BID but patient refusing the shots. 11. abnormal EKG with mildly positive troponin - likely myocardial demand ischemia in setting of infection, etc. ECHO w/o wall motion abnormalities. No further w/u at this time. 12. dehydration - ongoing - see below. 13. right-sided lesion on previous brain MRI - unclear if this is a secondary glioma. Has been stable on imaging since November, however. 14. severe protein calorie malnutrition - ongoing, and will continue to be problematic. 15. 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 He mentioned that his mother's wish is to " with family around her" and I explained that the best way to honor that wish is home with hospice Wellington is aware of the [facility] due to Mac's behaviors ( possible inappropriate touching, etc) during the current hospital stay He briefly asked about PEG tube etc and I strongly recommended against this for numerous reasons He understood that this is not a viable option dispo plan - transport set up for 1300 tomorrow need to ask Social work to set up home health at Wellington's request total time today about 60 minutes Continued [facility] stay due to: inadequate po fluid intake, voiding difficulties, ambulation difficulties, multiple IV medications needed Discharge planning: home with home health
[2017-02-11 23:59] VITALS: BP 156/78; PULSE 67; TEMP 36.9; O2SAT 93
[2017-02-12] VITALS (7 sets, daily range): BP systolic 131–155; BP diastolic 72–89; PULSE 57–65; TEMP 36.8–37; O2SAT 92–96
[2017-02-12] MEDS: LEVETIRACETAM ORAL SOLN 100MG/ML PO SCH ×3 (01:22→20:20)
[2017-02-12] MEDS: ACYCLOVIR 5% OINT 15 GM TUBE EXT SCH ×5 (06:04→23:11)
[2017-02-12] MEDS: MUPIROCIN 2% OINT 22 GM TUBE EXT SCH ×3 (07:26→20:22)
[2017-02-12] MEDS: DEXAMETHASONE 4 MG TAB PO SCH ×2 (07:27→20:20)
[2017-02-12] MEDS: HEPARIN SOD 5000 UNIT/0.5 ML CARP SQ SCH (07:27)
[2017-02-12] MEDS: METOPROLOL TARTRATE 25 MG TAB PO SCH ×2 (07:27→20:22)
[2017-02-12] MEDS: BOOST PLUS VANILLA PO SCH ×4 (07:27→20:17)
[2017-02-12] MEDS ORDERED: ZLF50 PO (12:42)
[2017-02-12] MEDS ORDERED: LPR25 PO (12:42)
[2017-02-12] MEDS ORDERED: BCTRO EXT (12:42)
--- NOTE | 2017-02-12 12:45 | Discharge Instructions ---
Discharge Instructions Date of Service Feb 12, 2017. Admission Reason for Admission: Aspiration Pneumonia, Sepsis, Unspecified Organism Discharge Discharge Diagnosis / Problem: glioblastoma, functional decline Discharge Goals Goal(s): Diagnostic testing, Therapeutic intervention Activity Recommendations Activity Limitations: as noted below Mrs Mcgregor will benefit from movement and position changes, this needs to be balanced by discomfort associated with the movements Please clean crusted area below nose at least once a day, gently with soap and water, apply cream three times a day If home nursing notes lower blood pressure please hold metoprolol . Current Hospital Diet Patient's current hospital diet: Regular Diet Discharge Diet Recommended Diet: Regular Diet Procedures Procedures Performed: consider nutritional supplements Pending Studies Studies pending at discharge: no Medical Emergencies . Who to Call and When: Medical Emergencies: If at any time you feel your situation is an emergency, please call 911 immediately. . Non-Emergent Contact Non-Emergency issues call your: Primary Care Provider . . "Provider Documentation" section prepared by George San. . VTE Core Measure Inpt VTE Proph given/why not?: [place], [facility]
[2017-02-12] MEDS ORDERED: LORAZEPAM 0.5 MG TAB PO PRN (19:00)
[2017-02-12] MEDS ORDERED: OXYCODONE HCL IR 5 MG TAB (IMMEDIATE RELEASE) PO PRN (19:00)
--- NOTE | 2017-02-12 19:14 | Progress Note ---
Subjective Date of Service: Feb 12, 2017. Subjective This patient has had variable responses during the day regarding whether she felt safe going home or not. I spent approximately 95 minutes [id number] discussing with her 2 sons both Mac and Wellington regarding her disposition. The patient herself has limited speech with recent strokes and 2 intracranial glioblastoma focuses. After prolonged discussion is felt in the patient's best interest to have the patient remain a facility with attempts at placement in a residential facility. Problem List Medical Problems: (1) Acute electrocardiogram changes Status: Acute (2) Altered mental status Status: Acute (3) Brain mass Status: Acute (4) Dehydration Status: Acute (5) Glioblastoma Status: Acute (6) Hypoxia Status: Acute (7) NSTEMI (non-ST elevated myocardial infarction) Status: Acute (8) PNA (pneumonia) Status: Acute (9) Seizure Status: Acute (10) Seizure disorder Status: Acute (11) Weakness Status: Acute Review of Systems Constitutional: + problem reported (review of systems unable to be obtained given her limited speech she however denies pain) Objective Vital Signs Date Time Temp Pulse Resp B/P (MAP) Pulse Ox O2 Delivery O2 Flow Rate FiO2 02/12/17 16:00 94 Room Air 02/12/17 15:21 36.8 57 16 147/77 (100) 94 Room Air 02/12/17 12:00 Room Air 02/12/17 08:00 Room Air 02/12/17 07:23 36.8 60 20 147/77 (100) 93 Room Air 02/12/17 04:03 37.0 65 20 131/78 (95) 94 Room Air 02/12/17 04:00 Room Air 02/12/17 01:02 36.9 64 20 155/88 (110) 92 Room Air 02/12/17 00:00 Room Air 02/11/17 23:59 36.9 67 18 156/78 (104) 93 Room Air 02/11/17 20:00 Room Air 02/11/17 19:17 36.9 88 19 145/80 (101) 93 Room Air Physical Exam General Appearance: WD/WN, + moderate distress, + pertinent finding (review of systems unable to be obtained given her limited speech she however denies pain) Neck: supple, no JVD Respiratory/Chest: chest non-tender, lungs clear Cardiovascular: regular rate, rhythm, no murmur Abdomen: normal bowel sounds, non tender, soft Extremities: no pedal edema, no calf tenderness Assessment and Plan 81yo F initially admitted with metabolic encephalopathy from staph sepsis associated with UTi poa, found to be coag neg staph that is oxacillin resistent Sepsis 2nd to staph UTI blood culture is also consistent with staph, ID recommends one week of vancomycin to complete 02/09 late in the evening 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 oral Keppra Severe Malnutrition continues with variable by mouth intake her malnutrition is evidence by 35% loss in BW in setting of Brain cancer and associated therapies. in setting of Glioma, offer supportive nutritional supplements atrial tachycardia. Controlled with metoprolol 12.5mg BID. abnormal EKG but it is unchanged from 01/29 EKG. 02/12/2017, intense family discussions were had determine the best disposition of this patient these included discussions with Mac the constant caregiver was at her bedside and the power of divorce attorney Wellington. There was also some discussion regarding if home was a safe environment and we had area Association of aging interview the patient today with Mac not present at her bedside. There was no objective findings to prevent the patient from returning to her home under Mac's care. Next At 6 PM I phoned Wellington her POA I disclose the findings of the area [employer] of aging and then he returned a discussion regarding the fact that he was becoming uncomfortable with patient returning home under Derick's care. Wellington presented to the hospital we had very lengthy discussion this included gym at some point and we made a decision to keep patient hospital and pursue a ventral placement in a residential facility and even consider discussion of hospice care which should be channeled through Wellington and not Derick. The patient removed to her oncology floor for further [facility] care will be undertaken Continued [facility] stay due to: inadequate po fluid intake, voiding difficulties, ambulation difficulties, multiple IV medications needed Discharge planning: home with home health
[2017-02-12] MEDS: SERTRALINE HCL 50 MG TAB PO SCH (20:19)
[2017-02-13 00:17] VITALS: BP 150/84; PULSE 55; TEMP 36.3; O2SAT 95
[2017-02-13] MEDS: ACYCLOVIR 5% OINT 15 GM TUBE EXT SCH ×5 (06:14→21:28)
[2017-02-13] MEDS: LEVETIRACETAM ORAL SOLN 100MG/ML PO SCH ×3 (07:41→21:28)
[2017-02-13] MEDS: DEXAMETHASONE 4 MG TAB PO SCH (07:41)
[2017-02-13] MEDS: METOPROLOL TARTRATE 25 MG TAB PO SCH (07:42)
[2017-02-13] MEDS: MUPIROCIN 2% OINT 22 GM TUBE EXT SCH ×3 (07:42→21:29)
[2017-02-13] MEDS: BOOST PLUS VANILLA PO SCH ×4 (07:44→17:15)
[2017-02-13 07:50] VITALS: BP 159/86; PULSE 59; TEMP 36.5; O2SAT 94
--- NOTE | 2017-02-13 10:49 | Palliative Care Progress Note ---
Palliative Care Progress Note Date of Service Feb 13, 2017. Subjective Spoke with patient's son/POA, Wellington Mcgregor. Wellington states that the family cannot come to a mutual decision on whether or not to pursue hospice care, so they plan for the patient to go skilled hopefully to [facility]. Their main concern is that they want the patient to receive IV hydration. We talked about his mom's(the patient's) condition and the body's natural dying process. Also explained some of the risks with running IVF at end of life. Wellington verbalized understanding but does not think the patient is at that point yet. He said, "Once she doesn't have the will to live, that's different. Right now she is still eating a ton and has a very good appetite." "My mother's never been a drinker. It's been a problem our whole lives. She'd make a big meal and wouldn' t give us anything to drink." "I don't want to give her a sentence by not hydrating her. Dr. Fitzgerald said if we didn't send her with an IV, she'd be back in two days." Spoke with outpatient case manager and attending physician. manager merchandising had spoken with [facility] who stated they could provide IVF, will need PICC line. I spoke again with Wellington on the phone and presented this idea to him. He would like to move forward with the PICC line and will come in at his earliest convenience to sign consent for the procedure. IV team is aware and will do the procedure once they have the consent and order.
[2017-02-13 15:09] VITALS: BP 119/76; PULSE 71; TEMP 36.4; O2SAT 94
--- NOTE | 2017-02-13 16:31 | Progress Note ---
Subjective Date of Service: Feb 13, 2017. Subjective pt is arousable and did eat some food, all local children are at the bedside and updated, still with unreasonable outlook and requesting ability for IVF at snf. will place picc line but did explain that I do not agree with this stance once they enter comfort care thought process, they all agree that they are not there now and will like to continue to treat as best as we can with nutrition and hydration. they also want to try to reduce her medication intake as much as possible Problem List Medical Problems: (1) Acute electrocardiogram changes Status: Acute (2) Altered mental status Status: Acute (3) Brain mass Status: Acute (4) Dehydration Status: Acute (5) Glioblastoma Status: Acute (6) Hypoxia Status: Acute (7) NSTEMI (non-ST elevated myocardial infarction) Status: Acute (8) PNA (pneumonia) Status: Acute (9) Seizure Status: Acute (10) Seizure disorder Status: Acute (11) Weakness Status: Acute Review of Systems Constitutional: + problem reported (unabel to obtain due to speech issues, appears uncomfortable) Objective Vital Signs Date Time Temp Pulse Resp B/P (MAP) Pulse Ox O2 Delivery O2 Flow Rate FiO2 02/13/17 16:00 Room Air 02/13/17 15:09 36.4 71 18 119/76 (90) 94 Room Air 02/13/17 08:00 Room Air 02/13/17 07:50 36.5 59 16 159/86 (110) 94 Room Air 02/13/17 00:17 36.3 55 16 150/84 (106) 95 Room Air 02/13/17 00:00 Room Air 02/12/17 21:35 95 Room Air 02/12/17 21:35 36.8 57 18 151/89 (109) 96 Room Air 02/12/17 20:00 36.8 58 148/72 (97) 02/12/17 20:00 94 Room Air Physical Exam General Appearance: + moderate distress, + thin Respiratory/Chest: no respiratory distress, + decreased breath sounds Cardiovascular: regular rate, rhythm, no murmur Abdomen: normal bowel sounds, non tender, soft Neurologic/Psychiatric: + motor weakness, + depressed affect Assessment and Plan 81yo F initially admitted with metabolic encephalopathy from staph sepsis associated with UTi poa, found to be coag neg staph that is oxacillin resistent , 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 Sepsis 2nd to staph UTI blood culture is also consistent with staph, complete 02/09 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 oral Keppra Severe Malnutrition continues with variable by mouth intake her malnutrition is evidence by 35% loss in BW in setting of Brain cancer and associated therapies. in setting of Glioma, offer supportive nutritional supplements, family is brining in food from home and feeding her, family requests ability to provide IVF at snf is able will proceed to place picc line to have secure access atrial tachycardia. abnormal EKG but it is unchanged from 01/29 EKG. 02/12/2017, intense family discussions were had determine the best disposition of this patient these included discussions with Mac the constant caregiver was at her bedside and the power of erisa attorney Wellington. There was also some discussion regarding if home was a safe environment and we had area [employer] of aging interview the patient 02/12with Mac not present at her bedside. There was no objective findings to prevent the patient from returning to her home under Mac's care. At 6 PM I phoned Wellington her POA I disclose the findings of the area [employer] of aging and then he returned a discussion regarding the fact that he was becoming uncomfortable with patient returning home under Derick's care. Wellington presented to the hospital we had very lengthy discussion this included Derick at some point and we made a decision to keep patient in hospital and pursue a eventuall placement in a alf facility although we did discuss hospice the family now all agrees to sustain her existence with ivf, "until she has lost the will to live", PICC consent signed by poa local skin care to large nasal filtrum area of skin irritation Continued [facility] stay due to: inadequate po fluid intake, voiding difficulties, ambulation difficulties, multiple IV medications needed Discharge planning: home with home health
--- NOTE | 2017-02-13 20:16 | Progress Note ---
Progress Note Date of Service Feb 13, 2017. Progress Note CODE STATUS: I spoke with Wellington Balbir over the phone regarding a request for IV fluids. Incidentally I noticed that in the computer the pt is listed as Full Code however there was an order by Dr. Wild for DNR/DNI status. After speaking to Wellington I had requested clarification on the pt's code status. Wellington emphasized that his mother would want all measures taken such as chest compression and intubation. He mentioned that he spoke with Dr. Wild earlier in the hospital stay about code status but does not remember what he told him. I recommended to Wellington to speak to Dr. Wild again about code status. At this time she will be Full Code.
[2017-02-13] MEDS: SERTRALINE HCL 50 MG TAB PO SCH ×2 (21:00→21:29)
[2017-02-13] MEDS: NORMOSOL R 1,000 ML IV SCH (21:28)
[2017-02-13 23:50] VITALS: BP 112/69; PULSE 69; TEMP 36.4; O2SAT 95
[2017-02-14] MEDS: MUPIROCIN 2% OINT 22 GM TUBE EXT SCH ×3 (06:40→21:17)
[2017-02-14] MEDS: ACYCLOVIR 5% OINT 15 GM TUBE EXT SCH ×5 (06:44→21:18)
[2017-02-14 07:26] VITALS: BP 143/81; PULSE 62; TEMP 36.7; O2SAT 93
[2017-02-14] MEDS: NORMOSOL R 1,000 ML IV SCH ×2 (08:50→18:39)
[2017-02-14] MEDS: DEXAMETHASONE 4 MG TAB PO SCH ×2 (08:52→09:40)
[2017-02-14] MEDS: BOOST PLUS VANILLA PO SCH ×4 (08:53→16:14)
[2017-02-14] MEDS: LEVETIRACETAM ORAL SOLN 100MG/ML PO SCH ×3 (08:53→21:00)
[2017-02-14 14:37] VITALS: BP 101/65; PULSE 76; TEMP 36.7; O2SAT 91
--- NOTE | 2017-02-14 17:35 | Progress Note ---
Subjective Date of Service: Feb 14, 2017. Subjective this pt is refusing some of her medications, she is surprisingly clear at times , son Mac did remove Picc line nurse from room Problem List Medical Problems: (1) Acute electrocardiogram changes Status: Acute (2) Altered mental status Status: Acute (3) Brain mass Status: Acute (4) Dehydration Status: Acute (5) Glioblastoma Status: Acute (6) Hypoxia Status: Acute (7) NSTEMI (non-ST elevated myocardial infarction) Status: Acute (8) PNA (pneumonia) Status: Acute (9) Seizure Status: Acute (10) Seizure disorder Status: Acute (11) Weakness Status: Acute Review of Systems Constitutional: + weakness, + fatigue, No fever, No chills Respiratory: No cough, No shortness of breath, No dyspnea on exertion Cardiac: + edema, No chest pain Abdomen: No pain, No nausea, No vomiting, No diarrhea Female : No dysuria, No urinary frequency Objective Vital Signs Date Time Temp Pulse Resp B/P (MAP) Pulse Ox O2 Delivery O2 Flow Rate FiO2 02/14/17 16:03 Room Air 02/14/17 14:37 36.7 76 18 101/65 (77) 91 Room Air 02/14/17 10:46 Room Air 02/14/17 07:26 36.7 62 18 143/81 (101) 93 Room Air 02/14/17 00:05 Room Air 02/13/17 23:50 36.4 69 16 112/69 (83) 95 Room Air 02/13/17 20:05 Room Air Physical Exam General Appearance: WD/WN, + mild distress Neck: supple, no JVD Respiratory/Chest: chest non-tender, + decreased breath sounds, + rhonchi Cardiovascular: regular rate, rhythm, no murmur Abdomen: normal bowel sounds, soft Neurologic/Psychiatric: alert, + depressed affect Assessment and Plan 81yo F initially admitted with metabolic encephalopathy from staph sepsis associated with UTi poa, found to be coag neg staph that is oxacillin resistent , 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 Sepsis 2nd to staph UTI blood culture is also consistent with staph, complete 02/09 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 Pt refusing some medications at this time left-sided glioblastoma s/p XRT and chemotherapy - poor prognosis. oral Keppra was refused this am Severe Malnutrition continues with variable by mouth intake her malnutrition is evidence by 35% loss in BW in setting of Brain cancer and associated therapies. in setting of Glioma, offer supportive nutritional supplements, family is brining in food from home and feeding her, family requests ability to provide IVF at snf is able will proceed to place picc line to have secure access. 02/14 Mac refused picc insertion, marlen hyde was notified, stated to attempt to replace this atrial tachycardia. abnormal EKG but it is unchanged from 01/29 EKG. 02/12/2017, intense family discussions were had determine the best disposition of this patient these included discussions with Mac the constant caregiver was at her bedside and the power of county attorney [place]. There was also some discussion regarding if home was a safe environment and we had [facility] Association of aging interview the patient 02/12with Mac not present at her bedside. There was no objective findings to prevent the patient from returning to her home under Mac's care. Wellington her POA promited a discussion regarding the fact that he was becoming uncomfortable with patient returning home under Derick's care. Wellington made a decision to keep patient in hospital and pursue a eventual placement in a snf facility, despite disclosing this to Derick two days ago, he seemed to not be aware of this decision today 02/14 although we did discuss hospice the family now all agrees to sustain her existence with ivf, "until she has lost the will to live", PICC consent signed by marlen local skin care to large nasal filtrum area of skin irritation Continued [facility] stay due to: inadequate po fluid intake, voiding difficulties, ambulation difficulties, multiple IV medications needed Discharge planning: home with home health
[2017-02-14] MEDS: SERTRALINE HCL 50 MG TAB PO SCH (21:00)
[2017-02-15] MEDS: NORMOSOL R 1,000 ML IV SCH (06:26)
[2017-02-15] MEDS: ACYCLOVIR 5% OINT 15 GM TUBE EXT SCH ×5 (06:27→21:50)
[2017-02-15 07:18] VITALS: BP 127/76; PULSE 76; TEMP 36.7; O2SAT 91
[2017-02-15] MEDS: BOOST PLUS VANILLA PO SCH ×4 (08:46→15:32)
[2017-02-15] MEDS: LEVETIRACETAM ORAL SOLN 100MG/ML PO SCH (08:47)
[2017-02-15] MEDS: MUPIROCIN 2% OINT 22 GM TUBE EXT SCH ×3 (08:47→21:50)
[2017-02-15] MEDS: DEXAMETHASONE 4 MG TAB PO SCH (08:47)
[2017-02-15] MEDS ORDERED: LINEZOLID 600 MG TAB PO SCH (09:00)
[2017-02-15] MEDS: SODIUM CHLORIDE 0.9% 1000ML 1,000 ML IV SCH ×2 (11:02→21:50)
[2017-02-15] MEDS: LINEZOLID / D5W 600 MG in PREMIXED IN D5W 300 ML IV SCH ×2 (11:02→21:49)
[2017-02-15] MEDS: DEXAMETHASONE INJ 6 MG in SYRINGE 0 ML IV SCH (11:02)
--- NOTE | 2017-02-15 13:52 | Progress Note ---
Subjective Date of Service: Feb 15, 2017. Subjective this pt is about the same, did have discussion at bedside with poa and son, they want to continue to have pt take meds intravenous as she is clear that she does not want to take any oral medicines. pt has no focal complaints other than her nose Problem List Medical Problems: (1) Acute electrocardiogram changes Status: Acute (2) Altered mental status Status: Acute (3) Brain mass Status: Acute (4) Dehydration Status: Acute (5) Glioblastoma Status: Acute (6) Hypoxia Status: Acute (7) NSTEMI (non-ST elevated myocardial infarction) Status: Acute (8) PNA (pneumonia) Status: Acute (9) Seizure Status: Acute (10) Seizure disorder Status: Acute (11) Weakness Status: Acute Review of Systems Constitutional: + weakness, + fatigue, + problem reported (limited verbal output limits complete ROS will not answer if she is in pain or distress, just doesnt say yes or no), No fever, No chills Objective Vital Signs Date Time Temp Pulse Resp B/P (MAP) Pulse Ox O2 Delivery O2 Flow Rate FiO2 02/15/17 09:16 Room Air 02/15/17 07:18 36.7 76 16 127/76 (93) 91 Room Air 02/15/17 00:05 Room Air 02/14/17 20:05 Room Air 02/14/17 16:03 Room Air 02/14/17 14:37 36.7 76 18 101/65 (77) 91 Room Air Physical Exam General Appearance: + mild distress, + thin Respiratory/Chest: no accessory muscle use, + decreased breath sounds ( decreased effort) Cardiovascular: regular rate, rhythm, no murmur Abdomen: normal bowel sounds, soft Neurologic/Psychiatric: alert, + depressed affect Assessment and Plan 81yo F initially admitted with metabolic encephalopathy from staph sepsis associated with UTi poa, found to be coag neg staph that is oxacillin resistent , 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 Sepsis 2nd to staph UTI blood culture is also consistent with staph, complete 02/09, since nose open area and crusting were present during this episode, family is sure she has skin MRSA infection, also consulted on line nuclear medicine technologist who was sent pictures, recommends treating for skin cellulitis, will start linezolid, continue topical acyclovir and mupirocin 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 Pt refusing some medications at this time left-sided glioblastoma s/p XRT and chemotherapy - poor prognosis. oral Keppra was refused family wants her to be on IV, MARLEN hyde states if his mother were of sound mind she would want IV meds and IV fluids Severe Malnutrition continues with variable by mouth intake her malnutrition is evidence by 35% loss in BW in setting of Brain cancer and associated therapies. in setting of Glioma, offer supportive nutritional supplements, family is brining in food from home and feeding her, family requests ability to provide IVF at snf is able will proceed to place picc line to have secure access. 02/14 Mac refused picc insertion, evetteben hyde was notified, stated to attempt to replace this and it was placed 02/15 atrial tachycardia. abnormal EKG but it is unchanged from 01/29 EKG. throughout this stay, intense family discussions were had to try to determine the best disposition of this patient these included discussions with Mac the constant caregiver was at her bedside and the power of tax auditor Wellington as well as Oren and Pedro Luis. There was also some discussion regarding if home was a safe environment and we had [facility] Association of aging interview the patient 02/12with Mac not present at her bedside. There was no objective findings to prevent the patient from returning to her home under Mac's care. Wellington then promoted a discussion regarding the fact that he was becoming uncomfortable with patient returning home under Derick's care. Wellington made a decision to keep patient in hospital and pursue a eventual placement in a custodial facility, despite disclosing this to Derick two days ago, he seemed to not be aware of this decision and continues to state he is eventually going to take her home. Unfortunately she may not meet skilled criteria. although we did discuss hospice the family now all agrees to sustain her existence with ivf, "until she has lost the will to live", PICC consent signed by marlen and placed local skin care to large nasal filtrum area of skin irritation Continued [facility] stay due to: inadequate po fluid intake, voiding difficulties, ambulation difficulties, multiple IV medications needed Discharge planning: home with home health
[2017-02-15 14:37] VITALS: BP 114/73; PULSE 74; TEMP 36.8; O2SAT 93
[2017-02-15] MEDS: SERTRALINE HCL 50 MG TAB PO SCH (21:00)
[2017-02-15] MEDS ORDERED: LEVETIRACETAM IV 1,500 MG in DEXTROSE 5% 100ML 100 ML IV ONE (21:00)
[2017-02-16] MEDS: ACYCLOVIR 5% OINT 15 GM TUBE EXT SCH ×5 (06:31→22:41)
[2017-02-16 07:10] VITALS: BP 134/74; PULSE 58; TEMP 36; O2SAT 95
[2017-02-16] MEDS: SODIUM CHLORIDE 0.9% 1000ML 1,000 ML IV SCH ×2 (07:48→17:54)
[2017-02-16] MEDS: DEXAMETHASONE INJ 6 MG in SYRINGE 0 ML IV SCH (07:50)
[2017-02-16] MEDS: MUPIROCIN 2% OINT 22 GM TUBE EXT SCH ×3 (07:51→20:38)
[2017-02-16] MEDS: BOOST PLUS VANILLA PO SCH ×4 (07:51→17:56)
[2017-02-16] MEDS: LINEZOLID / D5W 600 MG in PREMIXED IN D5W 300 ML IV SCH ×2 (09:41→20:38)
--- NOTE | 2017-02-16 12:48 | Progress Note ---
Subjective Date of Service: Feb 16, 2017. Subjective Pt evaluation today including: conversation w/ patient, conversation w/ family , physical exam, chart review, lab review, review of studies, conversation w/ library consultant, review of inpatient medication list Patient is getting feeding by Filemon, per report patient has been eating fairly, but not drinking water, Patient seems tired, weak, and frail, but seems fully understand the conversation,, no complaining of pain Problem List Medical Problems: (1) Acute electrocardiogram changes Status: Acute (2) Altered mental status Status: Acute (3) Brain mass Status: Acute (4) Dehydration Status: Acute (5) Glioblastoma Status: Acute (6) Hypoxia Status: Acute (7) NSTEMI (non-ST elevated myocardial infarction) Status: Acute (8) PNA (pneumonia) Status: Acute (9) Seizure Status: Acute (10) Seizure disorder Status: Acute (11) Weakness Status: Acute Review of Systems Constitutional: + weakness, + problem reported (limited because of not able to really engage in the conversation), No fever, No chills Eyes: No worsening of vision, No eye pain Objective Vital Signs Date Time Temp Pulse Resp B/P (MAP) Pulse Ox O2 Delivery O2 Flow Rate FiO2 02/16/17 09:00 Room Air 02/16/17 07:10 36.0 58 18 134/74 (94) 95 Room Air 02/16/17 00:00 Room Air 02/15/17 20:00 Room Air 02/15/17 16:40 Room Air 02/15/17 14:37 36.8 74 16 114/73 (87) 93 Room Air Physical Exam General Appearance: + cachetic, + thin, + pertinent finding (frail) Eyes: normal inspection, PERRL, EOMI, sclerae normal ENT: hearing grossly normal, pharynx normal, + pertinent finding (middle of base of the nose has ulceration on cream) Neck: supple, no adenopathy, thyroid normal, no JVD, no carotid bruits, trachea midline Respiratory/Chest: chest non-tender, normal breath sounds, no respiratory distress, no accessory muscle use, + decreased breath sounds Cardiovascular: regular rate, rhythm, no edema, no gallop, no JVD, no murmur Abdomen: normal bowel sounds, non tender, soft, no organomegaly, no pulsatile mass Extremities: normal range of motion, non-tender, normal inspection, no pedal edema, no calf tenderness, normal capillary refill, pelvis stable Neurologic/Psychiatric: 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, no motor/sensory deficits, alert, normal mood/affect, oriented x 3 Skin: normal color, warm/dry, no rash Lymphatic: no adenopathy Assessment and Plan 81yo female initially admitted with metabolic encephalopathy from staph sepsis associated with UTi poa on 02/03/2017 found to be coag neg staph that is oxacillin resistent, 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 Sepsis 2nd to staph UTI blood culture is also consistent with staph, complete 02/09, since nose open area and crusting were present during this episode, family is sure she has skin MRSA infection, also consulted on line kiln tender who was sent pictures, recommends treating for skin cellulitis, Has been on linezolid, which was started on 02/15/2017, will need totally 10 days, continue topical acyclovir and mupirocin 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 Pt refusing some medications at this time left-sided glioblastoma s/p XRT and chemotherapy poor prognosis. oral Keppra was refused family wants her to be on IV fluid just for a duration Per report , MARLEN hyde states if his mother were of sound mind she would want IV meds and IV fluids Severe Malnutrition continues with variable by mouth intake her malnutrition is evidence by 35% loss in BW in setting of Brain cancer and associated therapies. in setting of Glioma, offer supportive nutritional supplements, Per report . family is brining in food from home and feeding her, family requests ability to provide IVF at snf is able will proceed to place picc line to have secure access. 02/14 Mac refused picc insertion, marlen hyde was notified, stated to attempt to replace this and it was placed 02/15 atrial tachycardia. abnormal EKG but it is unchanged from 01/29 EKG. Per report , throughout this stay, intense family discussions were had to try to determine the best disposition of this patient these included discussions with Mac the constant caregiver was at her bedside and the power of ceramic mold designer Wellington as well as Oren and Pedro Luis. There was also some discussion regarding if home was a safe environment and we had area Association of aging interview the patient 02/12with Mac not present at her bedside. There was no objective findings to prevent the patient from returning to her home under Mac's care. Wellington then promoted a discussion regarding the fact that he was becoming uncomfortable with patient returning home under Derick's care. Wellington made a decision to keep patient in hospital and pursue a eventual placement in a assisted facility, despite disclosing this to Derick two days ago, he seemed to not be aware of this decision and continues to state he is eventually going to take her home. although we did discuss hospice the family now all agrees to sustain her existence with ivf, "until she has lost the will to live" , PICC consent signed by poa and placed Today, with present of nurse, patient was able to understand some conversation, she told us to times by expressing want to go home I'm arrange family meeting and to move forward Case updated with Navigator and residential case manager Continued [facility] stay due to: inadequate po fluid intake, voiding difficulties, ambulation difficulties, multiple IV medications needed Discharge planning: home with home health
[2017-02-16 15:50] VITALS: BP 122/71; PULSE 62; TEMP 36.3; O2SAT 95
[2017-02-16] MEDS: SERTRALINE HCL 50 MG TAB PO SCH (20:35)
[2017-02-17 00:11] VITALS: BP 128/80; PULSE 56; TEMP 36.5; O2SAT 95
[2017-02-17] MEDS: MUPIROCIN 2% OINT 22 GM TUBE EXT SCH ×3 (03:42→20:30)
[2017-02-17] MEDS: SODIUM CHLORIDE 0.9% 1000ML 1,000 ML IV SCH ×2 (06:08→17:12)
[2017-02-17] MEDS: ACYCLOVIR 5% OINT 15 GM TUBE EXT SCH ×6 (06:14→22:59)
[2017-02-17] MEDS ORDERED: ACETAMINOPHEN SOLN 650MG/20.3 ML UDC PO PRN (08:15)
[2017-02-17 08:18] VITALS: BP 151/84; PULSE 54; TEMP 36.4; O2SAT 95
[2017-02-17 09:23] LABS: HEMATOCRIT 32.2 % (37-47); MEAN CELL VOLUME 91.2 fL (80-100); MEAN CORPUSCULAR HEMOGLOBIN 32.3 pg (25-34); MEAN CORPUSCULAR HGB CONC 35.4 g/dl (32-36); MEAN PLATELET VOLUME 8.9 fL (7.4-10.4); PLATELET COUNT 112 K/uL (130-400); RED BLOOD COUNT 3.53 M/uL (4.2-5.4); WHITE BLOOD COUNT 11.26 K/uL (4.8-10.8)
[2017-02-17 09:43] LABS: BUN/CREATININE RATIO 40.6 (10-20); CALCIUM 8.3 mg/dl (8.5-10.1); CREATININE 0.23 mg/dl (0.60-1.20); PHOSPHORUS 1.9 mg/dl (2.5-4.9); POTASSIUM 3.2 mmol/L (3.5-5.1)
[2017-02-17 09:59] LABS: EOSINOPHIL % 0.9 %; LYMPH ABS # 0.68 K/uL (1.2-3.4); META ABS # 0.29 K/uL (0-0); METAMYELOCYTE % 2.6 %; MYELOCYTE % 4.3 %; NEUTROPHILS % 81.9 %
[2017-02-17 10:29] LABS: COMPLETE YES
[2017-02-17] MEDS: BOOST PLUS VANILLA PO SCH ×4 (10:34→17:36)
[2017-02-17] MEDS: LINEZOLID 600 MG TAB PO SCH ×3 (12:17→20:30)
[2017-02-17] MEDS: DEXAMETHASONE 4 MG TAB PO SCH ×2 (12:18→20:31)
[2017-02-17] MEDS ORDERED: ATV5 PO (13:20)
[2017-02-17] MEDS ORDERED: ONDA4TAB65 PO (13:20)
[2017-02-17] MEDS ORDERED: LINE1TAB2 PO (13:20)
[2017-02-17] MEDS ORDERED: ZVRO EXT (13:20)
[2017-02-17] MEDS ORDERED: Boost Plus Vanilla PO (13:20)
[2017-02-17] MEDS ORDERED: [UNRECOGNIZED DRUG - CODE] IV (13:20)
[2017-02-17] MEDS ORDERED: DXM4 PO (13:20)
[2017-02-17] MEDS ORDERED: MCTP EXT (13:20)
[2017-02-17] MEDS ORDERED: RXC5 PO (13:20)
[2017-02-17 15:18] VITALS: BP 116/72; PULSE 87; TEMP 36.5; O2SAT 92
--- NOTE | 2017-02-17 16:08 | Progress Note ---
Subjective Date of Service: Feb 17, 2017. Subjective Pt evaluation today including: conversation w/ patient, conversation w/ family , physical exam, chart review, lab review, review of studies, conversation w/ internet marketing consultant, review of inpatient medication list Continue doing the same, no pain, awake, answer simple questions, moved left arm , urinary incontinence, not on Col[place] catheter, patient Feeding Problem List Medical Problems: (1) Acute electrocardiogram changes Status: Acute (2) Altered mental status Status: Acute (3) Brain mass Status: Acute (4) Dehydration Status: Acute (5) Glioblastoma Status: Acute (6) Hypoxia Status: Acute (7) NSTEMI (non-ST elevated myocardial infarction) Status: Acute (8) PNA (pneumonia) Status: Acute (9) Seizure Status: Acute (10) Seizure disorder Status: Acute (11) Weakness Status: Acute Review of Systems Constitutional: + weakness, + fatigue, + problem reported (not able to obtain optimally because of generalized weakness and mild decreased cognition), No fever, No chills Respiratory: No cough, No sputum Cardiac: No chest pain Abdomen: No nausea, No vomiting Female : No dysuria Neurologic: + weakness Objective Vital Signs Date Time Temp Pulse Resp B/P (MAP) Pulse Ox O2 Delivery O2 Flow Rate FiO2 02/17/17 15:45 Room Air 02/17/17 15:18 36.5 87 18 116/72 (87) 92 Room Air 02/17/17 09:45 Room Air 02/17/17 08:18 36.4 54 20 151/84 (106) 95 Room Air 02/17/17 00:11 36.5 56 18 128/80 (96) 95 Room Air 02/17/17 00:00 Room Air 02/16/17 20:00 Room Air Physical Exam General Appearance: + cachetic, + thin, + pertinent finding (decreased cognition) Eyes: normal inspection, PERRL, EOMI, sclerae normal, + pertinent finding ( middle ofhas wounds and ulceration, is on cream, no local drainage all open wound) ENT: normal ENT inspection, hearing grossly normal, pharynx normal Neck: supple, no adenopathy, thyroid normal, no JVD, no carotid bruits, trachea midline Respiratory/Chest: chest non-tender, normal breath sounds, no respiratory distress, no accessory muscle use, + decreased breath sounds Cardiovascular: regular rate, rhythm, no edema, no gallop, no JVD, no murmur Abdomen: normal bowel sounds, non tender, soft, no organomegaly, no pulsatile mass Extremities: normal range of motion, non-tender, normal inspection, no pedal edema, no calf tenderness, normal capillary refill, pelvis stable Neurologic/Psychiatric: 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, no motor/sensory deficits, alert, normal mood/affect, oriented x 3 Skin: normal color, warm/dry, no rash Lymphatic: no adenopathy Laboratory Results Last 24 Hours Test 02/17/17 09:05 White Blood Count 11.26 K/uL Red Blood Count 3.53 M/uL Hemoglobin 11.4 g/dL Hematocrit 32.2 % Mean Corpuscular Volume 91.2 fL Mean Corpuscular Hemoglobin 32.3 pg Mean Corpuscular Hemoglobin Concent 35.4 g/dl Platelet Count 112 K/uL Mean Platelet Volume 8.9 fL RDW Standard Deviation 53.6 fL RDW Coefficient of Variation 16.1 % Neutrophils % (Manual) 81.9 % Lymphocytes % (Manual) 6.0 % Monocytes % (Manual) 3.4 % Eosinophils % (Manual) 0.9 % Metamyelocytes % 2.6 % Myelocytes % 4.3 % Promyelocytes % 0.9 % Neutrophils # (Manual) 9.22 K/uL Total Absolute Neutrophils 9.22 K/uL Lymphocytes # (Manual) 0.68 K/uL Total Absolute Lymphocytes 0.68 K/uL Monocytes # (Manual) 0.38 K/uL Eosinophils # (Manual) 0.10 K/uL Metamyelocytes # 0.29 K/uL Myelocytes # 0.48 K/uL Promyelocytes # 0.10 K/uL Sodium Level 140 mmol/L Potassium Level 3.2 mmol/L Chloride Level 107 mmol/L Carbon Dioxide Level 28 mmol/L Anion Gap 5.0 mmol/L Blood Urea Nitrogen 9 mg/dl Creatinine 0.23 mg/dl Est Creatinine Clear Calc Drug Dose 149.1 ml/min Estimated GFR () 136.8 Estimated GFR (Non- 118.0 BUN/Creatinine Ratio 40.6 Random Glucose 77 mg/dl Calcium Level 8.3 mg/dl Phosphorus Level 1.9 mg/dl Magnesium Level 2.0 mg/dl Assessment and Plan 81yo female initially admitted with metabolic encephalopathy from staph sepsis associated with UTi poa on 02/03/2017 found to be coag neg staph that is oxacillin resistent, has pre existing Glioblastoma and recent CVA Sepsis 2nd to staph UTI blood culture is also consistent with staph, complete 02/09, general conditions related to stable since nose open area and crusting were present during this episode, family is sure she has skin MRSA infection, also consulted on line law enforcement officer who was sent pictures, recommends treating for skin cellulitis, Has been on linezolid, which was started on 02/15/2017, will need totally 10 days, today is day 3/10 continue topical acyclovir and mupirocin 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 Pt refusing some medications at this time left-sided glioblastoma s/p XRT and chemotherapy poor prognosis. oral Keppra was will be continue Severe Malnutrition continues with variable by mouth intake her malnutrition is evidence by 35% loss in BW in setting of Brain cancer and associated therapies. in setting of Glioma, offer supportive nutritional supplements, Per report . family is brining in food from home and feeding her, family requests ability to provide IVF at snf is able will proceed to place picc line to have secure access. 02/14 Mac refused picc insertion, marlen hyde was notified, stated to attempt to replace this and it was placed 02/15 atrial tachycardia. abnormal EKG but it is unchanged from 01/29 EKG. Family conference on 02/16/2017 with present of nurse, patient was able to understand some conversation, she told us to times by expressing want to go home Family meeting carried out with patient's daughter, son Filemon, son Wellington, granddaughter and some Pedro Luis over the phone from [place], we addressed the issues in below BRIELLE Lozano was with us for the whole family meeting 1. All of the participants in the meeting agreed that mom has glioblastoma, which is highly malignant medical conditions was very poor prognosis, and mom has been declining of general healthy conditions in 2 months, and life expectancy is limited in weeks or months. 2 . All of the participants are agreed to honor mom's wish and try to provide the best and most comfortable environment for mom to enjoy her last period of her high quantity life. Per daughter and other family member that mom wished to be at home to enjoy her last period of life with family members and home environment. Therefore based on the above agreement with the planning to send amount to home. Per family members that mom is terrified of the word of " hospice", because of bad experience with hospice care service in her 's case, therefore family members do not want to initiate any hospice care related activities, I agree with that. Family members requested comfort feeding with food , and supplemented with IV fluid 1.2 to 1.5 L daily because patient not able to drink, I agree with that, we will order IV fluid daily 1.2-1.5 L which will be supported by home health care Family members request all other medical necessary methods to release uncomfortable such as medicine for nausea vomiting, constipation, fever, pain, etc. I agree with that, we'll have home health care to give support, will have related medicine arranged upon discharge. Discussed with family members that TPN or PPN is not recommended and explained why, they understand Family members all understand that patient may eventually enter to a stage that general condition is declined to the end-stage of life such as "labored breathing, more confused, fever/chill, swelling, not able to eat, etc, I told them " okay to bring patient back to the hospital through emergency room" to start inpatient hospice care if the comfort level not able to reached at home. I encourage family to communication with primary care physician after arriving home I will define the different factors need to be checked through home health care to helping patient and family after arriving home, such as documented vital sign, looking for sign of more labored breathing, signs of fluid overload, or dehydration etx. Patient currently has a PICC line which should be good to be used for several weeks to continue IV hydration, I encourage patient and family to contact with family doctor if PICC line is due to be renewed or reinserted Family meeting went so successful and we answered all the questions to their satisfactory Today continue follow-up with patient, and son Mac in bedside, they are happy about current plan Rx include Zyvox, IV fluid and some as needed medication , for the preparing planning discharged to home in the chart Possible discharge to home tomorrow with home healthcare support Family request never want to mentioned about hospice in front outpatient , I agreed Updated all the care plan with medical team Continued [facility] stay due to: inadequate po fluid intake, voiding difficulties, ambulation difficulties, home environment unsafe for pt Discharge planning: home with home health
[2017-02-17] MEDS: SERTRALINE HCL 50 MG TAB PO SCH (20:31)
[2017-02-18 00:01] VITALS: BP 136/75; PULSE 68; TEMP 36.6; O2SAT 93
[2017-02-18] MEDS: SODIUM CHLORIDE 0.9% 1000ML 1,000 ML IV SCH (04:34)
[2017-02-18 05:52] LABS: HEMATOCRIT 32.4 % (37-47); MEAN CORPUSCULAR HEMOGLOBIN 31.5 pg (25-34); MEAN CORPUSCULAR HGB CONC 34.3 g/dl (32-36); MEAN PLATELET VOLUME 9.5 fL (7.4-10.4); PLATELET COUNT 129 K/uL (130-400); RED BLOOD COUNT 3.52 M/uL (4.2-5.4); WHITE BLOOD COUNT 9.39 K/uL (4.8-10.8)
[2017-02-18 06:23] LABS: COMPLETE YES; LYMPH ABS # 0.73 K/uL (1.2-3.4); LYMPHOCYTE % 7.8 %; META ABS # 0.33 K/uL (0-0); METAMYELOCYTE % 3.5 %; MYELOCYTE % 1.7 %; NEUTROPHILS % 82.7 %
[2017-02-18 06:34] LABS: BUN/CREATININE RATIO 67.8 (10-20); CREATININE 0.23 mg/dl (0.60-1.20); MAGNESIUM 1.9 mg/dl (1.8-2.4); POTASSIUM 3.2 mmol/L (3.5-5.1)
[2017-02-18 06:35] LABS: PHOSPHORUS 2.2 mg/dl (2.5-4.9)
[2017-02-18] MEDS: ACYCLOVIR 5% OINT 15 GM TUBE EXT SCH ×2 (07:00→10:55)
[2017-02-18 07:44] VITALS: BP 144/80; PULSE 73; TEMP 36.6; O2SAT 95
[2017-02-18] MEDS: MUPIROCIN 2% OINT 22 GM TUBE EXT SCH ×2 (08:00→14:00)
[2017-02-18] MEDS: LINEZOLID 600 MG TAB PO SCH (08:00)
[2017-02-18] MEDS: BOOST PLUS VANILLA PO SCH ×2 (08:00)
[2017-02-18] MEDS: DEXAMETHASONE 4 MG TAB PO SCH (08:38)
[2017-02-18 11:21] VITALS: BP 144/80; PULSE 73; TEMP 36.6; O2SAT 95
--- NOTE | 2017-02-18 12:49 | Discharge Instructions ---
Discharge Instructions Date of Service Feb 18, 2017. Admission Reason for Admission: Aspiration Pneumonia, Sepsis, Unspecified Organism Discharge Discharge Diagnosis / Problem: Glioblastoma and recent stroke Discharge Goals Goal(s): Decrease discomfort Activity Recommendations Activity Limitations: as noted below (best rest) . Instructions / Follow-Up Instructions / Follow-Up you are having Glioblastoma and recent CVA you need to continue oral Keppra ok to feeding as tolerated , and comfort tasting, ok to supplemented with IV fluid 1.5 L daily with 150ml per hr with support by home health care all other medical necessary methods to release uncomfortable such as medicine for nausea vomiting, constipation, fever, pain, that can be use as needed, home health care please pay attention of vital signs and evaluation of dehydration or fluid over loaded, may report to pcp to adjust to ivf rate it the general condition decline to the stage such as "labored breathing, more confused, fever/chill, swelling, not able to eat, etc it would be ok to be back to the hospital through emergency room" to start inpatient comfort care if the comfort level not able to reached at home" Encourage family to communication with primary care physician after arriving home Current Hospital Diet Patient's current hospital diet: Regular Diet Discharge Diet Recommended Diet: Regular Diet Procedures Procedures Performed: nutritional supplements Pending Studies Studies pending at discharge: no Medical Emergencies . Who to Call and When: Medical Emergencies: If at any time you feel your situation is an emergency, please call 911 immediately. . Non-Emergent Contact Non-Emergency issues call your: Primary Care Provider . . "Provider Documentation" section prepared by Vel Nieves. . VTE Core Measure Inpt VTE Proph given/why not?: [place], [facility]
--- NOTE | 2017-02-18 13:02 | Discharge Summary ---
Discharge Summary Date of Service Feb 18, 2017. Discharge Summary Admission Date: Feb 03, 2017 at 20:10 Discharge Date: Feb 18, 2017 Discharge Disposition: Home with services Principal Diagnosis: Glioblastoma and recent CVA Problems/Secondary Diagnoses: Glioblastoma and recent CVA Review malnutrition Wound in the base of nose Procedures: No Consultations: Neurologist Medication Reconciliation New Medications: Ondansetron Hcl (Zofran) 4 Mg Tab 1 TAB PO Q6H PRN for nausea, vomiting, #10 TAB 1 Refill Sodium Chloride (Sodium Chloride 0.9%) 1,000 Ml Soln 1.2 LITER IV DAILY for 30 Days, #30 Acyclovir (Zovirax) 45 Appln/15 Gm Oint 1 APPLN EXT [id number] for 10 Days Dexamethasone (Dexamethasone) 4 Mg Tab 4 MG PO Q12 for 14 Days, #28 TAB Linezolid (Linezolid) 600 Mg Tab 600 MG PO BID for 10 Days, TAB Lorazepam (Lorazepam) 0.5 Mg Tab 0.5 MG PO Q6 PRN for Anxiety for 3 Days, #12 TAB Metoprolol Tartrate (Lopressor) 25 Mg Tab 12.5 MG PO BID, #60 TAB 4 Refills Miconazole Nitrate (Desenex Shake Powder) 43 Appln/43 Gm Powd 1 APPLN EXT PRN PRN for Affected Skin Folds for 14 Days Mupirocin (Mupirocin) 66 Appln/22 Gm Oint 1 APPLN EXT TID, #1 TUBE Oxycodone HCl (Oxycodone HCl) 5 Mg Tab 10 MG PO Q6 PRN for Pain for 12 Days, #96 TAB Sertraline HCl (Sertraline HCl) 50 Mg Tab 25 MG PO HS, #30 TAB [Boost Plus Vanilla] () 1 CAN LIQD 1 CAN PO BIDM for 30 Days Changed Medications: Levetiractam (Levetiracetam) 500 Mg/5 Ml Soln 1500 MG PO BID for 30 Days, #900 ML 2 Refills (Changed from: Levetiracetam ( Keppra) 250 Mg Tab 1,000 Mg PO Q12) Continued Medications: Home O2 Therapy (Oxygen) Gas 2 LITERS NA PRN for 365 Days Discontinued Medications: Aspirin (Aspirin EC Low Dose) 81 Mg Ectab 81 MG PO QAM, #120 DOSE Atorvastatin (Atorvastatin Calcium) 40 Mg Tab 40 MG PO QAM, #30 TAB Cholecalciferol (Vitamin D3) 1,000 Unit Tab 1000 UNITS PO DAILY, TAB Dexamethasone (Decadron) 4 Mg Tab 6 MG PO BID, TAB Discharge Exam Doing the same as yesterday, comfortable at rest in bed, son report eating well in the breakfast she will feeding no other complaint Review of Systems: Constitutional: No fever Eyes: No worsening of vision ENT: + problem reported (the base of nose lesions seems better , no drainages) Respiratory: No cough, No sputum, No wheezing, No shortness of breath, No dyspnea on exertion, No dyspnea at rest, No hemoptysis, No problem reported Cardiovascular: No chest pain, No orthopnea, No PND, No edema, No claudication, No palpitations, No problem reported Abdomen: No pain, No nausea, No vomiting, No diarrhea, No constipation, No GI bleeding, No problem reported Musculoskeletal: No joint pain, No muscle pain, No swelling, No calf pain, No problem reported Genitourinary - Female: No dysuria, No urinary frequency, No urinary urgency , No urinary incontinence, No urinary retention, No hematuria, No dysmenorrhea, No menorrhagia, No metrorrhagia, No rash, No vaginal bleeding, No vaginal discharge, No vaginal itching, No vulvodynia, No , No problem reported Neurologic: + paralysis Psychiatric: No depression symptoms, No anhedonism, No anxiety, No insomnia , No substance abuse, No problem reported Physical Exam: General Appearance: + cachetic, + thin, + pertinent finding (frail) Eyes: normal inspection, PERRL, EOMI ENT: + pertinent finding (the base of nose lesions seems better , no drainages) Neck: supple Respiratory/Chest: chest non-tender, + decreased breath sounds Cardiovascular: regular rate, rhythm, no edema Abdomen / GI: normal bowel sounds, non tender, soft, no organomegaly Extremities: normal inspection, no calf tenderness Neurologic/Psychiatric: spa manager II-XII nml as tested, + pertinent finding (no physical throat) Hospital Course 81yo female initially admitted with metabolic encephalopathy from staph sepsis associated with UTi poa on 02/03/2017 found to be coag neg staph that is oxacillin resistent, has pre existing Glioblastoma and recent CVA Sepsis 2nd to staph UTI blood culture is also consistent with staph, complete 02/09, general conditions related to stable since nose open area and crusting were present during this episode, family is sure she has skin MRSA infection, also consulted on line crm business analyst who was sent pictures, recommends treating for skin cellulitis, Has been on linezolid, which was started on 02/15/2017, will need totally 10 days, today is day 3/10 continue topical acyclovir and mupirocin 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 Pt refusing some medications at this time left-sided glioblastoma s/p XRT and chemotherapy poor prognosis. oral Keppra was will be continue Severe Malnutrition continues with variable by mouth intake her malnutrition is evidence by 35% loss in BW in setting of Brain cancer and associated therapies. in setting of Glioma, offer supportive nutritional supplements, Per report . family is brining in food from home and feeding her, family requests ability to provide IVF at snf is able will proceed to place picc line to have secure access. 02/14 Mac refused picc insertion, marlen hyde was notified, stated to attempt to replace this and it was placed 02/15 atrial tachycardia. abnormal EKG but it is unchanged from 01/29 EKG. Family conference on 02/16/2017 with present of nurse, patient was able to understand some conversation, she told us to times by expressing want to go home Family meeting carried out with patient's daughter, son Filemon, son Wellington, granddaughter and some Pedro Luis over the phone from [place], we addressed the issues in below BRIELLE Lozano was with us for the whole family meeting 1. All of the participants in the meeting agreed that mom has glioblastoma, which is highly malignant medical conditions was very poor prognosis, and mom has been declining of general healthy conditions in 2 months, and life expectancy is limited in weeks or months. 2 . All of the participants are agreed to honor mom's wish and try to provide the best and most comfortable environment for mom to enjoy her last period of her high quantity life. Per daughter and other family member that mom wished to be at home to enjoy her last period of life with family members and home environment. Therefore based on the above agreement with the planning to send amount to home. Per family members that mom is terrified of the word of " hospice", because of bad experience with hospice care service in her 's case, therefore family members do not want to initiate any hospice care related activities, I agree with that. Family members requested comfort feeding with food , and supplemented with IV fluid 1.2 to 1.5 L daily because patient not able to drink, I agree with that, we will order IV fluid daily 1.2-1.5 L which will be supported by home health care Family members request all other medical necessary methods to release uncomfortable such as medicine for nausea vomiting, constipation, fever, pain, etc. I agree with that, we'll have home health care to give support, will have related medicine arranged upon discharge. Discussed with family members that TPN or PPN is not recommended and explained why, they understand Family members all understand that patient may eventually enter to a stage that general condition is declined to the end-stage of life such as "labored breathing, more confused, fever/chill, swelling, not able to eat, etc, I told them " okay to bring patient back to the hospital through emergency room" to start inpatient hospice care if the comfort level not able to reached at home. I encourage family to communication with primary care physician after arriving home I will define the different factors need to be checked through home health care to helping patient and family after arriving home, such as documented vital sign, looking for sign of more labored breathing, signs of fluid overload, or dehydration etx. Patient currently has a PICC line which should be good to be used for several weeks to continue IV hydration, I encourage patient and family to contact with family doctor if PICC line is due to be renewed or reinserted Family meeting went so successful and we answered all the questions to their satisfactory Today continue follow-up with patient, and son Mac in bedside, they are happy about current plan Rx include Zyvox, IV fluid and some as needed medication , for the preparing planning discharged to home in the chart Possible discharge to home tomorrow with home healthcare support Family request never want to mentioned about hospice in front outpatient , I agreed Updated all the care plan with medical team Instructions / Follow-Up you are having Glioblastoma and recent CVA you need to continue oral Keppra ok to feeding as tolerated , and comfort tasting, ok to supplemented with IV fluid 1.5 L daily with 150ml per hr with support by home health care all other medical necessary methods to release uncomfortable such as medicine for nausea vomiting, constipation, fever, pain, that can be use as needed, home health care please pay attention of vital signs and evaluation of dehydration or fluid over loaded, may report to pcp to adjust to ivf rate it the general condition decline to the stage such as "labored breathing, more confused, fever/chill, swelling, not able to eat, etc it would be ok to be back to the hospital through emergency room" to start inpatient comfort care if the comfort level not able to reached at home" Encourage family to communication with primary care physician after arriving home Total Time Spent: Greater than 30 minutes This includes examination of the patient, discharge planning, medication reconciliation, and communication with other providers. Discharge Instructions Please refer to the electronic Patient Visit Report (Discharge Instructions) for additional information. Additional Copies To Issac Meza M.D.
== END 2017-02-18 15:08 | disposition home health service (06) | DRG 871 ==
LOC: EDBD 15:08 → C.EDC 15:09 → C.2T 20:10 → ENRESERV 20:17 → C.2T 02-04 16:58 → CANRESERV 02-12 19:09 → ENRESERV 02-12 19:09 → C.4E 02-12 21:16
PROVIDERS: ADMIT Family Medicine; ATTEND Hospitalist
PROC: 02HV33Z Insertion of Infusion Device into Superior Vena Cava, Percutaneous Approach (ICD-10-PCS; principal; 2017-02-14)
DX: A41.2 Sepsis due to unspecified staphylococcus (principal); J69.0 Pneumonitis due to inhalation of food and vomit; G93.41 Metabolic encephalopathy; E43 Unspecified severe protein-calorie malnutrition; R47.01 Aphasia; C71.9 Malignant neoplasm of brain, unspecified; R64 Cachexia; N39.0 Urinary tract infection, site not specified; I10 Essential (primary) hypertension; E78.5 Hyperlipidemia, unspecified; G40.909 Epilepsy, unspecified, not intractable, without status epilepticus; G47.33 Obstructive sleep apnea (adult) (pediatric); K59.00 Constipation, unspecified; B95.8 Unspecified staphylococcus as the cause of diseases classified elsewhere; I69.391 Dysphagia following cerebral infarction; E86.0 Dehydration; J34.0 Abscess, furuncle and carbuncle of nose; Z51.5 Encounter for palliative care; Z66 Do not resuscitate; Z79.82 Long term (current) use of aspirin; Z79.899 Other long term (current) drug therapy; Z87.891 Personal history of nicotine dependence; Z92.3 Personal history of irradiation

== ENCOUNTER → 2017-03-12 | Outpatient (CLI) | payer BC ==
[~2017-03-12] MED LIST changes: -ASPEC81 PO; +ATV5 PO; +BCTRO EXT; +Boost Plus Vanilla PO; -CHOL1000 PO; -DXM/4 PO; +DXM4 PO; +KPPSUDL500 PO; -LEVE250T PO; +LINE1TAB2 PO; +LPR25 PO; -LPT40 PO; +MCTP EXT; +ONDA4TAB65 PO; +RXC5 PO; +ZLF50 PO; +ZVRO EXT; +[UNRECOGNIZED DRUG - CODE] IV
--- NOTE | 2017-03-20 10:30 | CODING QUERY NO DIAGNOSIS ---
TREATMENT RENDERED WITHOUT A DIAGNOSIS : 1935 To promote full compliance with coding requirements relating to patient care, physician participation is requested in all cases of body joiner uncertainty. Please assist us with providing a diagnosis/symptom for the test(s) below: A diagnosis/symptom was not documented on your Order. A valid diagnosis/symptom is required to bill all insurances. Please remember that we are unable to code a diagnosis of rule out, probable, possible, questionable, or suspected. Tests that require a diagnosis: DOS: 03/12/17 * WOUND CULTURE, SURFACE DIAGNOSIS: Provider Signature: Date: Thank you Isa Starkey [facility] Information Management Once completed, please kindly fax back to [phone] For questions please call [phone]
== END | disposition home or self-care (01) ==
LOC: C.LABUPHEI 12:02
PROVIDERS: ATTEND Nurse Practitioner Family
DX: Z00.00 Encounter for general adult medical examination without abnormal findings (principal)

== ENCOUNTER → 2017-03-31 | Outpatient (CLI) | payer BC ==
[2017-03-31 09:04] LABS: HEMATOCRIT 32.3 % (37-47); MEAN CELL VOLUME 103.2 fL (80-100); MEAN CORPUSCULAR HEMOGLOBIN 32.9 pg (25-34); MEAN CORPUSCULAR HGB CONC 31.9 g/dl (32-36); MEAN PLATELET VOLUME 10.5 fL (7.4-10.4); PLATELET COUNT 192 K/uL (130-400); RED BLOOD COUNT 3.13 M/uL (4.2-5.4); WHITE BLOOD COUNT 13.84 K/uL (4.8-10.8)
[2017-03-31 09:11] LABS: ALT/SGPT 59 U/L (12-78); BLOOD UREA NITROGEN 27 mg/dl (7-18); BUN/CREATININE RATIO 160.6 (10-20); CARBON DIOXIDE 28 mmol/L (21-32); CHLORIDE 103 mmol/L (98-107); CREATININE 0.17 mg/dl (0.60-1.20); GLUCOSE 160 mg/dl (70-99); POTASSIUM 4.2 mmol/L (3.5-5.1); SODIUM 136 mmol/L (136-145)
[2017-03-31 09:21] LABS: ALB/GLOB RATIO 0.8 (0.9-2); ALKALINE PHOSPHATASE 87 U/L (45-117); AST/SGOT 24 U/L (15-37); THYROID STIMULATING HORMONE 0.421 uIu/ml (0.300-4.500)
[2017-03-31 09:26] LABS: ESTIMATED AVERAGE GLUCOSE 114 mg/dl; HA1C FLAG Normal (Normal)
--- NOTE | 2017-04-10 09:05 | CODING QUERY MEDICAL NECESSITY ---
SUPPORTING DIAGNOSIS NEEDED A supporting diagnosis is required for the test/procedure performed on this patient in order for us to be reimbursed by the patient's insurance. Please provide a supporting diagnosis for the following test/procedure listed below next to the test name along with your signature. *If there is no additional diagnosis for this patient that would support the following test/procedure please document that below next to the test/procedure. Test(s)/Procedure(s) that require a supporting diagnosis: * HEMOGLOBIN A1C DIAGNOSIS: Provider Signature: Date: Thank you Florence Paige [employer] Information Management Once completed, please kindly fax back to [phone] For questions please call [phone]
== END | disposition home or self-care (01) ==
LOC: C.LABUPUNI 08:21
PROVIDERS: ATTEND Nurse Practitioner Family
DX: C71.9 Malignant neoplasm of brain, unspecified (principal); M62.81 Muscle weakness (generalized); E11.9 Type 2 diabetes mellitus without complications

== ENCOUNTER → 2017-04-07 | Outpatient (CLI) | payer BC ==
[2017-04-07 09:25] LABS: HEMATOCRIT 35.5 % (37-47); MEAN CELL VOLUME 107.3 fL (80-100); MEAN CORPUSCULAR HEMOGLOBIN 33.8 pg (25-34); MEAN CORPUSCULAR HGB CONC 31.5 g/dl (32-36); MEAN PLATELET VOLUME 10.1 fL (7.4-10.4); PLATELET COUNT 222 K/uL (130-400); RED BLOOD COUNT 3.31 M/uL (4.2-5.4); WHITE BLOOD COUNT 17.56 K/uL (4.8-10.8)
[2017-04-07 09:34] LABS: ALT/SGPT 56 U/L (12-78); BLOOD UREA NITROGEN 27 mg/dl (7-18); BUN/CREATININE RATIO 115.7 (10-20); CALCIUM 9.1 mg/dl (8.5-10.1); CARBON DIOXIDE 30 mmol/L (21-32); CHLORIDE 98 mmol/L (98-107); CREATININE 0.23 mg/dl (0.60-1.20); GLUCOSE 168 mg/dl (70-99); POTASSIUM 4.3 mmol/L (3.5-5.1); SODIUM 134 mmol/L (136-145)
[2017-04-07 09:37] LABS: ALB/GLOB RATIO 0.8 (0.9-2); ALKALINE PHOSPHATASE 122 U/L (45-117); AST/SGOT 20 U/L (15-37)
== END ==
LOC: C.LABUPBEA 08:58
PROVIDERS: ATTEND Nurse Practitioner Family
DX: C71.9 Malignant neoplasm of brain, unspecified (principal); M62.81 Muscle weakness (generalized)

== ENCOUNTER → 2017-04-14 | Outpatient (CLI) | payer BC ==
[2017-04-14 09:13] LABS: MEAN CORPUSCULAR HEMOGLOBIN 33.6 pg (25-34); MEAN CORPUSCULAR HGB CONC 31.4 g/dl (32-36); MEAN PLATELET VOLUME 9.7 fL (7.4-10.4); PLATELET COUNT 217 K/uL (130-400); RED BLOOD COUNT 3.27 M/uL (4.2-5.4); WHITE BLOOD COUNT 17.19 K/uL (4.8-10.8)
[2017-04-14 09:20] LABS: ALT/SGPT 59 U/L (12-78); BLOOD UREA NITROGEN 27 mg/dl (7-18); BUN/CREATININE RATIO 112.9 (10-20); CALCIUM 8.4 mg/dl (8.5-10.1); CARBON DIOXIDE 27 mmol/L (21-32); CHLORIDE 100 mmol/L (98-107); CREATININE 0.24 mg/dl (0.60-1.20); GLUCOSE 182 mg/dl (70-99); POTASSIUM 4.3 mmol/L (3.5-5.1); SODIUM 136 mmol/L (136-145)
[2017-04-14 09:23] LABS: ALKALINE PHOSPHATASE 105 U/L (45-117); AST/SGOT 23 U/L (15-37)
== END ==
LOC: C.LABUPBEA 08:49
PROVIDERS: ATTEND Nurse Practitioner Family
DX: C71.9 Malignant neoplasm of brain, unspecified (principal); J84.114 Acute interstitial pneumonitis

== ENCOUNTER → 2017-04-15 | Outpatient (CLI) | payer BC ==
[2017-04-15 08:50] LABS: URINE APPEARANCE CLOUDY (CLEAR); URINE BILIRUBIN NEG (NEG); URINE COLOR DK YELLOW; URINE EPITHELIAL CELL AUTO >30 /lpf (0-5); URINE NITRITE NEG (NEG); URINE SPECIFIC GRAVITY 1.022 (1.000-1.030); UROBILINOGEN NEG (NEG)
[2017-04-15 08:51] LABS: MANUAL MICROSCOPIC REQUIRED? NO; REVIEW REQ? YES
== END ==
LOC: C.LABUPBEA 08:33
PROVIDERS: ATTEND Nurse Practitioner Family
DX: R82.5 Elevated urine levels of drugs, medicaments and biological substances (principal)

== ENCOUNTER → 2017-04-28 | Outpatient (CLI) | payer BC ==
[2017-04-28 08:30] LABS: ALT/SGPT 49 U/L (12-78); BLOOD UREA NITROGEN 26 mg/dl (7-18); BUN/CREATININE RATIO 114.8 (10-20); CALCIUM 8.4 mg/dl (8.5-10.1); CARBON DIOXIDE 29 mmol/L (21-32); CHLORIDE 101 mmol/L (98-107); CREATININE 0.23 mg/dl (0.60-1.20); GLUCOSE 157 mg/dl (70-99); POTASSIUM 4.2 mmol/L (3.5-5.1); SODIUM 134 mmol/L (136-145)
[2017-04-28 08:33] LABS: ALB/GLOB RATIO 0.9 (0.9-2); ALKALINE PHOSPHATASE 127 U/L (45-117); AST/SGOT 22 U/L (15-37)
== END | disposition home or self-care (01) ==
LOC: C.LABUPBEA 08:01
PROVIDERS: ATTEND Nurse Practitioner Family
DX: C71.9 Malignant neoplasm of brain, unspecified (principal)

== ENCOUNTER → 2017-05-29 | Outpatient (CLI) | payer BC | LOC: C.LABUPBEA 09:14 | PROVIDERS: ATTEND Nurse Practitioner Family | DX: Z93.1 Gastrostomy status (principal) ==